=== PATIENT | male | born 1965 | race Caucasian/White ===

== ENCOUNTER → 2016-08-11 | Outpatient (CLI) | payer BC ==
[~2016-08-11] MED LIST: ASPI81TA28 PO; INSPMPHMLG; LISI-725 PO; METF1TAB53 PO; MULT-506 PO; NXM/40 PO; PRAV20TA PO
== END | disposition home or self-care (01) ==
LOC: C.RDSM 09:54
PROVIDERS: ATTEND Orthopaedic Surgery Sports Medicine
DX: M65.30 Trigger finger, unspecified finger (principal)

== ENCOUNTER → 2016-10-19 | Day surgery (SDC) | payer BC ==
[2016-09-22 14:37] VITALS: Ht 177.8 cm; Wt 127.3 kg
[2016-09-30 12:32] LABS: HEMATOCRIT 45.7 % (42-52); MEAN CELL VOLUME 89.6 fL (80-100); MEAN CORPUSCULAR HGB CONC 33.5 g/dl (32-36); MEAN PLATELET VOLUME 9.4 fL (7.4-10.4); PLATELET COUNT 261 K/uL (130-400); WHITE BLOOD COUNT 4.94 K/uL (4.8-10.8)
[2016-09-30 12:40] LABS: CREATININE 0.91 mg/dl (0.60-1.40); POTASSIUM 4.6 mmol/L (3.5-5.1)
[~2016-10-19] VITALS: Ht 177.8 cm; Wt 127.3 kg
[~2016-10-19] MED LIST changes: +ATROPINE SULFATE 0.1 MG/ML 5ML SYR IV PRN; +BUPIVACAINE 0.5 % 5 MG/1 ML MPF 30ML VIAL ONE; +CEFAZOLIN 3000 MG/65 ML D5W 65 ML IV SCH; +DEXAMETHASONE SOD INJ 4 MG/ML VIAL ONE; +FENTANYL CITRATE INJ 50 MCG/1 ML 2 ML VIAL IV PRN; +FENTANYL CITRATE INJ 50 MCG/1 ML 2 ML VIAL ONE; +LACTATED RINGER'S 1000ML 1,000 ML IV SCH; +LIDOCAINE HCL 1% 20 ML VIAL ONE; +LIDOCAINE HCL 2% 2 ML VIAL (20MG/ML) ONE; +MIDAZOLAM HCL 1 MG/ML 2ML VIAL ONE; +MoRPHine SULFATE 2 MG/ML CARP IV PRN; +MoRPHine SULFATE 4 MG/ML 1 ML CARP\\VIAL IV PRN; +ONDANSETRON INJ 2 MG/ML 2 ML VIAL IV PRN; +ONDANSETRON INJ 2 MG/ML 2 ML VIAL ONE; +OXYCODONE/ACETAMINOPHEN 5-325 TAB PO PRN; +PROPOFOL IV EMULSION 10 MG/ML 20 ML VIAL IV ONE
--- NOTE | 2016-10-19 06:46 | History & Physical Bridge - SC ---
H&P Re-Evaluation Bridge Note: I have examined the patient, reviewed the History & Physical and in the interval since the performance of the History & Physical I have noted the following changes of clinical significance: No changes noted
--- NOTE | 2016-10-19 07:25 | [facility] Post Operative Brief Note ---
Immediate Operative Summary Operative Date Oct 19, 2016. Pre-Operative Diagnosis Right Trigger Thumb Post-Operative Diagnosis Same Procedure(s) Performed Right Trigger Thumb Open Release Surgeon Dr. Richard Firewood Cutter Surgeon(s) Esthela Brizuela PA-C Estimated Blood Loss 2ml Findings Same Fluids (cc crystalloids) 400 Specimens None Drains none Anesthesia local, sedation Complication(s) None Disposition Recovery Room / PACU
--- NOTE | 2016-10-19 07:54 | Discharge Instructions-SurgCtr ---
Discharge Instructions Date of Service Oct 19, 2016. Visit Reason for Visit: Right Trigger Thumb M65.311, Z01.818;Pre-Op Discharge Discharge Diagnosis / Problem: Status post right thumb trigger thumb release Discharge Goals Goal(s): Decrease discomfort, Improve function, Increase independence Medications Stopped Medications Name(s): METFORMIN LAST DOSE 10/17/16 Activity Recommendations Activity Limitations: per Instructions/Follow-up section May Resume Sexual Activity: when tolerated Shower/Bathe: may shower/bathe in 3 days Driving or Machine Use: Not while on narcotics Anesthesia . Post Anesthesia Instructions: If you have had General Anesthesia or IV Sedation: * Do not drive today. * Resume driving when surgeon permits. * Do not make important decisions or sign legal documents today. * Call surgeon for: 1. Temperature elevations greater than 101 degrees F. 2. Uncontrollable pain. 3. Excessive bleeding. 4. Persistent nausea and vomiting. 5. Medication intolerance (nausea, vomiting or rash). * For nausea and vomiting use only clear liquids such as: tea, soda, bouillon until nausea subsides, then gradually increase diet as tolerated. * If you have any concerns or questions, call your surgeon's office. If physician is unavailable and it is an emergency, call 911 or go to the nearest emergency room. . Instructions / Follow-Up Instructions / Follow-Up Dr. Richard in 10-15 days. PT in 2-3 days. Diet Recommendations Home Diet: resume previous diet Procedures Procedures Performed: Right Trigger Thumb Open Release Pending Studies Studies pending at discharge: no Medical Emergencies . Who to Call and When: Medical Emergencies: If at any time you feel your situation is an emergency, please call 911 immediately. . Non-Emergent Contact Non-Emergency issues call your: Surgeon Call Non-Emergent contact if: temperature is above 101.5, your pain is not controlled, wound has increased drainage, wound has increased redness . . "Provider Documentation" section prepared by Deangelo Richard. .
--- NOTE | 2016-10-19 07:55 | [facility] Operative Report ---
Operative Report Operative Date Oct 19, 2016. Pre-Operative Diagnosis Right Trigger Thumb Post-Operative Diagnosis Same Procedure(s) Performed Right Trigger Thumb Open Release Surgeon Dr. Richard Hydrometeorological Technician Surgeon(s) Dr. Vieira; oYhana Proctor PA-C Estimated Blood Loss minimal Findings Thickened A1 Ashley Fluids (cc crystalloids) 400 Specimens A. A-1 Ashley Right Thumb Drains n/a Anesthesia Local + sedation Complication(s) None Disposition Recovery Room / PACU (Stable) Implants n/a Indications The patient is a 51 year old male with a painful right trigger thumb that has not responded to conservative treatment. The patient understands the risks of surgery, which include but are not limited to: bleeding, infection, re-operation , damage to nerves and arteries, and continued pain. The patient understands all of these instructions and explanations, all of their questions have been satisfactorily addressed. The patient has elected to proceed with surgery and the informed consent was signed. Description of Procedure The patient was taken to the Operating Room and placed in the supine position on the operating table. After a multidisciplinary time-out was performed identifying my initials on the right thumb as the correct and operative limb, the patient agreed. Prior to the incision being made, 2 grams of intravenous Ancef were given. The right arm was prepped and draped in the usual Orthopaedic sterile fashion. A 50:50 mix of 1% Lidocaine and 0.5% Bupivacaine plain was injected along the planned incision and into the tendon sheath. After the local anesthetic had taken affect, a small 1.5 cm incision was made just proximal to her thumb doyle crease. The digital nerves were protected throughout. This was bluntly carried down to the A1 ashley of the right thumb. The A1 ashley was incised and a small portion was excised for sample. The tendon then glided without catching or locking. The patient was asked to move flex his thumb and there was no catching or locking. The wound and tendon sheath were copiously irrigated. The skin was closed with 4-0 Nylon. The incision was covered with Xeroform, 4x4's, sterile cast padding and an ANDRE. The sponge and needle counts were correct. I attest to the content of the Intraoperative Record and any orders documented therein. Any exceptions are noted below.
--- NOTE | 2016-10-19 07:59 | [facility] Operative Report ---
Operative Report Operative Date Oct 19, 2016. Pre-Operative Diagnosis Right Trigger Thumb Post-Operative Diagnosis Same Procedure(s) Performed Right Trigger Thumb Open Release Surgeon Dr. Richard Crm Campaign Manager Surgeon(s) Esthela Brizuela PA-C Estimated Blood Loss 2ml Findings same Fluids (cc crystalloids) 400 Specimens A. A-1 Topher Right Thumb Drains none Anesthesia local, sedation Complication(s) None Disposition Recovery Room / PACU Implants none Indications continued pain and triggering right thumb, surgery recommended, consents signed Description of Procedure taken to the OR, prepped and draped, I was present the entire case, please see Dr. Richard's op note for further detail. I attest to the content of the Intraoperative Record and any orders documented therein. Any exceptions are noted below.
[2016-10-19 08:10] VITALS: TEMP 36.5
[2016-10-19 08:32] VITALS: BP 138/84; PULSE 80; O2SAT 94
--- NOTE | 2016-10-19 08:38 | Anesthesia Progress Nt - [facility] ---
Anesthesia Post Op Note Date & Time Oct 19, 2016 at 08:38 Vital Signs Vital Signs Past 12 Hours Date Time Temp Pulse Resp B/P (MAP) Pulse Ox O2 Delivery O2 Flow Rate FiO2 10/19/16 08:32 80 16 138/84 (102) 94 Room Air 10/19/16 08:10 36.5 80 16 130/85 (100) 94 Room Air 10/19/16 06:25 36.5 89 16 141/97 (112) 95 Room Air Notes Mental Status: alert / awake / arousable, participated in evaluation Pt Amnestic to Procedure: Yes Nausea / Vomiting: adequately controlled Pain: adequately controlled Airway Patency, RR, SpO2: stable & adequate BP & HR: stable & adequate Hydration State: stable & adequate Anesthetic Complications: no major complications apparent
== END | disposition home or self-care (01) ==
LOC: X.SURG 06:14
PROVIDERS: ATTEND Orthopaedic Surgery Sports Medicine
DX: M65.311 Trigger thumb, right thumb (principal); K21.9 Gastro-esophageal reflux disease without esophagitis; E11.9 Type 2 diabetes mellitus without complications; E78.5 Hyperlipidemia, unspecified; I10 Essential (primary) hypertension; Z79.4 Long term (current) use of insulin; Z79.82 Long term (current) use of aspirin

== ENCOUNTER 2020-03-04 12:29 | Inpatient (IN) ==
[2020-03-04] MEDS ORDERED: SODIUM CHLORIDE 0.9% 1000ML 1,000 ML IV ONE (13:01)
--- NOTE | 2020-03-04 13:05 | Emergency Department Note ---
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 He tested positive for coronavirus last Wednesday. His symptoms started on Wednesday with a cough and shortness of breath. He denies any chest pain. Admits to mild diffuse abdominal pain. No nausea or vomiting. He denies any diarrhea. Last bowel movement was within the past 24 hours but notes there has been less stool per bowel movement. He has not been eating or drinking for the past several days. Denies any fevers. No other exacerbating or remitting factors. ROS: See above HPI for pertinent positives & negatives. A total of 10 systems reviewed and were otherwise negative. PAST MEDICAL HISTORY:See Below PAST SURGICAL HISTORY:See Below FAMILY HISTORY:See Below SOCIAL HISTORY:See Below HOME MEDICATIONS:See Below ALLERGIES:See Below VITALS:See Below PHYSICAL EXAMINATION: GENERAL: Sitting up in bed, alert, obese, on nasal cannula EYE EXAM: normal conjunctiva. PERRL and EOM's grossly intact. OROPHARYNX: mask in place NECK: supple, no nuchal rigidity, no adenopathy, non-tender LUNGS: Diminished bilaterally. Normal chest wall mechanics HEART: no murmurs, S1 normal and S2 normal ABDOMEN: abdomen soft, non-tender, normo-active bowel sounds, no masses, no rebound or guarding. UPPER EXTREMITIES: upper extremities are grossly normal. LOWER EXTREMITIES: No pitting edema. NEURO EXAM: Normal sensorium, cranial nerves II-XII grossly intact, normal speech, no gross weakness of arms, no gross weakness of legs. MEDICAL DECISION MAKING: Patient is a 54-year-old male who is Covid positive the presents the ER for shortness of breath. Upon presentation he is found to be hypoxic at 86% on room air. He was placed on nasal cannula. IV was established blood work was obtained. Labs showed mild leukopenia 4000. No significant anemia. INR unre markable. D-dimer was elevated at 580. BMP with a sodium of 127. Glucose slightly elevated at 200. LFTs bilirubin was fairly unremarkable. Troponin was checked was 0.024. Lipase was normal. This x-ray with bilateral infiltrates. CT angio with a positive D-dimer confirms bilateral infiltrates but no PEs. Patient remained on nasal cannula. He was updated bedside. Discussed with the hospitalist admitted for Covid, hypoxia and multifocal pneumonia. He was given IV steroids, Zithromax and Rocephin. He was also given IV fluids. Triage Nursing notes reviewed. Prior medical records reviewed Vital Signs: reviewed and remarkable for hypoxia and tachycardia Differential diagnosis: Differential diagnoses includes but is not limited to pneumonia, bronchitis, COPD/Asthma exacerbation, pneumothorax, pulmonary embolism, congestive heart f ailure, acute coronary syndrome ER treatment provided: See below Diagnostics interpreted by me: ECG: Sinus tachycardia rate of 107 Normal axis No PVCs QTC 429 Cardiac Monitoring: An order was placed for continuous cardiac monitoring. The monitor shows a rate of 110 with sinus rhythm. Laboratory studies: As stated above and show below. Imaging studies: CT Angio of the chest shows multifocal pneumonia without any clear PEs Chest x-ray showed multifocal pneumonia Consultation(s): Discussed with Dr. Te conde for admission ED COURSE: Procedures: none Critical Care: I have personally spent 35 minutes of critical care time in the direct management of this patient. This includes bedside care, interpretation of diagnostic studies, and testing, discussion with consultants, patient, and family members, and other required patient management activities. This 35 minutes is in excess of all separately billable procedures. 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 How many Children do You have: 0 Feels Safe at Home: Yes Allergies Allergies Allergy/AdvReac Type Severity Reaction Status Date / Time naproxen Allergy Unknown EDEMA Verified 07/17/17 06:22 Sulfa (Sulfonamide Allergy Unknown "VIOLENTLY Verified 10/19/16 06:22 Antibiotics) ILL" Home Meds Home Medications Medication Instructions Recorded Confirmed aspirin 81 mg PO DAILY 03/04/20 03/04/20 budesonide-formoterol [Symbicort] 0 inh INHALATION DAILY 03/04/20 03/04/20 esomeprazole magnesium 40 mg PO QAM 03/04/20 03/04/20 insulin lispro [Humalog U-100 0 unit SUBCUT UD 03/04/20 03/04/20 Insulin] ipratropium bromide 0 spray INTRANASAL UD 03/04/20 03/04/20 lisinopril 40 mg PO DAILY 03/04/20 03/04/20 losartan 100 mg PO DAILY 03/04/20 03/04/20 metformin 1,000 mg PO BID 03/04/20 03/04/20 multivitamin 1 tab PO QAM 03/04/20 03/04/20 promethazine-codeine 10 ml PO HS PRN 03/04/20 03/04/20 rosuvastatin 20 mg PO DAILY 03/04/20 03/04/20 Results & Data (ED) Vital Signs Vital Signs - 24 hr 03/04/20 12:35 03/04/20 13:18 03/04/20 13:30 Temperature 36.8 C Temperature Source Skin Pulse Rate 114 H 107 H 109 H Pulse Rate from SpO2 Sensor 108 H Respiratory Rate 22 27 H 34 H Respiratory Effort / Characteristics Non-Labored Spontaneous Respiratory Depth Normal Respiratory Pattern Regular Blood Pressure Blood Pressure Mean Pulse Oximetry 87 L 94 Oxygen Delivery Method Room Air Nasal Cannula Oxygen Flow Rate 4 Sepsis Recent Fever Within 48 Hours No Sepsis New/Unexplained Change in Mental Status N/A Sepsis Action Taken by Nursing No Action Required Oxygen Flow Rate - Titration 4 Pulse Oximetry Post Tiitration 95 03/04/20 13:54 03/04/20 14:00 03/04/20 14:01 Temperature Temperature Source Pulse Rate 107 H 106 H 105 H Pulse Rate from SpO2 Sensor 105 H 106 H 102 H Respiratory Rate 35 H 30 H 25 H Respiratory Effort / Characteristics Respiratory Depth Respiratory Pattern Blood Pressure 170/88 H 163/110 H Blood Pressure Mean 128 128 Pulse Oximetry 95 95 Oxygen Delivery Method Nasal Cannula Nasal Cannula Oxygen Flow Rate 4 4 Sepsis Recent Fever Within 48 Hours Sepsis New/Unexplained Change in Mental Status Sepsis Action Taken by Nursing Oxygen Flow Rate - Titration Pulse Oximetry Post Tiitration Laboratory Data Result diagrams: 03/04/20 13:24 03/04/20 13:24 Lab Results 03/04/20 03/04/20 03/04/20 Range/Units 13:24 13:24 13:24 WBC 4.04 L (4.8-10.8) K/uL RBC 4.93 (4.7-6.1) M/uL Hgb 14.6 (14.0-18.0) g/dL Hct 42.8 (42-52) % MCV 86.8 (80-100) fL MCH 29.6 (25-34) pg MCHC 34.1 (32-36) g/dL RDW Std Deviation 41.8 (36.4-46.3) fL RDW Coeff of Julian 13.0 (11.5-14.5) % Plt Count 168 (130-400) K/uL MPV 9.6 (7.4-10.4) fL Immature Gran % (Auto) 0.2 % Neut % (Auto) 76.1 % Lymph % (Auto) 12.1 % Owsley % (Auto) 11.4 % Eos % (Auto) 0.0 % Baso % (Auto) 0.2 % Neut # (Auto) 3.07 (1.4-6.5) K/uL Lymph # (Auto) 0.49 L (1.2-3.4) K/uL Owsley # (Auto) 0.46 (0.11-0.59) K/uL Eos # (Auto) 0.00 (0-0.5) K/uL Baso # (Auto) 0.01 (0-0.2) K/uL Immature Gran # (Auto) 0.01 (0.00-0.02) K/uL PT 10.9 (9.0-12.0) Seconds INR 1.0 (0.9-1.1) APTT 30.8 (21.0-31.0) Seconds PTT Ratio 1.1 D-Dimer 580 H* (0-500) ug/L FEU Sodium 127 L (136-145) mmol/L Potassium 4.5 (3.5-5.1) mmol/L Chloride 92 L (98-107) mmol/L Carbon Dioxide 28 (21-32) mmol/L Anion Gap 7.0 (3-11) BUN 19 H (7-18) mg/dl Creatinine 0.99 (0.6-1.4) mg/dl Est Cr Clr Drug Dosing 119.0 ml/min Est GFR ( Amer) 98.3 Est GFR (Non-Af Amer) 84.8 BUN/Creatinine Ratio 19.2 (10-20) Glucose 203 H (70-99) mg/dl POC Glucose (70-99) mg/dl Calcium 9.6 (8.5-10.1) mg/dl Total Bilirubin 0.7 (0.2-1) mg/dl AST 66 H (15-37) U/L ALT 54 (12-78) U/L Alkaline Phosphatase 60 (45-117) U/L Troponin I 0.024 (0-0.045) ng/ml Total Protein 7.4 (6.4-8.2) gm/dl Albumin 3.2 L (3.4-5.0) gm/dl Globulin 4.2 H (2.5-4.0) gm/dl Albumin/Globulin Ratio 0.8 L (0.9-2) Lipase 83 (73-393) U/L 11/30/20 Range/Units 13:30 WBC (4.8-10.8) K/uL RBC (4.7-6.1) M/uL Hgb (14.0-18.0) g/dL Hct (42-52) % MCV (80-100) fL MCH (25-34) pg MCHC (32-36) g/dL RDW Std Deviation (36.4-46.3) fL RDW Coeff of Julian (11.5-14.5) % Plt Count (130-400) K/uL MPV (7.4-10.4) fL Immature Gran % (Auto) % Neut % (Auto) % Lymph % (Auto) % Owsley % (Auto) % Eos % (Auto) % Baso % (Auto) % Neut # (Auto) (1.4-6.5) K/uL Lymph # (Auto) (1.2-3.4) K/uL Owsley # (Auto) (0.11-0.59) K/uL Eos # (Auto) (0-0.5) K/uL Baso # (Auto) (0-0.2) K/uL Immature Gran # (Auto) (0.00-0.02) K/uL PT (9.0-12.0) Seconds INR (0.9-1.1) APTT (21.0-31.0) Seconds PTT Ratio D-Dimer (0-500) ug/L FEU Sodium (136-145) mmol/L Potassium (3.5-5.1) mmol/L Chloride (98-107) mmol/L Carbon Dioxide (21-32) mmol/L Anion Gap (3-11) BUN (7-18) mg/dl Creatinine (0.6-1.4) mg/dl Est Cr Clr Drug Dosing ml/min Est GFR ( Amer) Est GFR (Non-Af Amer) BUN/Creatinine Ratio (10-20) Glucose (70-99) mg/dl POC Glucose 215 H (70-99) mg/dl Calcium (8.5-10.1) mg/dl Total Bilirubin (0.2-1) mg/dl AST (15-37) U/L ALT (12-78) U/L Alkaline Phosphatase (45-117) U/L Troponin I (0-0.045) ng/ml Total Protein (6.4-8.2) gm/dl Albumin (3.4-5.0) gm/dl Globulin (2.5-4.0) gm/dl Albumin/Globulin Ratio (0.9-2) Lipase (73-393) U/L Administered Medications Discontinued Medications Azithromycin (Azithromycin 250 Mg Tab) 500 mg PO NOW ONE Stop: 03/04/20 14:21 Last Admin: 03/04/20 14:59 Dose: 500 mg Documented by: [id number] Dexamethasone (Dexamethasone Sod Inj 10 Mg/Ml Vial) 6 mg IV NOW ONE Stop: 03/04/20 14:51 Last Admin: 03/04/20 14:59 Dose: 6 mg Documented by: [id number] Sodium Chloride (Nss 1000ml) 1,000 mls @ 999 mls/hr IV .Q1H1M ONE Stop: 03/04/20 14:01 Last Infusion: 03/04/20 14:23 Dose: 0 mls/hr Documented by: [id number] Admin: 03/04/20 13:27 Dose: 999 mls/hr Documented by: [id number] Ceftriaxone Sodium (Rocephin) 1,000 mg in 50 mls @ 100 mls/hr IV NOW STA Stop: 03/04/20 14:49 Last Infusion: 03/04/20 15:41 Dose: 0 mls/hr Documented by: [id number] Admin: 03/04/20 14:59 Dose: 100 mls/hr Documented by: [id number] Discharge Plan Visit Data Chief Complaint: Dehydration Stated Complaint: +COVID,DEHYDRATED,DIABETIC,DOC REFER ED Provider: Mukund Fan Discharge Problem: Pneumonia due to COVID-19 virus, Morbid obesity, Hypoxia Forms Stand Alone Forms: [facility] Prescriptions Prescriptions: No Action multivitamin Tablet 1 tab PO QAM RF: 0 promethazine-codeine 6.25-10 mg/5 mL syrup 10 ml PO HS PRN (Reason: Cough) RF: 0 esomeprazole magnesium 40 mg capsule,delayed release(DR/EC) 40 mg PO QAM RF: 0 insulin lispro [Humalog U-100 Insulin] 100 unit/mL solution 0 unit subcut UD RF: 0 lisinopril 40 mg tablet 40 mg PO DAILY RF: 0 losartan 100 mg tablet 100 mg PO DAILY RF: 0 metformin 500 mg tablet extended release 24 hr 1,000 mg PO BID RF: 0 ipratropium bromide 0.03 % spray,non-aerosol 0 spray INTRANASAL UD RF: 0 rosuvastatin 20 mg tablet 20 mg PO DAILY RF: 0 budesonide-formoterol [Symbicort] 80-4.5 mcg/actuation HFA aerosol inhaler 0 inh INHALATION DAILY RF: 0 aspirin 81 mg Tablet,Delayed Release (Dr/Ec) 81 mg PO DAILY RF: 0
--- NOTE | 2020-03-04 13:36 | XRay Report ---
SINGLE VIEW CHEST CLINICAL HISTORY: Atypical chest pain. FINDINGS: An AP, portable, upright chest radiograph is compared to study dated 01/27/2020. The examin ation is degraded by portable technique and large body habitus. The heart is top normal for projectio n. There is multifocal bilateral airspace consolidation. No large pleural effusion or pneumothorax is seen. The bony thorax is grossly intact. IMPRESSION: There is multifocal bilateral airspace consolidation, typical for an infectious/inflammat ory pneumonitis. Clinical correlation will be required and radiographic follow-up to resolution is re commended. ACT 112: Negative or not required by law. Electronically signed by: Surjit Veliz M.D. 03/04/2020 1:34 PM
[2020-03-04 13:49] LABS: Basophils # (auto) 0.01 K/uL (0-0.2); Basophils % (auto) 0.2 %; Hematocrit (blood only) 42.8 % (42-52); Hemoglobin 14.6 g/dL (14.0-18.0); Immature Granulocytes # (auto) 0.01 K/uL (0.00-0.02); Immature Granulocytes % (auto) 0.2 %; Lymphocytes # (auto) 0.49 K/uL (1.2-3.4); Lymphocytes % (auto) 12.1 %; Mean Corpuscular Hemoglobin 29.6 pg (25-34); Mean Corpuscular Hgb Conc 34.1 g/dL (32-36); Mean Corpuscular Volume 86.8 fL (80-100); Mean Platelet Volume 9.6 fL (7.4-10.4); Monocytes # (auto) 0.46 K/uL (0.11-0.59); Monocytes % (auto) 11.4 %; Neutrophils # (auto) 3.07 K/uL (1.4-6.5); Neutrophils % (auto) 76.1 %; Platelet Count 168 K/uL (130-400); RDW Standard Deviation 41.8 fL (36.4-46.3); Red Blood Count 4.93 M/uL (4.7-6.1); White Blood Count 4.04 K/uL (4.8-10.8)
[2020-03-04 13:59] LABS: Albumin Level 3.2 gm/dl (3.4-5.0); BUN Creatinine Ratio 19.2 (10-20); Calcium 9.6 mg/dl (8.5-10.1); Est GFR (African American) 98.3; Est GFR (Non-African American) 84.8; Potassium 4.5 mmol/L (3.5-5.1)
[2020-03-04 14:04] LABS: Albumin Globulin Ratio 0.8 (0.9-2); Bilirubin,Total 0.7 mg/dl (0.2-1); Globulin 4.2 gm/dl (2.5-4.0); Total Protein 7.4 gm/dl (6.4-8.2); Troponin I 0.024 ng/ml (0-0.045)
[2020-03-04 14:05] LABS: Partial Thromboplastin Ratio 1.1; Partial Thromboplastin Time 30.8 Seconds (21.0-31.0); Prothrombin Time 10.9 Seconds (9.0-12.0)
[2020-03-04 14:07] LABS: D Dimer 580 ug/L FEU (0-500)
[2020-03-04] MEDS ORDERED: cefTRIAXone SODIUM 1,000 MG/50 ML BAG IV STA (14:20)
[2020-03-04] MEDS ORDERED: AZITHROMYCIN 250 MG TAB PO ONE (14:20)
[2020-03-04] MEDS ORDERED: DEXAMETHASONE SOD INJ 10 MG/ML VIAL IV ONE (14:50)
--- NOTE | 2020-03-04 14:59 | CT Scan Report ---
CHEST CTA for PULMONARY ARTERIES CT DOSE: 544.20 mGycm HISTORY: Shortness of breath. Positive coronavirus. TECHNIQUE: Multiaxial CT images of the chest were performed following the intravenous administration of contrast to evaluate the pulmonary arteries. Maximal intensity projection images were also obtaine d. A dose lowering technique was utilized adhering to the principles of ALARA. COMPARISON STUDY: Chest 03/04/2020. FINDINGS: Normal caliber thoracic aorta with no evidence for dissection. Suboptimal evaluation of the pulmonary arteries due to the motion artifact. Specifically, the majority of the segmental and subse gmental pulmonary arteries are nondiagnostic due to the motion artifact. The main and lobar pulmonary arteries are patent. The heart is normal in size. No pleural or pericardial effusions. Hepatic steat osis. The adrenal glands and visualized spleen are unremarkable. Mediastinal lymphadenopathy. Dominan t right paratracheal lymph node measures 2 cm in short axis diameter. This is likely reactive. Normal caliber esophagus. No suspicious lytic or blastic osseous lesions. The central airways are patent. T he distal bronchi are obscured by the motion artifact. Extensive bilateral patchy groundglass airspac e opacities. This is consistent with a viral pneumonia. IMPRESSION: 1. No evidence for central pulmonary embolus with limitations as described above. 2. Extensive bilateral patchy groundglass airspace opacities. This is consistent with a viral pneumon ia. 3. Mediastinal lymphadenopathy. This is likely reactive to the pneumonia. ACT 112: Negative or not required by law. Electronically signed by: Jeison Restrepo M.D. 03/04/2020 2:57 PM
--- NOTE | 2020-03-04 15:36 | History & Physical Report ---
Date of Service March 04, 2020 Assessment & Plan (1) Acute respiratory failure with hypoxia: 2nd to COVID-19 pneumonia. Supportive care, NC O2 to keep O2 sats 92-95%, etc. Pulmonary toilet. (2) Pneumonia due to COVID-19 virus: Severe, extensive on imaging. Significant cough, dyspnea, wheezing present. At risk of progressive disease in light of clinical picture, obesity, T2DM, etc. Treat with IV remdesivir x 5 days, IV/PO decadron 6mg daily x 10 days, and convalescent plasma. FDA information sheet on plasma given. Blood consent obtained. Transfuse when available. Patient has had cough since January - can't rule out underlying, chronic obstructive disease; sinus issues; etc. Reasonable to continue IV rocephin and zithromax for possibility of bacterial pneumonia/superinfection. Procal, however, noted to be normal. Due to severe wheezing place on combivent 1 puff qid. Pulmonary toilet with mucinex, incentive marek, and flutter valve. Homatropine/hydrocodone prn for severe coughing fits. Recheck dimer in AM. Fortunately no PE on today's imaging. (3) Hyponatremia: Appears volume depleted. NS hydration overnight; repeat BMP am. (4) Morbid obesity: BMI 45 (5) Rhabdomyolysis due to COVID-19: Mild. Hydrate, repeat CPK am. (6) Hyperlipidemia: AST and CPK both mildly elevated. Hold crestor for now. Trend AST and CPK. Hydrate. (7) Essential (primary) hypertension: Patient on both ANDRE and ARB. Cont the ANDRE; hold the ARB. Adjust meds as needed. (8) Type 2 diabetes mellitus: Consult pharmacy for glycemic management. Is on pump at home. Hold metformin. Check a1c while here. T2DM. BSGs ac/hs. (9) Sarcoidosis: remote history. dx . in remission. no signs of such on imaging although does have mediastinal lymphadenopathy. the latter could be reactive to COVID, however. (10) DVT prophylaxis: high risk of VTE while hospitalized thus, lovenox 0.5mg/kg/dose BID extensively updated by phone History of Present Illness Chief Complaint: cough, COVID+, dyspnea Primary Care Provider: Ferdinand Kirkpatrick MD 54yo male with T2DM on insulin pump, remote h/o sarcoid in remission, HTN, and morbid obesity presents with COVID symptoms going back to Wednesday/Wednesday of last week. 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 Last Wednesday he tested positive for the first time. He had been struggling with a cough dating back to mid-January- unresponsive to antibiotics - but began to feel much worse on Wednesday before Thanks. Denies any fever or chills but has had significant loss of appetite, cough, worsening dyspnea, sputum production, upper abdominal discomfort with cough, and chest tightness. No loss of taste or smell. No sore throat. Some body aches. The sputum production late last week was copious. He doesn't have a formal diagnosis of asthma but he states he "gets sick every fall with a respiratory illness." On his medication list he has symbicort listed as home med however he states that he doesn't take it regularly. Denies having a formal diagnosis of asthma/COPD. Did have PFTs but it was decades ago about the time of his sarcoid diagnosis (). Allergies Allergy/AdvReac Type Severity Reaction Status Date / Time naproxen Allergy Unknown EDEMA Verified 10/19/16 06:22 Sulfa (Sulfonamide Allergy Unknown "VIOLENTLY Verified 10/19/16 06:22 Antibiotics) ILL" Home Medications Medication Instructions Recorded Confirmed Type aspirin 81 mg PO DAILY 03/04/20 03/04/20 History budesonide-formoterol [Symbicort] 0 inh INHALATION DAILY 03/04/20 03/04/20 History esomeprazole magnesium 40 mg PO QAM 03/04/20 03/04/20 History insulin lispro [Humalog U-100 0 unit SUBCUT UD 03/04/20 03/04/20 History Insulin] ipratropium bromide 0 spray INTRANASAL UD 03/04/20 03/04/20 History lisinopril 40 mg PO DAILY 03/04/20 03/04/20 History losartan 100 mg PO DAILY 03/04/20 03/04/20 History metformin 1,000 mg PO BID 03/04/20 03/04/20 History multivitamin 1 tab PO QAM 03/04/20 03/04/20 History promethazine-codeine 10 ml PO HS PRN 03/04/20 03/04/20 History rosuvastatin 20 mg PO DAILY 03/04/20 03/04/20 History Past Med/Surg History Medical History (Updated 03/05/20 @ 06:37 by Te Sharif) Essential (primary) hypertension Hyperlipidemia Sarcoidosis Diagnosed ; currently in remission Type 2 diabetes mellitus Surgical History (Updated 03/04/20 @ 16:29 by Te Sharif) No pertinent past surgical history Family History (Updated 03/04/20 @ 16:30 by Te Sharif) Father Congestive heart failure Mother Bowel obstruction Social History (Updated 03/04/20 @ 16:30 by Te Sharif) Smoking Status: Never smoker Hx Alcohol Use: No Hx Substance Use: No Preferred Language: Yi Communication Ability: Effective Director Of Community Services Required: No Beliefs That Will Affect Care: None marital status: Current Living Situation: Spouse current occupational status: employed 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 How many Children do You have: 0 Other Information That Helps Us Care for You: No Feels Safe at Home: Yes Safety Concerns: Feels Safe At This Time Assistive Devices: None Review of Systems Constitutional: + body aches, + fatigue, + weakness and + anorexia; no fever and no chills Eyes: no worsening vision Ear, Nose, Mouth, Throat: no sore throat Respiratory: + cough, + dyspnea, + dyspnea on exertion, + sputum production and + wheezing Cardiovascular: + chest pain; no edema Gastrointestinal: + abdominal pain Genitourinary: no dysuria Musculoskeletal: + myalgia Integumentary: no rash Neurologic: + generalized weakness Psychiatric: no anxiety Endocrine: DM - followed by Taniya Longo in [facility]; has pump in place Hematologic / Lymphatic: no easy bleeding Physical Exam Constitutional: + acute distress and + morbidly obese; no altered mental status Eyes: PERRL ENMT: external ear and nose normal, oropharynx normal Neck: trachea midline, no thyromegaly Respiratory: + cough (Severe ) Auscultation: + crackles (B/l, 1/2 way up back) and + wheezes Cardiovascular: Rate/Rhythm: regular rhythm and + tachycardic Heart Sounds: normal S1 and normal S2; no murmur Vessels: posterior tibial pulses present and dorsalis pedis pulses present; no JVD Extremities: + edema (Trace b/l ) Gastrointestinal (Abdomen): normal bowel sounds, soft, nontender, no hepatosplenomegaly Inspection/Auscultation: + abdomen distended (Mild; insulin pump in place) Musculoskeletal: no cyanosis or clubbing, extremities motor strength 5/5 Skin: stasis changes b/l shins Neurologic: moves all extremities; no focal motor deficits Psychiatric: Orientation: alert and oriented x 3 Lymphatic: no cervical lymphadenopathy Results & Data Results & Data ([facility]) Vital Signs (Past 12 Hours) Vital Signs Temp Pulse Resp BP Pulse Ox 03/04/20 14:01 105 H 25 H 03/04/20 14:00 106 H 30 H 163/110 H 95 03/04/20 13:54 107 H 35 H 170/88 H 95 03/04/20 13:30 109 H 34 H 94 03/04/20 13:18 107 H 27 H 03/04/20 12:35 36.8 C 114 H 22 87 L Laboratory Results Laboratory Results - last 24 hr 03/04/20 03/04/20 03/04/20 13:24 13:24 13:24 WBC 4.04 L RBC 4.93 Hgb 14.6 Hct 42.8 MCV 86.8 MCH 29.6 MCHC 34.1 RDW Std Deviation 41.8 RDW Coeff of Julian 13.0 Plt Count 168 MPV 9.6 Immature Gran % (Auto) 0.2 Neut % (Auto) 76.1 Lymph % (Auto) 12.1 [place] % (Auto) 11.4 Eos % (Auto) 0.0 Baso % (Auto) 0.2 Neut # (Auto) 3.07 Lymph # (Auto) 0.49 L [place] # (Auto) 0.46 Eos # (Auto) 0.00 Baso # (Auto) 0.01 Immature Gran # (Auto) 0.01 PT 10.9 INR 1.0 APTT 30.8 PTT Ratio 1.1 D-Dimer 580 H* Sodium 127 L Potassium 4.5 Chloride 92 L Carbon Dioxide 28 Anion Gap 7.0 BUN 19 H Creatinine 0.99 Est Cr Clr Drug Dosing 119.0 Est GFR ( Amer) 98.3 Est GFR (Non-Af Amer) 84.8 BUN/Creatinine Ratio 19.2 Glucose 203 H POC Glucose Calcium 9.6 Total Bilirubin 0.7 AST 66 H ALT 54 Alkaline Phosphatase 60 Total Creatine Kinase Troponin I 0.024 Total Protein 7.4 Albumin 3.2 L Globulin 4.2 H Albumin/Globulin Ratio 0.8 L Lipase 83 Procalcitonin Blood Type Antibody Screen 03/04/20 03/04/20 03/04/20 13:24 13:29 13:30 WBC RBC Hgb Hct MCV MCH MCHC RDW Std Deviation RDW Coeff of Julian Plt Count MPV Immature Gran % (Auto) Neut % (Auto) Lymph % (Auto) [place]ville % (Auto) Eos % (Auto) Baso % (Auto) Neut # (Auto) Lymph # (Auto) [place]ville # (Auto) Eos # (Auto) Baso # (Auto) Immature Gran # (Auto) PT INR APTT PTT Ratio D-Dimer Sodium Potassium Chloride Carbon Dioxide Anion Gap BUN Creatinine Est Cr Clr Drug Dosing Est GFR ( Amer) Est GFR (Non-Af Amer) BUN/Creatinine Ratio Glucose POC Glucose 215 H Calcium Total Bilirubin AST ALT Alkaline Phosphatase Total Creatine Kinase 657 H Troponin I Total Protein Albumin Globulin Albumin/Globulin Ratio Lipase Procalcitonin 0.10 Blood Type Antibody Screen 03/04/20 03/04/20 17:10 21:35 WBC RBC Hgb Hct MCV MCH MCHC RDW Std Deviation RDW Coeff of Julian Plt Count MPV Immature Gran % (Auto) Neut % (Auto) Lymph % (Auto) Granville % (Auto) Eos % (Auto) Baso % (Auto) Neut # (Auto) Lymph # (Auto) [place]ville # (Auto) Eos # (Auto) Baso # (Auto) Immature Gran # (Auto) PT INR APTT PTT Ratio D-Dimer Sodium Potassium Chloride Carbon Dioxide Anion Gap BUN Creatinine Est Cr Clr Drug Dosing Est GFR ( Amer) Est GFR (Non-Af Amer) BUN/Creatinine Ratio Glucose POC Glucose 111 H Calcium Total Bilirubin AST ALT Alkaline Phosphatase Total Creatine Kinase Troponin I Total Protein Albumin Globulin Albumin/Globulin Ratio Lipase Procalcitonin Blood Type A Positive Antibody Screen NEGATIVE Diagnostic Findings CTA chest - IMPRESSION: 1. No evidence for central pulmonary embolus with limitations as described above. 2. Extensive bilateral patchy groundglass airspace opacities. This is consistent with a viral pneumonia. 3. Mediastinal lymphadenopathy. This is likely reactive to the pneumonia. EKG - sinus tach, no ST changes, no changes from prior EKG Code Status & VTE Plan Code Status full VTE Prophylaxis Plan VTE Prophylaxis will be ordered: Yes PG Care Time/CCT Total # of Minutes Spent Total Time Spent with Patient: Total time spent is greater than 50% in coordination of care (as documented) at patient's floor/unit and/or counseling patient: Coding Level of Care Code 11114 Initial Inpt Care Lvl 3 Diagnoses Acute respiratory failure with hypoxia J96.01 Pneumonia due to COVID-19 virus U07.1; J12.89 Hyponatremia E87.1 Morbid obesity E66.01 Rhabdomyolysis due to COVID-19 U07.1; M62.82 Hyperlipidemia E78.5 Essential (primary) hypertension I10 Type 2 diabetes mellitus E11.9 Sarcoidosis D86.9 DVT prophylaxis Z29.9
--- NOTE | 2020-03-04 16:26 | Electrocardiogram Report ---
Test Reason : Blood Pressure : / mmHG Vent. Rate : 107 BPM Atrial Rate : 107 BPM P-R Int : 162 ms QRS Dur : 078 ms QT Int : 322 ms P-R-T Axes : 032 058 023 degrees QTc Int : 429 ms Sinus tachycardia Otherwise normal ECG When compared with ECG of 30-SEP-2016 10:55, No significant change was found Confirmed by Shawn Hall ([id number]) on 03/04/2020 4:26:07 PM Referred By: Confirmed By:Yoel Hall
[2020-03-04] MEDS ORDERED: ONDANSETRON INJ 2 MG/ML 2 ML VIAL IV PRN (20:09)
[2020-03-04] MEDS ORDERED: ACETAMINOPHEN 325 MG TAB PO PRN (20:09)
[2020-03-04] MEDS ORDERED: IPRATROPIUM BROMIDE/ALBUTEROL respimat INH INH SCH (20:09)
[2020-03-04] MEDS ORDERED: HYDROcodone/HOMATROPINE SYRUP 5MG/1.5MG 5ML UDP PO PRN (20:09)
[2020-03-04] MEDS ORDERED: PHARMACY GLYCEMIC MGMT CONSULT PRN (20:20)
[2020-03-04] MEDS: IPRATROPIUM BROMIDE HFA INHALER INH SCH (20:46)
[2020-03-04] MEDS: ALBUTEROL HFA 8 GM INHALER INH SCH (20:46)
[2020-03-04] MEDS ORDERED: REMDESIVIR 200 MG in SODIUM CHLORIDE 0.9% 210 ML IV ONE (21:00)
[2020-03-04] MEDS ORDERED: GLUCOSE 10 TABS/TUBE PO PRN (21:00)
[2020-03-04] MEDS ORDERED: GLUCAGON FOR INJ 1 MG VIAL SQ PRN (21:00)
[2020-03-04] MEDS ORDERED: GLUCOSE 40% GEL 15 GM TUBE PO PRN (21:00)
[2020-03-04] MEDS ORDERED: DEXTROSE 50% 50 ML SYRINGE IV PRN (21:00)
[2020-03-04] MEDS: SODIUM CHLORIDE 0.9% 10ML FLUSH IV SCH (21:51)
[2020-03-04] MEDS: ENOXAPARIN 80 MG/0.8 ML SYR SQ SCH (21:52)
[2020-03-04] MEDS: guaiFENesin 600 MG TABCR PO SCH (21:53)
[2020-03-04] MEDS: SODIUM CHLORIDE 0.9% 1000ML 1,000 ML IV SCH (21:55)
[2020-03-05 06:39] LABS: Hemoglobin 14.7 g/dL (14.0-18.0); Mean Corpuscular Hgb Conc 34.2 g/dL (32-36); Mean Corpuscular Volume 87.8 fL (80-100); Mean Platelet Volume 9.1 fL (7.4-10.4); Platelet Count 188 K/uL (130-400); RDW Coefficient of Variation 12.9 % (11.5-14.5); RDW Standard Deviation 41.6 fL (36.4-46.3); White Blood Count 3.28 K/uL (4.8-10.8)
[2020-03-05 06:50] LABS: D Dimer 470 ug/L FEU (0-500)
[2020-03-05 07:12] LABS: BUN Creatinine Ratio 19.8 (10-20); Calcium 9.3 mg/dl (8.5-10.1); Creatinine Clr Calc Pharmacy 163.7 ml/min; Est GFR (African American) 120.9; Est GFR (Non-African American) 104.3; Potassium 4.3 mmol/L (3.5-5.1)
[2020-03-05] MEDS: CARBOHYDRATES FOR HYPOGLYCEMIA PO PRN ×2 (07:18→07:53)
[2020-03-05] MEDS: ALBUTEROL HFA 8 GM INHALER INH SCH ×4 (07:39→19:50)
[2020-03-05] MEDS: IPRATROPIUM BROMIDE HFA INHALER INH SCH ×4 (07:39→19:51)
[2020-03-05] MEDS: dexAMETHasone 6 MG in SYRINGE 0 ML IV SCH (07:55)
[2020-03-05] MEDS: PANTOprazole 40 MG TAB PO SCH (07:56)
[2020-03-05] MEDS: lisinopril 40 MG TAB PO SCH (07:56)
[2020-03-05] MEDS: ASPIRIN 81 MG ECTAB PO SCH (07:56)
[2020-03-05] MEDS: ENOXAPARIN 80 MG/0.8 ML SYR SQ SCH ×2 (07:56→20:58)
[2020-03-05] MEDS: guaiFENesin 600 MG TABCR PO SCH ×2 (07:56→21:00)
[2020-03-05] MEDS: MULTIVITAMIN TAB PO SCH (07:56)
[2020-03-05] MEDS: SODIUM CHLORIDE 0.9% 1000ML 1,000 ML IV SCH (07:58)
[2020-03-05] MEDS: cefTRIAXone SODIUM 2,000 MG in DEXTROSE 5% 50 ML IV SCH (08:12)
--- NOTE | 2020-03-05 09:04 | Hospitalist Progress Note ---
Date of Service March 05, 2020 Assessment & Plan (1) Acute respiratory failure with hypoxia: 2nd to COVID-19 pneumonia. Supportive care, NC O2 to keep O2 sats 92-95%, etc. Pulmonary toilet. (2) Pneumonia due to COVID-19 virus: Severe, extensive on imaging. Escalated oxygen requirement to 13 L oxygen mask at this time will change to high flow At risk of progressive disease obesity, T2DM, etc. Treat with IV remdesivir x 5 days, IV/PO decadron 6mg daily x 10 days, and convalescent plasma. FDA information sheet on plasma given. Blood consent obtained. Transfused Patient has had cough since January - can't rule out underlying, chronic obst ructive disease; sinus issues; etc. Reasonable to continue IV rocephin and zithromax for possibility of bacterial pneumonia/superinfection. Procal, normal. Due to severe wheezing place on combivent 1 puff qid. Pulmonary toilet with mucinex, incentive marek, and flutter valve. Homatropine/hydrocodone prn for severe coughing fits. Repeat D-dimer is normal CK has gone up slightly whether this is a myositis of Covid is undetermined, holding statin at this time due to previous abnormal CK Fortunately no PE on today's imaging. (3) Hyponatremia: Appears volume depleted. NS hydration overnight; repeat BMP am. (4) Morbid obesity: BMI 45 (5) Rhabdomyolysis due to COVID-19: Mild. Hydrate, repeat CPK am. (6) Hyperlipidemia: AST and CPK both mildly elevated. Hold crestor for now. Trend AST and CPK. Hydrate. (7) Essential (primary) hypertension: Patient on both ANDRE and ARB. Cont the ANDRE; hold the ARB. Adjust meds as needed. (8) Type 2 diabetes mellitus: Consult pharmacy for glycemic management. Is on pump at home. Hold metformin. T2DM. BSGs ac/hs. (9) Sarcoidosis: remote history. dx . in remission. no signs of such on imaging although does have mediastinal lymphadenopathy. the latter could be reactive to COVID, however. (10) DVT prophylaxis: high risk of VTE while hospitalized thus, lovenox 0.5mg/kg/dose BID Admission and Anticipated Discharge Date Admission Date: March 04, 2020 Subjective this pt is mildly short of breath, he has a non productive cough Review of Systems Review of Systems: Mild distress and fatigue no headache, blurry or double vision no speech or swallowing issues no chest pain, pressure or palpitations shortness of breath, non productive cough no abdominal pain, nausea or vomiting, diarrhea or constipation no dysuria, hematuria or frequency no focal joint pain or swelling no back pain, CVA tenderness or radicular pain no bruising, bleeding or rashes no focal signs of weakness or numbness or altered sensation no complaints of anxiety or depression. Physical Exam Physical Exam: The patient appeared morbidly obese and in mild distress Vital signs as documented. Head exam is normocephalic atraumatic no scleral icterus Neck is without JVD, thyromegaly, or carotid bruits. Lungs are also the bases clearing to the apex Cardiac exam, Rhythm is regular.. No murmurs, rubs or gallops. Abdominal exam reveals normal bowel sounds, soft non tender, no masses Extremities are nonedematous and both pedal pulses are present Neurologic exam is alert and oriented, no focal loss of strength or sensation Skin is without bruises or rashes Psychologically is without concerns for anxiety or depression. Results & Data Results & Data ([facility]) Vital Signs (Past 12 Hours) Vital Signs Temp Pulse Pulse Resp BP BP Pulse Ox 03/05/20 07:41 86 18 91 03/05/20 07:38 97.9 F 86 20 143/75 H 90 03/05/20 07:08 98.1 F 84 18 157/95 H 92 03/05/20 06:53 97.9 F 83 18 161/91 H 95 03/05/20 06:52 97.9 F 82 20 172/107 H 94 03/05/20 06:38 98.4 F 85 22 173/89 H 91 03/05/20 03:41 97.9 F 82 18 148/80 H 95 03/04/20 23:30 101 H 03/04/20 22:34 97.9 F 97 H 20 142/80 H 89 L PG Care Time/CCT Total # of Minutes Spent Total Time Spent with Patient: Total time spent is greater than 50% in coordination of care (as documented) at patient's floor/unit and/or counseling patient: Coding Level of Care Code 89960 Subseq Hosp Care Lvl 3 Diagnoses Acute respiratory failure with hypoxia J96.01 Pneumonia due to COVID-19 virus U07.1; J12.89 Hyponatremia E87.1 Morbid obesity E66.01 Rhabdomyolysis due to COVID-19 U07.1; M62.82 Hyperlipidemia E78.5 Essential (primary) hypertension I10 Type 2 diabetes mellitus E11.9 Sarcoidosis D86.9 DVT prophylaxis Z29.9
[2020-03-05] MEDS ORDERED: PHARMACY GLYCEMIC MGMT CONSULT STA (09:21)
[2020-03-05] MEDS: AZITHROMYCIN 250 MG in DEXTROSE 5% 250 ML IV SCH (09:35)
--- NOTE | 2020-03-05 11:15 | Pharmacy Report ---
Pharmacy Glycemic Short Note 2 - Date of Service March 05, 2020 - Glycemic Short BSG Results (Last 24 hours): 03/04/20 03/04/20 03/04/20 13:24 13:30 21:35 Glucose 203 H POC Glucose 215 H 111 H 03/05/20 03/05/20 03/05/20 06:17 07:44 08:11 Glucose 51 L* POC Glucose 55 L* 86 OUTPATIENT ANTIDIABETIC REGIMEN: * Humalog pump * Metformin 1 g PO BIDM ASSESSMENT: * TF is a 54 year old male admitted with acute respiratory failure secondary to COVID-19 pneumonia * Ordered remdesivir, IV dexamethasone 6 mg daily, convalescent plasma, plus ceftriaxone/azithromycin for possible bacterial infection * Pertinent PMH: morbid obesity, type 2 DM * Currently receiving own Humalog insulin pump - will follow BSGs for 24 hours to determine if additional insulin (NPH) is needed to help cover steroids * BSG of 51 mg/dL this morning - patient held off on bolus insulin * Lunchtime BSG of 247 mg/dL -> patient gave bolus of 25 units at that time * Called patient to discuss possible plan of adding a dose of NPH daily to be given with IV dexamethasone - patient agreeable to this idea * Will be conservative to start with 0.3 unit/kg based on adjusted body weight PLAN FOR INPATIENT GLYCEMIC CONTROL: * Hold outpatient oral diabetes medications (metformin) * Pt is to manage BSGs with insulin pump per outpatient settings. * RN will have patient read and sign agreement [id number] Insulin Pump Therapy Patient Agreement. * RN will provide and explain form [id number] Flowsheet for Patient * Patient will document their insulin dose given on [id number] which is kept at the bedside, available to caregivers upon request, and which becomes part of the permanent medical record. * Basal insulin * NPH 30 units SC daily (first dose this afternoon, then scheduled with IV dexamethasone ongoing) If at any time the patients condition evidences that he/she is not able to manage the insulin pump (i.e. frequent hypo/hyperglycemia) Pharmacy will assume glycemic control by discontinuing the pump & managing with SQ basal bolus insulin regimen for the interim.
[2020-03-05] MEDS: INSULIN HUMAN NPH SC SCH (16:34)
[2020-03-05] MEDS ORDERED: MAGNESIUM SULFATE / D5W 1 GM/100 ML BAG IV ONE (19:30)
[2020-03-05] MEDS: REMDESIVIR 100 MG in SODIUM CHLORIDE 0.9% 230 ML IV SCH (20:56)
[2020-03-05] MEDS: SODIUM CHLORIDE 0.9% 10ML FLUSH IV SCH (21:01)
[2020-03-06] MEDS: dexAMETHasone 6 MG in SYRINGE 0 ML IV SCH (08:57)
[2020-03-06] MEDS: ENOXAPARIN 80 MG/0.8 ML SYR SQ SCH ×2 (08:57→21:43)
[2020-03-06] MEDS: cefTRIAXone SODIUM 2,000 MG in DEXTROSE 5% 50 ML IV SCH (08:58)
[2020-03-06] MEDS: lisinopril 40 MG TAB PO SCH (08:59)
[2020-03-06] MEDS: PANTOprazole 40 MG TAB PO SCH (09:00)
[2020-03-06] MEDS: MULTIVITAMIN TAB PO SCH (09:00)
[2020-03-06] MEDS: guaiFENesin 600 MG TABCR PO SCH ×2 (09:00→21:43)
[2020-03-06] MEDS: INSULIN HUMAN NPH SC SCH (09:30)
[2020-03-06 09:31] LABS: Estimated Average Glucose 163 mg/dl; Hemoglobin A1C 7.3 % (4.5-5.6)
[2020-03-06] MEDS: IPRATROPIUM BROMIDE HFA INHALER INH SCH ×4 (10:08→20:12)
[2020-03-06] MEDS: ALBUTEROL HFA 8 GM INHALER INH SCH ×4 (10:09→20:11)
[2020-03-06] MEDS: AZITHROMYCIN 250 MG in DEXTROSE 5% 250 ML IV SCH (10:34)
[2020-03-06] MEDS: ASPIRIN 81 MG ECTAB PO SCH (10:44)
[2020-03-06] MEDS: METOPROLOL TARTRATE 25 MG TAB PO SCH ×2 (12:51→21:43)
[2020-03-06] MEDS: INSULIN HUMAN LISPRO (humaLOG) 100 UNITS/ML VIAL SC PRN ×2 (13:30→18:17)
--- NOTE | 2020-03-06 18:25 | Hospitalist Progress Note ---
Date of Service March 06, 2020 Assessment & Plan (1) Acute respiratory failure with hypoxia: 2nd to COVID-19 pneumonia. Supportive care, NC O2 to keep O2 sats 92-95%, etc. Pulmonary toilet. (2) Pneumonia due to COVID-19 virus: Severe, extensive on imaging. Escalated oxygen requirement to 15 L oxygen mask did not tolerate high flow nasal cannula. Patient is willing to try BiPAP when napping and sleeping at night he seems to be tolerating this. At risk of progressive disease obesity, T2DM, etc. Treat with IV remdesivir x 5 days, IV/PO decadron 6mg daily x 10 days, and convalescent plasma. FDA information sheet on plasma given. Blood consent obtained. Transfused Patient has had cough since January - can't rule out underlying, chronic obstructive disease; sinus issues; etc. Reasonable to continue IV zithromax for possibility of bacterial pneumonia/superinfection. Procal, normal. It is reassuring Due to severe wheezing place on combivent 1 puff qid. Pulmonary toilet with mucinex, incentive marek, and flutter valve. Homatropine/hydrocodone prn for severe coughing fits. Repeat D-dimer is normal CK has gone up slightly whether this is a myositis of Covid is undetermined, holding statin at this time due to previous abnormal CK Fortunately no PE on imaging. (3) Hyponatremia: Appears volume depleted. NS hydration overnight; repeat BMP am. (4) Morbid obesity: BMI 45 (5) Rhabdomyolysis due to COVID-19: Mild. Hydrate, repeat CPK am. (6) Hyperlipidemia: AST and CPK both mildly elevated. Hold crestor for now. Trend AST and CPK. Hydrate. (7) Essential (primary) hypertension: Patient on both ANDRE and ARB. Cont the ANDRE; hold the ARB. Adjust meds as needed. (8) Type 2 diabetes mellitus: Consult pharmacy for glycemic management. Is on pump at home. Hold metformin. T2DM. BSGs ac/hs. (9) Sarcoidosis: remote history. dx . in remission. no signs of such on imaging although does have mediastinal lymphadenopathy. the latter could be reactive to COVID, however. (10) DVT prophylaxis: high risk of VTE while hospitalized thus, lovenox 0.5mg/kg/dose BID Admission and Anticipated Discharge Date Admission Date: March 04, 2020 Subjective On 03/05 patient had escalation of his oxygen requirement however he cannot tolerate high flow oxygen due to uncomfortable feelings while he was on and palpitations etc. He understands oxygen mask on nasal cannula are suboptimal to replete his oxygen at this time he is willing to try BiPAP however he does not wish to return to high flow oxygen. He remains with low-grade temperatures. Review of Systems Review of Systems: Mild distress and fatigue no headache, blurry or double vision no speech or swallowing issues no chest pain, pressure or palpitations shortness of breath, non productive cough no abdominal pain, nausea or vomiting, diarrhea or constipation no dysuria, hematuria or frequency no focal joint pain or swelling no back pain, CVA tenderness or radicular pain no bruising, bleeding or rashes no focal signs of weakness or numbness or altered sensation no complaints of anxiety or depression. Endocrine: DM - followed by Taniya Longo in [facility]; has pump in place Physical Exam Physical Exam: The patient appeared morbidly obese and in mild distress Vital signs as documented. Head exam is normocephalic atraumatic no scleral icterus Neck is without JVD, thyromegaly, or carotid bruits. Lungs are also the bases clearing to the apex Cardiac exam, Rhythm is regular.. No murmurs, rubs or gallops. Abdominal exam reveals normal bowel sounds, soft non tender, no masses Extremities are nonedematous and both pedal pulses are present Neurologic exam is alert and oriented, no focal loss of strength or sensation Skin is without bruises or rashes Psychologically is without concerns for anxiety or depression. Results & Data Results & Data ([facility]) Vital Signs (Past 12 Hours) Vital Signs Temp Pulse Pulse Resp BP BP Pulse Ox 03/06/20 15:49 93 H 03/06/20 15:36 99.7 F H 94 H 18 124/78 94 03/06/20 14:47 88 22 95 03/06/20 14:44 88 20 90 03/06/20 11:36 98.4 F 115 H 22 128/76 92 03/06/20 11:18 99 H 22 92 03/06/20 09:59 123 H 22 90 03/06/20 07:57 98.1 F 114 H 24 168/105 H 172/104 H 89 L 03/06/20 07:35 130 H PG Care Time/CCT Total # of Minutes Spent Total Time Spent with Patient: Total time spent is greater than 50% in coordination of care (as documented) at patient's floor/unit and/or counseling patient: Coding Level of Care Code 33321 Subseq Hosp Care Lvl 3 Diagnoses Acute respiratory failure with hypoxia J96.01 Pneumonia due to COVID-19 virus U07.1; J12.89 Hyponatremia E87.1 Morbid obesity E66.01 Rhabdomyolysis due to COVID-19 U07.1; M62.82 Hyperlipidemia E78.5 Essential (primary) hypertension I10 Type 2 diabetes mellitus E11.9 Sarcoidosis D86.9 DVT prophylaxis Z29.9
[2020-03-06] MEDS: REMDESIVIR 100 MG in SODIUM CHLORIDE 0.9% 230 ML IV SCH (20:25)
[2020-03-06] MEDS: SODIUM CHLORIDE 0.9% 10ML FLUSH IV SCH (21:42)
[2020-03-07] MEDS: CARBOHYDRATES FOR HYPOGLYCEMIA PO PRN ×2 (04:31→04:47)
[2020-03-07] MEDS: dexAMETHasone 6 MG in SYRINGE 0 ML IV SCH (08:15)
[2020-03-07] MEDS: guaiFENesin 600 MG TABCR PO SCH ×2 (08:16→19:20)
[2020-03-07] MEDS: MULTIVITAMIN TAB PO SCH (08:16)
[2020-03-07] MEDS: lisinopril 40 MG TAB PO SCH (08:16)
[2020-03-07] MEDS: PANTOprazole 40 MG TAB PO SCH (08:16)
[2020-03-07] MEDS: ASPIRIN 81 MG ECTAB PO SCH (08:16)
[2020-03-07] MEDS: ENOXAPARIN 80 MG/0.8 ML SYR SQ SCH ×2 (08:17→19:17)
[2020-03-07] MEDS: ALBUTEROL HFA 8 GM INHALER INH SCH ×4 (08:33→20:02)
[2020-03-07] MEDS: IPRATROPIUM BROMIDE HFA INHALER INH SCH ×4 (08:33→20:02)
[2020-03-07] MEDS: METOPROLOL TARTRATE 25 MG TAB PO SCH ×2 (08:51→19:21)
[2020-03-07] MEDS: AZITHROMYCIN 250 MG in DEXTROSE 5% 250 ML IV SCH (10:05)
--- NOTE | 2020-03-07 15:12 | Pharmacy Report ---
Pharmacy Glycemic Short Note 2 - Date of Service March 07, 2020 - Glycemic Short BSG Results (Last 24 hours): 03/06/20 03/06/20 03/07/20 16:14 20:34 04:26 POC Glucose 136 H 184 H 36 L* 03/07/20 03/07/20 03/07/20 04:30 04:46 05:02 POC Glucose 35 L* 56 L* 91 03/07/20 03/07/20 07:39 11:37 POC Glucose 119 H 224 H OUTPATIENT ANTIDIABETIC REGIMEN: * Humalog pump * Metformin 1 g PO BIDM ASSESSMENT: 03/07: * Patient continues on insulin pump, no adjustments made by patient. Received 30 units NPH on top of pump * BSGs early this AM low in 30s. Had a lengthy conversation with patient d/t concerns of keeping insulin pump on and managing blood sugars. Patient not wanting us to take off pump and would like to try another 24 hrs and reevaluate. Told him if BSGs trending down again will need to take off pump and manage with SQ insulin. Patient agreed. * Patient feels that low BSG this AM was d/t not having a snack at bedtime which he usually has. Also states, that his blood sugar does occasionally fall like this overnight * Plan to hold NPH while on pump and evaluate BSGs over next 24 hrs. PLAN FOR INPATIENT GLYCEMIC CONTROL: * Hold outpatient oral diabetes medications (metformin) * Pt is to manage BSGs with insulin pump per outpatient settings. * RN will have patient read and sign agreement CF [id number] Insulin Pump Therapy Patient Agreement. * RN will provide and explain form [id number] Flowsheet for Patient * Patient will document their insulin dose given on NS-824 which is kept at the bedside, available to caregivers upon request, and which becomes part of the permanent medical record. * Basal insulin * hold for now If at any time the patients condition evidences that he/she is not able to manage the insulin pump (i.e. frequent hypo/hyperglycemia) Pharmacy will assume glycemic control by discontinuing the pump & managing with SQ basal bolus insulin regimen for the interim.
--- NOTE | 2020-03-07 17:01 | Hospitalist Progress Note ---
Date of Service March 07, 2020 Assessment & Plan (1) Acute respiratory failure with hypoxia: 2nd to COVID-19 pneumonia. Supportive care,oxymask and bipap to keep sats >89 Pulmonary toilet. (2) Pneumonia due to COVID-19 virus: Severe, extensive on imaging. Escalated oxygen requirement to 15 L oxygen mask did not tolerate high flow nasal cannula. Patient is willing to try BiPAP when napping and sleeping at night he seems to be tolerating this. At risk of progressive disease obesity, T2DM, etc. Treat with IV remdesivir x 5 days, LD 03/08 IV/PO decadron 6mg daily x 10 days,LD 03/13 and convalescent plasma.Transfused Patient has had cough since January - can't rule out underlying, chronic obstructive disease; sinus issues; etc. Reasonable to continue IV zithromax for possibility of bacterial pneumonia/superinfection. Procal, normal. It is reassuring Due to severe wheezing place on combivent 1 puff qid. Pulmonary toilet with mucinex, incentive marek, and flutter valve. Homatropine/hydrocodone prn for severe coughing fits. Repeat D-dimer is normal CK has gone up slightly whether this is a myositis of Covid is undetermined, holding statin at this time due to previous abnormal CK Fortunately no PE on imaging. (3) Hyponatremia: Appears volume depleted. NS hydration overnight; repeat BMP am. (4) Morbid obesity: BMI 45 (5) Rhabdomyolysis due to COVID-19: Mild. Hydrate, repeat CPK am. (6) Hyperlipidemia: AST and CPK both mildly elevated. Hold crestor for now. Trend AST and CPK. Hydrate. (7) Essential (primary) hypertension: Patient on both ANDRE and ARB. Cont the ANDRE; hold the ARB. Adjust meds as needed. (8) Type 2 diabetes mellitus: Consult pharmacy for glycemic management. Is on pump at home. Hold metformin. T2DM. BSGs ac/hs. (9) Sarcoidosis: remote history. dx . in remission. no signs of such on imaging although does have mediastinal lymphadenopathy. the latter could be reactive to COVID, however. (10) DVT prophylaxis: high risk of VTE while hospitalized thus, lovenox 0.5mg/kg/dose BID Admission and Anticipated Discharge Date Admission Date: March 04, 2020 Subjective On 03/05 patient had escalation of his oxygen requirement however he cannot tolerate high flow oxygen due to uncomfortable feelings while he was on and palpitations etc. He understands oxygen mask on nasal cannula are suboptimal to replete his oxygen at this time. He is alternating between oxymask and bipap to provide comfort. he remains seriously ill Review of Systems Review of Systems: Mild distress and fatigue no headache, blurry or double vision no speech or swallowing issues no chest pain, pressure or palpitations continues with shortness of breath, non productive cough no abdominal pain, nausea or vomiting, diarrhea or constipation no dysuria, hematuria or frequency no focal joint pain or swelling no back pain, CVA tenderness or radicular pain no bruising, bleeding or rashes no focal signs of weakness or numbness or altered sensation no complaints of anxiety or depression. Endocrine: DM - followed by Taniya Longo in [facility]; has pump in place Physical Exam Physical Exam: The patient appeared morbidly obese and in mild distress Vital signs as documented. Head exam is normocephalic atraumatic no scleral icterus Neck is without JVD, thyromegaly, or carotid bruits. Lungs are coarse rales at the bases clearing to the apex Cardiac exam, Rhythm is regular.. No murmurs, rubs or gallops. Abdominal exam reveals normal bowel sounds, soft non tender, no masses Extremities are nonedematous and both pedal pulses are present Neurologic exam is alert and oriented, no focal loss of strength or sensation Skin is without bruises or rashes Psychologically is without concerns for anxiety or depression. Results & Data Results & Data ([facility]) Vital Signs (Past 12 Hours) Vital Signs Temp Pulse Pulse Resp BP Pulse Ox 03/07/20 16:09 99 H 24 90 03/07/20 16:00 93 03/07/20 15:03 107 H 03/07/20 12:42 98.6 F 93 H 135/84 90 03/07/20 12:29 99 H 24 92 03/07/20 08:41 97.7 F 102 H 20 160/83 H 88 L 03/07/20 08:36 102 H 24 93 03/07/20 07:41 98 H PG Care Time/CCT Total # of Minutes Spent Total Time Spent with Patient: Total time spent is greater than 50% in coordination of care (as documented) at patient's floor/unit and/or counseling patient: Coding Level of Care Code 21109 Subseq Hosp Care Lvl 3 Diagnoses Acute respiratory failure with hypoxia J96.01 Pneumonia due to COVID-19 virus U07.1; J12.89 Hyponatremia E87.1 Morbid obesity E66.01 Rhabdomyolysis due to COVID-19 U07.1; M62.82 Hyperlipidemia E78.5 Essential (primary) hypertension I10 Type 2 diabetes mellitus E11.9 Sarcoidosis D86.9 DVT prophylaxis Z29.9
[2020-03-07] MEDS ORDERED: ALBUT/IPRATROP 3MG/0.5MG NEB 3 ML VIAL NEB PRN (17:14)
[2020-03-07] MEDS: ALBUT/IPRATROP 3MG/0.5MG NEB 3 ML VIAL NEB SCH (20:03)
[2020-03-07] MEDS: REMDESIVIR 100 MG in SODIUM CHLORIDE 0.9% 230 ML IV SCH (20:45)
[2020-03-07] MEDS: SODIUM CHLORIDE 0.9% 10ML FLUSH IV SCH (21:49)
[2020-03-08] MEDS: IPRATROPIUM BROMIDE HFA INHALER INH SCH ×4 (08:06→19:27)
[2020-03-08] MEDS: ALBUT/IPRATROP 3MG/0.5MG NEB 3 ML VIAL NEB SCH ×4 (08:06→19:27)
[2020-03-08] MEDS: ALBUTEROL HFA 8 GM INHALER INH SCH ×4 (08:07→19:27)
[2020-03-08] MEDS: PANTOprazole 40 MG TAB PO SCH (09:02)
[2020-03-08] MEDS: AZITHROMYCIN 250 MG in DEXTROSE 5% 250 ML IV SCH (09:02)
[2020-03-08] MEDS: ASPIRIN 81 MG ECTAB PO SCH (09:03)
[2020-03-08] MEDS: lisinopril 40 MG TAB PO SCH (09:03)
[2020-03-08] MEDS: MULTIVITAMIN TAB PO SCH (09:03)
[2020-03-08] MEDS: METOPROLOL TARTRATE 25 MG TAB PO SCH ×2 (09:03→20:57)
[2020-03-08] MEDS: guaiFENesin 600 MG TABCR PO SCH ×2 (09:04→20:57)
[2020-03-08] MEDS: INSULIN HUMAN LISPRO (humaLOG) 100 UNITS/ML VIAL SC PRN (09:09)
[2020-03-08] MEDS: ENOXAPARIN 80 MG/0.8 ML SYR SQ SCH ×2 (09:13→20:57)
[2020-03-08] MEDS: dexAMETHasone 6 MG in SYRINGE 0 ML IV SCH (12:54)
--- NOTE | 2020-03-08 15:10 | Hospitalist Progress Note ---
Date of Service March 08, 2020 Assessment & Plan (1) Acute respiratory failure with hypoxia: 2nd to COVID-19 pneumonia. Supportive care,oxymask and bipap to keep sats >89 Pulmonary toilet. (2) Pneumonia due to COVID-19 virus: Severe, extensive on imaging. Escalated oxygen requirement to 15 L oxygen mask did not tolerate high flow nasal cannula. Patient is willing to try BiPAP when napping and sleeping at night he seems to be tolerating this. At risk of progressive disease obesity, T2DM, etc. Treat with IV remdesivir x 5 days, LD 03/08 IV/PO decadron 6mg daily x 10 days,LD 03/13 and convalescent plasma.Transfused Patient has had cough since January - can't rule out underlying, chronic obstructive disease; sinus issues; etc. Reasonable to continue IV zithromax for possibility of bacterial pneumonia/superinfection. Procal, normal. It is reassuring Due to severe wheezing place on combivent 1 puff qid when on bipap and nebs when on oxymask Pulmonary toilet with mucinex, incentive marek, and flutter valve. Homatropine/hydrocodone prn for severe coughing fits. Repeat D-dimer is normal CK has gone up slightly whether this is a myositis of Covid is undetermined, holding statin at this time due to previous abnormal CK Fortunately no PE on imaging. (3) Hyponatremia: resolved (4) Morbid obesity: BMI 45 (5) Rhabdomyolysis due to COVID-19: Mild. Hydrate, repeat CPK am. (6) Hyperlipidemia: AST and CPK both mildly elevated. Holding crestor Trend AST and CPK. Hydrate. (7) Essential (primary) hypertension: Patient on both ANDRE and ARB. Cont the ANDRE; hold the ARB. Adjust meds as needed. (8) Type 2 diabetes mellitus: Consult pharmacy for glycemic management. Is on pump at home. Hold metformin. T2DM. BSGs ac/hs. (9) Sarcoidosis: remote history. dx . in remission. no signs of such on imaging although does have mediastinal lymphadenopathy. the latter could be reactive to COVID, however. (10) DVT prophylaxis: high risk of VTE while hospitalized thus, lovenox 0.5mg/kg/dose BID Admission and Anticipated Discharge Date Admission Date: March 04, 2020 Subjective On 12/1 patient had escalation of his oxygen requirement however he cannot tolerate high flow oxygen due to uncomfortable feelings while he was on and palpitations etc. He understands oxygen mask on nasal cannula are suboptimal to replete his oxygen at this time. He is holding his own but needs to be on bipap during the day He is alternating between oxymask and bipap to provide comfort. he remains seriously ill, still with oxygen requirement Review of Systems Review of Systems: Mild distress and fatigue no headache, blurry or double vision no speech or swallowing issues no chest pain, pressure or palpitations continues with shortness of breath, non productive cough , dyspnea at times no abdominal pain, nausea or vomiting, diarrhea or constipation no dysuria, hematuria or frequency no focal joint pain or swelling no back pain, CVA tenderness or radicular pain no bruising, bleeding or rashes no focal signs of weakness or numbness or altered sensation no complaints of anxiety or depression. Physical Exam Physical Exam: The patient appeared morbidly obese and in mild distress Vital signs as documented. Head exam is normocephalic atraumatic no scleral icterus Neck is without JVD, thyromegaly, or carotid bruits. Lungs are coarse rales at the bases clearing to the apex Cardiac exam, Rhythm is regular.. No murmurs, rubs or gallops. Abdominal exam reveals normal bowel sounds, soft non tender, no masses Extremities are nonedematous and both pedal pulses are present Neurologic exam is alert and oriented, no focal loss of strength or sensation Skin is without bruises or rashes Psychologically is without concerns for anxiety or depression. Results & Data Results & Data ([facility]) Vital Signs (Past 12 Hours) Vital Signs Temp Pulse Pulse Resp BP Pulse Ox 03/08/20 11:39 77 82 23 94 03/08/20 10:40 97 H 18 126/71 97 03/08/20 08:19 98.1 F 108 H 16 126/66 86 L 03/08/20 08:03 84 84 23 94 03/08/20 07:29 93 H PG Care Time/CCT Total # of Minutes Spent Total Time Spent with Patient: Total time spent is greater than 50% in coordination of care (as documented) at patient's floor/unit and/or counseling patient: Coding Level of Care Code 68214 Subseq Hosp Care Lvl 3 Diagnoses Acute respiratory failure with hypoxia J96.01 Pneumonia due to COVID-19 virus U07.1; J12.89 Hyponatremia E87.1 Morbid obesity E66.01 Rhabdomyolysis due to COVID-19 U07.1; M62.82 Hyperlipidemia E78.5 Essential (primary) hypertension I10 Type 2 diabetes mellitus E11.9 Sarcoidosis D86.9 DVT prophylaxis Z29.9
[2020-03-08] MEDS: REMDESIVIR 100 MG in SODIUM CHLORIDE 0.9% 230 ML IV SCH (21:03)
[2020-03-08] MEDS: SODIUM CHLORIDE 0.9% 10ML FLUSH IV SCH (22:09)
--- NOTE | 2020-03-09 17:47 | Hospitalist Progress Note ---
Date of Service March 09, 2020 Assessment & Plan (1) Acute respiratory failure with hypoxia: 2nd to COVID-19 pneumonia. Supportive care,oxymask and bipap to keep sats >89 Pulmonary toilet. (2) Pneumonia due to COVID-19 virus: Severe, extensive on imaging. Escalated oxygen requirement to 15 L oxygen mask did not tolerate high flow nasal cannula. Patient is willing to try BiPAP when napping and sleeping at night he seems to be tolerating this. At risk of progressive disease obesity, T2DM, etc. Treat with IV remdesivir x 5 days, LD 03/08 IV/PO decadron 6mg daily x 10 days,LD 03/13 and convalescent plasma.Transfused Patient has had cough since January - can't rule out underlying, chronic obstructive disease; sinus issues; etc. Reasonable to continue IV zithromax for possibility of bacterial pneumonia/superinfection. Procal, normal. It is reassuring Due to severe wheezing place on combivent 1 puff qid when on bipap and nebs when on oxymask Pulmonary toilet with mucinex, incentive marek, and flutter valve. Homatropine/hydrocodone prn for severe coughing fits. Repeat D-dimer is normal CK has gone up slightly whether this is a myositis of Covid is undetermined, holding statin at this time due to previous abnormal CK Fortunately no PE on imaging. (3) Hyponatremia: resolved (4) Morbid obesity: BMI 45 (5) Rhabdomyolysis due to COVID-19: Mild. Hydrate, repeat CPK am. (6) Hyperlipidemia: AST and CPK both mildly elevated. Holding crestor Trend AST and CPK. Hydrate. (7) Essential (primary) hypertension: Patient on both ANDRE and ARB. Cont the ANDRE; hold the ARB. Adjust meds as needed. (8) Type 2 diabetes mellitus: Consult pharmacy for glycemic management. Is on pump at home. Hold metformin. T2DM. BSGs ac/hs. (9) Sarcoidosis: remote history. dx . in remission. no signs of such on imaging although does have mediastinal lymphadenopathy. the latter could be reactive to COVID, however. (10) DVT prophylaxis: high risk of VTE while hospitalized thus, lovenox 0.5mg/kg/dose BID Admission and Anticipated Discharge Date Admission Date: March 04, 2020 Subjective On 12/1 patient had escalation of his oxygen requirement however he cannot tolerate high flow oxygen due to uncomfortable feelings while he was on and palpitations etc. He understands oxygen mask on nasal cannula are suboptimal to replete his oxygen at this time. He is holding his own but needs to be on bipap during the day He is alternating between oxymask and bipap to provide comfort. he remains seriously ill, still with oxygen requirement Review of Systems Review of Systems: Mild distress and fatigue no headache, blurry or double vision no speech or swallowing issues no chest pain, pressure or palpitations continues with shortness of breath, non productive cough , dyspnea at times no abdominal pain, nausea or vomiting, diarrhea or constipation no dysuria, hematuria or frequency no focal joint pain or swelling no back pain, CVA tenderness or radicular pain no bruising, bleeding or rashes no focal signs of weakness or numbness or altered sensation no complaints of anxiety or depression. Physical Exam Physical Exam: The patient appeared morbidly obese and in mild distress Vital signs as documented. Head exam is normocephalic atraumatic no scleral icterus Neck is without JVD, thyromegaly, or carotid bruits. Lungs are coarse rales at the bases clearing to the apex Cardiac exam, Rhythm is regular.. No murmurs, rubs or gallops. Abdominal exam reveals normal bowel sounds, soft non tender, no masses Extremities are nonedematous and both pedal pulses are present Neurologic exam is alert and oriented, no focal loss of strength or sensation Skin is without bruises or rashes Psychologically is without concerns for anxiety or depression. Results & Data Results & Data ([facility]) Vital Signs (Past 12 Hours) Vital Signs Temp Pulse Resp BP Pulse Ox 03/09/20 15:00 98.8 F 102 H 24 137/73 90 PG Care Time/CCT Total # of Minutes Spent Total Time Spent with Patient: Total time spent is greater than 50% in coordination of care (as documented) at patient's floor/unit and/or counseling patient: Coding Level of Care Code 57578 Subseq Hosp Care Lvl 3 Diagnoses Acute respiratory failure with hypoxia J96.01 Pneumonia due to COVID-19 virus U07.1; J12.89 Hyponatremia E87.1 Morbid obesity E66.01 Rhabdomyolysis due to COVID-19 U07.1; M62.82 Hyperlipidemia E78.5 Essential (primary) hypertension I10 Type 2 diabetes mellitus E11.9 Sarcoidosis D86.9 DVT prophylaxis Z29.9
[2020-03-09] MEDS: ALBUT/IPRATROP 3MG/0.5MG NEB 3 ML VIAL NEB SCH ×4 (18:09→19:34)
[2020-03-09] MEDS: dexAMETHasone 6 MG in SYRINGE 0 ML IV SCH (18:09)
[2020-03-09] MEDS: IPRATROPIUM BROMIDE HFA INHALER INH SCH ×4 (18:09→19:34)
[2020-03-09] MEDS: ALBUTEROL HFA 8 GM INHALER INH SCH ×4 (18:09→19:34)
[2020-03-09] MEDS: ASPIRIN 81 MG ECTAB PO SCH (18:09)
[2020-03-09] MEDS: MULTIVITAMIN TAB PO SCH (18:10)
[2020-03-09] MEDS: guaiFENesin 600 MG TABCR PO SCH ×2 (18:10→20:34)
[2020-03-09] MEDS: METOPROLOL TARTRATE 25 MG TAB PO SCH ×2 (18:10→20:34)
[2020-03-09] MEDS: lisinopril 40 MG TAB PO SCH (18:10)
[2020-03-09] MEDS: ENOXAPARIN 80 MG/0.8 ML SYR SQ SCH ×2 (18:10→20:37)
[2020-03-09] MEDS: PANTOprazole 40 MG TAB PO SCH (18:10)
[2020-03-10] MEDS: IPRATROPIUM BROMIDE HFA INHALER INH SCH ×4 (07:47→19:05)
[2020-03-10] MEDS: ALBUT/IPRATROP 3MG/0.5MG NEB 3 ML VIAL NEB SCH ×4 (07:47→20:37)
[2020-03-10] MEDS: ALBUTEROL HFA 8 GM INHALER INH SCH ×4 (07:47→19:05)
[2020-03-10] MEDS ORDERED: FUROSEMIDE 20 MG in SYRINGE 0 ML IV ONE (09:00)
--- NOTE | 2020-03-10 09:30 | Pharmacy Report ---
Pharmacy Glycemic Short Note 2 - Date of Service March 10, 2020 - Glycemic Short BSG Results (Last 24 hours): 03/09/20 03/09/20 03/09/20 11:22 11:55 16:18 POC Glucose 49 L* 121 H 198 H 03/09/20 03/10/20 03/10/20 20:32 03:22 07:48 POC Glucose 296 H 80 186 H OUTPATIENT ANTIDIABETIC REGIMEN: * Humalog pump * See airborne sensor specialist note for pump settings * Metformin 1 g PO BIDM ASSESSMENT: 03/10: * Continues on insulin pump (NPH discontinued on 03/07) * BSGs yesterday of 88, 49, 121, 198, and 196 mg/dL yesterday * Patient temporarily adjusted basal rates yesterday due to hypoglycemia at lunchtime * Continues on dexamethasone 6 mg IV daily * Discussed with hospitalist and patient, will restart metformin today * Rechecked SCr, which is near baseline (safe to resume) 03/07: * Patient continues on insulin pump, no adjustments made by patient. Received 30 units NPH on top of pump * BSGs early this AM low in 30s. Had a lengthy conversation with patient d/t concerns of keeping insulin pump on and managing blood sugars. Patient not wanting us to take off pump and would like to try another 24 hrs and reevaluate. Told him if BSGs trending down again will need to take off pump and manage with SQ insulin. Patient agreed. * Patient feels that low BSG this AM was d/t not having a snack at bedtime which he usually has. Also states, that his blood sugar does occasionally fall like this overnight * Plan to hold NPH while on pump and evaluate BSGs over next 24 hrs. PLAN FOR INPATIENT GLYCEMIC CONTROL: * Will restart metformin ER 1 g PO BIDM starting this evening * Pt is to manage BSGs with insulin pump per outpatient settings. * RN will have patient read and sign agreement CF [id number] Insulin Pump Therapy Patient Agreement. * RN will provide and explain form NS-824 Flowsheet for Patient * Patient will document their insulin dose given on NS-824 which is kept at the bedside, available to caregivers upon request, and which becomes part of the permanent medical record. If at any time the patients condition evidences that he/she is not able to manage the insulin pump (i.e. frequent hypo/hyperglycemia) Pharmacy will assume glycemic control by discontinuing the pump & managing with SQ basal bolus insulin regimen for the interim.
[2020-03-10] MEDS: ASPIRIN 81 MG ECTAB PO SCH (09:34)
[2020-03-10] MEDS: dexAMETHasone 6 MG in SYRINGE 0 ML IV SCH (09:34)
[2020-03-10] MEDS: guaiFENesin 600 MG TABCR PO SCH ×2 (09:34→20:08)
[2020-03-10] MEDS: MULTIVITAMIN TAB PO SCH (09:34)
[2020-03-10] MEDS: ENOXAPARIN 80 MG/0.8 ML SYR SQ SCH ×2 (09:34→21:08)
[2020-03-10] MEDS: METOPROLOL TARTRATE 25 MG TAB PO SCH ×2 (09:34→20:08)
[2020-03-10] MEDS: PANTOprazole 40 MG TAB PO SCH (09:34)
[2020-03-10] MEDS: lisinopril 40 MG TAB PO SCH (09:35)
[2020-03-10 12:01] LABS: Creatinine Clr Calc Pharmacy 123.9 ml/min; Est GFR (African American) 103.3; Est GFR (Non-African American) 89.1
--- NOTE | 2020-03-10 16:40 | Hospitalist Progress Note ---
Date of Service March 10, 2020 Assessment & Plan (1) Acute respiratory failure with hypoxia: 2nd to COVID-19 pneumonia. Supportive care,oxymask and bipap to keep sats >89 Pulmonary toilet. (2) Pneumonia due to COVID-19 virus: Severe, extensive on imaging. Escalated oxygen requirement to 15 L oxygen mask did not tolerate high flow nasal cannula. Patient is willing to try BiPAP when napping and sleeping at night he seems to be tolerating this. At risk of progressive disease obesity, T2DM, etc. Treat with IV remdesivir x 5 days, LD 03/08 IV/PO decadron 6mg daily x 10 days,LD 03/13 and convalescent plasma.Transfused zithromax for possibility of bacterial pneumonia/superinfection. Procal, normal. It is reassuring Due to severe wheezing place on combivent 1 puff qid when on bipap and nebs when on oxymask Pulmonary toilet with mucinex, incentive marek, and flutter valve. Homatropine/hydrocodone prn for severe coughing fits. Repeat D-dimer is normal CK has gone up slightly whether this is a myositis of Covid is undetermined, h olding statin at this time due to previous abnormal CK Fortunately no PE on imaging. (3) Hyponatremia: resolved (4) Morbid obesity: BMI 45 (5) Rhabdomyolysis due to COVID-19: Mild. Hydrate, repeat CPK am. (6) Hyperlipidemia: AST and CPK both mildly elevated. Crestor restated for possible statin protection Trend AST and CPK. Hydrate. (7) Essential (primary) hypertension: Patient on both ANDRE and ARB. Cont the ANDRE; hold the ARB. Adjust meds as needed. (8) Type 2 diabetes mellitus: Consult pharmacy for glycemic management. Is on pump at home, is self medicating with pump here resume metformin to assist glucose control. T2DM. BSGs ac/hs. (9) Sarcoidosis: remote history. dx . in remission. no signs of such on imaging although does have mediastinal lymphadenopathy. the latter could be reactive to COVID, however. (10) DVT prophylaxis: high risk of VTE while hospitalized thus, lovenox 0.5mg/kg/dose BID Admission and Anticipated Discharge Date Admission Date: March 04, 2020 Subjective On 03/05 patient had escalation of his oxygen requirement and has remained there, tried some lasix 12/5 wihtout much help however he cannot tolerate high flow oxygen due to uncomfortable feelings while he was on and palpitations etc. He understands oxy mask 15 liters. He is holding his own but needs to be on bipap during the day He is alternating between oxymask and bipap to provide comfort. he remains seriously ill, still with oxygen requirement Review of Systems Review of Systems: Mild distress and fatigue no headache, blurry or double vision no speech or swallowing issues no chest pain, pressure or palpitations continues with shortness of breath, non productive cough , dyspnea at times no abdominal pain, nausea or vomiting, diarrhea or constipation no dysuria, hematuria or frequency no focal joint pain or swelling no back pain, CVA tenderness or radicular pain no bruising, bleeding or rashes no focal signs of weakness or numbness or altered sensation no complaints of anxiety or depression. Endocrine: DM - followed by Taniya Longo in [facility]; has pump in place Physical Exam Physical Exam: The patient appeared morbidly obese and in mild distress Vital signs as documented. Head exam is normocephalic atraumatic no scleral icterus Neck is without JVD, thyromegaly, or carotid bruits. Lungs continue with coarse rales at the bases clearing to the apex Cardiac exam, Rhythm is regular.. No murmurs, rubs or gallops. Abdominal exam reveals normal bowel sounds, soft non tender, no masses Extremities are nonedematous and both pedal pulses are present Neurologic exam is alert and oriented, no focal loss of strength or sensation Skin is without bruises or rashes Psychologically is without concerns for anxiety or depression. Results & Data Results & Data ([facility]) Vital Signs (Past 12 Hours) Vital Signs Temp Pulse Pulse Resp BP BP Pulse Ox 03/10/20 16:17 101 H 21 91 03/10/20 15:32 98.6 F 101 H 21 98/69 L 94 03/10/20 11:59 98.4 F 105 H 20 107/66 96 03/10/20 11:48 94 H 24 98 03/10/20 11:47 94 H 24 98 03/10/20 07:50 110 H 24 92 PG Care Time/CCT Total # of Minutes Spent Total Time Spent with Patient: Total time spent is greater than 50% in coordination of care (as documented) at patient's floor/unit and/or counseling patient: Coding Level of Care Code 80995 Subseq Hosp Care Lvl 3 Diagnoses Acute respiratory failure with hypoxia J96.01 Pneumonia due to COVID-19 virus U07.1; J12.89 Hyponatremia E87.1 Morbid obesity E66.01 Rhabdomyolysis due to COVID-19 U07.1; M62.82 Hyperlipidemia E78.5 Essential (primary) hypertension I10 Type 2 diabetes mellitus E11.9 Sarcoidosis D86.9 DVT prophylaxis Z29.9
[2020-03-10] MEDS: metFORMIN HCL ER 500 MG TABCR PO SCH (17:55)
[2020-03-11] MEDS: IPRATROPIUM BROMIDE HFA INHALER INH SCH ×4 (07:16→19:58)
[2020-03-11] MEDS: ALBUTEROL HFA 8 GM INHALER INH SCH ×4 (07:16→19:58)
[2020-03-11] MEDS: ALBUT/IPRATROP 3MG/0.5MG NEB 3 ML VIAL NEB SCH ×4 (07:17→21:09)
[2020-03-11 07:22] LABS: Basophils # (auto) 0.01 K/uL (0-0.2); Basophils % (auto) 0.1 %; Eosinophils # (auto) 0.49 K/uL (0-0.5); Hematocrit (blood only) 41.9 % (42-52); Hemoglobin 13.9 g/dL (14.0-18.0); Immature Granulocytes # (auto) 0.18 K/uL (0.00-0.02); Immature Granulocytes % (auto) 1.8 %; Lymphocytes # (auto) 0.86 K/uL (1.2-3.4); Lymphocytes % (auto) 8.7 %; Mean Corpuscular Hemoglobin 29.8 pg (25-34); Mean Corpuscular Hgb Conc 33.2 g/dL (32-36); Mean Corpuscular Volume 89.7 fL (80-100); Monocytes # (auto) 0.51 K/uL (0.11-0.59); Monocytes % (auto) 5.2 %; Neutrophils # (auto) 7.82 K/uL (1.4-6.5); Neutrophils % (auto) 79.2 %; Platelet Count 505 K/uL (130-400); RDW Coefficient of Variation 13.4 % (11.5-14.5); RDW Standard Deviation 43.8 fL (36.4-46.3); Red Blood Count 4.67 M/uL (4.7-6.1); White Blood Count 9.87 K/uL (4.8-10.8)
[2020-03-11 07:52] LABS: Albumin Level 2.5 gm/dl (3.4-5.0); BUN Creatinine Ratio 27.5 (10-20); Calcium 9.6 mg/dl (8.5-10.1); Creatinine Clr Calc Pharmacy 152.1 ml/min; Est GFR (African American) 117.6; Est GFR (Non-African American) 101.4; Potassium 4.7 mmol/L (3.5-5.1)
[2020-03-11 07:55] LABS: Albumin Globulin Ratio 0.5 (0.9-2); Bilirubin,Total 0.7 mg/dl (0.2-1); Globulin 4.6 gm/dl (2.5-4.0); Total Protein 7.1 gm/dl (6.4-8.2)
[2020-03-11] MEDS: guaiFENesin 600 MG TABCR PO SCH ×2 (08:01→20:45)
[2020-03-11] MEDS: lisinopril 40 MG TAB PO SCH (08:01)
[2020-03-11] MEDS: METOPROLOL TARTRATE 25 MG TAB PO SCH ×2 (08:01→20:45)
[2020-03-11] MEDS: PANTOprazole 40 MG TAB PO SCH (08:01)
[2020-03-11] MEDS: MULTIVITAMIN TAB PO SCH (08:02)
[2020-03-11] MEDS: dexAMETHasone 6 MG in SYRINGE 0 ML IV SCH (08:02)
[2020-03-11] MEDS: ASPIRIN 81 MG ECTAB PO SCH (08:02)
[2020-03-11] MEDS: metFORMIN HCL ER 500 MG TABCR PO SCH ×2 (08:02→16:27)
[2020-03-11] MEDS: ENOXAPARIN 80 MG/0.8 ML SYR SQ SCH ×2 (09:56→20:45)
--- NOTE | 2020-03-11 10:53 | Hospitalist Progress Note ---
Date of Service March 11, 2020 Assessment & Plan (1) Acute respiratory failure with hypoxia: 2nd to COVID-19 pneumonia. Supportive care,oxymask and bipap to keep sats >89 Pulmonary toilet. no distress, still on 15L oxymask, purely hypoxemic without any extra work of breathing (2) Pneumonia due to COVID-19 virus: Severe, extensive on imaging. Escalated oxygen requirement to 15 L oxygen mask did not tolerate high flow nasal cannula. Patient is willing to try BiPAP when napping and sleeping at night he seems to be tolerating this. At risk of progressive disease obesity, T2DM, etc. for the time he appear stable and comfortable Treat with IV remdesivir x 5 days, LD 03/08 IV/PO decadron 6mg daily x 10 days,LD 03/13 and convalescent plasma.Transfused zithromax for possibility of bacterial pneumonia/superinfection. Procal, normal. It is reassuring Due to severe wheezing place on combivent 1 puff qid when on bipap and nebs when on oxymask no wheezing today on exam Pulmonary toilet with mucinex, incentive marek, and flutter valve. Homatropine/hydrocodone prn for severe coughing fits. Repeat D-dimer is normal CK has gone up slightly whether this is a myositis of Covid is undetermined, holding statin at this time due to previous abnormal CK Fortunately no PE on imaging. one day at a time, anticipate him being here the rest of the week (3) Hyponatremia: resolved (4) Morbid obesity: BMI 45 (5) Rhabdomyolysis due to COVID-19: Mild. Hydrate, repeat CPK is down (6) Hyperlipidemia: AST and CPK both mildly elevated. Crestor restarted for possible statin protection Trend AST and CPK. Hydrate. (7) Essential (primary) hypertension: Patient on both ANDRE and ARB. Cont the ANDRE; hold the ARB. Adjust meds as needed. BP is low normal today (8) Type 2 diabetes mellitus: Consult pharmacy for glycemic management. Is on pump at home, is self medicating with pump here resume metformin to assist glucose control. T2DM. BSGs ac/hs. monitor for hypo and/or hyperglycemia, no recent episodes (9) Sarcoidosis: remote history. dx . in remission. no signs of such on imaging although does have mediastinal lymphadenopathy. the latter could be reactive to COVID, however. (10) DVT prophylaxis: high risk of VTE while hospitalized thus, lovenox 0.5mg/kg/dose BID Admission and Anticipated Discharge Date Admission Date: March 04, 2020 Subjective patient laying on his side, no distress at all, sleeping soundly when I came into the room he says his appetite isn't the greatest, he had a BM yesterday, he is making urine strength is good, he is independent in the room sugars are stable on his pump, reviewed chart, no hypoglycemic episodes for a few days labs are stable discussed with him that this can be a marathon, take it one day at a time, lungs need time to heal Review of Systems Review of Systems: All systems reviewed & are unremarkable except as noted in Subjective Physical Exam Constitutional: well developed, well nourished and + morbidly obese; no acute distress Neck: normal visual inspection, trachea midline, + thick neck and + facial hair Respiratory: normal respiratory effort and + tachypneic; no respiratory distress, no labored breathing and no cough Auscultation: + crackles (right base); no rales, no rhonchi and no wheezes Cardiovascular: Rate/Rhythm: regular rhythm and + tachycardic Heart Sounds: normal S1 and normal S2; no murmur Vessels: no JVD Extremities: normal capillary refill; no edema Gastrointestinal (Abdomen): normal bowel sounds, soft, nontender, no hepatosplenomegaly Musculoskeletal: no cyanosis or clubbing, extremities motor strength 5/5 Skin: no rashes, warm and dry Neurologic: patellar DTR's 2+ bilat, sensation intact and PERRL, EOMI, accommodation nl, no face palsy, no dysarthria Psychiatric: A+Ox3, euthymic affect Lymphatic: no cervical or axillary lymphadenopathy Results & Data Results & Data ([facility]) Vital Signs (Past 12 Hours) Vital Signs Temp Pulse Pulse Resp BP Pulse Ox 03/11/20 08:15 37.0 C 108 H 20 107/76 93 03/11/20 07:18 112 H 22 90 03/11/20 03:48 98 H 22 93 03/11/20 03:25 37.0 C 96 H 17 134/81 93 03/11/20 02:23 81 20 95 03/11/20 00:35 81 20 95 03/10/20 23:37 37.1 C 87 20 108/70 95 Laboratory Results Laboratory Results - last 24 hr 03/09/20 03/10/20 03/10/20 07:31 11:20 11:57 WBC RBC Hgb Hct MCV MCH MCHC RDW Std Deviation RDW Coeff of Julian Plt Count MPV Immature Gran % (Auto) Neut % (Auto) Lymph % (Auto) [place] % (Auto) Eos % (Auto) Baso % (Auto) Neut # (Auto) Lymph # (Auto) [place] # (Auto) Eos # (Auto) Baso # (Auto) Immature Gran # (Auto) Sodium Potassium Chloride Carbon Dioxide Anion Gap BUN Creatinine 0.95 Est Cr Clr Drug Dosing 123.9 Est GFR ( Amer) 103.3 Est GFR (Non-Af Amer) 89.1 BUN/Creatinine Ratio Glucose POC Glucose 88 191 H Calcium Total Bilirubin AST ALT Alkaline Phosphatase Total Protein Albumin Globulin Albumin/Globulin Ratio 03/10/20 03/10/20 03/11/20 16:28 20:48 06:50 WBC 9.87 RBC 4.67 L Hgb 13.9 L Hct 41.9 L MCV 89.7 MCH 29.8 MCHC 33.2 RDW Std Deviation 43.8 RDW Coeff of Julian 13.4 Plt Count 505 H MPV 9.0 Immature Gran % (Auto) 1.8 Neut % (Auto) 79.2 Lymph % (Auto) 8.7 [place] % (Auto) 5.2 Eos % (Auto) 5.0 Baso % (Auto) 0.1 Neut # (Auto) 7.82 H Lymph # (Auto) 0.86 L [place] # (Auto) 0.51 Eos # (Auto) 0.49 Baso # (Auto) 0.01 Immature Gran # (Auto) 0.18 H Sodium Potassium Chloride Carbon Dioxide Anion Gap BUN Creatinine Est Cr Clr Drug Dosing Est GFR ( Amer) Est GFR (Non-Af Amer) BUN/Creatinine Ratio Glucose POC Glucose 296 H 135 H Calcium Total Bilirubin AST ALT Alkaline Phosphatase Total Protein Albumin Globulin Albumin/Globulin Ratio 03/11/20 03/11/20 06:50 07:28 WBC RBC Hgb Hct MCV MCH MCHC RDW Std Deviation RDW Coeff of Julian Plt Count MPV Immature Gran % (Auto) Neut % (Auto) Lymph % (Auto) [place] % (Auto) Eos % (Auto) Baso % (Auto) Neut # (Auto) Lymph # (Auto) [place] # (Auto) Eos # (Auto) Baso # (Auto) Immature Gran # (Auto) Sodium 136 Potassium 4.7 Chloride 100 Carbon Dioxide 30 Anion Gap 6.0 BUN 21 H Creatinine 0.77 Est Cr Clr Drug Dosing 152.1 Est GFR ( Amer) 117.6 Est GFR (Non-Af Amer) 101.4 BUN/Creatinine Ratio 27.5 H Glucose 186 H POC Glucose 168 H Calcium 9.6 Total Bilirubin 0.7 AST 39 H ALT 46 Alkaline Phosphatase 141 H Total Protein 7.1 Albumin 2.5 L Globulin 4.6 H Albumin/Globulin Ratio 0.5 L Medications Administered Current Inpatient Medications Acetaminophen (Acetaminophen 325 Mg Tab) 650 mg PO Q4H PRN PRN Reason: Pain or Fever Stop: 04/03/20 20:08 Albuterol (Albuterol Hfa 8 Gm Inhaler) 1 puffs INH QIDR [facility] Stop: 04/06/20 18:59 Last Admin: 03/11/20 07:16 Dose: 1 puffs Documented by: Albuterol (Albut/Ipratrop 3mg/0.5mg Neb 3 Ml Vial) 3 ml NEB QIDR [facility] Stop: 04/06/20 18:59 Last Admin: 03/11/20 07:17 Dose: Not Given Documented by: Albuterol (Albut/Ipratrop 3mg/0.5mg Neb 3 Ml Vial) 3 ml NEB Q2H PRN PRN Reason: Shortness Of Breath Or Wheezing Stop: 04/06/20 17:13 Aspirin (Aspirin 81 Mg Ectab) 81 mg PO DAILY [facility] Stop: 04/04/20 08:59 Last Admin: 03/11/20 08:02 Dose: 81 mg Documented by: Dextrose (Dextrose 50% 50 Ml Syringe) 25 - 50 ml IV UD PRN; Protocol PRN Reason: Hypoglycemia Protocol Stop: 04/03/20 20:59 Enoxaparin Sodium (Enoxaparin 80 Mg/0.8 Ml Syr) 70 mg SQ Q12H [facility] Stop: 04/03/20 20:59 Last Admin: 03/11/20 09:56 Dose: 70 mg Documented by: Glucagon (Glucagon For Inj 1 Mg Vial) 1 mg SQ UD PRN; Protocol PRN Reason: Hypoglycemia Protocol Stop: 04/03/20 20:59 Glucose (Glucose 40% Gel 15 Gm Tube) 15 - 30 gm PO UD PRN; Protocol PRN Reason: Hypoglycemia Protocol Stop: 04/03/20 20:59 Glucose (Glucose 10 Tabs/Tube) 4 - 8 tabs PO UD PRN; Protocol PRN Reason: Hypoglycemia Protocol Stop: 04/03/20 20:59 Guaifenesin (Guaifenesin 600 Mg Tabcr) 1,200 mg PO Q12 [facility] Stop: 04/03/20 20:59 Last Admin: 03/11/20 08:01 Dose: 1,200 mg Documented by: Hydrocodone Bit/Homatropine Methylb (Hydrocodone/Homatropine Syrup 5mg/1.5mg 5ml Udp) 5 ml PO Q8H PRN PRN Reason: Cough Stop: 03/18/20 20:08 Dexamethasone 6 mg/ Syringe 1.5 mls @ 1 mls/min IV DAILY [facility] Stop: 03/13/20 09:02 Last Admin: 03/11/20 08:02 Dose: 1 mls/min Documented by: Insulin Human Lispro (Humalog Insulin Pump) 1 ea N/A ACHS [facility]; Protocol Stop: 04/03/20 20:59 Last Admin: 03/11/20 09:55 Dose: 1 ea Documented by: Insulin Human Lispro (Insulin Human Lispro (Humalog) 100 Units/Ml Vial) 0 units SC PRN PRN PRN Reason: FOR REFILL Stop: 04/03/20 20:59 Last Admin: 03/08/20 09:09 Dose: 25 units Documented by: Ipratropium [place] (Ipratropium [place] Hfa Inhaler) 1 puffs INH QIDR [facility] Stop: 04/06/20 18:59 Last Admin: 03/11/20 07:16 Dose: 1 puffs Documented by: Lisinopril (Lisinopril 40 Mg Tab) 40 mg PO DAILY [facility] Stop: 04/04/20 08:59 Last Admin: 03/11/20 08:01 Dose: 40 mg Documented by: Metformin HCl (Metformin Hcl Er 500 Mg Tabcr) 1,000 mg PO BIDM [facility] Stop: 04/09/20 16:59 Last Admin: 03/11/20 08:02 Dose: 1,000 mg Documented by: Metoprolol Tartrate (Metoprolol Tartrate 25 Mg Tab) 25 mg PO BID [facility] Stop: 04/07/20 08:59 Last Admin: 03/11/20 08:01 Dose: 25 mg Documented by: Miscellaneous (Carbohydrates For Hypoglycemia ) 15 - 30 gm PO UD PRN PRN Reason: Hypoglycemia Treatment Stop: 04/03/20 20:59 Last Admin: 03/07/20 04:47 Dose: 15 gm Documented by: Miscellaneous Information (Pharmacy Glycemic Mgmt Consult) 1 ea N/A UD PRN PRN Reason: Consult Stop: 04/03/20 20:19 Multivitamins (Multivitamin Tab) 1 tab PO QAM [facility] Stop: 04/04/20 08:59 Last Admin: 03/11/20 08:02 Dose: 1 tab Documented by: Ondansetron HCl (Ondansetron Inj 2 Mg/Ml 2 Ml Vial) 4 mg IV Q6H PRN PRN Reason: Nausea Stop: 04/03/20 20:08 Pantoprazole Sodium (Pantoprazole 40 Mg Tab) 40 mg PO QAM [facility] Stop: 04/04/20 08:59 Last Admin: 03/11/20 08:01 Dose: 40 mg Documented by: Rosuvastatin Calcium (Rosuvastatin Calcium 20 Mg Tab) 20 mg PO DAILY [facility] Stop: 04/04/20 08:59 PG Care Time/CCT Total # of Minutes Spent Total Time Spent with Patient: Total time spent is greater than 50% in coordination of care (as documented) at patient's floor/unit and/or counseling patient: Coding Level of Care Code 81654 Subseq Hosp Care Lvl 3 Diagnoses Acute respiratory failure with hypoxia J96.01 Pneumonia due to COVID-19 virus U07.1; J12.89 Hyponatremia E87.1 Morbid obesity E66.01 Rhabdomyolysis due to COVID-19 U07.1; M62.82 Hyperlipidemia E78.5 Essential (primary) hypertension I10 Type 2 diabetes mellitus E11.9 Sarcoidosis D86.9 DVT prophylaxis Z29.9
[2020-03-12] MEDS: ALBUT/IPRATROP 3MG/0.5MG NEB 3 ML VIAL NEB SCH ×5 (07:10→19:47)
[2020-03-12] MEDS: ALBUTEROL HFA 8 GM INHALER INH SCH ×4 (07:17→19:47)
[2020-03-12] MEDS: IPRATROPIUM BROMIDE HFA INHALER INH SCH ×4 (07:17→19:47)
[2020-03-12] MEDS: ASPIRIN 81 MG ECTAB PO SCH (09:31)
[2020-03-12] MEDS: metFORMIN HCL ER 500 MG TABCR PO SCH ×2 (09:31→18:14)
[2020-03-12] MEDS: dexAMETHasone 6 MG in SYRINGE 0 ML IV SCH (09:31)
[2020-03-12] MEDS: MULTIVITAMIN TAB PO SCH (09:32)
[2020-03-12] MEDS: ENOXAPARIN 80 MG/0.8 ML SYR SQ SCH ×2 (09:32→20:22)
[2020-03-12] MEDS: guaiFENesin 600 MG TABCR PO SCH ×2 (09:32→20:22)
[2020-03-12] MEDS: PANTOprazole 40 MG TAB PO SCH (09:32)
[2020-03-12] MEDS: METOPROLOL TARTRATE 25 MG TAB PO SCH ×2 (09:35→20:21)
[2020-03-12] MEDS: lisinopril 40 MG TAB PO SCH (09:35)
--- NOTE | 2020-03-12 12:29 | Pharmacy Report ---
Glycemic Control Progress Note - Date of Service March 12, 2020 - Scope Glycemic Pharmacist consulted for glycemic control to write orders per [facility] inpatient glycemic control protocol. - Objective Accuchecks BSG(last 24 hours):: 03/11/20 03/11/20 03/12/20 17:00 20:08 08:21 POC Glucose 165 H 200 H 179 H 03/12/20 11:57 POC Glucose 230 H HbA1c:: Hemoglobin A1c 7.3 % (4.5-5.6) H 03/06/20 06:43 - Recent Pertinent Medications The patient is currently receiving: * Humalog pump on home settings - Outpatient Anti-Diabetic Meds Humalog pump see previous notes for settings - Assessment & Plan ASSESSMENT: * See progress note from 03/05/20 for more background info, in short: * Pt receiving SQ basal bolus insulin regimen for hyperglycemia secondary to baseline DM (outpatient regimen on hold),stress/infection (COVID-19 positive), and on dexamethasone 6 mg IV daily. * Patient is currently receiving insulin via his own insulin pump * Changes needed to insulin regimen: * AM Fasting BSG = 179 mg/dl. This is slightly above goal range for patient based on inpatient targets and co-morbidities. Will continue home regimen at this time as steroids discontinuing tomorrow. * Post-prandial BSGs are reasonably controlled so continue current regimen. * Additional notes / comments: expect insulin requirements to decrease significantly once steroids d/c'ed PLAN FOR INPATIENT GLYCEMIC CONTROL: * Continuing home regimen with insulin pump * Please note that the plan above was derived based on current level of insulin resistance and hospital stress. These recommendations are appropriate for i npatient admission only. Plan of care upon discharge will need to be reassessed to avoid potential outpatient hypo/hyperglycemia. Thank you.
--- NOTE | 2020-03-12 18:32 | Hospitalist Progress Note ---
Date of Service March 12, 2020 Assessment & Plan (1) Acute respiratory failure with hypoxia: 2nd to COVID-19 pneumonia. Supportive care,oxymask and bipap to keep sats >89 Pulmonary toilet. no distress, still on 15L oxymask, purely hypoxemic without any extra work of breathing provided encouragement, likely that this will last for days to a week more needs to maintain strength by eating well (2) Pneumonia due to COVID-19 virus: Severe, extensive on imaging. Escalated oxygen requirement to 15 L oxygen mask did not tolerate high flow nasal cannula. Patient is willing to try BiPAP when napping and sleeping at night he seems to be tolerating this. At risk of progressive disease obesity, T2DM, etc. for the time he appear stable and comfortable Treat with IV remdesivir x 5 days, LD 03/08 IV/PO decadron 6mg daily x 10 days,LD 03/13 (tomorrow) received plasma zithromax for possibility of bacterial pneumonia/superinfection. Procal, normal Due to severe wheezing place on combivent 1 puff qid when on bipap and nebs when on oxymask no wheezing again today Pulmonary toilet with mucinex, incentive marek, and flutter valve. Homatropine/hydrocodone prn for severe coughing fits. Repeat D-dimer is normal Fortunately no PE on imaging. one day at a time, anticipate him being here the rest of the week if not longer (3) Hyponatremia: resolved (4) Morbid obesity: BMI 45 (5) Rhabdomyolysis due to COVID-19: Mild. Hydrate, repeat CPK is down (6) Hyperlipidemia: AST and CPK both mildly elevated. Crestor restarted for possible statin protection Trend AST and CPK. Hydrate. (7) Essential (primary) hypertension: Patient on both ANDRE and ARB. Cont the ANDRE; hold the ARB. Adjust meds as needed. BP is normal today (8) Type 2 diabetes mellitus: Consult pharmacy for glycemic management. Is on pump at home, is self medicating with pump here resume metformin to assist glucose control. T2DM. BSGs ac/hs. monitor for hypo and/or hyperglycemia, no recent episodes sugar up at 242 this evening, covered with pump (9) Sarcoidosis: remote history. dx . in remission. no signs of such on imaging although does have mediastinal lymphadenopathy. the latter could be reactive to COVID, however. (10) DVT prophylaxis: high risk of VTE while hospitalized thus, lovenox 0.5mg/kg/dose BID Admission and Anticipated Discharge Date Admission Date: March 04, 2020 Subjective patient feels the same as yesterday, short of breath at rest requiring 15L NC no distress, eating okay he says his sugars are stable using his insulin pump no fever/chills, just c/o weakness, sleeping a lot encouraged him to lay prone Review of Systems Review of Systems: All systems reviewed & are unremarkable except as noted in Subjective Physical Exam Constitutional: well developed, well nourished, + ill appearing and + morbidly obese; no acute distress Neck: normal visual inspection, trachea midline, + thick neck and + facial hair Respiratory: normal respiratory effort and + tachypneic; no respiratory distress, no labored breathing and no cough Auscultation: + crackles (right base); no rales, no rhonchi and no wheezes Cardiovascular: Rate/Rhythm: regular rhythm and + tachycardic Heart Sounds: normal S1 and normal S2; no murmur Vessels: no JVD Extremities: normal capillary refill; no edema Gastrointestinal (Abdomen): normal bowel sounds, soft, nontender, no hepatosplenomegaly Musculoskeletal: no cyanosis or clubbing, extremities motor strength 5/5 Skin: no rashes, warm and dry Neurologic: patellar DTR's 2+ bilat, sensation intact and PERRL, EOMI, accommo dation nl, no face palsy, no dysarthria Psychiatric: A+Ox3, euthymic affect Lymphatic: no cervical or axillary lymphadenopathy Results & Data Results & Data ([facility]) Vital Signs (Past 12 Hours) Vital Signs Temp Pulse Pulse Resp BP BP Pulse Ox 03/12/20 15:42 36.7 C 93 H 18 126/69 95 03/12/20 15:37 97 H 03/12/20 15:23 101 H 22 95 03/12/20 11:27 36.9 C 99 H 20 129/82 92 03/12/20 11:22 89 24 94 03/12/20 09:33 106 H 122/73 03/12/20 09:30 122/73 03/12/20 08:45 99 H 03/12/20 07:55 36.8 C 107 H 18 98/71 L 87 L 12/08/20 07:13 97 H 22 95 03/12/20 07:10 97 H 22 95 Laboratory Results Laboratory Results - last 24 hr 03/12/20 03/12/20 03/12/20 08:21 11:57 16:45 POC Glucose 179 H 230 H 242 H Medications Administered Current Inpatient Medications Acetaminophen (Acetaminophen 325 Mg Tab) 650 mg PO Q4H PRN PRN Reason: Pain or Fever Stop: 04/03/20 20:08 Last Admin: 03/11/20 11:50 Dose: 650 mg Documented by: Albuterol (Albuterol Hfa 8 Gm Inhaler) 1 puffs INH QIDR [facility] Stop: 04/06/20 18:59 Last Admin: 03/12/20 19:47 Dose: 1 puffs Documented by: Albuterol (Albut/Ipratrop 3mg/0.5mg Neb 3 Ml Vial) 3 ml NEB QIDR [facility] Stop: 04/06/20 18:59 Last Admin: 03/12/20 19:47 Dose: Not Given Documented by: Albuterol (Albut/Ipratrop 3mg/0.5mg Neb 3 Ml Vial) 3 ml NEB Q2H PRN PRN Reason: Shortness Of Breath Or Wheezing Stop: 04/06/20 17:13 Aspirin (Aspirin 81 Mg Ectab) 81 mg PO DAILY [facility] Stop: 04/04/20 08:59 Last Admin: 03/12/20 09:31 Dose: 81 mg Documented by: Dextrose (Dextrose 50% 50 Ml Syringe) 25 - 50 ml IV UD PRN; Protocol PRN Reason: Hypoglycemia Protocol Stop: 04/03/20 20:59 Enoxaparin Sodium (Enoxaparin 80 Mg/0.8 Ml Syr) 70 mg SQ Q12H [facility] Stop: 04/03/20 20:59 Last Admin: 03/12/20 20:22 Dose: 70 mg Documented by: Glucagon (Glucagon For Inj 1 Mg Vial) 1 mg SQ UD PRN; Protocol PRN Reason: Hypoglycemia Protocol Stop: 04/03/20 20:59 Glucose (Glucose 40% Gel 15 Gm Tube) 15 - 30 gm PO UD PRN; Protocol PRN Reason: Hypoglycemia Protocol Stop: 04/03/20 20:59 Glucose (Glucose 10 Tabs/Tube) 4 - 8 tabs PO UD PRN; Protocol PRN Reason: Hypoglycemia Protocol Stop: 04/03/20 20:59 Guaifenesin (Guaifenesin 600 Mg Tabcr) 1,200 mg PO Q12 [facility] Stop: 04/03/20 20:59 Last Admin: 03/12/20 20:22 Dose: 1,200 mg Documented by: Hydrocodone Bit/Homatropine Methylb (Hydrocodone/Homatropine Syrup 5mg/1.5mg 5ml Udp) 5 ml PO Q8H PRN PRN Reason: Cough Stop: 03/18/20 20:08 Dexamethasone 6 mg/ Syringe 1.5 mls @ 1 mls/min IV DAILY [facility] Stop: 03/13/20 09:02 Last Admin: 03/12/20 09:31 Dose: 1 mls/min Documented by: Insulin Human Lispro (Humalog Insulin Pump) 1 ea N/A ACHS [facility]; Protocol Stop: 04/03/20 20:59 Last Admin: 03/12/20 20:22 Dose: 1 ea Documented by: Insulin Human Lispro (Insulin Human Lispro (Humalog) 100 Units/Ml Vial) 0 units SC PRN PRN PRN Reason: FOR REFILL Stop: 04/03/20 20:59 Last Admin: 03/08/20 09:09 Dose: 25 units Documented by: Ipratropium [place] (Ipratropium [place] Hfa Inhaler) 1 puffs INH QIDR [facility] Stop: 04/06/20 18:59 Last Admin: 03/12/20 19:47 Dose: 1 puffs Documented by: Lisinopril (Lisinopril 40 Mg Tab) 40 mg PO DAILY [facility] Stop: 04/04/20 08:59 Last Admin: 03/12/20 09:35 Dose: 40 mg Documented by: Metformin HCl (Metformin Hcl Er 500 Mg Tabcr) 1,000 mg PO BIDM [facility] Stop: 04/09/20 16:59 Last Admin: 03/12/20 18:14 Dose: 1,000 mg Documented by: Metoprolol Tartrate (Metoprolol Tartrate 25 Mg Tab) 25 mg PO BID [facility] Stop: 04/07/20 08:59 Last Admin: 03/12/20 20:21 Dose: 25 mg Documented by: Miscellaneous (Carbohydrates For Hypoglycemia ) 15 - 30 gm PO UD PRN PRN Reason: Hypoglycemia Treatment Stop: 04/03/20 20:59 Last Admin: 03/07/20 04:47 Dose: 15 gm Documented by: Miscellaneous Information (Pharmacy Glycemic Mgmt Consult) 1 ea N/A UD PRN PRN Reason: Consult Stop: 04/03/20 20:19 Multivitamins (Multivitamin Tab) 1 tab PO QAM [facility] Stop: 04/04/20 08:59 Last Admin: 03/12/20 09:32 Dose: 1 tab Documented by: Ondansetron HCl (Ondansetron Inj 2 Mg/Ml 2 Ml Vial) 4 mg IV Q6H PRN PRN Reason: Nausea Stop: 04/03/20 20:08 Pantoprazole Sodium (Pantoprazole 40 Mg Tab) 40 mg PO QAM [facility] Stop: 04/04/20 08:59 Last Admin: 03/12/20 09:32 Dose: 40 mg Documented by: Rosuvastatin Calcium (Rosuvastatin Calcium 20 Mg Tab) 20 mg PO DAILY [facility] Stop: 04/04/20 08:59 PG Care Time/CCT Total # of Minutes Spent Total Time Spent with Patient: Total time spent is greater than 50% in coordination of care (as documented) at patient's floor/unit and/or counseling patient: Coding Level of Care Code 64673 Subseq Hosp Care Lvl 2 Diagnoses Acute respiratory failure with hypoxia J96.01 Pneumonia due to COVID-19 virus U07.1; J12.89 Hyponatremia E87.1 Morbid obesity E66.01 Rhabdomyolysis due to COVID-19 U07.1; M62.82 Hyperlipidemia E78.5 Essential (primary) hypertension I10 Type 2 diabetes mellitus E11.9 Sarcoidosis D86.9 DVT prophylaxis Z29.9
[2020-03-13 07:05] LABS: Hematocrit (blood only) 42.8 % (42-52); Hemoglobin 14.1 g/dL (14.0-18.0); Mean Corpuscular Hemoglobin 29.5 pg (25-34); Mean Corpuscular Hgb Conc 32.9 g/dL (32-36); Mean Corpuscular Volume 89.5 fL (80-100); Mean Platelet Volume 9.1 fL (7.4-10.4); Platelet Count 423 K/uL (130-400); RDW Standard Deviation 42.4 fL (36.4-46.3); Red Blood Count 4.78 M/uL (4.7-6.1)
[2020-03-13 07:37] LABS: BUN Creatinine Ratio 28.8 (10-20); Calcium 9.9 mg/dl (8.5-10.1); Creatinine Clr Calc Pharmacy 163.3 ml/min; Est GFR (African American) 122.3; Est GFR (Non-African American) 105.5; Potassium 4.2 mmol/L (3.5-5.1)
[2020-03-13] MEDS: CARBOHYDRATES FOR HYPOGLYCEMIA PO PRN ×4 (07:50→23:13)
[2020-03-13] MEDS: ALBUTEROL HFA 8 GM INHALER INH SCH ×4 (07:52→20:09)
[2020-03-13] MEDS: ALBUT/IPRATROP 3MG/0.5MG NEB 3 ML VIAL NEB SCH ×4 (07:53→20:10)
[2020-03-13] MEDS: IPRATROPIUM BROMIDE HFA INHALER INH SCH ×4 (07:53→20:10)
[2020-03-13] MEDS: metFORMIN HCL ER 500 MG TABCR PO SCH ×2 (09:00→17:33)
[2020-03-13] MEDS: dexAMETHasone 6 MG in SYRINGE 0 ML IV SCH (10:02)
[2020-03-13] MEDS: ENOXAPARIN 80 MG/0.8 ML SYR SQ SCH ×2 (10:03→20:59)
[2020-03-13] MEDS: guaiFENesin 600 MG TABCR PO SCH ×2 (10:04→20:59)
[2020-03-13] MEDS: METOPROLOL TARTRATE 25 MG TAB PO SCH ×2 (10:04→20:58)
[2020-03-13] MEDS: ASPIRIN 81 MG ECTAB PO SCH (10:05)
[2020-03-13] MEDS: lisinopril 40 MG TAB PO SCH (10:05)
[2020-03-13] MEDS: MULTIVITAMIN TAB PO SCH (10:05)
[2020-03-13] MEDS: PANTOprazole 40 MG TAB PO SCH (10:06)
--- NOTE | 2020-03-13 17:43 | Hospitalist Progress Note ---
Date of Service March 13, 2020 Assessment & Plan (1) Acute respiratory failure with hypoxia: 2nd to COVID-19 pneumonia. Supportive care,oxymask and bipap to keep sats >89 Pulmonary toilet. no distress, still on 15L oxymask, purely hypoxemic without any extra work of breathing requesting to be on the HFNC so he can ambulate to the restroom I am in agreement, want him active, he is motivated provided encouragement, likely that this will last for days to a week more needs to maintain strength by eating well which he is doing (2) Pneumonia due to COVID-19 virus: Severe, extensive on imaging. Escalated oxygen requirement to 15 L oxygen mask or HFNC, using BIPAP at night At risk of progressive disease obesity, T2DM, etc. for the time he appear stable and comfortable for several days, pure hypoxia Treat with IV remdesivir x 5 days, LD 12 IV/PO decadron 6mg daily x 10 days, last day is today received plasma zithromax for possibility of bacterial pneumonia/superinfection, completed course Procal, normal Due to severe wheezing place on combivent 1 puff qid when on bipap and nebs when on oxymask no wheezing again today Pulmonary toilet with mucinex, incentive marek, and flutter valve. Homatropine/hydrocodone prn for severe coughing fits. Repeat D-dimer is normal Fortunately no PE on imaging. one day at a time, anticipate him being here the rest of the week if not longer (3) Hyponatremia: resolved (4) Morbid obesity: BMI 45 (5) Rhabdomyolysis due to COVID-19: Mild. Hydrate, repeat CPK is down (6) Hyperlipidemia: AST and CPK both mildly elevated. Crestor restarted for possible statin protection Trend AST and CPK. Hydrate. (7) Essential (primary) hypertension: Patient on both ANDRE and ARB. Cont the ANDRE; hold the ARB. Adjust meds as needed. 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 BSGs ac/hs. monitor for hypo and/or hyperglycemia, no recent episodes (9) Sarcoidosis: remote history. dx 1990s. in remission. no signs of such on imaging although does have mediastinal lymphadenopathy. the latter could be reactive to COVID, however. (10) DVT prophylaxis: high risk of VTE while hospitalized thus, lovenox 0.5mg/kg/dose BID Admission and Anticipated Discharge Date Admission Date: March 04, 2020 Subjective patient sitting up on the bedside, breathing easier today, still requiring 15L oxymask he is eating well has some hypoglycemia this morning, responded to glucose pushes now with hyperglycemia in the afternoon CBC is normal BMP shows stable Na, Cr and K of 4.2 patient's goal is to get down to 4L and ambulate to the bathroom his strength is good Review of Systems Review of Systems: All systems reviewed & are unremarkable except as noted in Subjective Physical Exam Constitutional: well developed, well nourished and + morbidly obese; no acute distress Neck: normal visual inspection, trachea midline, + thick neck and + facial hair Respiratory: normal respiratory effort and + tachypneic; no respiratory distress, no labored breathing and no cough Auscultation: no crackles, no rales, no rhonchi and no wheezes Cardiovascular: Rate/Rhythm: regular rhythm and + tachycardic Heart Sounds: normal S1 and normal S2; no murmur Vessels: no JVD Extremities: normal capillary refill; no edema Gastrointestinal (Abdomen): normal bowel sounds, soft, nontender, no hepatosplenomegaly Musculoskeletal: no cyanosis or clubbing, extremities motor strength 5/5 Skin: no rashes, warm and dry Neurologic: patellar DTR's 2+ bilat, sensation intact and PERRL, EOMI, accommodation nl, no face palsy, no dysarthria Psychiatric: A+Ox3, euthymic affect Lymphatic: no cervical or axillary lymphadenopathy Results & Data Results & Data ([facility]) Vital Signs (Past 12 Hours) Vital Signs Temp Pulse Pulse Resp BP Pulse Ox 03/13/20 16:01 36.5 C 101 H 23 132/77 96 03/13/20 15:57 101 H 18 94 03/13/20 14:21 96 H 03/13/20 11:36 37.5 C 94 H 20 102/71 94 03/13/20 11:32 96 H 20 92 03/13/20 09:59 97 H 106/58 L 03/13/20 08:00 95 H 20 97 03/13/20 07:55 96 H 20 121/78 98 Laboratory Results Laboratory Results - last 24 hr 03/13/20 03/13/20 03/13/20 06:21 06:21 07:48 WBC 7.20 RBC 4.78 Hgb 14.1 Hct 42.8 MCV 89.5 MCH 29.5 MCHC 32.9 RDW Std Deviation 42.4 RDW Coeff of Julian 13.0 Plt Count 423 H MPV 9.1 Sodium 136 Potassium 4.2 Chloride 101 Carbon Dioxide 31 Anion Gap 4.0 BUN 20 H Creatinine 0.70 Est Cr Clr Drug Dosing 163.3 Est GFR ( Amer) 122.3 Est GFR (Non-Af Amer) 105.5 BUN/Creatinine Ratio 28.8 H Glucose 71 POC Glucose 48 L* Calcium 9.9 Magnesium 2.0 03/13/20 03/13/20 03/13/20 07:49 08:06 08:27 WBC RBC Hgb Hct MCV MCH MCHC RDW Std Deviation RDW Coeff of Julain Plt Count MPV Sodium Potassium Chloride Carbon Dioxide Anion Gap BUN Creatinine Est Cr Clr Drug Dosing Est GFR ( Amer) Est GFR (Non-Af Amer) BUN/Creatinine Ratio Glucose POC Glucose 49 L* 62 L* 87 Calcium Magnesium 03/13/20 03/13/20 03/13/20 11:33 16:32 16:33 WBC RBC Hgb Hct MCV MCH MCHC RDW Std Deviation RDW Coeff of Julian Plt Count MPV Sodium Potassium Chloride Carbon Dioxide Anion Gap BUN Creatinine Est Cr Clr Drug Dosing Est GFR ( Amer) Est GFR (Non-Af Amer) BUN/Creatinine Ratio Glucose POC Glucose 174 H 326 H* 332 H* Calcium Magnesium Medications Administered Current Inpatient Medications Acetaminophen (Acetaminophen 325 Mg Tab) 650 mg PO Q4H PRN PRN Reason: Pain or Fever Stop: 04/03/20 20:08 Last Admin: 03/11/20 11:50 Dose: 650 mg Documented by: Albuterol (Albuterol Hfa 8 Gm Inhaler) 1 puffs INH QIDR IBETH Stop: 04/06/20 18:59 Last Admin: 03/13/20 15:56 Dose: 1 puffs Documented by: Albuterol (Albut/Ipratrop 3mg/0.5mg Neb 3 Ml Vial) 3 ml NEB QIDR IBETH Stop: 04/06/20 18:59 Last Admin: 03/13/20 15:57 Dose: Not Given Documented by: Albuterol (Albut/Ipratrop 3mg/0.5mg Neb 3 Ml Vial) 3 ml NEB Q2H PRN PRN Reason: Shortness Of Breath Or Wheezing Stop: 04/06/20 17:13 Aspirin (Aspirin 81 Mg Ectab) 81 mg PO DAILY IBETH Stop: 04/04/20 08:59 Last Admin: 03/13/20 10:05 Dose: 81 mg Documented by: Dextrose (Dextrose 50% 50 Ml Syringe) 25 - 50 ml IV UD PRN; Protocol PRN Reason: Hypoglycemia Protocol Stop: 04/03/20 20:59 Enoxaparin Sodium (Enoxaparin 80 Mg/0.8 Ml Syr) 70 mg SQ Q12H IBETH Stop: 04/03/20 20:59 Last Admin: 03/13/20 10:03 Dose: 70 mg Documented by: Glucagon (Glucagon For Inj 1 Mg Vial) 1 mg SQ UD PRN; Protocol PRN Reason: Hypoglycemia Protocol Stop: 04/03/20 20:59 Glucose (Glucose 40% Gel 15 Gm Tube) 15 - 30 gm PO UD PRN; Protocol PRN Reason: Hypoglycemia Protocol Stop: 04/03/20 20:59 Glucose (Glucose 10 Tabs/Tube) 4 - 8 tabs PO UD PRN; Protocol PRN Reason: Hypoglycemia Protocol Stop: 04/03/20 20:59 Guaifenesin (Guaifenesin 600 Mg Tabcr) 1,200 mg PO Q12 IBETH Stop: 04/03/20 20:59 Last Admin: 03/13/20 10:04 Dose: 1,200 mg Documented by: Hydrocodone Bit/Homatropine Methylb (Hydrocodone/Homatropine Syrup 5mg/1.5mg 5ml Udp) 5 ml PO Q8H PRN PRN Reason: Cough Stop: 03/18/20 20:08 Insulin Human Lispro (Humalog Insulin Pump) 1 ea N/A ACHS [facility]; Protocol Stop: 04/03/20 20:59 Last Admin: 03/13/20 17:32 Dose: 1 ea Documented by: Insulin Human Lispro (Insulin Human Lispro (Humalog) 100 Units/Ml Vial) 0 units SC PRN PRN PRN Reason: FOR REFILL Stop: 04/03/20 20:59 Last Admin: 03/08/20 09:09 Dose: 25 units Documented by: Ipratropium [place] (Ipratropium [place] Hfa Inhaler) 1 puffs INH QIDR [facility] Stop: 04/06/20 18:59 Last Admin: 03/13/20 15:56 Dose: 1 puffs Documented by: Lisinopril (Lisinopril 40 Mg Tab) 40 mg PO DAILY [facility] Stop: 04/04/20 08:59 Last Admin: 03/13/20 10:05 Dose: 40 mg Documented by: Metformin HCl (Metformin Hcl Er 500 Mg Tabcr) 1,000 mg PO BIDM [facility] Stop: 04/09/20 16:59 Last Admin: 03/13/20 17:33 Dose: 1,000 mg Documented by: Metoprolol Tartrate (Metoprolol Tartrate 25 Mg Tab) 25 mg PO BID [facility] Stop: 04/07/20 08:59 Last Admin: 03/13/20 10:04 Dose: 25 mg Documented by: Miscellaneous (Carbohydrates For Hypoglycemia ) 15 - 30 gm PO UD PRN PRN Reason: Hypoglycemia Treatment Stop: 04/03/20 20:59 Last Admin: 03/13/20 08:10 Dose: 15 gm Documented by: Multivitamins (Multivitamin Tab) 1 tab PO QAM [facility] Stop: 04/04/20 08:59 Last Admin: 03/13/20 10:05 Dose: 1 tab Documented by: Ondansetron HCl (Ondansetron Inj 2 Mg/Ml 2 Ml Vial) 4 mg IV Q6H PRN PRN Reason: Nausea Stop: 04/03/20 20:08 Pantoprazole Sodium (Pantoprazole 40 Mg Tab) 40 mg PO QAM [facility] Stop: 04/04/20 08:59 Last Admin: 03/13/20 10:06 Dose: 40 mg Documented by: Rosuvastatin Calcium (Rosuvastatin Calcium 20 Mg Tab) 20 mg PO DAILY [facility] Stop: 04/04/20 08:59 PG Care Time/CCT Total # of Minutes Spent Total Time Spent with Patient: Total time spent is greater than 50% in coordination of care (as documented) at patient's floor/unit and/or counseling patient: Coding Level of Care Code 44882 Subseq Hosp Care Lvl 3 Diagnoses Acute respiratory failure with hypoxia J96.01 Pneumonia due to COVID-19 virus U07.1; J12.89 Hyponatremia E87.1 Morbid obesity E66.01 Rhabdomyolysis due to COVID-19 U07.1; M62.82 Hyperlipidemia E78.5 Essential (primary) hypertension I10 Type 2 diabetes mellitus E11.9 Sarcoidosis D86.9 DVT prophylaxis Z29.9
[2020-03-14] MEDS: IPRATROPIUM BROMIDE HFA INHALER INH SCH ×4 (07:36→19:50)
[2020-03-14] MEDS: ALBUTEROL HFA 8 GM INHALER INH SCH ×4 (07:36→19:49)
[2020-03-14] MEDS: ALBUT/IPRATROP 3MG/0.5MG NEB 3 ML VIAL NEB SCH ×3 (07:45→19:50)
[2020-03-14 08:17] LABS: Hematocrit (blood only) 42.8 % (42-52); Hemoglobin 14.1 g/dL (14.0-18.0); Mean Corpuscular Hemoglobin 29.7 pg (25-34); Mean Corpuscular Hgb Conc 32.9 g/dL (32-36); Mean Corpuscular Volume 90.3 fL (80-100); Platelet Count 506 K/uL (130-400); RDW Coefficient of Variation 13.2 % (11.5-14.5); RDW Standard Deviation 43.6 fL (36.4-46.3); Red Blood Count 4.74 M/uL (4.7-6.1); White Blood Count 7.57 K/uL (4.8-10.8)
[2020-03-14 08:41] LABS: BUN Creatinine Ratio 23.5 (10-20); Creatinine Clr Calc Pharmacy 135.7 ml/min; Est GFR (African American) 114.6; Est GFR (Non-African American) 98.9; Potassium 5.1 mmol/L (3.5-5.1)
[2020-03-14] MEDS: lisinopril 40 MG TAB PO SCH (08:59)
[2020-03-14] MEDS: metFORMIN HCL ER 500 MG TABCR PO SCH ×2 (08:59→17:26)
[2020-03-14] MEDS: MULTIVITAMIN TAB PO SCH (08:59)
[2020-03-14] MEDS: PANTOprazole 40 MG TAB PO SCH (08:59)
[2020-03-14] MEDS: ASPIRIN 81 MG ECTAB PO SCH (08:59)
[2020-03-14] MEDS: ENOXAPARIN 80 MG/0.8 ML SYR SQ SCH ×2 (08:59→21:21)
[2020-03-14] MEDS: guaiFENesin 600 MG TABCR PO SCH ×2 (09:00→21:21)
[2020-03-14] MEDS: METOPROLOL TARTRATE 25 MG TAB PO SCH ×2 (09:00→21:21)
--- NOTE | 2020-03-14 10:07 | Hospitalist Progress Note ---
Date of Service March 14, 2020 Assessment & Plan (1) Acute respiratory failure with hypoxia: 2nd to COVID-19 pneumonia. Supportive care,oxymask and bipap to keep sats >89 Pulmonary toilet. no distress, oxygen requirements down a little today, purely hypoxemic without any extra work of breathing requesting to be on the HFNC so he can ambulate to the restroom I am in agreement, want him active, he is motivated provided encouragement, likely that this will last for days to a week more needs to maintain strength by eating well which he is doing stopped Decadron yesterday, completed 10 days (2) Pneumonia due to COVID-19 virus: Severe, extensive on imaging. oxygen requirements down to 13 L oxygen mask using BIPAP at night At risk of progressive disease obesity, T2DM, etc. for the time he appear stable and comfortable for several days, pure hypoxia Treat with IV remdesivir x 5 days, LD 03/08 IV/PO decadron 6mg daily x 10 days, last day 03/13 received plasma zithromax for possibility of bacterial pneumonia/superinfection, completed course Procal, normal Due to severe wheezing place on combivent 1 puff qid when on bipap and nebs when on oxymask no wheezing Pulmonary toilet with mucinex, incentive marek, and flutter valve. Homatropine/hydrocodone prn for severe coughing fits. Repeat D-dimer is normal Fortunately no PE on imaging. one day at a time, anticipate him being here the rest of the week if not longer (3) Hyponatremia: resolved (4) Morbid obesity: BMI 45 (5) Rhabdomyolysis due to COVID-19: Mild. Hydrate, repeat CPK is down (6) Hyperlipidemia: AST and CPK both mildly elevated. Crestor restarted for possible statin protection Trend AST and CPK. Hydrate. (7) Essential (primary) hypertension: Patient on both ANDRE and ARB. Cont the ANDRE; hold the ARB. Adjust meds as needed. BP is normal today (8) Type 2 diabetes mellitus: brittle diabetes, hypoglycemic this morning in 40's then really high in 400's around lunch he is not sure what is wrong with his pump he agrees to allow pharmacy to manage sugars with Lantus and Novolog sugars much better this evening, 124 continue to monitor closely, appreciate pharmacy help (9) Sarcoidosis: remote history. dx 1990s. in remission. no signs of such on imaging although does have mediastinal lymphadenopathy. the latter could be reactive to COVID, however. (10) DVT prophylaxis: high risk of VTE while hospitalized thus, lovenox 0.5mg/kg/dose BID Admission and Anticipated Discharge Date Admission Date: March 04, 2020 Subjective patient says he feels worse today, just in general, but he admits that it is likely from his hypo and hyperglycemia he is not sure what is wrong with his pump, he tried eating some snacks last night prior to bed still had lows this morning of 40, now sugars in 400's around lunch he agrees to allow pharmacy to manage his sugars with Lantus and Novolog he continues to eat well breathing is a little better, at some points he is down to 8L via mask, requires more when laying down Cr and electrolytes stable, CBC stable Review of Systems Review of Systems: All systems reviewed & are unremarkable except as noted in Subjective Physical Exam Constitutional: well developed, well nourished and + morbidly obese; no acute distress Neck: normal visual inspection, trachea midline, + thick neck and + facial hair Respiratory: normal respiratory effort and + tachypneic; no respiratory distress, no labored breathing and no cough Auscultation: no crackles, no rales, no rhonchi and no wheezes Cardiovascular: Rate/Rhythm: regular rhythm and + tachycardic Heart Sounds: normal S1 and normal S2; no murmur Vessels: no JVD Extremities: normal capillary refill; no edema Gastrointestinal (Abdomen): normal bowel sounds, soft, nontender, no hepatosplenomegaly Musculoskeletal: no cyanosis or clubbing, extremities motor strength 5/5 Skin: no rashes, warm and dry Neurologic: patellar DTR's 2+ bilat, sensation intact and PERRL, EOMI, accommodation nl, no face palsy, no dysarthria Psychiatric: A+Ox3, euthymic affect Lymphatic: no cervical or axillary lymphadenopathy Results & Data Results & Data ([facility]) Vital Signs (Past 12 Hours) Vital Signs Temp Pulse Pulse Resp BP Pulse Ox 03/14/20 08:01 36.5 C 92 H 18 138/86 98 03/14/20 07:43 95 H 20 100 03/14/20 03:53 36.7 C 99 H 20 142/75 H 94 03/13/20 23:34 36.4 C L 99 H 21 114/76 96 Laboratory Results Laboratory Results - last 24 hr 03/13/20 03/13/20 03/13/20 11:33 16:32 16:33 WBC RBC Hgb Hct MCV MCH MCHC RDW Std Deviation RDW Coeff of Julian Plt Count MPV Sodium Potassium Chloride Carbon Dioxide Anion Gap BUN Creatinine Est Cr Clr Drug Dosing Est GFR ( Amer) Est GFR (Non-Af Amer) BUN/Creatinine Ratio Glucose POC Glucose 174 H 326 H* 332 H* Calcium 03/13/20 03/13/20 03/13/20 21:14 22:58 22:59 WBC RBC Hgb Hct MCV MCH MCHC RDW Std Deviation RDW Coeff of Julian Plt Count MPV Sodium Potassium Chloride Carbon Dioxide Anion Gap BUN Creatinine Est Cr Clr Drug Dosing Est GFR ( Amer) Est GFR (Non-Af Amer) BUN/Creatinine Ratio Glucose POC Glucose 95 39 L* 42 L* Calcium 03/13/20 03/13/20 03/14/20 23:11 23:28 03:36 WBC RBC Hgb Hct MCV MCH MCHC RDW Std Deviation RDW Coeff of Julian Plt Count MPV Sodium Potassium Chloride Carbon Dioxide Anion Gap BUN Creatinine Est Cr Clr Drug Dosing Est GFR ( Amer) Est GFR (Non-Af Amer) BUN/Creatinine Ratio Glucose POC Glucose 56 L* 76 26 L* Calcium 03/14/20 03/14/20 03/14/20 03:50 03:51 04:02 WBC RBC Hgb Hct MCV MCH MCHC RDW Std Deviation RDW Coeff of Julian Plt Count MPV Sodium Potassium Chloride Carbon Dioxide Anion Gap BUN Creatinine Est Cr Clr Drug Dosing Est GFR ( Amer) Est GFR (Non-Af Amer) BUN/Creatinine Ratio Glucose POC Glucose 181 H 162 H 124 H Calcium 03/14/20 03/14/20 03/14/20 04:37 05:12 06:21 WBC RBC Hgb Hct MCV MCH MCHC RDW Std Deviation RDW Coeff of Julian Plt Count MPV Sodium Potassium Chloride Carbon Dioxide Anion Gap BUN Creatinine Est Cr Clr Drug Dosing Est GFR ( Amer) Est GFR (Non-Af Amer) BUN/Creatinine Ratio Glucose POC Glucose 103 H 105 H 78 Calcium 03/14/20 03/14/20 03/14/20 07:05 07:57 07:57 WBC 7.57 RBC 4.74 Hgb 14.1 Hct 42.8 MCV 90.3 MCH 29.7 MCHC 32.9 RDW Std Deviation 43.6 RDW Coeff of Julian 13.2 Plt Count 506 H MPV 9.0 Sodium 135 L Potassium 5.1 D Chloride 97 L Carbon Dioxide 32 Anion Gap 6.0 BUN 19 H Creatinine 0.82 Est Cr Clr Drug Dosing 135.7 Est GFR ( Amer) 114.6 Est GFR (Non-Af Amer) 98.9 BUN/Creatinine Ratio 23.5 H Glucose 153 H POC Glucose 124 H Calcium 11.0 H Medications Administered Current Inpatient Medications Acetaminophen (Acetaminophen 325 Mg Tab) 650 mg PO Q4H PRN PRN Reason: Pain or Fever Stop: 04/03/20 20:08 Last Admin: 03/11/20 11:50 Dose: 650 mg Documented by: Albuterol (Albuterol Hfa 8 Gm Inhaler) 1 puffs INH QIDR [facility] Stop: 04/06/20 18:59 Last Admin: 03/14/20 07:36 Dose: 1 puffs Documented by: Albuterol (Albut/Ipratrop 3mg/0.5mg Neb 3 Ml Vial) 3 ml NEB QIDR IBETH Stop: 04/06/20 18:59 Last Admin: 03/14/20 07:45 Dose: Not Given Documented by: Albuterol (Albut/Ipratrop 3mg/0.5mg Neb 3 Ml Vial) 3 ml NEB Q2H PRN PRN Reason: Shortness Of Breath Or Wheezing Stop: 04/06/20 17:13 Aspirin (Aspirin 81 Mg Ectab) 81 mg PO DAILY [facility] Stop: 04/04/20 08:59 Last Admin: 03/14/20 08:59 Dose: 81 mg Documented by: Dextrose (Dextrose 50% 50 Ml Syringe) 25 - 50 ml IV UD PRN; Protocol PRN Reason: Hypoglycemia Protocol Stop: 04/03/20 20:59 Last Admin: 03/14/20 03:49 Dose: 50 ml Documented by: Enoxaparin Sodium (Enoxaparin 80 Mg/0.8 Ml Syr) 70 mg SQ Q12H IBETH Stop: 04/03/20 20:59 Last Admin: 03/14/20 08:59 Dose: 70 mg Documented by: Glucagon (Glucagon For Inj 1 Mg Vial) 1 mg SQ UD PRN; Protocol PRN Reason: Hypoglycemia Protocol Stop: 04/03/20 20:59 Glucose (Glucose 40% Gel 15 Gm Tube) 15 - 30 gm PO UD PRN; Protocol PRN Reason: Hypoglycemia Protocol Stop: 04/03/20 20:59 Glucose (Glucose 10 Tabs/Tube) 4 - 8 tabs PO UD PRN; Protocol PRN Reason: Hypoglycemia Protocol Stop: 04/03/20 20:59 Guaifenesin (Guaifenesin 600 Mg Tabcr) 1,200 mg PO Q12 IBETH Stop: 04/03/20 20:59 Last Admin: 03/14/20 09:00 Dose: 1,200 mg Documented by: Hydrocodone Bit/Homatropine Methylb (Hydrocodone/Homatropine Syrup 5mg/1.5mg 5ml Udp) 5 ml PO Q8H PRN PRN Reason: Cough Stop: 03/18/20 20:08 Insulin Human Lispro (Humalog Insulin Pump) 1 ea N/[facility]; Protocol Stop: 04/03/20 20:59 Last Admin: 03/14/20 09:01 Dose: Not Given Documented by: Insulin Human Lispro (Insulin Human Lispro (Humalog) 100 Units/Ml Vial) 0 units SC PRN PRN PRN Reason: FOR REFILL Stop: 04/03/20 20:59 Last Admin: 03/08/20 09:09 Dose: 25 units Documented by: Ipratropium [place] (Ipratropium [place] Hfa Inhaler) 1 puffs INH QIDR [facility] Stop: 04/06/20 18:59 Last Admin: 03/14/20 07:36 Dose: 1 puffs Documented by: Lisinopril (Lisinopril 40 Mg Tab) 40 mg PO DAILY [facility] Stop: 04/04/20 08:59 Last Admin: 03/14/20 08:59 Dose: 40 mg Documented by: Metformin HCl (Metformin Hcl Er 500 Mg Tabcr) 1,000 mg PO BIDM [facility] Stop: 04/09/20 16:59 Last Admin: 03/14/20 08:59 Dose: 1,000 mg Documented by: Metoprolol Tartrate (Metoprolol Tartrate 25 Mg Tab) 25 mg PO BID [facility] Stop: 04/07/20 08:59 Last Admin: 03/14/20 09:00 Dose: 25 mg Documented by: Miscellaneous (Carbohydrates For Hypoglycemia ) 15 - 30 gm PO UD PRN PRN Reason: Hypoglycemia Treatment Stop: 04/03/20 20:59 Last Admin: 03/13/20 23:13 Dose: 15 gm Documented by: Multivitamins (Multivitamin Tab) 1 tab PO QAM [facility] Stop: 04/04/20 08:59 Last Admin: 03/14/20 08:59 Dose: 1 tab Documented by: Ondansetron HCl (Ondansetron Inj 2 Mg/Ml 2 Ml Vial) 4 mg IV Q6H PRN PRN Reason: Nausea Stop: 04/03/20 20:08 Pantoprazole Sodium (Pantoprazole 40 Mg Tab) 40 mg PO QAM [facility] Stop: 04/04/20 08:59 Last Admin: 03/14/20 08:59 Dose: 40 mg Documented by: Rosuvastatin Calcium (Rosuvastatin Calcium 20 Mg Tab) 20 mg PO DAILY [facility] Stop: 04/04/20 08:59 PG Care Time/CCT Total # of Minutes Spent Total Time Spent with Patient: Total time spent is greater than 50% in coordination of care (as documented) at patient's floor/unit and/or counseling patient: Coding Level of Care Code 98047 Subseq Hosp Care Lvl 2 Diagnoses Acute respiratory failure with hypoxia J96.01 Pneumonia due to COVID-19 virus U07.1; J12.89 Hyponatremia E87.1 Morbid obesity E66.01 Rhabdomyolysis due to COVID-19 U07.1; M62.82 Hyperlipidemia E78.5 Essential (primary) hypertension I10 Type 2 diabetes mellitus E11.9 Sarcoidosis D86.9 DVT prophylaxis Z29.9
[2020-03-14] MEDS ORDERED: PHARMACY GLYCEMIC MGMT CONSULT PRN (12:12)
[2020-03-14] MEDS ORDERED: INSULIN ASPART 100 UNITS/ML 3 ML PEN SC SCH (12:30)
[2020-03-14] MEDS ORDERED: INSULIN GLARGINE 100 UNIT/ML VIAL SC STA (12:34)
[2020-03-14] MEDS ORDERED: INSULIN HUMAN LISPRO (humaLOG) 100 UNITS/ML VIAL SC ONE (13:00)
--- NOTE | 2020-03-14 13:10 | Pharmacy Report ---
Pharmacy Glycemic Short Note 2 - Date of Service March 14, 2020 - Glycemic Short BSG Results (Last 24 hours): 03/13/20 03/13/20 03/13/20 16:32 16:33 21:14 Glucose POC Glucose 326 H* 332 H* 95 03/13/20 03/13/20 03/13/20 22:58 22:59 23:11 Glucose POC Glucose 39 L* 42 L* 56 L* 03/13/20 03/14/20 03/14/20 23:28 03:36 03:50 Glucose POC Glucose 76 26 L* 181 H 03/14/20 03/14/20 03/14/20 03:51 04:02 04:37 Glucose POC Glucose 162 H 124 H 103 H 03/14/20 03/14/20 03/14/20 05:12 06:21 07:05 Glucose POC Glucose 105 H 78 124 H 03/14/20 03/14/20 03/14/20 07:57 11:46 11:48 Glucose 153 H POC Glucose 427 H* 404 H* OUTPATIENT ANTIDIABETIC REGIMEN: * Humalog pump * See family life educator note for pump settings; in brief: total daily basal dose ~103 units, sensitivity factor 10mg/dL/unit, carb ratio 1 unit per 2.6-4gm CHO consumed w/ meals, no single bolus larger then 25 units * Metformin 1 g PO BIDM ASSESSMENT: 03/14 * Patient became severely hypoglycemic overnight (BSG in 20s). * He has been managing his insulin pump on his own with the help of [facility] * Yesterday was his final day of Dexamethasone 6mg IV * Patient is agreeable to starting SQ basal/bolus regimen at this time. Discussed his outpt pump settings to confirm accuracy. I did discuss the use of Lantus at 80% of his out-pt total daily dose initially given hypoglycemic episode. Usually would start lower than this in the setting of severe hypoglycemia however his BSGs are in the 400s at this time and he has been w/o insulin for ~8 hours. * Patient is agreeable to using Humalog for rapid acting component of regimen. He was not agreeable to using Novolog as he stated he has tried this in the past but had poor results. He has already been charged for two vials of Humalog which he had been using to refill his pump. Will give Humalog 25 units SQ x 1 stat for elevated BSG and lunch coverage. Will recheck BSG 1 hr after Humalog to confirm we are headed in the right direction. PLAN FOR INPATIENT GLYCEMIC CONTROL: * Continue metformin ER 1 g PO BID * Basal insulin: * Lantus 80 units x 1 STAT, then daily * Rapid acting: * Humalog ACHS and at 0200 to screen for nocturnal hypoglycemia * Goal range: 110-160 mg/dL * Correction factor: 12mg/dL * Carb ratio: 1 unit per 3 grams CHO consumed w/ meals I
[2020-03-14] MEDS: INSULIN HUMAN LISPRO (humaLOG) 100 UNITS/ML VIAL SC SCH ×2 (17:21→21:44)
[2020-03-15] MEDS ORDERED: INSULIN HUMAN LISPRO (humaLOG) 100 UNITS/ML VIAL SC SCH (02:00)
[2020-03-15] MEDS: ALBUT/IPRATROP 3MG/0.5MG NEB 3 ML VIAL NEB SCH (07:43)
[2020-03-15] MEDS: IPRATROPIUM BROMIDE HFA INHALER INH SCH (07:43)
[2020-03-15] MEDS: ALBUTEROL HFA 8 GM INHALER INH SCH (07:43)
[2020-03-15] MEDS ORDERED: INSULIN GLARGINE SOLOSTAR 100 UNITS/ML 3 ML PEN SC ONE (08:00)
[2020-03-15] MEDS: ASPIRIN 81 MG ECTAB PO SCH (08:55)
[2020-03-15] MEDS: metFORMIN HCL ER 500 MG TABCR PO SCH ×2 (08:55→18:18)
[2020-03-15] MEDS: METOPROLOL TARTRATE 25 MG TAB PO SCH ×2 (08:56→22:39)
[2020-03-15] MEDS: MULTIVITAMIN TAB PO SCH (08:56)
[2020-03-15] MEDS: guaiFENesin 600 MG TABCR PO SCH ×2 (08:56→21:18)
[2020-03-15] MEDS: lisinopril 40 MG TAB PO SCH (08:57)
[2020-03-15] MEDS: PANTOprazole 40 MG TAB PO SCH (08:57)
[2020-03-15] MEDS ORDERED: ALBUT/IPRATROP 3MG/0.5MG NEB 3 ML VIAL NEB PRN (08:57)
[2020-03-15] MEDS: INSULIN HUMAN LISPRO (humaLOG) 100 UNITS/ML VIAL SC SCH ×4 (09:00→21:50)
[2020-03-15] MEDS: ENOXAPARIN 80 MG/0.8 ML SYR SQ SCH ×2 (09:02→21:17)
--- NOTE | 2020-03-15 15:55 | Pharmacy Report ---
Pharmacy Glycemic Short Note 2 - Date of Service March 15, 2020 - Glycemic Short BSG Results (Last 24 hours): 03/14/20 03/14/20 03/15/20 17:01 20:26 02:00 POC Glucose 291 H 170 H 81 03/15/20 03/15/20 03/15/20 07:27 07:27 12:36 POC Glucose 322 H* 313 H* 357 H* 03/15/20 12:37 POC Glucose 315 H* OUTPATIENT ANTIDIABETIC REGIMEN: * Humalog pump * See vehicle painter note for pump settings; in brief: total daily basal d ose ~103 units, sensitivity factor 10mg/dL/unit, carb ratio 1 unit per 2.6- 4gm CHO consumed w/ meals, no single bolus larger then 25 units * Metformin 1 g PO BIDM ASSESSMENT: 03/15: * Patient received total of 80 units of Lantus yesterday around noon. * At 0200 check early this AM, BSG was 81 mg/dl. * AM Lantus dose today was reduced to 50 units with plan to give between 20-30 units at HS based on BSG scale to total either 70 or 80 units today. * BSG this AM was elevated above 322 mg/dl today. Nurse called to report that the patient had a banana before this check, hence it is falsely elevated. * Lunch BSG was also above 300 mg/dl. Novolog CF was tightened slightly. Expect BSGs to be trending down this evening. 03/14 * Patient became severely hypoglycemic overnight (BSG in 20s). * He has been managing his insulin pump on his own with the help of [facility] * Yesterday was his final day of Dexamethasone 6mg IV * Patient is agreeable to starting SQ basal/bolus regimen at this time. Discussed his outpt pump settings to confirm accuracy. I did discuss the use of Lantus at 80% of his out-pt total daily dose initially given hypoglycemic e pisode. Usually would start lower than this in the setting of severe hypoglycemia however his BSGs are in the 400s at this time and he has been w/o insulin for ~8 hours. * Patient is agreeable to using Humalog for rapid acting component of regimen. He was not agreeable to using Novolog as he stated he has tried this in the past but had poor results. He has already been charged for two vials of H umalog which he had been using to refill his pump. Will give Humalog 25 units SQ x 1 stat for elevated BSG and lunch coverage. Will recheck BSG 1 hr after Humalog to confirm we are headed in the right direction. PLAN FOR INPATIENT GLYCEMIC CONTROL: * Continue metformin ER 1 g PO BID * Basal insulin: * Lantus 50 units x 1 this AM , then 20-30 units scale ordered HS based on BSGs * Rapid acting: tightened CF * Humalog ACHS and at 0200 to screen for nocturnal hypoglycemia * Goal range: 110-160 mg/dL * Correction factor: 10 mg/dL * Carb ratio: 1 unit per 3.5 grams CHO consumed w/ meals I
--- NOTE | 2020-03-15 16:30 | Hospitalist Progress Note ---
Date of Service March 15, 2020 Assessment & Plan (1) Acute respiratory failure with hypoxia: 2nd to COVID-19 pneumonia. Supportive care,oxymask and bipap to keep sats >89 Pulmonary toilet. no distress, oxygen requirements down to 8L today, purely hypoxemic without any extra work of breathing want him active, he is motivated to walk in the room provided encouragement, likely that this will last for days to a week more needs to maintain strength by eating well which he is doing stopped Decadron 03/13, completed 10 days (2) Pneumonia due to COVID-19 virus: Severe, extensive on imaging. oxygen requirements down to 8 L oxygen mask using BIPAP at night At risk of progressive disease obesity, T2DM, etc. for the time he appear stable and comfortable for several days, pure hypoxia Treat with IV remdesivir x 5 days, LD 03/08 IV/PO decadron 6mg daily x 10 days, last day 03/13 received plasma zithromax for possibility of bacterial pneumonia/superinfection, completed course Procal, normal Due to severe wheezing place on combivent 1 puff qid when on bipap and nebs when on oxymask no wheezing Pulmonary toilet with mucinex, incentive marek, and flutter valve. Homatropine/hydrocodone prn for severe coughing fits. Repeat D-dimer is normal Fortunately no PE on imaging. one day at a time, anticipate him being here the rest of the week if not longer (3) Hyponatremia: resolved (4) Morbid obesity: BMI 45 (5) Rhabdomyolysis due to COVID-19: Mild. Hydrate, repeat CPK is down (6) Hyperlipidemia: AST and CPK both mildly elevated. Crestor restarted for possible statin protection Trend AST and CPK. Hydrate. (7) Essential (primary) hypertension: Patient on both ANDRE and ARB. Cont the ANDRE; hold the ARB. Adjust meds as needed. BP is normal today (8) Type 2 diabetes mellitus: brittle diabetes, hypoglycemic morning on 03/14 in 40's then really high in 400's around lunch he is not sure what is wrong with his pump he agrees to allow pharmacy to manage sugars with Lantus and Novolog sugars were better overnight, now with hyperglycemia continue to monitor closely, appreciate pharmacy help, making frequent adjustments (9) Sarcoidosis: remote history. dx 1990s. in remission. no signs of such on imaging although does have mediastinal lymphadenopathy. the latter could be reactive to COVID, however. (10) DVT prophylaxis: high risk of VTE while hospitalized thus, lovenox 0.5mg/kg/dose BID Admission and Anticipated Discharge Date Admission Date: March 04, 2020 Subjective patient doing well on 8L this morning and later in the day no respiratory distress he is motivated to walk around the room, will move to medical unit he continues to eat really well sugars were 70's at 1am, hyperglycemic this morning pharmacy adjusting regimen Review of Systems Review of Systems: All systems reviewed & are unremarkable except as noted in Subjective Physical Exam Constitutional: well developed, well nourished and + morbidly obese; no acute distress Neck: normal visual inspection, trachea midline, + thick neck and + facial hair Respiratory: normal respiratory effort and + tachypneic; no respiratory distress, no labored breathing and no cough Auscultation: no crackles, no rales, no rhonchi and no wheezes Cardiovascular: Rate/Rhythm: regular rhythm and + tachycardic Heart Sounds: normal S1 and normal S2; no murmur Vessels: no JVD Extremities: normal capillary refill; no edema Gastrointestinal (Abdomen): normal bowel sounds, soft, nontender, no hepatosplenomegaly Musculoskeletal: no cyanosis or clubbing, extremities motor strength 5/5 Skin: no rashes, warm and dry Neurologic: patellar DTR's 2+ bilat, sensation intact and PERRL, EOMI, accommodation nl, no face palsy, no dysarthria Psychiatric: A+Ox3, euthymic affect Lymphatic: no cervical or axillary lymphadenopathy Results & Data Results & Data ([facility]) Vital Signs (Past 12 Hours) Vital Signs Temp Pulse Pulse Resp BP BP Pulse Ox 03/15/20 16:02 37 C 97 H 16 126/75 94 03/15/20 12:00 37.1 C 74 24 112/76 97 03/15/20 07:44 103 H 20 92 03/15/20 07:30 36.7 C 98 H 20 109/65 97 Laboratory Results Laboratory Results - last 24 hr 03/14/20 03/14/20 03/15/20 17:01 20:26 02:00 POC Glucose 291 H 170 H 81 12/11/20 12/11/20 12/11/20 07:27 07:27 12:36 POC Glucose 322 H* 313 H* 357 H* 03/15/20 12:37 POC Glucose 315 H* Medications Administered Current Inpatient Medications Acetaminophen (Acetaminophen 325 Mg Tab) 650 mg PO Q4H PRN PRN Reason: Pain or Fever Stop: 04/03/20 20:08 Last Admin: 03/11/20 11:50 Dose: 650 mg Documented by: Albuterol (Albut/Ipratrop 3mg/0.5mg Neb 3 Ml Vial) 3 ml NEB Q2H PRN PRN Reason: Shortness Of Breath Or Wheezing Stop: 04/06/20 17:13 Albuterol (Albuterol Hfa 8 Gm Inhaler) 1 puffs INH Q4 PRN PRN Reason: Shortness Of Breath Or Wheezing Stop: 04/14/20 08:54 Albuterol (Albut/Ipratrop 3mg/0.5mg Neb 3 Ml Vial) 3 ml NEB Q4 PRN PRN Reason: Shortness Of Breath Or Wheezing Stop: 04/14/20 08:55 Aspirin (Aspirin 81 Mg Ectab) 81 mg PO DAILY IBETH Stop: 04/04/20 08:59 Last Admin: 03/15/20 08:55 Dose: 81 mg Documented by: Dextrose (Dextrose 50% 50 Ml Syringe) 25 - 50 ml IV UD PRN; Protocol PRN Reason: Hypoglycemia Protocol Stop: 04/03/20 20:59 Last Admin: 03/14/20 03:49 Dose: 50 ml Documented by: Enoxaparin Sodium (Enoxaparin 80 Mg/0.8 Ml Syr) 70 mg SQ Q12H IBETH Stop: 04/03/20 20:59 Last Admin: 03/15/20 09:02 Dose: 70 mg Documented by: Glucagon (Glucagon For Inj 1 Mg Vial) 1 mg SQ UD PRN; Protocol PRN Reason: Hypoglycemia Protocol Stop: 04/03/20 20:59 Glucose (Glucose 40% Gel 15 Gm Tube) 15 - 30 gm PO UD PRN; Protocol PRN Reason: Hypoglycemia Protocol Stop: 04/03/20 20:59 Glucose (Glucose 10 Tabs/Tube) 4 - 8 tabs PO UD PRN; Protocol PRN Reason: Hypoglycemia Protocol Stop: 04/03/20 20:59 Guaifenesin (Guaifenesin 600 Mg Tabcr) 1,200 mg PO Q12 [facility] Stop: 04/03/20 20:59 Last Admin: 03/15/20 08:56 Dose: 1,200 mg Documented by: Hydrocodone Bit/Homatropine Methylb (Hydrocodone/Homatropine Syrup 5mg/1.5mg 5ml Udp) 5 ml PO Q8H PRN PRN Reason: Cough Stop: 03/18/20 20:08 Insulin Glargine (Insulin Glargine Solostar 100 Units/Ml 3 Ml Pen) 0 units SC HS [facility]; Protocol Stop: 04/14/20 20:59 Insulin Human Lispro (Insulin Human Lispro (Humalog) 100 Units/Ml Vial) 0 units SC [facility] Stop: 04/13/20 16:29 Last Admin: 03/15/20 13:10 Dose: 38 units Documented by: Insulin Human Lispro (Insulin Human Lispro (Humalog) 100 Units/Ml Vial) 0 units SC TODAY@0200 [facility] Stop: 04/14/20 01:59 Last Admin: 03/15/20 02:04 Dose: Not Given Documented by: Ipratropium [place] (Ipratropium [place] Hfa Inhaler) 1 puffs INH Q4 PRN PRN Reason: Shortness Of Breath Or Wheezing Stop: 04/14/20 08:56 Lisinopril (Lisinopril 40 Mg Tab) 40 mg PO DAILY [facility] Stop: 04/04/20 08:59 Last Admin: 03/15/20 08:57 Dose: 40 mg Documented by: Metformin HCl (Metformin Hcl Er 500 Mg Tabcr) 1,000 mg PO BIDM [facility] Stop: 04/09/20 16:59 Last Admin: 03/15/20 08:55 Dose: 1,000 mg Documented by: Metoprolol Tartrate (Metoprolol Tartrate 25 Mg Tab) 25 mg PO BID [facility] Stop: 04/07/20 08:59 Last Admin: 03/15/20 08:56 Dose: 25 mg Documented by: Miscellaneous (Carbohydrates For Hypoglycemia ) 15 - 30 gm PO UD PRN PRN Reason: Hypoglycemia Treatment Stop: 04/03/20 20:59 Last Admin: 03/13/20 23:13 Dose: 15 gm Documented by: Miscellaneous Information (Pharmacy Glycemic Mgmt Consult) 1 ea N/A UD PRN PRN Reason: Consult Stop: 04/13/20 12:11 Multivitamins (Multivitamin Tab) 1 tab PO QAM IBETH Stop: 04/04/20 08:59 Last Admin: 03/15/20 08:56 Dose: 1 tab Documented by: Ondansetron HCl (Ondansetron Inj 2 Mg/Ml 2 Ml Vial) 4 mg IV Q6H PRN PRN Reason: Nausea Stop: 04/03/20 20:08 Pantoprazole Sodium (Pantoprazole 40 Mg Tab) 40 mg PO QAM IB[facility] Stop: 04/04/20 08:59 Last Admin: 03/15/20 08:57 Dose: 40 mg Documented by: Rosuvastatin Calcium (Rosuvastatin Calcium 20 Mg Tab) 20 mg PO DAILY [facility] Stop: 04/04/20 08:59 PG Care Time/CCT Total # of Minutes Spent Total Time Spent with Patient: Total time spent is greater than 50% in coordination of care (as documented) at patient's floor/unit and/or counseling patient: Coding Level of Care Code 47404 Subseq Hosp Care Lvl 2 Diagnoses Acute respiratory failure with hypoxia J96.01 Pneumonia due to COVID-19 virus U07.1; J12.89 Hyponatremia E87.1 Morbid obesity E66.01 Rhabdomyolysis due to COVID-19 U07.1; M62.82 Hyperlipidemia E78.5 Essential (primary) hypertension I10 Type 2 diabetes mellitus E11.9 Sarcoidosis D86.9 DVT prophylaxis Z29.9
[2020-03-15] MEDS: CARBOHYDRATES FOR HYPOGLYCEMIA PO PRN ×3 (20:58→21:30)
[2020-03-15] MEDS ORDERED: INSULIN GLARGINE SOLOSTAR 100 UNITS/ML 3 ML PEN SC SCH (21:00)
[2020-03-16] MEDS: INSULIN HUMAN LISPRO (humaLOG) 100 UNITS/ML VIAL SC SCH ×6 (00:07→21:27)
[2020-03-16] MEDS: metFORMIN HCL ER 500 MG TABCR PO SCH ×2 (09:17→17:50)
[2020-03-16] MEDS: ROSUVASTATIN CALCIUM 20 MG TAB PO SCH (09:19)
[2020-03-16] MEDS: ASPIRIN 81 MG ECTAB PO SCH (09:19)
[2020-03-16] MEDS: INSULIN GLARGINE SOLOSTAR 100 UNITS/ML 3 ML PEN SC SCH (09:20)
[2020-03-16] MEDS: METOPROLOL TARTRATE 25 MG TAB PO SCH ×2 (09:21→20:52)
[2020-03-16] MEDS: guaiFENesin 600 MG TABCR PO SCH ×2 (09:22→20:53)
[2020-03-16] MEDS: ENOXAPARIN 80 MG/0.8 ML SYR SQ SCH ×2 (09:22→20:51)
[2020-03-16] MEDS: MULTIVITAMIN TAB PO SCH (09:23)
[2020-03-16] MEDS: PANTOprazole 40 MG TAB PO SCH (09:24)
[2020-03-16] MEDS: lisinopril 40 MG TAB PO SCH (09:24)
--- NOTE | 2020-03-16 15:09 | Hospitalist Progress Note ---
Date of Service March 16, 2020 Assessment & Plan (1) Acute respiratory failure with hypoxia: 2nd to COVID-19 pneumonia. Supportive care,oxymask and bipap to keep sats >89 Pulmonary toilet. no distress, oxygen requirements down to 6-7L today, purely hypoxemic without any extra work of breathing want him active, he is motivated to walk in the room provided encouragement, likely that this will last for days to a week more needs to maintain strength by eating well which he is doing stopped Decadron 03/13, completed 10 days (2) Pneumonia due to COVID-19 virus: Severe, extensive on imaging. oxygen requirements down to 6-7 L oxygen mask using BIPAP at night At risk of progressive disease obesity, T2DM, etc. for the time he appear stable and comfortable for several days, pure hypoxia Treat with IV remdesivir x 5 days, LD 03/08 IV/PO decadron 6mg daily x 10 days, last day 03/13 received plasma zithromax for possibility of bacterial pneumonia/superinfection, completed course Procal, normal Due to severe wheezing place on combivent 1 puff qid when on bipap and nebs when on oxymask no wheezing Pulmonary toilet with mucinex, incentive marek, and flutter valve. Homatropine/hydrocodone prn for severe coughing fits. Repeat D-dimer is normal Fortunately no PE on imaging. one day at a time, anticipate him being here the rest of the week if not longer will get a CXR tomorrow, last one was 03/04 (3) Type 2 diabetes mellitus: brittle diabetes, hypoglycemic morning on 03/14 in 40's then really high in 400's around lunch he is not sure what is wrong with his pump he agrees to allow pharmacy to manage sugars with Lantus and Novolog sugars still very labile, low last night and now high pharmacy working to adjust Lantus dosing in the evening and morning patient says he feels fine (4) Hyponatremia: resolved (5) Morbid obesity: BMI 45 (6) Rhabdomyolysis due to COVID-19: Mild. Hydrate, repeat CPK is down (7) Hyperlipidemia: AST and CPK both mildly elevated. Crestor restarted for possible statin protection Trend AST and CPK. Hydrate. (8) Essential (primary) hypertension: Patient on both ANDRE and ARB. Cont the ANDRE; hold the ARB. Adjust meds as needed. BP is normal today (9) Sarcoidosis: remote history. 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 in remission. no signs of such on imaging although does have mediastinal lymphadenopathy. the latter could be reactive to COVID, however. (10) DVT prophylaxis: high risk of VTE while hospitalized thus, lovenox 0.5mg/kg/dose BID Admission and Anticipated Discharge Date Admission Date: March 04, 2020 Subjective patient doing well again today, feels like his breathing is a little better was down to 6L, but had to bump up to 7L, overall improved from yesterday no fever/chills, appetite is great sugars continue to be labile, pharmacy managing, adjusting Lantus dosing patient says he is doing okay mentally, certainly it is tough being here, isolated told him that I hope he will be ready for discharge in a few days told him we will get CXR tomorrow Review of Systems Review of Systems: All systems reviewed & are unremarkable except as noted in Subjective Physical Exam Constitutional: well developed, well nourished and + morbidly obese; no acute distress Neck: normal visual inspection, trachea midline, + thick neck and + facial hair Respiratory: normal respiratory effort; no respiratory distress, no labored breathing and no cough Auscultation: no crackles, no rales, no rhonchi and no wheezes Cardiovascular: Rate/Rhythm: regular rhythm and + tachycardic Heart Sounds: normal S1 and normal S2; no murmur Vessels: no JVD Extremities: normal capillary refill; no edema Gastrointestinal (Abdomen): normal bowel sounds, soft, nontender, no hepatosplenomegaly Musculoskeletal: no cyanosis or clubbing, extremities motor strength 5/5 Skin: no rashes, warm and dry Neurologic: patellar DTR's 2+ bilat, sensation intact and PERRL, EOMI, accommodation nl, no face palsy, no dysarthria Psychiatric: A+Ox3, euthymic affect Lymphatic: no cervical or axillary lymphadenopathy Results & Data Results & Data ([facility]) Vital Signs (Past 12 Hours) Vital Signs Temp Pulse Resp BP Pulse Ox 03/16/20 07:29 36.6 C 106 H 20 126/73 95 Laboratory Results Laboratory Results - last 24 hr 03/15/20 03/15/20 03/15/20 17:10 20:54 20:55 POC Glucose 78 48 L* 50 L* 03/15/20 03/15/20 03/15/20 21:12 21:13 21:28 POC Glucose 59 L* 52 L* 60 L* 03/15/20 03/15/20 03/15/20 21:30 21:45 23:59 POC Glucose 63 L* 159 H 76 03/16/20 03/16/20 03/16/20 03:04 04:00 08:19 POC Glucose 215 H 288 H 246 H 03/16/20 12:06 POC Glucose 265 H Medications Administered Current Inpatient Medications Acetaminophen (Acetaminophen 325 Mg Tab) 650 mg PO Q4H PRN PRN Reason: Pain or Fever Stop: 04/03/20 20:08 Last Admin: 03/11/20 11:50 Dose: 650 mg Documented by: Albuterol (Albut/Ipratrop 3mg/0.5mg Neb 3 Ml Vial) 3 ml NEB Q2H PRN PRN Reason: Shortness Of Breath Or Wheezing Stop: 04/06/20 17:13 Albuterol (Albuterol Hfa 8 Gm Inhaler) 1 puffs INH Q4 PRN PRN Reason: Shortness Of Breath Or Wheezing Stop: 04/14/20 08:54 Albuterol (Albut/Ipratrop 3mg/0.5mg Neb 3 Ml Vial) 3 ml NEB Q4 PRN PRN Reason: Shortness Of Breath Or Wheezing Stop: 04/14/20 08:55 Aspirin (Aspirin 81 Mg Ectab) 81 mg PO DAILY [facility] Stop: 04/04/20 08:59 Last Admin: 03/16/20 09:19 Dose: 81 mg Documented by: Dextrose (Dextrose 50% 50 Ml Syringe) 25 - 50 ml IV UD PRN; Protocol PRN Reason: Hypoglycemia Protocol Stop: 04/03/20 20:59 Last Admin: 03/14/20 03:49 Dose: 50 ml Documented by: Enoxaparin Sodium (Enoxaparin 80 Mg/0.8 Ml Syr) 70 mg SQ Q12H IBETH Stop: 04/03/20 20:59 Last Admin: 03/16/20 09:22 Dose: 70 mg Documented by: Glucagon (Glucagon For Inj 1 Mg Vial) 1 mg SQ UD PRN; Protocol PRN Reason: Hypoglycemia Protocol Stop: 04/03/20 20:59 Glucose (Glucose 40% Gel 15 Gm Tube) 15 - 30 gm PO UD PRN; Protocol PRN Reason: Hypoglycemia Protocol Stop: 04/03/20 20:59 Glucose (Glucose 10 Tabs/Tube) 4 - 8 tabs PO UD PRN; Protocol PRN Reason: Hypoglycemia Protocol Stop: 04/03/20 20:59 Guaifenesin (Guaifenesin 600 Mg Tabcr) 1,200 mg PO Q12 [facility] Stop: 04/03/20 20:59 Last Admin: 03/16/20 09:22 Dose: 1,200 mg Documented by: Hydrocodone Bit/Homatropine Methylb (Hydrocodone/Homatropine Syrup 5mg/1.5mg 5ml Udp) 5 ml PO Q8H PRN PRN Reason: Cough Stop: 03/18/20 20:08 Insulin Glargine (Insulin Glargine Solostar 100 Units/Ml 3 Ml Pen) 60 units SC QAM [facility] Stop: 04/15/20 08:59 Last Admin: 03/16/20 09:20 Dose: 60 units Documented by: Insulin Human Lispro (Insulin Human Lispro (Humalog) 100 Units/Ml Vial) 0 units SC ACHS [facility] Stop: 04/13/20 16:29 Last Admin: 03/16/20 12:54 Dose: 22 units Documented by: Insulin Human Lispro (Insulin Human Lispro (Humalog) 100 Units/Ml Vial) 0 units SC 0000,0400 [facility] Stop: 03/17/20 04:01 Ipratropium [place] (Ipratropium [place] Hfa Inhaler) 1 puffs INH Q4 PRN PRN Reason: Shortness Of Breath Or Wheezing Stop: 04/14/20 08:56 Lisinopril (Lisinopril 40 Mg Tab) 40 mg PO DAILY [facility] Stop: 04/04/20 08:59 Last Admin: 03/16/20 09:24 Dose: 40 mg Documented by: Metformin HCl (Metformin Hcl Er 500 Mg Tabcr) 1,000 mg PO BIDM [facility] Stop: 04/09/20 16:59 Last Admin: 03/16/20 09:17 Dose: 1,000 mg Documented by: Metoprolol Tartrate (Metoprolol Tartrate 25 Mg Tab) 25 mg PO BID [facility] Stop: 04/07/20 08:59 Last Admin: 03/16/20 09:21 Dose: 25 mg Documented by: Miscellaneous (Carbohydrates For Hypoglycemia ) 15 - 30 gm PO UD PRN PRN Reason: Hypoglycemia Treatment Stop: 04/03/20 20:59 Last Admin: 03/15/20 21:30 Dose: 20 gm Documented by: Miscellaneous Information (Pharmacy Glycemic Mgmt Consult) 1 ea N/A UD PRN PRN Reason: Consult Stop: 04/13/20 12:11 Multivitamins (Multivitamin Tab) 1 tab PO QAM [facility] Stop: 04/04/20 08:59 Last Admin: 03/16/20 09:23 Dose: 1 tab Documented by: Ondansetron HCl (Ondansetron Inj 2 Mg/Ml 2 Ml Vial) 4 mg IV Q6H PRN PRN Reason: Nausea Stop: 04/03/20 20:08 Pantoprazole Sodium (Pantoprazole 40 Mg Tab) 40 mg PO QAM [facility] Stop: 04/04/20 08:59 Last Admin: 03/16/20 09:24 Dose: 40 mg Documented by: Rosuvastatin Calcium (Rosuvastatin Calcium 20 Mg Tab) 20 mg PO DAILY [facility] Stop: 04/04/20 08:59 Last Admin: 03/16/20 09:19 Dose: 20 mg Documented by: PG Care Time/CCT Total # of Minutes Spent Total Time Spent with Patient: Total time spent is greater than 50% in coordination of care (as documented) at patient's floor/unit and/or counseling patient: Coding Level of Care Code 56154 Subseq Hosp Care Lvl 2 Diagnoses Acute respiratory failure with hypoxia J96.01 Pneumonia due to COVID-19 virus U07.1; J12.89 Type 2 diabetes mellitus E11.9 Hyponatremia E87.1 Morbid obesity E66.01 Rhabdomyolysis due to COVID-19 U07.1; M62.82 Hyperlipidemia E78.5 Essential (primary) hypertension I10 Sarcoidosis D86.9 DVT prophylaxis Z29.9
--- NOTE | 2020-03-16 15:57 | Pharmacy Report ---
Pharmacy Glycemic Short Note 2 - Date of Service March 16, 2020 - Glycemic Short BSG Results (Last 24 hours): 03/15/20 03/15/20 03/15/20 17:10 20:54 20:55 POC Glucose 78 48 L* 50 L* 03/15/20 03/15/20 03/15/20 21:12 21:13 21:28 POC Glucose 59 L* 52 L* 60 L* 03/15/20 03/15/20 03/15/20 21:30 21:45 23:59 POC Glucose 63 L* 159 H 76 03/16/20 03/16/20 03/16/20 03:04 04:00 08:19 POC Glucose 215 H 288 H 246 H 03/16/20 12:06 POC Glucose 265 H OUTPATIENT ANTIDIABETIC REGIMEN: * Humalog pump * See certified diabetes educator note for pump settings; in brief: total daily basal dose ~103 units, sensitivity factor 10mg/dL/unit, carb ratio 1 unit per 2.6-4gm CHO consumed w/ meals, no single bolus larger then 25 units * Metformin 1 g PO BIDM ASSESSMENT: 03/16: * Patient received total of 136 units of insulin yesterday; 50 units basal + 86 units bolus. * Fasting BSG this AM was elevated at 246 mg/dl. Lantus dose was increased to 60 units. * Last night patient became hypoglycemic and he consumed some snacks to overcome this. This contributed to the overnight high of 288 mg/dl. * Novolog CF and CR were loosened last night. Continued on these today. Pre- lunch BSG today was also elevated. 03/15: * Patient received total of 80 units of Lantus yesterday around noon. * At 0200 check early this AM, BSG was 81 mg/dl. * AM Lantus dose today was reduced to 50 units with plan to give between 20-30 units at HS based on BSG scale to total either 70 or 80 units today. * BSG this AM was elevated above 322 mg/dl today. Nurse called to report that t he patient had a banana before this check, hence it is falsely elevated. * Lunch BSG was also above 300 mg/dl. Novolog CF was tightened slightly. Expect BSGs to be trending down this evening. 03/14 * Patient became severely hypoglycemic overnight (BSG in 20s). * He has been managing his insulin pump on his own with the help of [facility] * Yesterday was his final day of Dexamethasone 6mg IV * Patient is agreeable to starting SQ basal/bolus regimen at this time. Discussed his outpt pump settings to confirm accuracy. I did discuss the use of Lantus at 80% of his out-pt total daily dose initially given hypoglycemic episode. Usually would start lower than this in the setting of severe hypoglycemia however his BSGs are in the 400s at this time and he has been w/o insulin for ~8 hours. * Patient is agreeable to using Humalog for rapid acting component of regimen. He was not agreeable to using Novolog as he stated he has tried this in the past but had poor results. He has already been charged for two vials of Humalog which he had been using to refill his pump. Will give Humalog 25 units SQ x 1 stat for elevated BSG and lunch coverage. Will recheck BSG 1 hr after Humalog to confirm we are headed in the right direction. PLAN FOR INPATIENT GLYCEMIC CONTROL: * Continue metformin ER 1 g PO BID * Basal insulin: increased * Lantus 60 units x 1 this AM. * Rapid acting: loosened CF/CR * Humalog ACHS and at 0200 to screen for nocturnal hypoglycemia * Goal range: 110-160 mg/dL * Correction factor: 12 mg/dL * Carb ratio: 1 unit per 5 grams CHO consumed w/ meals I
[2020-03-17] MEDS: INSULIN HUMAN LISPRO (humaLOG) 100 UNITS/ML VIAL SC SCH ×6 (00:45→21:45)
--- NOTE | 2020-03-17 08:24 | XRay Report ---
XR chest 1V portable HISTORY: hypoxia COMPARISON: Chest 03/04/2020. FINDINGS: No pneumothorax. There may be trace bilateral pleural effusions. The heart is borderline en larged. Progressive interstitial and patchy airspace opacity seen throughout the lungs. There are low lung volumes. IMPRESSION: Progressive bilateral airspace opacities consistent with a worsening pneumonia. ACT 112: Negative or not required by law. Electronically signed by: Jeison Restrepo M.D. 03/17/2020 8:23 AM
[2020-03-17] MEDS: guaiFENesin 600 MG TABCR PO SCH ×2 (08:33→21:54)
[2020-03-17] MEDS: ASPIRIN 81 MG ECTAB PO SCH (08:33)
[2020-03-17] MEDS: METOPROLOL TARTRATE 25 MG TAB PO SCH ×2 (08:34→21:54)
[2020-03-17] MEDS: MULTIVITAMIN TAB PO SCH (08:34)
[2020-03-17] MEDS: PANTOprazole 40 MG TAB PO SCH (08:34)
[2020-03-17] MEDS: ROSUVASTATIN CALCIUM 20 MG TAB PO SCH (08:34)
[2020-03-17] MEDS: lisinopril 40 MG TAB PO SCH (08:34)
[2020-03-17] MEDS: metFORMIN HCL ER 500 MG TABCR PO SCH ×2 (08:35→17:40)
[2020-03-17] MEDS: ENOXAPARIN 80 MG/0.8 ML SYR SQ SCH ×2 (08:35→21:48)
[2020-03-17] MEDS: INSULIN GLARGINE SOLOSTAR 100 UNITS/ML 3 ML PEN SC SCH (08:40)
--- NOTE | 2020-03-17 15:00 | Hospitalist Progress Note ---
Date of Service March 17, 2020 Assessment & Plan (1) Acute respiratory failure with hypoxia: 2nd to COVID-19 pneumonia. Supportive care,oxymask and bipap to keep sats >89 Pulmonary toilet. no distress, oxygen requirements down to 6L today, purely hypoxemic without any extra work of breathing want him active, he is motivated to walk in the room he was able to take a shower today provided encouragement, likely that he will be here a few more days needs to maintain strength by eating well which he is doing stopped Decadron 03/13, completed 10 days (2) Pneumonia due to COVID-19 virus: Severe, extensive on imaging. oxygen requirements down to 6 L oxygen mask using BIPAP at night for the time he appear stable and comfortable for several days Treated with IV remdesivir x 5 days, LD 03/08 IV/PO decadron 6mg daily x 10 days, last day 03/13 received plasma early during stay zithromax for possibility of bacterial pneumonia/superinfection, completed course Procal, normal Due to severe wheezing placed on combivent 1 puff qid no wheezing Pulmonary toilet with mucinex, incentive marek, and flutter valve. Homatropine/hydrocodone prn for severe coughing fits. Repeat D-dimer is normal Fortunately no PE on imaging. one day at a time, anticipate him being here a few more days CXR 03/17 with bilateral multifocal pneumonia (3) Type 2 diabetes mellitus: brittle diabetes, hypoglycemic morning on 03/14 in 40's then really high in 400's around lunch he is not sure what is wrong with his pump he agrees to allow pharmacy to manage sugars with Lantus and Novolog sugars still very labile, but no hypoglycemia last night which is improvement pharmacy working to adjust Lantus dosing in the evening and morning patient says he feels fine (4) Hyponatremia: resolved (5) Morbid obesity: BMI 45 (6) Rhabdomyolysis due to COVID-19: Mild. Hydrate, repeat CPK is down (7) Hyperlipidemia: AST and CPK both mildly elevated. Crestor restarted for possible statin protection Trend AST and CPK. Hydrate. (8) Essential (primary) hypertension: Patient on both ANDRE and ARB. Cont the ANDRE; hold the ARB. Adjust meds as needed. BP is normal today (9) Sarcoidosis: remote history. dx . in remission. no signs of such on imaging although does have mediastinal lymphadenopathy. the latter could be reactive to COVID, however. (10) DVT prophylaxis: high risk of VTE while hospitalized thus, lovenox 0.5mg/kg/dose BID Admission and Anticipated Discharge Date Admission Date: March 04, 2020 Subjective patient feeling really good today, down to 6L from 7L he was able to take a shower today, first time in two weeks eating well, sleeping well, no fever discussed goal of getting down to 3-4 L to go home, he understands it could be a few more days CXR today shows persistent bilateral pneumonia, nothing else sugars are a little better controlled via pharmacy Review of Systems Review of Systems: All systems reviewed & are unremarkable except as noted in Subjective Physical Exam Constitutional: well developed, well nourished and + morbidly obese; no acute distress Neck: normal visual inspection, trachea midline, + thick neck and + facial hair Respiratory: normal respiratory effort; no respiratory distress, no labored breathing and no cough Auscultation: no crackles, no rales, no rhonchi and no wheezes Cardiovascular: Rate/Rhythm: regular rhythm and + tachycardic Heart Sounds: normal S1 and normal S2; no murmur Vessels: no JVD Extremities: normal capillary refill; no edema Gastrointestinal (Abdomen): normal bowel sounds, soft, nontender, no hepatosplenomegaly Musculoskeletal: no cyanosis or clubbing, extremities motor strength 5/5 Skin: no rashes, warm and dry Neurologic: patellar DTR's 2+ bilat, sensation intact and PERRL, EOMI, accom modation nl, no face palsy, no dysarthria Psychiatric: A+Ox3, euthymic affect Lymphatic: no cervical or axillary lymphadenopathy Results & Data Results & Data ([facility]) Vital Signs (Past 12 Hours) Vital Signs Temp Pulse Resp BP Pulse Ox 03/17/20 07:39 36.6 C 102 H 20 122/77 93 Laboratory Results Laboratory Results - last 24 hr 03/16/20 03/16/20 03/16/20 17:18 20:47 23:58 POC Glucose 83 91 80 03/17/20 03/17/20 03/17/20 04:08 08:01 11:37 POC Glucose 254 H 274 H 259 H Medications Administered Current Inpatient Medications Acetaminophen (Acetaminophen 325 Mg Tab) 650 mg PO Q4H PRN PRN Reason: Pain or Fever Stop: 04/03/20 20:08 Last Admin: 03/11/20 11:50 Dose: 650 mg Documented by: Albuterol (Albut/Ipratrop 3mg/0.5mg Neb 3 Ml Vial) 3 ml NEB Q2H PRN PRN Reason: Shortness Of Breath Or Wheezing Stop: 04/06/20 17:13 Albuterol (Albuterol Hfa 8 Gm Inhaler) 1 puffs INH Q4 PRN PRN Reason: Shortness Of Breath Or Wheezing Stop: 04/14/20 08:54 Albuterol (Albut/Ipratrop 3mg/0.5mg Neb 3 Ml Vial) 3 ml NEB Q4 PRN PRN Reason: Shortness Of Breath Or Wheezing Stop: 04/14/20 08:55 Aspirin (Aspirin 81 Mg Ectab) 81 mg PO DAILY IBETH Stop: 04/04/20 08:59 Last Admin: 03/17/20 08:33 Dose: 81 mg Documented by: Dextrose (Dextrose 50% 50 Ml Syringe) 25 - 50 ml IV UD PRN; Protocol PRN Reason: Hypoglycemia Protocol Stop: 04/03/20 20:59 Last Admin: 03/14/20 03:49 Dose: 50 ml Documented by: Enoxaparin Sodium (Enoxaparin 80 Mg/0.8 Ml Syr) 70 mg SQ Q12H IBETH Stop: 04/03/20 20:59 Last Admin: 03/17/20 08:35 Dose: 70 mg Documented by: Glucagon (Glucagon For Inj 1 Mg Vial) 1 mg SQ UD PRN; Protocol PRN Reason: Hypoglycemia Protocol Stop: 04/03/20 20:59 Glucose (Glucose 40% Gel 15 Gm Tube) 15 - 30 gm PO UD PRN; Protocol PRN Reason: Hypoglycemia Protocol Stop: 04/03/20 20:59 Glucose (Glucose 10 Tabs/Tube) 4 - 8 tabs PO UD PRN; Protocol PRN Reason: Hypoglycemia Protocol Stop: 04/03/20 20:59 Guaifenesin (Guaifenesin 600 Mg Tabcr) 1,200 mg PO Q12 IBETH Stop: 04/03/20 20:59 Last Admin: 03/17/20 08:33 Dose: 1,200 mg Documented by: Hydrocodone Bit/Homatropine Methylb (Hydrocodone/Homatropine Syrup 5mg/1.5mg 5ml Udp) 5 ml PO Q8H PRN PRN Reason: Cough Stop: 03/18/20 20:08 Insulin Glargine (Insulin Glargine 100 Unit/Ml Vial) 60 units SC QAM [facility] Stop: 04/17/20 08:59 Insulin Human Lispro (Insulin Human Lispro (Humalog) 100 Units/Ml Vial) 0 units SC ACHS [facility] Stop: 04/13/20 16:29 Last Admin: 03/17/20 13:21 Dose: 27 units Documented by: Ipratropium [place] (Ipratropium [place] Hfa Inhaler) 1 puffs INH Q4 PRN PRN Reason: Shortness Of Breath Or Wheezing Stop: 04/14/20 08:56 Lisinopril (Lisinopril 40 Mg Tab) 40 mg PO DAILY [facility] Stop: 04/04/20 08:59 Last Admin: 03/17/20 08:34 Dose: 40 mg Documented by: Metformin HCl (Metformin Hcl Er 500 Mg Tabcr) 1,000 mg PO BIDM [facility] Stop: 04/09/20 16:59 Last Admin: 03/17/20 08:35 Dose: 1,000 mg Documented by: Metoprolol Tartrate (Metoprolol Tartrate 25 Mg Tab) 25 mg PO BID [facility] Stop: 04/07/20 08:59 Last Admin: 03/17/20 08:34 Dose: 25 mg Documented by: Miscellaneous (Carbohydrates For Hypoglycemia ) 15 - 30 gm PO UD PRN PRN Reason: Hypoglycemia Treatment Stop: 04/03/20 20:59 Last Admin: 03/15/20 21:30 Dose: 20 gm Documented by: Miscellaneous Information (Pharmacy Glycemic Mgmt Consult) 1 ea N/A UD PRN PRN Reason: Consult Stop: 04/13/20 12:11 Multivitamins (Multivitamin Tab) 1 tab PO [facility] Stop: 04/04/20 08:59 Last Admin: 03/17/20 08:34 Dose: 1 tab Documented by: Ondansetron HCl (Ondansetron Inj 2 Mg/Ml 2 Ml Vial) 4 mg IV Q6H PRN PRN Reason: Nausea Stop: 04/03/20 20:08 Pantoprazole Sodium (Pantoprazole 40 Mg Tab) [facility] [place] Stop: 04/04/20 08:59 Last Admin: 03/17/20 08:34 Dose: 40 mg Documented by: Rosuvastatin Calcium (Rosuvastatin Calcium 20 Mg Tab) 20 mg PO DAILY [facility] Stop: 04/04/20 08:59 Last Admin: 03/17/20 08:34 Dose: 20 mg Documented by: PG Care Time/CCT Total # of Minutes Spent Total Time Spent with Patient: Total time spent is greater than 50% in coordination of care (as documented) at patient's floor/unit and/or counseling patient: Coding Level of Care Code 51980 Subseq Hosp Care Lvl 3 Diagnoses Acute respiratory failure with hypoxia J96.01 Pneumonia due to COVID-19 virus U07.1; J12.89 Type 2 diabetes mellitus E11.9 Hyponatremia E87.1 Morbid obesity E66.01 Rhabdomyolysis due to COVID-19 U07.1; M62.82 Hyperlipidemia E78.5 Essential (primary) hypertension I10 Sarcoidosis D86.9 DVT prophylaxis Z29.9
[2020-03-17] MEDS ORDERED: POLYETHYLENE (MIRALAX) 17 GM PACK PO PRN (21:32)
[2020-03-17] MEDS: INSULIN HUMAN NPH SC SCH (21:48)
[2020-03-17] MEDS ORDERED: DOCUSATE SODIUM 100 MG CAP PO ONE (22:00)
[2020-03-18] MEDS: metFORMIN HCL ER 500 MG TABCR PO SCH ×2 (08:35→18:15)
[2020-03-18] MEDS: METOPROLOL TARTRATE 25 MG TAB PO SCH ×2 (08:35→21:02)
[2020-03-18] MEDS: PANTOprazole 40 MG TAB PO SCH (08:35)
[2020-03-18] MEDS: guaiFENesin 600 MG TABCR PO SCH ×2 (08:35→21:02)
[2020-03-18] MEDS: DOCUSATE SODIUM 100 MG CAP PO SCH ×2 (08:35→21:02)
[2020-03-18] MEDS: ROSUVASTATIN CALCIUM 20 MG TAB PO SCH (08:35)
[2020-03-18] MEDS: lisinopril 40 MG TAB PO SCH (08:35)
[2020-03-18] MEDS: MULTIVITAMIN TAB PO SCH (08:35)
[2020-03-18] MEDS: ASPIRIN 81 MG ECTAB PO SCH (08:35)
[2020-03-18] MEDS: ENOXAPARIN 80 MG/0.8 ML SYR SQ SCH ×2 (09:27→21:03)
[2020-03-18] MEDS: INSULIN GLARGINE 100 UNIT/ML VIAL SC SCH (09:28)
[2020-03-18] MEDS: INSULIN HUMAN LISPRO (humaLOG) 100 UNITS/ML VIAL SC SCH ×4 (09:30→20:52)
--- NOTE | 2020-03-18 14:15 | Pharmacy Report ---
Pharmacy Glycemic Short Note 2 - Date of Service March 18, 2020 - Glycemic Short BSG Results (Last 24 hours): 03/17/20 03/17/20 03/18/20 16:19 20:09 03:48 POC Glucose 205 H 247 H 100 H 03/18/20 03/18/20 08:19 12:02 POC Glucose 171 H 228 H OUTPATIENT ANTIDIABETIC REGIMEN: * Humalog pump * See perinatal educator note for pump settings; in brief: total daily basal dose ~103 units, sensitivity factor 10mg/dL/unit, carb ratio 1 unit per 2.6-4gm CHO consumed w/ meals, no single bolus larger then 25 units * Metformin 1 g PO BIDM ASSESSMENT: 03/18 * Humalog pump discontinued on 03/14, has been managed with SC basal/bolus since that time * BSGs have been very labile over past several days, elevated yesterday at 274, 259, 205, and 247 mg/dL * Received Lantus 60 units, NPH 20 units, 71 units of prandial/correctional Humalog, and metformin 1 g PO BIDM * 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 * He has been managing his insulin pump on his own with the help of [facility] * Yesterday was his final day of Dexamethasone 6mg IV * Patient is agreeable to starting SQ basal/bolus regimen at this time. Discussed his outpt pump settings to confirm accuracy. I did discuss the use of Lantus at 80% of his out-pt total daily dose initially given hypoglycemic episode. Usually would start lower than this in the setting of severe hypoglycemia however his BSGs are in the 400s at this time and he has been w/o insulin for ~8 hours. * Patient is agreeable to using Humalog for rapid acting component of regimen. He was not agreeable to using Novolog as he stated he has tried this in the past but had poor results. He has already been charged for two vials of Humalog which he had been using to refill his pump. Will give Humalog 25 units SQ x 1 stat for elevated BSG and lunch coverage. Will recheck BSG 1 hr after Humalog to confirm we are headed in the right direction. PLAN FOR INPATIENT GLYCEMIC CONTROL: * Continue metformin ER 1 g PO BID * Basal insulin: continue * Lantus 60 units SQ qAM * NPH 20 units SC HS to combat possible radha phenomenon * Rapid acting: continue tightened carb ratio * Humalog ACHS and at 0200 to screen for nocturnal hypoglycemia * Goal range: 110-160 mg/dL * Correction factor: 15 mg/dL * Carb ratio: 1 unit per 4 grams CHO consumed w/ meals
--- NOTE | 2020-03-18 18:36 | Hospitalist Progress Note ---
Date of Service March 18, 2020 Assessment & Plan (1) Acute respiratory failure with hypoxia: 2nd to COVID-19 pneumonia. Supportive care,oxygen to keep sats >89 Continue Pulmonary toilet with flutter valve and IS, encouraged prone positioning if possible no distress at rest but has +VILLA oxygen requirements remain at 6L today, purely hypoxemic without any extra work of breathing Just prolonged recovery due to inflammation in lungs provided encouragement, likely that he will be here a few more days needs to maintain strength by eating well which he is doing stopped Decadron 03/13, completed 10 days (2) Pneumonia due to COVID-19 virus: Severe, extensive on imaging. oxygen requirements down to 6 LNC using BIPAP at night Treated with IV remdesivir x 5 days, LD 03/08 IV/PO decadron 6mg daily x 10 days, last day 03/13 received plasma early during stay Received zithromax for possibility of bacterial pneumonia/superinfection, completed course Procal, normal Due to severe wheezing placed on combivent 1 puff qid no wheezing any more but decreased air movement throughout--> asked for RT to come nad give another round of bronchodilator today to see if helps dry cough Pulmonary toilet with mucinex, incentive marek, and flutter valve. Homatropine/hydrocodone prn for severe coughing fits. Repeat D-dimer is normal Fortunately no PE on imaging. one day at a time, anticipate him being here a few more days CXR 03/17 with bilateral multifocal pneumonia (3) Type 2 diabetes mellitus: brittle diabetes, hypoglycemic morning on 03/14 in 40's then really high in 400's around lunch he is not sure what is wrong with his pump he agrees to allow pharmacy to manage sugars with Lantus and Novolog sugars were very labile, but now stable pharmacy working to adjust Lantus dosing in the evening and morning patient says he feels fine (4) Hyponatremia: resolved (5) Morbid obesity: BMI 39 (6) Rhabdomyolysis due to COVID-19: Mild. Hydrate, repeat CPK is down (7) Hyperlipidemia: AST and CPK both mildly elevated. Crestor restarted for possible statin protection Trend AST and CPK. Hydrate. (8) Essential (primary) hypertension: Patient on both ANDRE and ARB. Cont the ANDRE; hold the ARB. Adjust meds as needed. BP is normal today (9) Sarcoidosis: remote history. dx 1990s. in remission. no signs of such on imaging although does have mediastinal lymphadenopathy. the latter could be reactive to COVID, however. (10) DVT prophylaxis: high risk of VTE while hospitalized thus, lovenox 0.5mg/kg/dose BID Dispo-continued stay Admission and Anticipated Discharge Date Admission Date: March 04, 2020 Subjective Pt seems frustrated because he is not better than yesterday, can't really explain why. Feels VILLA with just transferring from bed to chair. Remains on 6LNC but is POx 95% when I saw him. Has a dry short cough, no further sputum. Is having to strain to get his bowels moving No N/V, is eating well. Review of Systems Review of Systems: All systems reviewed & are unremarkable except as noted in HPI & below Physical Exam Constitutional: WD/WN, vitals as above + morbidly obese Eyes: + anicteric sclerae ENMT: Ears: no hearing impairment Mouth: + oropharynx abnormality (mild erythema posterior OP) Neck: trachea midline, no thyromegaly Respiratory: normal respiratory effort Auscultation: + diminished lung sounds (throughout); no crackles and no wheezes Cardiovascular: RRR, no murmur, no edema Chest (Breasts): Chest: normal inspection of chest Gastrointestinal (Abdomen): normal bowel sounds, soft, nontender, no hepatosplenomegaly Musculoskeletal: Extremities: extremities normal to inspection; no cyanosis and no clubbing Skin: no rashes, warm and dry Neurologic: moves all extremities and awake; no focal motor deficits Psychiatric: A+Ox3, euthymic affect Lymphatic: no lymphedema Results & Data Results & Data ([facility]) Vital Signs (Past 12 Hours) Vital Signs Temp Pulse Pulse Resp BP Pulse Ox 03/18/20 15:37 36.8 C 98 H 18 123/71 97 03/18/20 07:45 36.7 C 104 H 18 150/85 H 91 Laboratory Results 03/18/20 03/18/20 03/18/20 Range/Units 17:00 12:02 08:19 POC Glucose 189 H 228 H 171 H (70-99) mg/dl 03/18/20 03/17/20 Range/Units 03:48 20:09 POC Glucose 100 H 247 H (70-99) mg/dl PG Care Time/CCT Total # of Minutes Spent Total Time Spent with Patient: Total time spent is greater than 50% in coordination of care (as documented) at patient's floor/unit and/or counseling patient: Coding Level of Care Code 33640 Subseq Hosp Care Lvl 3 Diagnoses Acute respiratory failure with hypoxia J96.01 Pneumonia due to COVID-19 virus U07.1; J12.89 Type 2 diabetes mellitus E11.9 Hyponatremia E87.1 Morbid obesity E66.01 Rhabdomyolysis due to COVID-19 U07.1; M62.82 Hyperlipidemia E78.5 Essential (primary) hypertension I10 Sarcoidosis D86.9 DVT prophylaxis Z29.9
[2020-03-18] MEDS: ALBUTEROL HFA 8 GM INHALER INH PRN (19:24)
[2020-03-18] MEDS: IPRATROPIUM BROMIDE HFA INHALER INH PRN (19:24)
[2020-03-18] MEDS: INSULIN HUMAN NPH SC SCH (20:54)
[2020-03-19 08:04] LABS: BUN Creatinine Ratio 16.8 (10-20); Calcium 9.3 mg/dl (8.5-10.1); Est GFR (African American) 122.3; Est GFR (Non-African American) 105.5; Potassium 4.4 mmol/L (3.5-5.1)
[2020-03-19] MEDS: ENOXAPARIN 80 MG/0.8 ML SYR SQ SCH ×2 (08:14→21:24)
[2020-03-19] MEDS: METOPROLOL TARTRATE 25 MG TAB PO SCH ×2 (08:44→21:24)
[2020-03-19] MEDS: MULTIVITAMIN TAB PO SCH (08:45)
[2020-03-19] MEDS: DOCUSATE SODIUM 100 MG CAP PO SCH ×2 (08:45→21:24)
[2020-03-19] MEDS: ASPIRIN 81 MG ECTAB PO SCH (08:45)
[2020-03-19] MEDS: ROSUVASTATIN CALCIUM 20 MG TAB PO SCH (08:45)
[2020-03-19] MEDS: PANTOprazole 40 MG TAB PO SCH (08:45)
[2020-03-19] MEDS: guaiFENesin 600 MG TABCR PO SCH ×2 (08:45→21:24)
[2020-03-19] MEDS: metFORMIN HCL ER 500 MG TABCR PO SCH ×2 (08:45→18:17)
[2020-03-19] MEDS: lisinopril 40 MG TAB PO SCH (08:45)
[2020-03-19] MEDS: INSULIN GLARGINE 100 UNIT/ML VIAL SC SCH (08:48)
[2020-03-19] MEDS: INSULIN HUMAN LISPRO (humaLOG) 100 UNITS/ML VIAL SC SCH ×4 (08:51→21:14)
[2020-03-19 09:19] LABS: Basophils # (auto) 0.04 K/uL (0-0.2); Basophils % (auto) 0.6 %; Eosinophils # (auto) 0.19 K/uL (0-0.5); Eosinophils % (auto) 3.1 %; Hematocrit (blood only) 39.2 % (42-52); Hemoglobin 13.2 g/dL (14.0-18.0); Immature Granulocytes # (auto) 0.05 K/uL (0.00-0.02); Immature Granulocytes % (auto) 0.8 %; Lymphocytes # (auto) 0.93 K/uL (1.2-3.4); Mean Corpuscular Hemoglobin 29.8 pg (25-34); Mean Corpuscular Volume 88.5 fL (80-100); Monocytes # (auto) 0.66 K/uL (0.11-0.59); Monocytes % (auto) 10.6 %; Neutrophils # (auto) 4.35 K/uL (1.4-6.5); Neutrophils % (auto) 69.9 %; Platelet Count 301 K/uL (130-400); RDW Coefficient of Variation 13.2 % (11.5-14.5); RDW Standard Deviation 42.4 fL (36.4-46.3); Red Blood Count 4.43 M/uL (4.7-6.1); White Blood Count 6.22 K/uL (4.8-10.8)
[2020-03-19 09:57] LABS: Mean Corpuscular Hgb Conc 33.7 g/dL (32-36)
--- NOTE | 2020-03-19 11:06 | Pharmacy Report ---
Glycemic Control Progress Note - Date of Service March 19, 2020 - Scope Glycemic Pharmacist consulted for glycemic control to write orders per [facility] inpatient glycemic control protocol. - Objective Accuchecks BSG(last 24 hours):: 03/18/20 03/18/20 03/18/20 12:02 17:00 20:17 Glucose POC Glucose 228 H 189 H 325 H* 03/18/20 03/19/20 03/19/20 20:19 03:54 06:07 Glucose 129 H POC Glucose 299 H 149 H 03/19/20 08:20 Glucose POC Glucose 171 H HbA1c:: Hemoglobin A1c 7.3 % (4.5-5.6) H 03/06/20 06:43 - Recent Pertinent Medications The patient is currently receiving: * Basal insulin: Lantus 60 units every 24 hours + NPH 20 units HS * Correctional Insulin: Novolog Correction per scale ACHS Goal Range: Low 110 mg/dL - High 160 mg/dL Correction Factor: 15 mg/dL/unit * Prandial insulin: Per carb ratio of 1 unit per 4 grams CHO consumed - Outpatient Anti-Diabetic Meds Humalog pump - Assessment & Plan ASSESSMENT: * See progress note from 03/14/20 for more background info, in short: * Pt receiving SQ basal bolus insulin regimen for hyperglycemia secondary to baseline DM (outpatient regimen on hold). * Patient is currently receiving an average of 126 units of insulin per day * 80 units of basal insulin * 46 units of prandial/correctional insulin * BSGs ranging 171 - 325 mg/dl over the past 24hrs * Changes needed to insulin regimen: * AM Fasting BSG = 171 mg/dl. This is in slightly above goal range for patient based on inpatient targets and co-morbidities. Therefore Basal insulin will be increased to Lantus 70 units. 0400 check demonstrates that 20 units of NPH is effective. * Post-prandial BSGs were elevated yesterday. Tighten CF and CR. Patient's regimen is currently basal heavy but must take into account that 20 units of it is covering the radha phenomenon. * Total daily dose = ~ 150 units. Increased regimen appropriately. PLAN FOR INPATIENT GLYCEMIC CONTROL: * Increasing Lantus to 70 units SQ daily and Continuing NPH 20 units HS * TIGHTENING correction factor to 12 mg/dl/unit * TIGHTENING carb ratio to 1 unit per 3 grams CHO consumed * Continuing goal range of Low 110 mg/dL - High 140 mg/dL RECOMMENDATIONS FOR DISCHARGE: * Recommend to continue home insulin pump and work with [place] swine extension field specialist to optimize A1C. Thank you.
[2020-03-19] MEDS ORDERED: INSULIN GLARGINE 100 UNIT/ML VIAL SC ONE (12:30)
[2020-03-19] MEDS: IPRATROPIUM BROMIDE HFA INHALER INH PRN (16:43)
[2020-03-19] MEDS: ALBUTEROL HFA 8 GM INHALER INH PRN (16:43)
--- NOTE | 2020-03-19 19:43 | Hospitalist Progress Note ---
Date of Service March 19, 2020 Assessment & Plan (1) Acute respiratory failure with hypoxia: 2nd to COVID-19 pneumonia. Remains on 6LNC with desat to mid 80s with minimal exertion Supportive care,oxygen to keep sats >89 Continue Pulmonary toilet with flutter valve and IS, encouraged continued prone positioning no distress at rest but has +VILLA Just prolonged recovery due to inflammation in lungs provided encouragement, likely that he will be here a few more days needs to maintain strength by eating well which he is doing stopped Decadron 03/13, completed 10 days (2) Pneumonia due to COVID-19 virus: Severe, extensive on imaging. oxygen requirements down to 6 LNC, should be using BIPAP at night if tolerated Treated with IV remdesivir x 5 days, LD 03/08 IV/PO decadron 6mg daily x 10 days, last day 03/13 received plasma early during stay Received zithromax for possibility of bacterial pneumonia/superinfection, completed course Procal, normal Some wheezing today-make albuterol HFA scheduled q4h Pulmonary toilet with mucinex, incentive marek, and flutter valve. He is coughing up some sputum today Homatropine/hydrocodone prn for severe coughing fits. Repeat D-dimer is normal Fortunately no PE on imaging. CXR 03/17 with bilateral multifocal pneumonia (3) Type 2 diabetes mellitus: brittle diabetes, hypoglycemic morning on 03/14 in 40's then really high in 400's around lunch he is not sure what is wrong with his pump he agrees to allow pharmacy to manage sugars with Lantus and Novolog sugars were very labile, but now stable pharmacy working to adjust Lantus dosing in the evening and morning patient says he feels fine (4) Hyponatremia: resolved (5) Morbid obesity: BMI 39 (6) Rhabdomyolysis due to COVID-19: Mild. Hydrate, repeat CPK is down (7) Hyperlipidemia: AST and CPK both mildly elevated. Crestor restarted for possible statin protection Trend AST and CPK. Hydrate. (8) Essential (primary) hypertension: Patient on both ANDRE and ARB. Cont the ANDRE; hold the ARB. Adjust meds as needed. BP is normal today (9) Sarcoidosis: remote history. dx . in remission. no signs of such on imaging although does have mediastinal lymphadenopathy. the latter could be reactive to COVID, however. (10) DVT prophylaxis: high risk of VTE while hospitalized thus, lovenox 0.5mg/kg/dose BID Dispo-continued stay Admission and Anticipated Discharge Date Admission Date: March 04, 2020 Subjective Pt had some sputum production this morning. He was able to lie prone for a while last night which he felt reall yhelped. His POx still drops to low to mid 80s with 6LNC on when mouth breahting for transfers from chair to bed. Denies constipation, had a BM today. Review of Systems Review of Systems: All systems reviewed & are unremarkable except as noted in HPI & below Physical Exam Constitutional: WD/WN, vitals as above + morbidly obese Eyes: + anicteric sclerae ENMT: Ears: no hearing impairment Neck: trachea midline, no thyromegaly Respiratory: normal respiratory effort Auscultation: + diminished lung sounds (throughout) and + wheezes (end exp wheeze left upper lung field); no crackles Cardiovascular: RRR, no murmur, no edema Chest (Breasts): Chest: normal inspection of chest Gastrointestinal (Abdomen): normal bowel sounds, soft, nontender, no hep atosplenomegaly Musculoskeletal: Extremities: extremities normal to inspection; no cyanosis and no clubbing Skin: no rashes, warm and dry Neurologic: moves all extremities and awake; no focal motor deficits Psychiatric: A+Ox3, euthymic affect Lymphatic: no lymphedema Results & Data Results & Data ([facility]) Vital Signs (Past 12 Hours) Vital Signs Temp Pulse Pulse Resp BP BP Pulse Ox 03/19/20 16:45 103 H 20 93 03/19/20 15:35 36.5 C 101 H 20 136/71 93 03/19/20 07:47 36.7 C 98 H 18 157/84 H 97 Laboratory Results 03/19/20 03/19/20 03/19/20 Range/Units 17:13 11:48 08:56 WBC 6.22 RBC 4.43 L Hgb 13.2 L Hct 39.2 L MCV 88.5 MCH 29.8 MCHC 33.7 RDW Std Deviation 42.4 RDW Coeff of Julian 13.2 Plt Count 301 MPV 9.0 Immature Gran % (Auto) 0.8 Neut % (Auto) 69.9 Lymph % (Auto) 15.0 [place] % (Auto) 10.6 Eos % (Auto) 3.1 Baso % (Auto) 0.6 Neut # (Auto) 4.35 Lymph # (Auto) 0.93 L [place] # (Auto) 0.66 H Eos # (Auto) 0.19 Baso # (Auto) 0.04 Immature Gran # (Auto) 0.05 H Absolute Nucleated RBC Nucleated RBC % (auto) Neutrophils % (Manual) Band Neutrophils % Lymphocytes % (Manual) Prolymphocyte % Reactive Lymphs % (Man) Monocytes % (Manual) Eosinophils % (Manual) Basophils % (Manual) Metamyelocytes % (Man) Myelocytes % (Man) Promyelocytes % (Man) Blast Cells % (Manual) Plasma Cell % (Manual) Other Cells % Nucleated RBC % Neutrophils # (Manual) Band Neutrophils # Total Absolute Neuts Lymphocytes # (Manual) Prolymphocyte # Reactive Lymphs # Total Abs Lymphocytes Monocytes # (Manual) Eosinophils # (Manual) Basophils # (Manual) Metamyelocytes # (Man) Myelocytes # (Manual) Promyelocytes # (Man) Blast Cells # (Man) Plasma Cell # (Manual) Other Cells # Nucleated RBCs # (Man) Hypersegmented Neuts Hyposegmented Neuts Hypogranular Neuts Large Granular Lymphs # Lrg Granular Lymphs Hairy Cells Smudge Cells Toxic Granulation Toxic Vacuolation Dohle Bodies Monalisa Rods Platelet Estimate Hypogranular Platelets Clumped Platelets Giant Platelets Platelet Satelliting RBC Morphology Polychromasia Hypochromasia Poikilocytosis Basophilic Stippling Anisocytosis Microcytosis Macrocytosis Spherocytes Pappenheimer Bodies Sickle Cells Target Cells Tear Drop Cells Ovalocytes Stomatocytes Oleary-[place] Bodies Echinocytes Acanthocytes (Spur) Rouleaux RBC Agglutinates Schistocytes RBC Morph Comment Sezary Cell Sodium (136-145) mmol/L Potassium (3.5-5.1) mmol/L Chloride (98-107) mmol/L Carbon Dioxide (21-32) mmol/L Anion Gap (3-11) BUN (7-18) mg/dl Creatinine (0.6-1.4) mg/dl Est Cr Clr Drug Dosing ml/min Est GFR ( Amer) Est GFR (Non-Af Amer) BUN/Creatinine Ratio (10-20) Glucose (70-99) mg/dl POC Glucose 130 H 231 H (70-99) mg/dl Calcium (8.5-10.1) mg/dl 03/19/20 03/19/20 03/19/20 Range/Units 08:20 06:07 06:07 WBC Cancelled RBC Cancelled Hgb Cancelled Hct Cancelled MCV Cancelled MCH Cancelled MCHC Cancelled RDW Std Deviation Cancelled RDW Coeff of Julian Cancelled Plt Count Cancelled MPV Cancelled Immature Gran % (Auto) Cancelled Neut % (Auto) Cancelled Lymph % (Auto) Cancelled [place] % (Auto) Cancelled Eos % (Auto) Cancelled Baso % (Auto) Cancelled Neut # (Auto) Cancelled Lymph # (Auto) Cancelled [place] # (Auto) Cancelled Eos # (Auto) Cancelled Baso # (Auto) Cancelled Immature Gran # (Auto) Cancelled Absolute Nucleated RBC Cancelled Nucleated RBC % (auto) Cancelled Neutrophils % (Manual) Cancelled Band Neutrophils % Cancelled Lymphocytes % (Manual) Cancelled Prolymphocyte % Cancelled Reactive Lymphs % (Man) Cancelled Monocytes % (Manual) Cancelled Eosinophils % (Manual) Cancelled Basophils % (Manual) Cancelled Metamyelocytes % (Man) Cancelled Myelocytes % (Man) Cancelled Promyelocytes % (Man) Cancelled Blast Cells % (Manual) Cancelled Plasma Cell % (Manual) Cancelled Other Cells % Cancelled Nucleated RBC % Cancelled Neutrophils # (Manual) Cancelled Band Neutrophils # Cancelled Total Absolute Neuts Cancelled Lymphocytes # (Manual) Cancelled Prolymphocyte # Cancelled Reactive Lymphs # Cancelled Total Abs Lymphocytes Cancelled Monocytes # (Manual) Cancelled Eosinophils # (Manual) Cancelled Basophils # (Manual) Cancelled Metamyelocytes # (Man) Cancelled Myelocytes # (Manual) Cancelled Promyelocytes # (Man) Cancelled Blast Cells # (Man) Cancelled Plasma Cell # (Manual) Cancelled Other Cells # Cancelled Nucleated RBCs # (Man) Cancelled Hypersegmented Neuts Cancelled Hyposegmented Neuts Cancelled Hypogranular Neuts Cancelled Large Granular Lymphs Cancelled # Lrg Granular Lymphs Cancelled Hairy Cells Cancelled Smudge Cells Cancelled Toxic Granulation Cancelled Toxic Vacuolation Cancelled Dohle Bodies Cancelled Monalisa Rods Cancelled Platelet Estimate Cancelled Hypogranular Platelets Cancelled Clumped Platelets Cancelled Giant Platelets Cancelled Platelet Satelliting Cancelled RBC Morphology Cancelled Polychromasia Cancelled Hypochromasia Cancelled Poikilocytosis Cancelled Basophilic Stippling Cancelled Anisocytosis Cancelled Microcytosis Cancelled Macrocytosis Cancelled Spherocytes Cancelled Pappenheimer Bodies Cancelled Sickle Cells Cancelled Target Cells Cancelled Tear Drop Cells Cancelled Ovalocytes Cancelled Stomatocytes Cancelled [place] Bodies Cancelled Echinocytes Cancelled Acanthocytes (Spur) Cancelled Rouleaux Cancelled RBC Agglutinates Cancelled Schistocytes Cancelled RBC Morph Comment Cancelled Sezary Cell Cancelled Sodium 137 (136-145) mmol/L Potassium 4.4 (3.5-5.1) mmol/L Chloride 101 (98-107) mmol/L Carbon Dioxide 30 (21-32) mmol/L Anion Gap 6.0 (3-11) BUN 12 (7-18) mg/dl Creatinine 0.70 (0.6-1.4) mg/dl Est Cr Clr Drug Dosing 156.0 ml/min Est GFR ( Amer) 122.3 Est GFR (Non-Af Amer) 105.5 BUN/Creatinine Ratio 16.8 (10-20) Glucose 129 H (70-99) mg/dl POC Glucose 171 H (70-99) mg/dl Calcium 9.3 (8.5-10.1) mg/dl 03/19/20 03/18/20 03/18/20 Range/Units 03:54 20:19 20:17 WBC RBC Hgb Hct MCV MCH MCHC RDW Std Deviation RDW Coeff of Julian Plt Count MPV Immature Gran % (Auto) Neut % (Auto) Lymph % (Auto) [place] % (Auto) Eos % (Auto) Baso % (Auto) Neut # (Auto) Lymph # (Auto) [place] # (Auto) Eos # (Auto) Baso # (Auto) Immature Gran # (Auto) Absolute Nucleated RBC Nucleated RBC % (auto) Neutrophils % (Manual) Band Neutrophils % Lymphocytes % (Manual) Prolymphocyte % Reactive Lymphs % (Man) Monocytes % (Manual) Eosinophils % (Manual) Basophils % (Manual) Metamyelocytes % (Man) Myelocytes % (Man) Promyelocytes % (Man) Blast Cells % (Manual) Plasma Cell % (Manual) Other Cells % Nucleated RBC % Neutrophils # (Manual) Band Neutrophils # Total Absolute Neuts Lymphocytes # (Manual) Prolymphocyte # Reactive Lymphs # Total Abs Lymphocytes Monocytes # (Manual) Eosinophils # (Manual) Basophils # (Manual) Metamyelocytes # (Man) Myelocytes # (Manual) Promyelocytes # (Man) Blast Cells # (Man) Plasma Cell # (Manual) Other Cells # Nucleated RBCs # (Man) Hypersegmented Neuts Hyposegmented Neuts Hypogranular Neuts Large Granular Lymphs # Lrg Granular Lymphs Hairy Cells Smudge Cells Toxic Granulation Toxic Vacuolation Dohle Bodies Monalisa Rods Platelet Estimate Hypogranular Platelets Clumped Platelets Giant Platelets Platelet Satelliting RBC Morphology Polychromasia Hypochromasia Poikilocytosis Basophilic Stippling Anisocytosis Microcytosis Macrocytosis Spherocytes Pappenheimer Bodies Sickle Cells Target Cells Tear Drop Cells Ovalocytes Stomatocytes [place] Bodies Echinocytes Acanthocytes (Spur) Rouleaux RBC Agglutinates Schistocytes RBC Morph Comment Sezary Cell Sodium (136-145) mmol/L Potassium (3.5-5.1) mmol/L Chloride (98-107) mmol/L Carbon Dioxide (21-32) mmol/L Anion Gap (3-11) BUN (7-18) mg/dl Creatinine (0.6-1.4) mg/dl Est Cr Clr Drug Dosing ml/min Est GFR ( Amer) Est GFR (Non-Af Amer) BUN/Creatinine Ratio (10-20) Glucose (70-99) mg/dl POC Glucose 149 H 299 H 325 H* (70-99) mg/dl Calcium (8.5-10.1) mg/dl PG Care Time/CCT Total # of Minutes Spent Total Time Spent with Patient: Total time spent is greater than 50% in coordination of care (as documented) at patient's floor/unit and/or counseling patient: Coding Level of Care Code 24305 Subseq Hosp Care Lvl 2 Diagnoses Acute respiratory failure with hypoxia J96.01 Pneumonia due to COVID-19 virus U07.1; J12.89 Type 2 diabetes mellitus E11.9 Hyponatremia E87.1 Morbid obesity E66.01 Rhabdomyolysis due to COVID-19 U07.1; M62.82 Hyperlipidemia E78.5 Essential (primary) hypertension I10 Sarcoidosis D86.9 DVT prophylaxis Z29.9
[2020-03-19] MEDS ORDERED: ALBUTEROL HFA 8 GM INHALER INH SCH (20:00)
[2020-03-19] MEDS: INSULIN HUMAN NPH SC SCH (21:15)
[2020-03-19] MEDS: ALBUTEROL HFA 8 GM INHALER INH SCH (22:48)
[2020-03-20] MEDS: ALBUTEROL HFA 8 GM INHALER INH SCH ×6 (04:01→23:02)
[2020-03-20] MEDS: CARBOHYDRATES FOR HYPOGLYCEMIA PO PRN ×4 (04:06→21:28)
[2020-03-20] MEDS ORDERED: INSULIN GLARGINE 100 UNIT/ML VIAL SC SCH ×2 (09:00)
[2020-03-20] MEDS: guaiFENesin 600 MG TABCR PO SCH ×2 (09:22→22:07)
[2020-03-20] MEDS: ROSUVASTATIN CALCIUM 20 MG TAB PO SCH (09:22)
[2020-03-20] MEDS: metFORMIN HCL ER 500 MG TABCR PO SCH ×2 (09:22→17:44)
[2020-03-20] MEDS: MULTIVITAMIN TAB PO SCH (09:23)
[2020-03-20] MEDS: PANTOprazole 40 MG TAB PO SCH (09:23)
[2020-03-20] MEDS: METOPROLOL TARTRATE 25 MG TAB PO SCH ×2 (09:23→22:09)
[2020-03-20] MEDS: lisinopril 40 MG TAB PO SCH (09:23)
[2020-03-20] MEDS: DOCUSATE SODIUM 100 MG CAP PO SCH ×2 (09:23→22:07)
[2020-03-20] MEDS: ASPIRIN 81 MG ECTAB PO SCH (09:23)
[2020-03-20] MEDS: ENOXAPARIN 80 MG/0.8 ML SYR SQ SCH ×2 (09:23→22:07)
[2020-03-20] MEDS: INSULIN GLARGINE 100 UNIT/ML VIAL SC SCH (09:26)
[2020-03-20] MEDS: INSULIN HUMAN LISPRO (humaLOG) 100 UNITS/ML VIAL SC SCH ×4 (09:27→22:13)
[2020-03-20] MEDS: IPRATROPIUM BROMIDE HFA INHALER INH PRN ×2 (11:07→15:43)
--- NOTE | 2020-03-20 13:45 | Pharmacy Report ---
Pharmacy Glycemic Short Note 2 - Date of Service March 20, 2020 - Glycemic Short BSG Results (Last 24 hours): 03/19/20 03/19/20 03/20/20 17:13 20:41 04:01 POC Glucose 130 H 126 H 64 L* 03/20/20 03/20/20 03/20/20 04:20 04:41 08:23 POC Glucose 59 L* 87 159 H 03/20/20 11:33 POC Glucose 282 H OUTPATIENT ANTIDIABETIC REGIMEN: * Humalog pump * See paraeducator note for pump settings; in brief: total daily basal dose ~103 units, sensitivity factor 10mg/dL/unit, carb ratio 1 unit per 2.6-4gm CHO consumed w/ meals, no single bolus larger then 25 units * Metformin 1 g PO BIDM ASSESSMENT: 03/20 * BSGs yesterday reasonably controlled 171, 231, 130, and 126 mg/dL * Received 156 units of insulin (70 units of Lantus, 20 units of NPH, and 66 units of prandial/correctional Novolog) * BSG at 0400 today was 64 mg/dL -> will slightly decrease NPH this evening * Pre-lunch BSG of 282 mg/dL -> will tighten AM carb ratio to 2.5 starting tomorrow morning 03/18 * Humalog pump discontinued on 03/14, has been managed with SC basal/bolus since that time * BSGs have been very labile over past several days, elevated yesterday at 274, 259, 205, and 247 mg/dL * Received Lantus 60 units, NPH 20 units, 71 units of prandial/correctional Humalog, and metformin 1 g PO BIDM * 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 * He has been managing his insulin pump on his own with the help of [facility] * Yesterday was his final day of Dexamethasone 6mg IV * Patient is agreeable to starting SQ basal/bolus regimen at this time. Discussed his outpt pump settings to confirm accuracy. I did discuss the use of Lantus at 80% of his out-pt total daily dose initially given hypoglycemic episode. Usually would start lower than this in the setting of severe hypoglycemia however his BSGs are in the 400s at this time and he has been w/o insulin for ~8 hours. * Patient is agreeable to using Humalog for rapid acting component of regimen. He was not agreeable to using Novolog as he stated he has tried this in the past but had poor results. He has already been charged for two vials of Humalog which he had been using to refill his pump. Will give Humalog 25 units SQ x 1 stat for elevated BSG and lunch coverage. Will recheck BSG 1 hr after Humalog to confirm we are headed in the right direction. PLAN FOR INPATIENT GLYCEMIC CONTROL: * Continue metformin ER 1 g PO BID * Basal insulin: decrease NPH * Lantus 70 units SQ qAM * NPH 15 units SC HS * Rapid acting: continue tightened carb ratio * Humalog ACHS * -Goal range: 110-140 mg/dL * -Correction factor: 12 mg/dL * -Carb ratio: 1 unit per 3 grams CHO consumed w/ lunch, dinner, and HS * -Carb ratio: 1 unit per 2.5 grams CHO consumed w/ breakfast DISCHARGE PLAN: * Recommend to continue home insulin pump and work with [place] [facility] [employer] to optimize A1C.
--- NOTE | 2020-03-20 17:48 | Hospitalist Progress Note ---
Date of Service March 20, 2020 Assessment & Plan (1) Acute respiratory failure with hypoxia: 2nd to COVID-19 pneumonia. Finally able to wean down to 5 L nasal cannula on 03/20 and having some improvement since making albuterol scheduled Supportive care,oxygen to keep sats >89 and wean off as tolerated Continue Pulmonary toilet with flutter valve and IS, encouraged continued prone positioning no distress at rest but has +VILLA Just prolonged recovery due to inflammation in lungs provided encouragement, likely that he will be here a few more days needs to maintain strength by eating well which he is doing stopped Decadron 03/13, completed 10 days (2) Pneumonia due to COVID-19 virus: Severe, extensive on imaging. oxygen requirements as above Treated with IV remdesivir x 5 days, LD 03/08 IV/PO decadron 6mg daily x 10 days, last day 03/13 received plasma early during stay Received zithromax for possibility of bacterial pneumonia/superinfection, completed course Procal, normal Wheezing is now resolved after making albuterol HFA scheduled q4h Continue pulmonary toilet with mucinex, incentive marek, and flutter valve. Homatropine/hydrocodone prn for severe coughing fits. Repeat D-dimer is normal Fortunately no PE on imaging. CXR 03/17 with bilateral multifocal pneumonia Will need follow-up chest x-ray in 3 to 4 weeks to ensure resolution (3) Type 2 diabetes mellitus: brittle diabetes, hypoglycemic morning on 03/14 in 40's then really high in 400's around lunch he is not sure what is wrong with his pump he agrees to allow pharmacy to manage sugars with Lantus and Novolog sugars were very labile, but now stable pharmacy working to adjust Lantus dosing in the evening and morning patient says he feels fine (4) Hyponatremia: resolved (5) Morbid obesity: BMI 39 (6) Rhabdomyolysis due to COVID-19: Mild. Hydrate, repeat CPK is down (7) Hyperlipidemia: AST and CPK both mildly elevated. Crestor restarted for possible statin protection Trend AST and CPK. (8) Essential (primary) hypertension: Patient on both ANDRE and ARB. Cont the ANDRE; hold the ARB. Adjust meds as needed. BP is normal today (9) Sarcoidosis: remote history. dx . in remission. no signs of such on imaging although does have mediastinal lymphadenopathy. the latter could be reactive to COVID, however. (10) DVT prophylaxis: high risk of VTE while hospitalized thus, lovenox 0.5mg/kg/dose BID Dispo-continued stay, slow improvement Admission and Anticipated Discharge Date Admission Date: March 04, 2020 Subjective Patient reports feeling a little bit less short of breath today at rest but still dyspneic with exertion. He is weaned down to 5 L nasal cannula pulse ox was 95% when I saw him. Reports sore throat and nasal congestion are improved. Appetite is good. He is moving his bowels. No other concerns. Cough is nonproductive today Review of Systems Review of Systems: All systems reviewed & are unremarkable except as noted in HPI & below Physical Exam Constitutional: WD/WN, vitals as above + morbidly obese Eyes: + anicteric sclerae ENMT: Ears: no hearing impairment Neck: trachea midline, no thyromegaly Respiratory: normal respiratory effort Auscultation: + diminished lung s ounds (throughout); no crackles and no wheezes Cardiovascular: RRR, no murmur, no edema Chest (Breasts): Chest: normal inspection of chest Gastrointestinal (Abdomen): normal bowel sounds, soft, nontender, no hepatosplenomegaly Musculoskeletal: Extremities: extremities normal to inspection; no cyanosis and no clubbing Skin: no rashes, warm and dry Neurologic: moves all extremities and awake; no focal motor deficits Psychiatric: A+Ox3, euthymic affect Lymphatic: no lymphedema Results & Data Results & Data ([facility]) Vital Signs (Past 12 Hours) Vital Signs Temp Pulse Pulse Resp BP Pulse Ox 03/20/20 16:05 36.7 C 100 H 18 126/65 94 03/20/20 15:43 103 H 20 91 03/20/20 11:07 96 H 18 91 03/20/20 08:17 36.6 C 99 H 16 105/73 91 03/20/20 07:47 94 H 20 94 PG Care Time/CCT Total # of Minutes Spent Total Time Spent with Patient: Total time spent is greater than 50% in coordination of care (as documented) at patient's floor/unit and/or counseling patient: Coding Level of Care Code 84607 Subseq Hosp Care Lvl 2 Diagnoses Acute respiratory failure with hypoxia J96.01 Pneumonia due to COVID-19 virus U07.1; J12.89 Type 2 diabetes mellitus E11.9 Hyponatremia E87.1 Morbid obesity E66.01 Rhabdomyolysis due to COVID-19 U07.1; M62.82 Hyperlipidemia E78.5 Essential (primary) hypertension I10 Sarcoidosis D86.9 DVT prophylaxis Z29.9
[2020-03-20] MEDS ORDERED: INSULIN HUMAN NPH SC SCH (21:00)
[2020-03-21] MEDS: ALBUTEROL HFA 8 GM INHALER INH SCH ×6 (03:12→23:14)
[2020-03-21] MEDS: INSULIN HUMAN LISPRO (humaLOG) 100 UNITS/ML VIAL SC SCH ×4 (09:19→21:12)
[2020-03-21] MEDS: INSULIN GLARGINE 100 UNIT/ML VIAL SC SCH (09:24)
[2020-03-21] MEDS: DOCUSATE SODIUM 100 MG CAP PO SCH ×2 (09:27→20:56)
[2020-03-21] MEDS: metFORMIN HCL ER 500 MG TABCR PO SCH ×2 (09:27→18:08)
[2020-03-21] MEDS: ASPIRIN 81 MG ECTAB PO SCH (09:28)
[2020-03-21] MEDS: ROSUVASTATIN CALCIUM 20 MG TAB PO SCH (09:28)
[2020-03-21] MEDS: METOPROLOL TARTRATE 25 MG TAB PO SCH ×2 (09:29→20:56)
[2020-03-21] MEDS: guaiFENesin 600 MG TABCR PO SCH ×2 (09:30→20:56)
[2020-03-21] MEDS: ENOXAPARIN 80 MG/0.8 ML SYR SQ SCH ×2 (09:30→21:00)
[2020-03-21] MEDS: MULTIVITAMIN TAB PO SCH (09:31)
[2020-03-21] MEDS: PANTOprazole 40 MG TAB PO SCH (09:32)
[2020-03-21] MEDS: lisinopril 40 MG TAB PO SCH (09:32)
--- NOTE | 2020-03-21 09:48 | Pharmacy Report ---
Pharmacy Glycemic Short Note 2 - Date of Service March 21, 2020 - Glycemic Short BSG Results (Last 24 hours): 03/20/20 03/20/20 03/20/20 11:33 17:31 21:06 POC Glucose 282 H 105 H 68 L* 03/20/20 03/20/20 03/20/20 21:07 21:23 21:42 POC Glucose 75 69 L* 72 03/20/20 03/21/20 03/21/20 23:52 04:19 07:57 POC Glucose 71 127 H 192 H OUTPATIENT ANTIDIABETIC REGIMEN: * Humalog pump * See calender runner note for pump settings; in brief: total daily basal dose ~103 units, sensitivity factor 10mg/dL/unit, carb ratio 1 unit per 2.6-4gm CHO consumed w/ meals, no single bolus larger then 25 units * Metformin 1 g PO BIDM ASSESSMENT: * Patient is currently receiving an average of 169 units of insulin per day * 85 units of basal insulin * 84 units of prandial/correctional insulin * BSGs ranging 68-282 mg/dl over the past 24hrs * Anticipating insulin regimen will need adjusted for the next 24hrs d/t : * AM Fasting BSG = 127 --> 192mg/dl. Treating AM hyperglycemia with PM NPH. Will increase NPH slightly to achieve AM fasting BSG in the 140mg/dl range or below. * Total daily dose = adequate, evenly distributed 50%:50% basal:prandial to prevent hypo/hyperglycemia * Post-prandial BSGs are elevated/BSGsprior to lunch and then fall towards the evening. Will set variable CR for each meal. Most aggressive and lunch and then taper off towards dinner and HS 03/20 * BSGs yesterday reasonably controlled 171, 231, 130, and 126 mg/dL * Received 156 units of insulin (70 units of Lantus, 20 units of NPH, and 66 units of prandial/correctional Novolog) * BSG at 0400 today was 64 mg/dL -> will slightly decrease NPH this evening * Pre-lunch BSG of 282 mg/dL -> will tighten AM carb ratio to 2.5 starting tomorrow morning 03/18 * Humalog pump discontinued on 03/14, has been managed with SC basal/bolus since that time * BSGs have been very labile over past several days, elevated yesterday at 274, 259, 205, and 247 mg/dL * Received Lantus 60 units, NPH 20 units, 71 units of prandial/correctional Humalog, and metformin 1 g PO BIDM * 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 * He has been managing his insulin pump on his own with the help of [facility] * Yesterday was his final day of Dexamethasone 6mg IV * Patient is agreeable to starting SQ basal/bolus regimen at this time. Discussed his outpt pump settings to confirm accuracy. I did discuss the use of Lantus at 80% of his out-pt total daily dose initially given hypoglycemic episode. Usually would start lower than this in the setting of severe hypoglycemia however his BSGs are in the 400s at this time and he has been w/o insulin for ~8 hours. * Patient is agreeable to using Humalog for rapid acting component of regimen. He was not agreeable to using Novolog as he stated he has tried this in the past but had poor results. He has already been charged for two vials of Humalog which he had been using to refill his pump. Will give Humalog 25 units SQ x 1 stat for elevated BSG and lunch coverage. Will recheck BSG 1 hr after Humalog to confirm we are headed in the right direction. PLAN FOR INPATIENT GLYCEMIC CONTROL: * Continue metformin ER 1 g PO BID * Basal insulin: increase HS NPH * Lantus 70 units SQ qAM * NPH 18 units SC HS * Rapid acting: continue tightened carb ratio * Humalog ACHS * -Goal range: 110-140 mg/dL * -Correction factor: 12 mg/dL * -Carb ratio: 1 unit per 2.5 grams CHO consumed w/ breakfast * -Carb ratio: 1 unit per 3 grams CHO consumed w/ lunch * -Carb ratio: 1 unit per 4 grams CHO consumed w/ dinner and HS DISCHARGE PLAN: * Recommend to continue home insulin pump and work with [facility] [employer] cloth cutter to optimize A1C.
--- NOTE | 2020-03-21 11:44 | Hospitalist Progress Note ---
Date of Service March 21, 2020 Assessment & Plan (1) Acute respiratory failure with hypoxia: 2nd to COVID-19 pneumonia. Finally able to wean down to 5 L nasal cannula on 03/20 and having some improvement since making albuterol scheduled, although still dropping to 8-0% on 5L with movement from bed to chair Continue Supportive care,oxygen to keep sats >89 and wean off as tolerated Continue Pulmonary toilet with flutter valve and IS, encouraged continued prone positioning Had completed 10 days of Decadron on 03/13 -restart Decadron 6mg IV bid as he likely has residula inflammation post-COVID PNA (2) Pneumonia due to COVID-19 virus: Severe, extensive on imaging. oxygen requirements as above Treated with IV remdesivir x 5 days, LD 03/08 IV/PO decadron 6mg daily x 10 days, last day 03/13 received plasma early during stay Received zithromax for possibility of bacterial pneumonia/superinfection, completed course Procal, normal Wheezing is now resolved after making albuterol HFA scheduled q4h Continue pulmonary toilet with mucinex, incentive marek, and flutter valve. Homatropine/hydrocodone prn for severe coughing fits. Restarting Decadron on 03/21 as above for persistent hypoxia and will do longer slower taper Repeat D-dimer is normal Fortunately no PE on imaging. CXR 03/17 with bilateral multifocal pneumonia Will need follow-up chest x-ray in 3 to 4 weeks to ensure resolution (3) Type 2 diabetes mellitus: brittle diabetes, hypoglycemic morning on 03/14 in 40's then really high in 400's at times in the past he is not sure what is wrong with his pump he agrees to allow pharmacy to manage sugars with Lantus and Novolog sugars remain quite labile pharmacy working to adjust Lantus dosing in the evening and morning, on NPH continue metformin adding on decadron again-discussed with Pharmacist (4) Hyponatremia: resolved (5) Morbid obesity: BMI 39 (6) Rhabdomyolysis due to COVID-19: Mild. Hydrate, repeat CPK is down (7) Hyperlipidemia: AST and CPK both mildly elevated. Crestor restarted for possible statin protection with COVID (8) Essential (primary) hypertension: Patient on both ANDRE and ARB as outpt Cont the ANDRE; hold the ARB. doesn't need both continue metoprolol BP is normal today (9) Sarcoidosis: remote history. dx 1990s. in remission. no signs of such on imaging although does have mediastinal lymphadenopathy. the latter could be reactive to COVID, however. (10) DVT prophylaxis: high risk of VTE while hospitalized thus, lovenox 0.5mg/kg/dose BID Dispo-continued stay, slow improvement Admission and Anticipated Discharge Date Admission Date: March 04, 2020 Subjective Pt feels about the same. Still very VILLA with minimal exertion, POx drops to 80% on 5L with moving from bed to chair. Not sleeping well due to interruptions and continuous POx alarming when he moves at night. No chest pain, is moving bowels and eating well. Mild cough. Review of Systems Review of Systems: All systems reviewed & are unremarkable except as noted in HPI & below Physical Exam Constitutional: WD/WN, vitals as above + morbidly obese Eyes: + anicteric sclerae ENMT: Ears: no hearing impairment Neck: trachea midline, no thyromegaly Respiratory: normal respiratory effort Auscultation: + diminished lung sounds (throughout); no crackles and no wheezes Cardiovascular: RRR, no murmur, no edema Chest (Breasts): Chest: normal inspection of chest Gastrointestinal (Abdomen): normal bowel sounds, soft, nontender, no hepatosplenomegaly Musculoskeletal: Extremities: extremities normal to inspection; no cyanosis and no clubbing Skin: no rashes, warm and dry Neurologic: moves all extremities and awake; no focal motor deficits Psychiatric: A+Ox3, euthymic affect Lymphatic: no lymphedema Results & Data Results & [facility] ([facility]) Vital Signs (Past 12 Hours) Vital Signs Temp Pulse Resp BP Pulse Ox 03/21/20 11:02 104 H 20 92 03/21/20 07:47 96 H 20 92 03/21/20 06:47 36.8 C 102 H 20 127/82 92 03/21/20 03:13 97 H 18 93 Laboratory Results 03/21/20 03/21/20 03/20/20 Range/Units 07:57 04:19 23:52 POC Glucose 192 H 127 H 71 (70-99) mg/dl 03/20/20 03/20/20 03/20/20 Range/Units 21:42 21:23 21:07 POC Glucose 72 69 L* 75 (70-99) mg/dl 03/20/20 03/20/20 Range/Units 21:06 17:31 POC Glucose 68 L* 105 H (70-99) mg/dl PG Care Time/CCT Total # of Minutes Spent Total Time Spent with Patient: Total time spent is greater than 50% in coordination of care (as documented) at patient's floor/unit and/or counseling patient: Coding Level of Care Code 56537 Subseq Hosp Care Lvl 3 Diagnoses Acute respiratory failure with hypoxia J96.01 Pneumonia due to COVID-19 virus U07.1; J12.89 Type 2 diabetes mellitus E11.9 Hyponatremia E87.1 Morbid obesity E66.01 Rhabdomyolysis due to COVID-19 U07.1; M62.82 Hyperlipidemia E78.5 Essential (primary) hypertension I10 Sarcoidosis D86.9 DVT prophylaxis Z29.9
[2020-03-21] MEDS ORDERED: INSULIN HUMAN NPH SC SCH ×3 (12:00→21:00)
[2020-03-21] MEDS: dexAMETHasone 6 MG in SYRINGE 0 ML IV SCH ×2 (13:54→21:00)
[2020-03-22] MEDS: ALBUTEROL HFA 8 GM INHALER INH SCH ×3 (02:04→11:57)
[2020-03-22] MEDS ORDERED: INSULIN HUMAN NPH SC SCH ×2 (09:00→21:00)
--- NOTE | 2020-03-22 09:15 | Pharmacy Report ---
Pharmacy Glycemic Short Note 2 - Date of Service March 22, 2020 - Glycemic Short BSG Results (Last 24 hours): 03/21/20 03/21/20 03/21/20 12:00 17:13 20:39 POC Glucose 258 H 166 H 267 H 03/22/20 03/22/20 03:40 08:11 POC Glucose 212 H 236 H OUTPATIENT ANTIDIABETIC REGIMEN: * Humalog pump * See telehealth nurse educator note for pump settings; in brief: total daily basal dose ~103 units, sensitivity factor 10mg/dL/unit, carb ratio 1 unit per 2.6-4gm CHO consumed w/ meals, no single bolus larger then 25 units * Metformin 1 g PO BIDM ASSESSMENT: 03/22 * Pt has received 193 units of insulin over the past 24hrs * 70 units of basal insulin {Lantus} * 68 units of bolus insulin {NovoLog} * 55 units of NPH for steroid induced hyperglycemia * BSGs ranging 127 - 267 mg/dl * Changes made yesterday: Added AM dose of NPH {weight based dosing for steroids} for AM dose of DXM; increased HS dose of NPH for radha phenomenon to cover second dose of dexamethasone * Changes needed today: * AM fasting BSG elevated - will increase PM dose of NPH * Pre-lunch BSG still elevated - will tighten breakfast CR and increase AM dose of NPH * Trying to keep baseline insulin regimen constant and just manipulating NPH for steroid induced hyperglycemia. This will help prevent hypo when steroids are stopped since we can stop the NPH at the time the steroids are stopped. 03/21 * Patient is currently receiving an average of 169 units of insulin per day * 85 units of basal insulin * 84 units of prandial/correctional insulin * BSGs ranging 68-282 mg/dl over the past 24hrs * Anticipating insulin regimen will need adjusted for the next 24hrs d/t : * AM Fasting BSG = 127 --> 192mg/dl. Treating AM hyperglycemia with PM NPH. Will increase NPH slightly to achieve AM fasting BSG in the 140mg/dl range or below. * Total daily dose = adequate, evenly distributed 50%:50% basal:prandial to prevent hypo/hyperglycemia * Post-prandial BSGs are elevated/BSGsprior to lunch and then fall towards the evening. Will set variable CR for each meal. Most aggressive and lunch and then taper off towards dinner and HS 03/20 * BSGs yesterday reasonably controlled 171, 231, 130, and 126 mg/dL * Received 156 units of insulin (70 units of Lantus, 20 units of NPH, and 66 units of prandial/correctional Novolog) * BSG at 0400 today was 64 mg/dL -> will slightly decrease NPH this evening * Pre-lunch BSG of 282 mg/dL -> will tighten AM carb ratio to 2.5 starting tomorrow morning 03/18 * Humalog pump discontinued on 03/14, has been managed with SC basal/bolus since that time * BSGs have been very labile over past several days, elevated yesterday at 274, 259, 205, and 247 mg/dL * Received Lantus 60 units, NPH 20 units, 71 units of prandial/correctional Humalog, and metformin 1 g PO BIDM * 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 * He has been managing his insulin pump on his own with the help of [facility] * Yesterday was his final day of Dexamethasone 6mg IV * Patient is agreeable to starting SQ basal/bolus regimen at this time. Discussed his outpt pump settings to confirm accuracy. I did discuss the use of Lantus at 80% of his out-pt total daily dose initially given hypoglycemic episode. Usually would start lower than this in the setting of severe hypoglycemia however his BSGs are in the 400s at this time and he has been w/o insulin for ~8 hours. * Patient is agreeable to using Humalog for rapid acting component of regimen. He was not agreeable to using Novolog as he stated he has tried this in the past but had poor results. He has already been charged for two vials of Humalog which he had been using to refill his pump. Will give Humalog 25 units SQ x 1 stat for elevated BSG and lunch coverage. Will recheck BSG 1 hr after Humalog to confirm we are headed in the right direction. PLAN FOR INPATIENT GLYCEMIC CONTROL: * Continue metformin ER 1 g PO BID * Basal insulin: no change * Lantus 70 units SQ qAM * Steroid induced hyperglycemia * NPH 35 units SC AM + 30 units SQ HS * Rapid acting: tighten carb ratio at breakfast only * Humalog ACHS * -Goal range: 110-140 mg/dL * -Correction factor: 12 mg/dL * -Carb ratio: 1 unit per 2 grams CHO consumed w/ breakfast * -Carb ratio: 1 unit per 3 grams CHO consumed w/ lunch * -Carb ratio: 1 unit per 4 grams CHO consumed w/ dinner and HS DISCHARGE PLAN: * Recommend to continue home insulin pump and work with [facility] [employer] [facility] to optimize A1C.
[2020-03-22] MEDS: INSULIN HUMAN LISPRO (humaLOG) 100 UNITS/ML VIAL SC SCH ×4 (09:55→20:56)
[2020-03-22] MEDS: metFORMIN HCL ER 500 MG TABCR PO SCH ×2 (09:59→18:37)
[2020-03-22] MEDS: ROSUVASTATIN CALCIUM 20 MG TAB PO SCH (10:00)
[2020-03-22] MEDS: DOCUSATE SODIUM 100 MG CAP PO SCH ×2 (10:00→20:40)
[2020-03-22] MEDS: dexAMETHasone 6 MG in SYRINGE 0 ML IV SCH (10:01)
[2020-03-22] MEDS: ASPIRIN 81 MG ECTAB PO SCH (10:01)
[2020-03-22] MEDS: INSULIN GLARGINE 100 UNIT/ML VIAL SC SCH (10:02)
[2020-03-22] MEDS: METOPROLOL TARTRATE 25 MG TAB PO SCH (10:03)
[2020-03-22] MEDS: guaiFENesin 600 MG TABCR PO SCH ×2 (10:04→20:40)
[2020-03-22] MEDS: ENOXAPARIN 80 MG/0.8 ML SYR SQ SCH ×2 (10:04→20:35)
[2020-03-22] MEDS: MULTIVITAMIN TAB PO SCH (10:06)
[2020-03-22] MEDS: lisinopril 40 MG TAB PO SCH (10:08)
[2020-03-22] MEDS: PANTOprazole 40 MG TAB PO SCH (10:08)
[2020-03-22] MEDS ORDERED: COUGH DROP (SUGAR FREE) LOZ 24 LOZ/1 BOX BUCCAL PRN (12:41)
[2020-03-22] MEDS ORDERED: ALBUTEROL HFA 8 GM INHALER INH PRN (12:42)
[2020-03-22] MEDS ORDERED: METOPROLOL TARTRATE 25 MG TAB PO STA (12:47)
--- NOTE | 2020-03-22 12:47 | Hospitalist Progress Note ---
Date of Service March 22, 2020 Assessment & Plan (1) Acute respiratory failure with hypoxia: 2nd to COVID-19 pneumonia. Finally able to wean down to 5 L nasal cannula on 03/20 and having some improvement since making albuterol scheduled, although still dropping to 78-80% on 5L with movement from bed to chair Feels a little better since restarting Decadron on 03/21 Continue Supportive care,oxygen to keep sats >89 and wean off as tolerated Continue Pulmonary toilet with flutter valve and IS, encouraged continued prone positioning Had completed 10 days of Decadron on 03/13 -restarted Decadron 6mg IV bid as he likely has residual inflammation post-COVID PNA -start Duonebs and Hypertonic saline nebs bid to help bring out sputum (2) Pneumonia due to COVID-19 virus: Severe, extensive on imaging. oxygen requirements as above Treated with IV remdesivir x 5 days, LD 03/08 IV/PO decadron 6mg daily x 10 days, last day 03/13 and now restarted on 03/22 and will do long slow taper received plasma early during stay Received zithromax for possibility of bacterial pneumonia/superinfection, completed course I don't think he needs further abx unless has fevers. Procal normal initially--> check PCT again in the AM Wheezing is now resolved after making albuterol HFA scheduled [id number] to prn but starting hypertonic saline and DUonebs bid as above Continue pulmonary toilet with mucinex, incentive marek, and flutter valve. Repeat D-dimer is normal Fortunately no PE on imaging. CXR 03/17 with bilateral multifocal pneumonia Will need follow-up chest x-ray in 3 to 4 weeks to ensure resolution (3) Type 2 diabetes mellitus: brittle diabetes, hypoglycemic morning on 03/14 in 40's then really high in 400's at times in the past he is not sure what is wrong with his pump he agrees to allow pharmacy to manage sugars with Lantus and Novolog sugars remain quite labile and now mostly high again with restarting Decadron pharmacy working to adjust Lantus dosing in the evening and morning, on NPH continue metformin (4) Hyponatremia: resolved (5) Morbid obesity: BMI 39 (6) Rhabdomyolysis due to COVID-19: Mild. Hydrate, repeat CPK is down (7) Hyperlipidemia: AST and CPK both mildly elevated. Crestor restarted for possible statin protection with COVID (8) Essential (primary) hypertension: Patient on both ANDRE and ARB as outpt Cont the ANDRE; hold the ARB. doesn't need both ACEi and ARB on discharge BP is much higher since restarting steroids Was started on metoprolol here and continue metoprolol and increase to 50mg bid (9) Sarcoidosis: remote history. dx 1990s. in remission. no signs of such on imaging although does have mediastinal lymphadenopathy. the latter could be reactive to COVID, however. (10) DVT prophylaxis: high risk of VTE while hospitalized thus, lovenox 0.5mg/kg/dose BID Dispo-continued stay, slow improvement Admission and Anticipated Discharge Date Admission Date: March 04, 2020 Subjective Pt feels slightly better since restarting the steroids. Still very VILLA with minimal exertion, POx drops to the high 70s% on 5L with moving from bed to chair. Feels congestion in his chest but just can't cough up the sputum. Asks about st arting antibiotics to help break up sputum essentially. Discussed trial of hypertonic nebs along with albuterol neb instead Denies N/V/D. Glucose readings high today with decadron Review of Systems Review of Systems: All systems reviewed & are unremarkable except as noted in HPI & below Physical Exam Constitutional: WD/WN, vitals as above + morbidly obese Eyes: + anicteric sclerae ENMT: Ears: no hearing impairment Neck: trachea midline, no thyromegaly Respiratory: normal respiratory effort Auscultation: + diminished lung sounds (throughout but improved air movement today); no crackles and no wheezes Cardiovascular: RRR, no murmur, no edema Chest (Breasts): Chest: normal inspection of chest Gastrointestinal (Abdomen): normal bowel sounds, soft, nontender, no hepatosplenomegaly Musculoskeletal: Extremities: no cyanosis and no clubbing Skin: no rashes, warm and dry Neurologic: moves all extremities and awake; no focal motor deficits Psychiatric: A+Ox3, euthymic affect Lymphatic: no lymphedema Results & Data Results & Data ([facility]) Vital Signs (Past 12 Hours) Vital Signs Temp Pulse Resp BP BP Pulse Ox 03/22/20 11:58 93 H 18 92 03/22/20 08:40 105 H 20 91 03/22/20 07:51 36.6 C 99 H 18 173/102 H 90 03/22/20 07:00 101 H 18 155/91 H 91 03/22/20 02:05 103 H 20 95 Laboratory Results 03/22/20 03/22/20 03/22/20 Range/Units 12:08 08:11 03:40 POC Glucose 345 H* 236 H 212 H (70-99) mg/dl 03/21/20 03/21/20 Range/Units 20:39 17:13 POC Glucose 267 H 166 H (70-99) mg/dl PG Care Time/CCT Total # of Minutes Spent Total Time Spent with Patient: Total time spent is greater than 50% in coordination of care (as documented) at patient's floor/unit and/or counseling patient: Coding Level of Care Code 51562 Subseq Hosp Care Lvl 3 Diagnoses Acute respiratory failure with hypoxia J96.01 Pneumonia due to COVID-19 virus U07.1; J12.89 Type 2 diabetes mellitus E11.9 Hyponatremia E87.1 Morbid obesity E66.01 Rhabdomyolysis due to COVID-19 U07.1; M62.82 Hyperlipidemia E78.5 Essential (primary) hypertension I10 Sarcoidosis D86.9 DVT prophylaxis Z29.9
[2020-03-22] MEDS: SODIUM CHLOR 7% 4 ML NEB NEB SCH ×2 (15:27→19:42)
[2020-03-22] MEDS: ALBUT/IPRATROP 3MG/0.5MG NEB 3 ML VIAL NEB SCH ×2 (15:27→19:34)
[2020-03-22] MEDS: METOPROLOL TARTRATE 50 MG TAB PO SCH (20:39)
[2020-03-22] MEDS: INSULIN HUMAN NPH SC SCH (20:57)
[2020-03-23 06:56] LABS: Basophils # (auto) 0.03 K/uL (0-0.2); Basophils % (auto) 0.4 %; Eosinophils % (auto) 4.9 %; Hemoglobin 13.1 g/dL (14.0-18.0); Immature Granulocytes # (auto) 0.09 K/uL (0.00-0.02); Immature Granulocytes % (auto) 1.1 %; Lymphocytes # (auto) 1.78 K/uL (1.2-3.4); Mean Corpuscular Hemoglobin 29.7 pg (25-34); Mean Corpuscular Hgb Conc 32.8 g/dL (32-36); Mean Corpuscular Volume 90.7 fL (80-100); Mean Platelet Volume 9.5 fL (7.4-10.4); Monocytes # (auto) 0.66 K/uL (0.11-0.59); Monocytes % (auto) 8.2 %; Neutrophils # (auto) 5.13 K/uL (1.4-6.5); Neutrophils % (auto) 63.4 %; Platelet Count 300 K/uL (130-400); RDW Coefficient of Variation 13.5 % (11.5-14.5); RDW Standard Deviation 44.1 fL (36.4-46.3); Red Blood Count 4.41 M/uL (4.7-6.1); White Blood Count 8.09 K/uL (4.8-10.8)
[2020-03-23 07:14] LABS: D Dimer 1230 ug/L FEU (0-500)
[2020-03-23 07:23] LABS: BUN Creatinine Ratio 21.8 (10-20); C Reactive Protein 0.78 mg/dl (0-0.29); Calcium 9.8 mg/dl (8.5-10.1); Est GFR (African American) 113.4; Est GFR (Non-African American) 97.9; Potassium 4.4 mmol/L (3.5-5.1)
[2020-03-23 07:25] LABS: Albumin Globulin Ratio 0.7 (0.9-2); Bilirubin,Total 0.5 mg/dl (0.2-1); Globulin 4.3 gm/dl (2.5-4.0); Total Protein 7.3 gm/dl (6.4-8.2)
[2020-03-23] MEDS: ALBUT/IPRATROP 3MG/0.5MG NEB 3 ML VIAL NEB SCH ×2 (07:32→19:59)
[2020-03-23] MEDS: SODIUM CHLOR 7% 4 ML NEB NEB SCH ×2 (07:32→20:07)
[2020-03-23] MEDS: dexAMETHasone 6 MG in SYRINGE 0 ML IV SCH (08:28)
[2020-03-23] MEDS: DOCUSATE SODIUM 100 MG CAP PO SCH ×2 (08:31→21:02)
[2020-03-23] MEDS: guaiFENesin 600 MG TABCR PO SCH ×2 (08:31→21:04)
[2020-03-23] MEDS: PANTOprazole 40 MG TAB PO SCH (08:31)
[2020-03-23] MEDS: METOPROLOL TARTRATE 50 MG TAB PO SCH ×2 (08:31→21:03)
[2020-03-23] MEDS: ROSUVASTATIN CALCIUM 20 MG TAB PO SCH (08:31)
[2020-03-23] MEDS: MULTIVITAMIN TAB PO SCH (08:31)
[2020-03-23] MEDS: metFORMIN HCL ER 500 MG TABCR PO SCH ×2 (08:31→17:04)
[2020-03-23] MEDS: lisinopril 40 MG TAB PO SCH (08:31)
[2020-03-23] MEDS: ASPIRIN 81 MG ECTAB PO SCH (08:32)
[2020-03-23] MEDS: ENOXAPARIN 80 MG/0.8 ML SYR SQ SCH ×2 (09:05→21:03)
[2020-03-23] MEDS: INSULIN HUMAN NPH SC SCH ×2 (09:09→21:55)
[2020-03-23] MEDS: INSULIN GLARGINE 100 UNIT/ML VIAL SC SCH (09:09)
[2020-03-23] MEDS: INSULIN HUMAN LISPRO (humaLOG) 100 UNITS/ML VIAL SC SCH ×4 (09:10→21:06)
--- NOTE | 2020-03-23 16:37 | Hospitalist Progress Note ---
Date of Service March 23, 2020 Assessment & Plan (1) Acute respiratory failure with hypoxia: 2nd to COVID-19 pneumonia. Continue Supportive care,oxygen to keep sats >89 and wean off as tolerated Continue Pulmonary toilet with flutter valve and IS, encouraged continued prone positioning Had completed 10 days of Decadron on 03/13 -restarted Decadron 6mg IV bid as he likely has residual inflammation post-COVID PNA, much better now -started Duonebs and Hypertonic saline nebs bid to help bring out sputum, working well down to 5-6L today, walking to bathroom (2) Pneumonia due to COVID-19 virus: Severe, extensive on imaging. oxygen requirements as above Treated with IV remdesivir x 5 days, LD 03/08 IV/PO decadron 6mg daily x 10 days, last day 03/13 and then restarted on 03/22 and will do long slow taper received plasma early during stay Received zithromax for possibility of bacterial pneumonia/superinfection, completed course Procal normal initially Wheezing is now resolved after making albuterol HFA scheduled [id number] to prn but starting hypertonic saline and DUonebs bid as above Continue pulmonary toilet with mucinex, incentive marek, and flutter valve. Repeat D-dimer is normal Fortunately no PE on imaging. CXR 03/17 with bilateral multifocal pneumonia Will need follow-up chest x-ray in 3 to 4 weeks to ensure resolution (3) Type 2 diabetes mellitus: brittle diabetes, hypoglycemic morning on 03/14 in 40's then really high in 400's at times in the past he is not sure what is wrong with his pump he agrees to allow pharmacy to manage sugars with Lantus and Novolog sugars remain quite labile and now mostly high again with restarting Decadron pharmacy working to adjust Lantus dosing in the evening and morning, on NPH continue metformin (4) Hyponatremia: resolved (5) Morbid obesity: BMI 39 (6) Rhabdomyolysis due to COVID-19: Mild. Hydrate, repeat CPK is down (7) Hyperlipidemia: AST and CPK both mildly elevated. Crestor restarted for possible statin protection with COVID (8) Essential (primary) hypertension: Patient on both ANDRE and ARB as outpt Cont the ANDRE; hold the ARB. doesn't need both ACEi and ARB on discharge BP is much higher since restarting steroids Was started on metoprolol here and continue metoprolol and increase to 50mg bid (9) Sarcoidosis: remote history. dx 1990s. in remission. no signs of such on imaging although does have mediastinal lymphadenopathy. the latter could be reactive to COVID, however. (10) DVT prophylaxis: high risk of VTE while hospitalized thus, lovenox 0.5mg/kg/dose BID Dispo-continued stay, slow improvement Admission and Anticipated Discharge Date Admission Date: March 04, 2020 Subjective patient doing well, he says the higher dose of Decadron and the nebulizers have helped a lot the past few days still on high flow but titrating down a little each day he is highly motivated, eating well, no new issues Review of Systems Review of Systems: All systems reviewed & are unremarkable except as noted in Subjective Respiratory: + dyspnea on exertion Physical Exam Constitutional: well developed, well nourished and + morbidly obese; no acute distress Neck: normal visual inspection, trachea midline, + thick neck and + facial hair Respiratory: normal respiratory effort; no respiratory distress, no labored breathing and no cough Auscultation: no crackles, no rales, no rhonchi and no wheezes Cardiovascular: Rate/Rhythm: regular rhythm and + tachycardic Heart Sounds: normal S1 and normal S2; no murmur Vessels: no JVD Extremities: normal capillary refill; no edema Gastrointestinal (Abdomen): normal bowel sounds, soft, nontender, no hepatosplenomegaly Musculoskeletal: no cyanosis or clubbing, extremities motor strength 5/5 Skin: no rashes, warm and dry Neurologic: patellar DTR's 2+ bilat, sensation intact and PERRL, EOMI, accommodation nl, no face palsy, no dysarthria Psychiatric: A+Ox3, euthymic affect Lymphatic: no cervical or axillary lymphadenopathy Results & Data Results & Data ([facility]) Vital Signs (Past 12 Hours) Vital Signs Temp Pulse Resp BP Pulse Ox 03/23/20 16:01 36.5 C 103 H 20 127/70 93 03/23/20 09:35 36.6 C 91 H 20 150/94 H 91 03/23/20 07:35 90 18 96 Laboratory Results Laboratory Results - last 24 hr 03/23/20 03/23/20 03/23/20 06:10 12:09 17:39 POC Glucose 187 H 206 H Procalcitonin 0.09 03/23/20 21:01 POC Glucose 154 H Procalcitonin Medications Administered Current Inpatient Medications Acetaminophen (Acetaminophen 325 Mg Tab) 650 mg PO Q4H PRN PRN Reason: Pain or Fever Stop: 04/03/20 20:08 Last Admin: 03/11/20 11:50 Dose: 650 mg Documented by: Albuterol (Albut/Ipratrop 3mg/0.5mg Neb 3 Ml Vial) 3 ml NEB BIDR [facility] Stop: 04/21/20 12:39 Last Admin: 03/24/20 08:21 Dose: 3 ml Documented by: Albuterol (Albuterol Hfa 8 Gm Inhaler) 1 puffs INH Q4R PRN PRN Reason: shortness of breath Stop: 04/18/20 22:59 Aspirin (Aspirin 81 Mg Ectab) 81 mg PO DAILY [facility] Stop: 04/04/20 08:59 Last Admin: 03/23/20 08:32 Dose: 81 mg Documented by: Dextrose (Dextrose 50% 50 Ml Syringe) 25 - 50 ml IV UD PRN; Protocol PRN Reason: Hypoglycemia Protocol Stop: 04/03/20 20:59 Last Admin: 03/14/20 03:49 Dose: 50 ml Documented by: Docusate Sodium (Docusate Sodium 100 Mg Cap) 100 mg PO BID [facility] Stop: 04/17/20 08:59 Last Admin: 03/23/20 21:02 Dose: 100 mg Documented by: Enoxaparin Sodium (Enoxaparin 80 Mg/0.8 Ml Syr) 70 mg SQ Q12H [facility] Stop: 04/03/20 20:59 Last Admin: 03/23/20 21:03 Dose: 70 mg Documented by: Glucagon (Glucagon For Inj 1 Mg Vial) 1 mg SQ UD PRN; Protocol PRN Reason: Hypoglycemia Protocol Stop: 04/03/20 20:59 Glucose (Glucose 40% Gel 15 Gm Tube) 15 - 30 gm PO UD PRN; Protocol PRN Reason: Hypoglycemia Protocol Stop: 04/03/20 20:59 Glucose (Glucose 10 Tabs/Tube) 4 - 8 tabs PO UD PRN; Protocol PRN Reason: Hypoglycemia Protocol Stop: 04/03/20 20:59 Guaifenesin (Guaifenesin 600 Mg Tabcr) 1,200 mg PO Q12 [facility] Stop: 04/03/20 20:59 Last Admin: 03/23/20 21:04 Dose: 1,200 mg Documented by: Dexamethasone 6 mg/ Syringe 1.5 mls @ 1 mls[facility] [place] Stop: 04/22/20 08:59 Last Admin: 03/23/20 08:28 Dose: 1 mls/min Documented by: Insulin Glargine (Insulin Glargine 100 Unit/Ml Vial) 70 units SC [facility] [place] Stop: 04/19/20 08:59 Last Admin: 03/23/20 09:09 Dose: 70 units Documented by: Insulin Human Lispro (Insulin Human Lispro (Humalog) 100 Units/Ml Vial) 0 units SC 0730 [facility] Stop: 04/20/20 07:29 Last Admin: 03/23/20 09:10 Dose: 33 units Documented by: Insulin Human Lispro (Insulin Human Lispro (Humalog) 100 Units/Ml Vial) 0 units SC DAILY@1130 [facility] Stop: 04/20/20 11:29 Last Admin: 03/23/20 13:34 Dose: 27 units Documented by: Insulin Human Lispro (Insulin Human Lispro (Humalog) 100 Units/Ml Vial) 0 units SC BID@1630,2100 [facility] Stop: 04/20/20 16:29 Last Admin: 03/23/20 21:06 Dose: 2 units Documented by: Insulin Human NPH (Insulin Human Nph) 18 units SC [facility]; Protocol Stop: 04/21/20 20:59 Last Admin: 03/23/20 21:55 Dose: 18 units Documented by: Insulin Human NPH (Insulin Human Nph) 40 units SC [facility]; Protocol Stop: 04/22/20 08:59 Last Admin: 03/23/20 09:09 Dose: 40 units Documented by: Ipratropium [place] (Ipratropium [place] Hfa Inhaler) 1 puffs INH Q4 PRN PRN Reason: Shortness Of Breath Or Wheezing Stop: 04/14/20 08:56 Last Admin: 03/20/20 15:43 Dose: 1 puffs Documented by: Lisinopril (Lisinopril 40 Mg Tab) 40 mg PO DAILY [facility] Stop: 04/04/20 08:59 Last Admin: 03/23/20 08:31 Dose: 40 mg Documented by: Menthol (Cough Drop (Sugar Free) Bea 24 Bea/1 Box) 1 bea BUCCAL Q2H PRN PRN Reason: Sore Throat Stop: 04/21/20 12:40 Last Admin: 03/22/20 18:46 Dose: 1 bea Documented by: Metformin HCl (Metformin Hcl Er 500 Mg Tabcr) 1,000 mg PO BIDM [facility] Stop: 04/09/20 16:59 Last Admin: 03/23/20 17:04 Dose: 1,000 mg Documented by: Metoprolol Tartrate (Metoprolol Tartrate 50 Mg Tab) 50 mg PO BID [facility] Stop: 04/21/20 20:59 Last Admin: 03/23/20 21:03 Dose: 50 mg Documented by: Miscellaneous (Carbohydrates For Hypoglycemia ) 15 - 30 gm PO UD PRN PRN Reason: Hypoglycemia Treatment Stop: 04/03/20 20:59 Last Admin: 03/20/20 21:28 Dose: 15 gm Documented by: Miscellaneous Information (Pharmacy Glycemic Mgmt Consult) 1 ea N/A UD PRN PRN Reason: Consult Stop: 04/13/20 12:11 Multivitamins (Multivitamin Tab) 1 tab PO QAM [facility] Stop: 04/04/20 08:59 Last Admin: 03/23/20 08:31 Dose: 1 tab Documented by: Ondansetron HCl (Ondansetron Inj 2 Mg/Ml 2 Ml Vial) 4 mg IV Q6H PRN PRN Reason: Nausea Stop: 04/03/20 20:08 Pantoprazole Sodium (Pantoprazole 40 Mg Tab) 40 mg PO QAM [facility] Stop: 04/04/20 08:59 Last Admin: 03/23/20 08:31 Dose: 40 mg Documented by: Polyethylene Glycol (Polyethylene (Miralax) 17 Gm Pack) 17 gm PO DAILY PRN PRN Reason: Constipation Stop: 04/16/20 21:31 Rosuvastatin Calcium (Rosuvastatin Calcium 20 Mg Tab) 20 mg PO DAILY [facility] Stop: 04/04/20 08:59 Last Admin: 03/23/20 08:31 Dose: 20 mg Documented by: Sodium Chloride (Sodium Chlor 7% 4 Ml Neb) 4 ml NEB BIDR [facility] Stop: 04/21/20 12:39 Last Admin: 03/24/20 08:21 Dose: 4 ml Documented by: PG Care Time/CCT Total # of Minutes Spent Total Time Spent with Patient: Total time spent is greater than 50% in coordination of care (as documented) at patient's floor/unit and/or counseling patient: Coding Level of Care Code 58571 Subseq Hosp Care Lvl 2 Diagnoses Acute respiratory failure with hypoxia J96.01 Pneumonia due to COVID-19 virus U07.1; J12.89 Type 2 diabetes mellitus E11.9 Hyponatremia E87.1 Morbid obesity E66.01 Rhabdomyolysis due to COVID-19 U07.1; M62.82 Hyperlipidemia E78.5 Essential (primary) hypertension I10 Sarcoidosis D86.9 DVT prophylaxis Z29.9
[2020-03-24] MEDS: ALBUT/IPRATROP 3MG/0.5MG NEB 3 ML VIAL NEB SCH ×2 (08:21→19:11)
[2020-03-24] MEDS: SODIUM CHLOR 7% 4 ML NEB NEB SCH ×2 (08:21→19:11)
[2020-03-24] MEDS: INSULIN HUMAN LISPRO (humaLOG) 100 UNITS/ML VIAL SC SCH ×4 (09:08→20:46)
[2020-03-24] MEDS: lisinopril 40 MG TAB PO SCH (09:11)
[2020-03-24] MEDS: ROSUVASTATIN CALCIUM 20 MG TAB PO SCH (09:11)
[2020-03-24] MEDS: metFORMIN HCL ER 500 MG TABCR PO SCH ×2 (09:11→17:48)
[2020-03-24] MEDS: ASPIRIN 81 MG ECTAB PO SCH (09:11)
[2020-03-24] MEDS: PANTOprazole 40 MG TAB PO SCH (09:11)
[2020-03-24] MEDS: METOPROLOL TARTRATE 50 MG TAB PO SCH ×2 (09:12→20:37)
[2020-03-24] MEDS: ENOXAPARIN 80 MG/0.8 ML SYR SQ SCH ×2 (09:12→20:36)
[2020-03-24] MEDS: guaiFENesin 600 MG TABCR PO SCH ×2 (09:12→20:35)
[2020-03-24] MEDS: DOCUSATE SODIUM 100 MG CAP PO SCH ×2 (09:12→21:08)
[2020-03-24] MEDS: MULTIVITAMIN TAB PO SCH (09:12)
[2020-03-24] MEDS: INSULIN GLARGINE 100 UNIT/ML VIAL SC SCH (09:13)
[2020-03-24] MEDS: INSULIN HUMAN NPH SC SCH ×2 (09:13→20:47)
[2020-03-24] MEDS: dexAMETHasone 6 MG in SYRINGE 0 ML IV SCH (09:13)
--- NOTE | 2020-03-24 13:20 | Hospitalist Progress Note ---
Date of Service March 24, 2020 Assessment & Plan (1) Acute respiratory failure with hypoxia: 2nd to COVID-19 pneumonia. Continue Supportive care,oxygen to keep sats >89 and wean off as tolerated Continue Pulmonary toilet with flutter valve and IS, encouraged continued prone positioning Had completed 10 days of Decadron on 03/13 -restarted Decadron 6mg IV bid as he likely has residual inflammation post-COVID PNA, much better now now back to Decadron 6mg IV daily -started Duonebs and Hypertonic saline nebs bid to help bring out sputum, working really well down to 3L today, walking to bathroom without major dyspnea can ask respiratory therapy to do a 2 step tomorrow, see if going home is possible (2) Pneumonia due to COVID-19 virus: Severe, extensive on imaging. oxygen requirements as above Treated with IV remdesivir x 5 days, LD 03/08 IV/PO decadron 6mg daily x 10 days, last day 03/13 and then restarted on 03/22 and will do long slow taper on 6mg PO daily today received plasma early during stay Received zithromax for possibility of bacterial pneumonia/superinfection, completed course Procal normal initially Wheezing is now resolved after making albuterol HFA scheduled [id number] to prn but starting hypertonic saline and DUonebs bid as above Continue pulmonary toilet with mucinex, incentive marek, and flutter valve. Repeat D-dimer is normal Fortunately no PE on imaging. CXR 03/17 with bilateral multifocal pneumonia Will need follow-up chest x-ray in 3 to 4 weeks to ensure resolution (3) Type 2 diabetes mellitus: brittle diabetes, hypoglycemic morning on 03/14 in 40's then really high in 400's at times in the past he is not sure what is wrong with his pump he agrees to allow pharmacy to manage sugars with Lantus and Novolog sugars remain quite labile and now mostly high again with restarting Decadron pharmacy working to adjust Lantus dosing in the evening and morning, on NPH continue metformin (4) Hyponatremia: resolved (5) Morbid obesity: BMI 39 (6) Rhabdomyolysis due to COVID-19: Mild. Hydrate, repeat CPK is down (7) Hyperlipidemia: AST and CPK both mildly elevated. Crestor restarted for possible statin protection with COVID (8) Essential (primary) hypertension: Patient on both ANDRE and ARB as outpt Cont the ANDRE; hold the ARB. doesn't need both ACEi and ARB on discharge BP is much higher since restarting steroids Was started on metoprolol here and continue metoprolol and increase to 50mg bid BP better today (9) Sarcoidosis: remote history. dx . in remission. no signs of such on imaging although does have mediastinal lymphadenopathy. the latter could be reactive to COVID, however. (10) DVT prophylaxis: high risk of VTE while hospitalized thus, lovenox 0.5mg/kg/dose BID Dispo-continued stay, slow improvement Admission and Anticipated Discharge Date Admission Date: March 04, 2020 Subjective patient was frustrated with moving rooms last night, said he was not given time to prepare he said nothing was ready in his room when he got there otherwise, he feels like he is breathing better, stable on 3L, says he was up to 6L last night likely has some sleep apnea which is why he was increased to 6L discussed discharge plans, very close to going home, can try for two step to see how much oxygen he would need he is eating well, ambulates in the room Review of Systems Review of Systems: All systems reviewed & are unremarkable except as noted in Subjective Physical Exam Constitutional: well developed, well nourished and + morbidly obese; no acute distress Neck: normal visual inspection, trachea midline, + thick neck and + facial hair Respiratory: normal respiratory effort; no respiratory distress, no labored breathing and no cough Auscultation: no crackles, no rales, no rhonchi and no wheezes Cardiovascular: Rate/Rhythm: regular rhythm and + tachycardic Heart Sounds: normal S1 and normal S2; no murmur Vessels: no JVD Extremities: normal capillary refill; no edema Gastrointestinal (Abdomen): normal bowel sounds, soft, nontender, no hepatosplenomegaly Musculoskeletal: no cyanosis or clubbing, extremities motor strength 5/5 Skin: no rashes, warm and dry Neurologic: patellar DTR's 2+ bilat, sensation intact and PERRL, EOMI, accommodation nl, no face palsy, no dysarthria Psychiatric: A+Ox3, euthymic affect Lymphatic: no cervical or axillary lymphadenopathy Results & Data Results & Data ([facility]) Vital Signs (Past 12 Hours) Vital Signs Temp Pulse Resp BP Pulse Ox 03/24/20 08:30 36.5 C 95 H 22 112/71 92 03/24/20 08:22 84 18 95 Laboratory Results Laboratory Results - last 24 hr 03/23/20 03/23/20 03/24/20 17:39 21:01 08:31 POC Glucose 206 H 154 H 172 H 03/24/20 12:34 POC Glucose 279 H Medications Administered Current Inpatient Medications Acetaminophen (Acetaminophen 325 Mg Tab) 650 mg PO Q4H PRN PRN Reason: Pain or Fever Stop: 04/03/20 20:08 Last Admin: 03/11/20 11:50 Dose: 650 mg Documented by: Albuterol (Albut/Ipratrop 3mg/0.5mg Neb 3 Ml Vial) 3 ml NEB BIDR [facility] Stop: 04/21/20 12:39 Last Admin: 03/24/20 08:21 Dose: 3 ml Documented by: Albuterol (Albuterol Hfa 8 Gm Inhaler) 1 puffs INH Q4R PRN PRN Reason: shortness of breath Stop: 04/18/20 22:59 Aspirin (Aspirin 81 Mg Ectab) 81 mg PO DAILY [facility] Stop: 04/04/20 08:59 Last Admin: 03/24/20 09:11 Dose: 81 mg Documented by: Dextrose (Dextrose 50% 50 Ml Syringe) 25 - 50 ml IV UD PRN; Protocol PRN Reason: Hypoglycemia Protocol Stop: 04/03/20 20:59 Last Admin: 03/14/20 03:49 Dose: 50 ml Documented by: Docusate Sodium (Docusate Sodium 100 Mg Cap) 100 mg PO BID [facility] Stop: 04/17/20 08:59 Last Admin: 03/24/20 09:12 Dose: 100 mg Documented by: Enoxaparin Sodium (Enoxaparin 80 Mg/0.8 Ml Syr) 70 mg SQ Q12H [facility] Stop: 04/03/20 20:59 Last Admin: 03/24/20 09:12 Dose: 70 mg Documented by: Glucagon (Glucagon For Inj 1 Mg Vial) 1 mg SQ UD PRN; Protocol PRN Reason: Hypoglycemia Protocol Stop: 04/03/20 20:59 Glucose (Glucose 40% Gel 15 Gm Tube) 15 - 30 gm PO UD PRN; Protocol PRN Reason: Hypoglycemia Protocol Stop: 04/03/20 20:59 Glucose (Glucose 10 Tabs/Tube) 4 - 8 tabs PO UD PRN; Protocol PRN Reason: Hypoglycemia Protocol Stop: 04/03/20 20:59 Guaifenesin (Guaifenesin 600 Mg Tabcr) 1,200 mg PO Q12 [facility] Stop: 04/03/20 20:59 Last Admin: 03/24/20 09:12 Dose: 1,200 mg Documented by: Dexamethasone 6 mg/ Syringe 1.5 mls @ 1 mls/min IV [facility] Stop: 04/22/20 08:59 Last Admin: 03/24/20 09:13 Dose: 1 mls/min Documented by: Insulin Glargine (Insulin Glargine 100 Unit/Ml Vial) 70 units SC [facility] Stop: 04/19/20 08:59 Last Admin: 03/24/20 09:13 Dose: 70 units Documented by: Insulin Human Lispro (Insulin Human Lispro (Humalog) 100 Units/Ml Vial) 0 units SC 0730 [facility] Stop: 04/20/20 07:29 Last Admin: 03/24/20 09:08 Dose: 39 units Documented by: Insulin Human Lispro (Insulin Human Lispro (Humalog) 100 Units/Ml Vial) 0 units SC DAILY@1130 [facility] Stop: 04/20/20 11:29 Last Admin: 03/23/20 13:34 Dose: 27 units Documented by: Insulin Human Lispro (Insulin Human Lispro (Humalog) 100 Units/Ml Vial) 0 units SC BID@1630,2100 [facility] Stop: 04/20/20 16:29 Last Admin: 03/23/20 21:06 Dose: 2 units Documented by: Insulin Human NPH (Insulin Human Nph) 18 units SC [facility]; Protocol Stop: 04/21/20 20:59 Last Admin: 03/23/20 21:55 Dose: 18 units Documented by: Insulin Human NPH (Insulin Human Nph) 40 units SC [facility]; Protocol Stop: 04/22/20 08:59 Last Admin: 03/24/20 09:13 Dose: 40 units Documented by: Ipratropium [place] (Ipratropium [place] Hfa Inhaler) 1 puffs INH Q4 PRN PRN Reason: Shortness Of Breath Or Wheezing Stop: 04/14/20 08:56 Last Admin: 03/20/20 15:43 Dose: 1 puffs Documented by: Lisinopril (Lisinopril 40 Mg Tab) 40 mg PO DAILY [facility] Stop: 04/04/20 08:59 Last Admin: 03/24/20 09:11 Dose: 40 mg Documented by: Menthol (Cough Drop (Sugar Free) Bea 24 Bea/1 Box) 1 bea BUCCAL Q2H PRN PRN Reason: Sore Throat Stop: 04/21/20 12:40 Last Admin: 03/22/20 18:46 Dose: 1 bea Documented by: Metformin HCl (Metformin Hcl Er 500 Mg Tabcr) 1,000 mg PO BIDM [facility] Stop: 04/09/20 16:59 Last Admin: 03/24/20 09:11 Dose: 1,000 mg Documented by: Metoprolol Tartrate (Metoprolol Tartrate 50 Mg Tab) 50 mg PO BID [facility] Stop: 04/21/20 20:59 Last Admin: 03/24/20 09:12 Dose: 50 mg Documented by: Miscellaneous (Carbohydrates For Hypoglycemia ) 15 - 30 gm PO UD PRN PRN Reason: Hypoglycemia Treatment Stop: 04/03/20 20:59 Last Admin: 03/20/20 21:28 Dose: 15 gm Documented by: Miscellaneous Information (Pharmacy Glycemic Mgmt Consult) 1 ea N/A UD PRN PRN Reason: Consult Stop: 04/13/20 12:11 Multivitamins ([facility]ivitamin Tab) [facility] [place] Stop: 04/04/20 08:59 Last Admin: 03/24/20 09:12 Dose: 1 tab Documented by: Ondansetron HCl (Ondansetron Inj 2 Mg/Ml 2 Ml Vial) 4 mg IV Q6H PRN PRN Reason: Nausea Stop: 04/03/20 20:08 Pantoprazole Sodium (Pantoprazole 40 Mg Tab) 40 mg PO QAM [facility] Stop: 04/04/20 08:59 Last Admin: 03/24/20 09:11 Dose: 40 mg Documented by: Polyethylene Glycol (Polyethylene (Miralax) 17 Gm Pack) 17 gm PO DAILY PRN PRN Reason: Constipation Stop: 04/16/20 21:31 Rosuvastatin Calcium (Rosuvastatin Calcium 20 Mg Tab) 20 mg PO DAILY [facility] Stop: 04/04/20 08:59 Last Admin: 03/24/20 09:11 Dose: 20 mg Documented by: Sodium Chloride (Sodium Chlor 7% 4 Ml Neb) 4 ml NEB BIDR [facility] Stop: 04/21/20 12:39 Last Admin: 03/24/20 08:21 Dose: 4 ml Documented by: PG Care Time/CCT Total # of Minutes Spent Total Time Spent with Patient: Total time spent is greater than 50% in coordination of care (as documented) at patient's floor/unit and/or counseling patient: Coding Level of Care Code 47696 Subseq Hosp Care Lvl 2 Diagnoses Acute respiratory failure with hypoxia J96.01 Pneumonia due to COVID-19 virus U07.1; J12.89 Type 2 diabetes mellitus E11.9 Hyponatremia E87.1 Morbid obesity E66.01 Rhabdomyolysis due to COVID-19 U07.1; M62.82 Hyperlipidemia E78.5 Essential (primary) hypertension I10 Sarcoidosis D86.9 DVT prophylaxis Z29.9
[2020-03-25] MEDS: SODIUM CHLOR 7% 4 ML NEB NEB SCH ×2 (07:05→19:37)
[2020-03-25] MEDS: ALBUT/IPRATROP 3MG/0.5MG NEB 3 ML VIAL NEB SCH ×2 (07:05→19:36)
[2020-03-25] MEDS: ASPIRIN 81 MG ECTAB PO SCH (09:00)
[2020-03-25] MEDS: lisinopril 40 MG TAB PO SCH (09:01)
[2020-03-25] MEDS: metFORMIN HCL ER 500 MG TABCR PO SCH ×2 (09:01→17:42)
[2020-03-25] MEDS: MULTIVITAMIN TAB PO SCH (09:01)
[2020-03-25] MEDS: ROSUVASTATIN CALCIUM 20 MG TAB PO SCH (09:01)
[2020-03-25] MEDS: guaiFENesin 600 MG TABCR PO SCH ×2 (09:02→20:47)
[2020-03-25] MEDS: PANTOprazole 40 MG TAB PO SCH (09:02)
[2020-03-25] MEDS: DOCUSATE SODIUM 100 MG CAP PO SCH ×2 (09:02→20:47)
[2020-03-25] MEDS: METOPROLOL TARTRATE 50 MG TAB PO SCH ×2 (09:02→20:47)
[2020-03-25] MEDS: dexAMETHasone 6 MG in SYRINGE 0 ML IV SCH (09:13)
[2020-03-25] MEDS: ENOXAPARIN 80 MG/0.8 ML SYR SQ SCH ×2 (09:14→20:47)
[2020-03-25] MEDS: INSULIN GLARGINE 100 UNIT/ML VIAL SC SCH ×2 (09:14→21:00)
[2020-03-25] MEDS: INSULIN HUMAN NPH SC SCH (09:15)
[2020-03-25] MEDS: INSULIN HUMAN LISPRO (humaLOG) 100 UNITS/ML VIAL SC SCH ×5 (09:22→21:00)
--- NOTE | 2020-03-25 09:32 | Pharmacy Report ---
Pharmacy Glycemic Short Note 2 - Date of Service March 25, 2020 - Glycemic Short BSG Results (Last 24 hours): 03/24/20 03/24/20 03/24/20 12:34 15:20 17:22 POC Glucose 279 H 222 H 165 H 03/24/20 20:45 POC Glucose 174 H OUTPATIENT ANTIDIABETIC REGIMEN: * Humalog pump * See hospice educator note for pump settings; in brief: total daily basal dose ~103 units, sensitivity factor 10mg/dL/unit, carb ratio 1 unit per 2.6-4gm CHO consumed w/ meals, no single bolus larger then 25 units * Metformin 1 g PO BIDM ASSESSMENT: 03/25 * 234 units SQ insulin administered over the last 24 hr while tolerating a diet * BSGs have been improving, in fact, only 1 BSG greater than 180 yesterday * Fasting BSG 81 this AM per patient's own Glucometer. Accuchek not performed until patient had already eating this AM. 70 units Lantus on board + 40 NPH AM + 18 units NPH at HS. Given this patient's h/o severe nocturnal hypoglycemia, will d/c the HS NPH dose and instead give HS dose of Lantus to lessen risk while still preventing "wearing off" of once daily Lantus prior to next dose. * Post-prandial BSG fairly well controlled yesterday, two of three at goal. He may require larger breafast Humalog doses to achieve better control. Will continue to monitor for time being. PLAN FOR INPATIENT GLYCEMIC CONTROL: * Continue metformin ER 1 g PO BID * Basal insulin: increase * Lantus 70 units SQ qAM + 10 units q HS * Steroid induced hyperglycemia: decrease * NPH 40 units SC AM w/ dexamethasone * Rapid acting: no change * Humalog ACHS * -Goal range: 110-140 mg/dL * -Correction factor: 12 mg/dL * -Carb ratio: 1 unit per 2 grams CHO consumed w/ breakfast * -Carb ratio: 1 unit per 2.5 grams CHO consumed w/ lunch * -Carb ratio: 1 unit per 4 grams CHO consumed w/ dinner and HS DISCHARGE PLAN: * Recommend to continue home insulin pump and work with [employer] trim installer to optimize A1C.
--- NOTE | 2020-03-25 22:55 | Hospitalist Progress Note ---
Date of Service March 25, 2020 Assessment & Plan (1) Acute respiratory failure with hypoxia: 2nd to COVID-19 pneumonia. Continue Supportive care,oxygen to keep sats >89 and wean off as tolerated Continue Pulmonary toilet with flutter valve and IS, encouraged continued prone positioning Had completed 10 days of Decadron on 03/13 -restarted Decadron 6mg IV bid as he likely has residual inflammation post-COVID PNA, much better now change to 6mg PO daily and slowly taper -started Duonebs and Hypertonic saline nebs bid to help bring out sputum, working really well down to 2L today, walking to bathroom without major dyspnea attempted two step today, 2L at rest but could not maintain saturations > 88% on 6L he wants to exercise, try to improve function will allow him to walk short distances in the wang with 6L he is off isolation precautions at this point once he can manage to not desaturate on exertion then will discharge home (2) Pneumonia due to COVID-19 virus: Severe, extensive on imaging. oxygen requirements as above Treated with IV remdesivir x 5 days, LD 03/08 IV/PO decadron 6mg daily x 10 days, last day 03/13 and then restarted on 03/22 and will do long slow taper on 6mg PO daily today received plasma early during stay Received zithromax for possibility of bacterial pneumonia/superinfection, completed course Procal normal initially Wheezing is now resolved after making albuterol HFA scheduled [id number] to prn but starting hypertonic saline and DUonebs bid as above Continue pulmonary toilet with mucinex, incentive marek, and flutter valve. Repeat D-dimer is normal Fortunately no PE on imaging. CXR 03/17 with bilateral multifocal pneumonia Will need follow-up chest x-ray in 3 to 4 weeks to ensure resolution (3) Type 2 diabetes mellitus: brittle diabetes, hypoglycemic morning on 03/14 in 40's then really high in 400's at times in the past he is not sure what is wrong with his pump he agrees to allow pharmacy to manage sugars with Lantus and Novolog sugars better the past 48 hours pharmacy working to adjust Lantus dosing in the evening and morning, on NPH continue metformin (4) Hyponatremia: resolved (5) Morbid obesity: BMI 39 (6) Rhabdomyolysis due to COVID-19: Mild. Hydrate, repeat CPK is down (7) Hyperlipidemia: AST and CPK both mildly elevated. Crestor restarted for possible statin protection with COVID (8) Essential (primary) hypertension: Patient on both ANDRE and ARB as outpt Cont the ANDRE; hold the ARB. doesn't need both ACEi and ARB on discharge BP is much higher since restarting steroids Was started on metoprolol here and continue metoprolol and increase to 50mg bid BP better today (9) Sarcoidosis: remote history. dx 1990s. in remission. no signs of such on imaging although does have mediastinal lymphadenopathy. the latter could be reactive to COVID, however. (10) DVT prophylaxis: high risk of VTE while hospitalized thus, lovenox 0.5mg/kg/dose BID Dispo-continued stay, slow improvement Admission and Anticipated Discharge Date Admission Date: March 04, 2020 Subjective patient feeling well he walked with respiratory therapy today, stable on 2L at rest but could not maintain saturations > 88% on 6L, requiring too much oxygen to go home he is motivated to get better, he wants to exercise told RN that he can ambulate in the wang with an oxygen tank at 6L, he knows to stop and rest if he gets too short of breath he continues to eat very well sugars reasonably controlled his goal is to make it home by [place], will do everything we can to make that happen Review of Systems Review of Systems: All systems reviewed & are unremarkable except as noted in Subjective Constitutional: no fever, no fatigue and no weakness Respiratory: + dyspnea on exertion; no cough and no dyspnea Cardiovascular: no chest pain and no edema Physical Exam Constitutional: well developed, well nourished and + morbidly obese; no acute distress Neck: normal visual inspection, trachea midline, + thick neck and + facial hair Respiratory: normal respiratory effort; no respiratory distress, no labored breathing and no cough Auscultation: no crackles, no rales, no rhonchi and no wheezes Cardiovascular: Rate/Rhythm: regular rhythm and + tachycardic Heart Sounds: normal S1 and normal S2; no murmur Vessels: no JVD Extremities: normal capillary refill; no edema Gastrointestinal (Abdomen): normal bowel sounds, soft, nontender, no hepatosplenomegaly Musculoskeletal: no cyanosis or clubbing, extremities motor strength 5/5 Skin: no rashes, warm and dry Neurologic: patellar DTR's 2+ bilat, sensation intact and PERRL, EOMI, accommodation nl, no face palsy, no dysarthria Psychiatric: A+Ox3, euthymic affect Lymphatic: no cervical or axillary lymphadenopathy Results & Data Results & Data ([facility]) Vital Signs (Past 12 Hours) Vital Signs Temp Pulse Resp BP Pulse Ox 03/25/20 19:45 98 H 18 91 03/25/20 15:24 37.1 C 96 H 17 110/67 94 Laboratory Results Laboratory Results - last 24 hr 03/25/20 03/25/20 03/25/20 12:06 17:19 20:37 POC Glucose 138 H 148 H 118 H Medications Administered Current Inpatient Medications Acetaminophen (Acetaminophen 325 Mg Tab) 650 mg PO Q4H PRN PRN Reason: Pain or Fever Stop: 04/03/20 20:08 Last Admin: 03/11/20 11:50 Dose: 650 mg Documented by: Albuterol (Albut/Ipratrop 3mg/0.5mg Neb 3 Ml Vial) 3 ml NEB BIDR [facility] Stop: 04/21/20 12:39 Last Admin: 03/25/20 19:36 Dose: 3 ml Documented by: Albuterol (Albuterol Hfa 8 Gm Inhaler) 1 puffs INH Q4R PRN PRN Reason: shortness of breath Stop: 04/18/20 22:59 Aspirin (Aspirin 81 Mg Ectab) 81 mg PO DAILY [facility] Stop: 04/04/20 08:59 Last Admin: 03/25/20 09:00 Dose: 81 mg Documented by: Dextrose (Dextrose 50% 50 Ml Syringe) 25 - 50 ml IV UD PRN; Protocol PRN Reason: Hypoglycemia Protocol Stop: 04/03/20 20:59 Last Admin: 03/14/20 03:49 Dose: 50 ml Documented by: Docusate Sodium (Docusate Sodium 100 Mg Cap) 100 mg PO BID [facility] Stop: 04/17/20 08:59 Last Admin: 03/25/20 20:47 Dose: 100 mg Documented by: Enoxaparin Sodium (Enoxaparin 80 Mg/0.8 Ml Syr) 70 mg SQ Q12H [facility] Stop: 04/03/20 20:59 Last Admin: 03/25/20 20:47 Dose: 70 mg Documented by: Glucagon (Glucagon For Inj 1 Mg Vial) 1 mg SQ UD PRN; Protocol PRN Reason: Hypoglycemia Protocol Stop: 04/03/20 20:59 Glucose (Glucose 40% Gel 15 Gm Tube) 15 - 30 gm PO UD PRN; Protocol PRN Reason: Hypoglycemia Protocol Stop: 04/03/20 20:59 Glucose (Glucose 10 Tabs/Tube) 4 - 8 tabs PO UD PRN; Protocol PRN Reason: Hypoglycemia Protocol Stop: 04/03/20 20:59 Guaifenesin (Guaifenesin 600 Mg Tabcr) 1,200 mg PO Q12 [facility] Stop: 04/03/20 20:59 Last Admin: 03/25/20 20:47 Dose: 1,200 mg Documented by: Dexamethasone 6 mg/ Syringe 1.5 mls @ 1 mls/[facility] Stop: 04/22/20 08:59 Last Admin: 03/25/20 09:13 Dose: 1 mls/min Documented by: Insulin Glargine (Insulin Glargine 100 Unit/Ml Vial) 70 units SC [facility] Stop: 04/19/20 08:59 Last Admin: 03/25/20 09:14 Dose: 70 units Documented by: Insulin Glargine (Insulin Glargine 100 Unit/Ml Vial) 10 units SC HS [facility] Stop: 04/24/20 20:59 Last Admin: 03/25/20 21:00 Dose: 10 units Documented by: Insulin Human Lispro (Insulin Human Lispro (Humalog) 100 Units/Ml Vial) 0 units SC 0730 [facility] Stop: 04/20/20 07:29 Last Admin: 03/25/20 12:59 Dose: 30 units Documented by: Insulin Human Lispro (Insulin Human Lispro (Humalog) 100 Units/Ml Vial) 0 units SC DAILY@1130 [facility] Stop: 04/20/20 11:29 Last Admin: 03/25/20 13:01 Dose: 30 units Documented by: Insulin Human Lispro (Insulin Human Lispro (Humalog) 100 Units/Ml Vial) 0 units SC BID@1630,2100 [facility] Stop: 04/20/20 16:29 Last Admin: 03/25/20 21:00 Dose: 16 units Documented by: Insulin Human NPH (Insulin Human Nph) 40 units SC [facility]; Protocol Stop: 04/22/20 08:59 Last Admin: 03/25/20 09:15 Dose: 40 units Documented by: Ipratropium [place] (Ipratropium [place] Hfa Inhaler) 1 puffs INH Q4 PRN PRN Reason: Shortness Of Breath Or Wheezing Stop: 04/14/20 08:56 Last Admin: 03/20/20 15:43 Dose: 1 puffs Documented by: Lisinopril (Lisinopril 40 Mg Tab) 40 mg PO DAILY [facility] Stop: 04/04/20 08:59 Last Admin: 03/25/20 09:01 Dose: 40 mg Documented by: Menthol (Cough Drop (Sugar Free) Bea 24 Bea/1 Box) 1 bea BUCCAL Q2H PRN PRN Reason: Sore Throat Stop: 04/21/20 12:40 Last Admin: 03/22/20 18:46 Dose: 1 bea Documented by: Metformin HCl (Metformin Hcl Er 500 Mg Tabcr) 1,000 mg PO BIDM [facility] Stop: 04/09/20 16:59 Last Admin: 03/25/20 17:42 Dose: 1,000 mg Documented by: Metoprolol Tartrate (Metoprolol Tartrate 50 Mg Tab) 50 mg PO BID [facility] Stop: 04/21/20 20:59 Last Admin: 03/25/20 20:47 Dose: 50 mg Documented by: Miscellaneous (Carbohydrates For Hypoglycemia ) 15 - 30 gm PO UD PRN PRN Reason: Hypoglycemia Treatment Stop: 04/03/20 20:59 Last Admin: 03/20/20 21:28 Dose: 15 gm Documented by: Miscellaneous Information (Pharmacy Glycemic Mgmt Consult) 1 ea N/A UD PRN PRN Reason: Consult Stop: 04/13/20 12:11 Multivitamins (Multivitamin Tab) 1 tab [facility] [place] Stop: 04/04/20 08:59 Last Admin: 03/25/20 09:01 Dose: 1 tab Documented by: Ondansetron HCl (Ondansetron Inj 2 Mg/Ml 2 Ml Vial) 4 mg IV Q6H PRN PRN Reason: Nausea Stop: 04/03/20 20:08 Pantoprazole Sodium (Pantoprazole 40 Mg Tab) 40 mg PO QAM [facility] Stop: 04/04/20 08:59 Last Admin: 03/25/20 09:02 Dose: 40 mg Documented by: Polyethylene Glycol (Polyethylene (Miralax) 17 Gm Pack) 17 gm PO DAILY PRN PRN Reason: Constipation Stop: 04/16/20 21:31 Rosuvastatin Calcium (Rosuvastatin Calcium 20 Mg Tab) 20 mg PO DAILY [facility] Stop: 04/04/20 08:59 Last Admin: 03/25/20 09:01 Dose: 20 mg Documented by: Sodium Chloride (Sodium Chlor 7% 4 Ml Neb) 4 ml NEB BIDR [facility] Stop: 04/21/20 12:39 Last Admin: 03/25/20 19:37 Dose: 4 ml Documented by: PG Care Time/CCT Total # of Minutes Spent Total Time Spent with Patient: Total time spent is greater than 50% in co ordination of care (as documented) at patient's floor/unit and/or counseling patient: Coding Level of Care Code 07565 Subseq Hosp Care Lvl 2 Diagnoses Acute respiratory failure with hypoxia J96.01 Pneumonia due to COVID-19 virus U07.1; J12.89 Type 2 diabetes mellitus E11.9 Hyponatremia E87.1 Morbid obesity E66.01 Rhabdomyolysis due to COVID-19 U07.1; M62.82 Hyperlipidemia E78.5 Essential (primary) hypertension I10 Sarcoidosis D86.9 DVT prophylaxis Z29.9
[2020-03-26] MEDS: SODIUM CHLOR 7% 4 ML NEB NEB SCH ×2 (07:44→19:32)
[2020-03-26] MEDS: ALBUT/IPRATROP 3MG/0.5MG NEB 3 ML VIAL NEB SCH ×2 (07:44→19:32)
[2020-03-26] MEDS: ASPIRIN 81 MG ECTAB PO SCH (09:04)
[2020-03-26] MEDS: METOPROLOL TARTRATE 50 MG TAB PO SCH ×2 (09:05→21:22)
[2020-03-26] MEDS: guaiFENesin 600 MG TABCR PO SCH ×2 (09:05→21:22)
[2020-03-26] MEDS: ROSUVASTATIN CALCIUM 20 MG TAB PO SCH (09:06)
[2020-03-26] MEDS: metFORMIN HCL ER 500 MG TABCR PO SCH ×2 (09:06→18:56)
[2020-03-26] MEDS: lisinopril 40 MG TAB PO SCH (09:06)
[2020-03-26] MEDS: MULTIVITAMIN TAB PO SCH (09:06)
[2020-03-26] MEDS: PANTOprazole 40 MG TAB PO SCH (09:07)
[2020-03-26] MEDS: ENOXAPARIN 80 MG/0.8 ML SYR SQ SCH ×2 (09:08→21:21)
[2020-03-26] MEDS: dexAMETHasone 6 MG in SYRINGE 0 ML IV SCH (09:08)
[2020-03-26] MEDS: DOCUSATE SODIUM 100 MG CAP PO SCH ×2 (09:08→21:27)
[2020-03-26] MEDS: INSULIN GLARGINE 100 UNIT/ML VIAL SC SCH ×2 (09:10→21:27)
[2020-03-26] MEDS: INSULIN HUMAN NPH SC SCH (09:12)
[2020-03-26] MEDS: INSULIN HUMAN LISPRO (humaLOG) 100 UNITS/ML VIAL SC SCH ×4 (13:47→23:04)
--- NOTE | 2020-03-26 14:58 | Pharmacy Report ---
Pharmacy Glycemic Short Note 2 - Date of Service March 26, 2020 - Glycemic Short BSG Results (Last 24 hours): 03/25/20 03/25/20 03/26/20 17:19 20:37 08:36 POC Glucose 148 H 118 H 139 H 03/26/20 11:52 POC Glucose 273 H OUTPATIENT ANTIDIABETIC REGIMEN: * Humalog pump * See special educator note for pump settings; in brief: total daily basal dose ~103 units, sensitivity factor 10mg/dL/unit, carb ratio 1 unit per 2.6-4gm CHO consumed w/ meals, no single bolus larger than 25 units * Metformin 1 g PO BIDM ASSESSMENT: 03/26/20: * BSGs have been relatively well-controlled. * Pre-lunch BSG was elevated again today, but steroids are being reduced starting tomorrow, so no change to Novolog parameters at this time. * Tomorrow: DXM 6mg IV daily --> DXM 4mg PO daily * This change will likely lower patient's insulin requirements somewhat, but will still contribute to significant steroid-induced hyperglycemia. * Will consider reducing the dose of NPH tomorrow. 03/25/20 * 234 units SQ insulin administered over the last 24 hr while tolerating a diet * BSGs have been improving, in fact, only 1 BSG greater than 180 yesterday * Fasting BSG 81 this AM per patient's own Glucometer. Accuchek not performed until patient had already eating this AM. 70 units Lantus on board + 40 NPH AM + 18 units NPH at HS. Given this patient's h/o severe nocturnal hypoglycemia, will d/c the HS NPH dose and instead give HS dose of Lantus to lessen risk while still preventing "wearing off" of once daily Lantus prior to next dose. * Post-prandial BSG fairly well controlled yesterday, two of three at goal. He may require larger breafast Humalog doses to achieve better control. Will continue to monitor for time being. 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
--- NOTE | 2020-03-26 15:20 | Hospitalist Progress Note ---
Date of Service March 26, 2020 Assessment & Plan (1) Acute respiratory failure with hypoxia: 2nd to COVID-19 pneumonia. Continue Supportive care,oxygen to keep sats >89 and wean off as tolerated Continue Pulmonary toilet with flutter valve and IS, encouraged continued prone positioning Had completed 10 days of Decadron on 03/13 -restarted Decadron 6mg IV bid as he likely has residual inflammation post-COVID PNA, much better now will titrated down to Decadron 4mg PO starting tomorrow AM -started Duonebs and Hypertonic saline nebs bid to help bring out sputum, working really well down to 2L today, walking to bathroom without major dyspnea attempted two step 03/25, 2L at rest but could not maintain saturations > 88% on 6L he wants to exercise, try to improve function will allow him to walk short distances in the wang with 6L, he is tolerating this well he is off isolation precautions at this point once he can manage to not desaturate on exertion then will discharge home (2) Pneumonia due to COVID-19 virus: Severe, extensive on imaging. oxygen requirements as above Treated with IV remdesivir x 5 days, LD 03/08 IV/PO decadron 6mg daily x 10 days, last day 03/13 and then restarted on 03/22 and will do long slow taper on 6mg PO daily, will taper to 4mg PO daily tomorrow for 5 days, then 2mg for 5 days and stop received plasma early during stay Received zithromax for possibility of bacterial pneumonia/superinfection, comp leted course Procal normal initially Wheezing is now resolved after making albuterol HFA scheduled [id number] to prn but starting hypertonic saline and DUonebs bid as above Continue pulmonary toilet with mucinex, incentive marek, and flutter valve. Repeat D-dimer is normal Fortunately no PE on imaging. CXR 03/17 with bilateral multifocal pneumonia Will need follow-up chest x-ray in 3 to 4 weeks to ensure resolution (3) Type 2 diabetes mellitus: brittle diabetes, hypoglycemic morning on 03/14 in 40's then really high in 400's at times in the past he is not sure what is wrong with his pump he agrees to allow pharmacy to manage sugars with Lantus and Novolog sugars moderately controlled the past 24 hours pharmacy working to adjust Lantus dosing in the evening and morning, on NPH continue metformin notified pharmacy that we will decrease Decadron to 4mg PO (4) Hyponatremia: resolved (5) Morbid obesity: BMI 39 (6) Rhabdomyolysis due to COVID-19: Mild. Hydrate, repeat CPK is down (7) Hyperlipidemia: AST and CPK both mildly elevated. Crestor restarted for possible statin protection with COVID (8) Essential (primary) hypertension: Patient on both ANDRE and ARB as outpt Cont the ANDRE; hold the ARB. doesn't need both ACEi and ARB on discharge BP is much higher since restarting steroids Was started on metoprolol here and continue metoprolol and increase to 50mg bid BP better today (9) Sarcoidosis: remote history. dx 1990s. in remission. no signs of such on imaging although does have mediastinal lymphadenopathy. the latter could be reactive to COVID, however. (10) DVT prophylaxis: high risk of VTE while hospitalized thus, lovenox 0.5mg/kg/dose BID Dispo-continued stay, slow improvement Admission and Anticipated Discharge Date Admission Date: March 04, 2020 Subjective patient ambulating in the hallway with 6L NC, using a wheelchair to steady himself he has to take breaks to catch his breath but overall doing well he continues to eat well discussed with him plan to lower Decadron to 4mg tomorrow sugars are largely stable Review of Systems Review of Systems: All systems reviewed & are unremarkable except as noted in Subjective Respiratory: + dyspnea and + dyspnea on exertion Physical Exam Constitutional: well developed, well nourished and + morbidly obese; no acute distress Neck: normal visual inspection, trachea midline, + thick neck and + facial hair Respiratory: normal respiratory effort; no respiratory distress, no labored breathing and no cough Auscultation: no crackles, no rales, no rhonchi and no wheezes Cardiovascular: Rate/Rhythm: regular rate and regular rhythm Heart Sounds: normal S1 and normal S2; no murmur Vessels: no JVD Extremities: normal capillary refill; no edema Gastrointestinal (Abdomen): normal bowel sounds, soft, nontender, no hepatosplenomegaly Musculoskeletal: no cyanosis or clubbing, extremities motor strength 5/5 Skin: no rashes, warm and dry Neurologic: patellar DTR's 2+ bilat, sensation intact and PERRL, EOMI, accommodation nl, no face palsy, no dysarthria Psychiatric: A+Ox3, euthymic affect Lymphatic: no cervical or axillary lymphadenopathy Results & Data Results & Data ([facility]) Vital Signs (Past 12 Hours) Vital Signs Temp Pulse Pulse Resp BP Pulse Ox 03/26/20 07:45 100 H 20 89 L 03/26/20 07:35 36.4 C L 100 H 22 142/72 H 91 Laboratory Results Laboratory Results - last 24 hr 03/25/20 03/25/20 03/26/20 17:19 20:37 08:36 POC Glucose 148 H 118 H 139 H 03/26/20 11:52 POC Glucose 273 H Medications Administered Current Inpatient Medications Acetaminophen (Acetaminophen 325 Mg Tab) 650 mg PO Q4H PRN PRN Reason: Pain or Fever Stop: 04/03/20 20:08 Last Admin: 03/11/20 11:50 Dose: 650 mg Documented by: Albuterol (Albut/Ipratrop 3mg/0.5mg Neb 3 Ml Vial) 3 ml NEB BIDR [facility] Stop: 04/21/20 12:39 Last Admin: 03/26/20 07:44 Dose: 3 ml Documented by: Albuterol (Albuterol Hfa 8 Gm Inhaler) 1 puffs INH Q4R PRN PRN Reason: shortness of breath Stop: 04/18/20 22:59 Aspirin (Aspirin 81 Mg Ectab) 81 mg PO DAILY [facility] Stop: 04/04/20 08:59 Last Admin: 03/26/20 09:04 Dose: 81 mg Documented by: Dexamethasone (Dexamethasone 4 Mg Tab) 4 mg PO QAM [facility] Stop: 04/26/20 08:59 Dextrose (Dextrose 50% 50 Ml Syringe) 25 - 50 ml IV UD PRN; Protocol PRN Reason: Hypoglycemia Protocol Stop: 04/03/20 20:59 Last Admin: 03/14/20 03:49 Dose: 50 ml Documented by: Docusate Sodium (Docusate Sodium 100 Mg Cap) 100 mg PO BID [facility] Stop: 04/17/20 08:59 Last Admin: 03/26/20 09:08 Dose: Not Given Documented by: Enoxaparin Sodium (Enoxaparin 80 Mg/0.8 Ml Syr) 70 mg SQ Q12H [facility] Stop: 04/03/20 20:59 Last Admin: 03/26/20 09:08 Dose: 70 mg Documented by: Glucagon (Glucagon For Inj 1 Mg Vial) 1 mg SQ UD PRN; Protocol PRN Reason: Hypoglycemia Protocol Stop: 04/03/20 20:59 Glucose (Glucose 40% Gel 15 Gm Tube) 15 - 30 gm PO UD PRN; Protocol PRN Reason: Hypoglycemia Protocol Stop: 04/03/20 20:59 Glucose (Glucose 10 Tabs/Tube) 4 - 8 tabs PO UD PRN; Protocol PRN Reason: Hypoglycemia Protocol Stop: 04/03/20 20:59 Guaifenesin (Guaifenesin 600 Mg Tabcr) 1,200 mg PO Q12 [facility] Stop: 04/03/20 20:59 Last Admin: 03/26/20 09:05 Dose: 1,200 mg Documented by: Insulin Glargine (Insulin Glargine 100 Unit/Ml Vial) [facility] [place] Stop: 04/19/20 08:59 Last Admin: 03/26/20 09:10 Dose: 70 units Documented by: Insulin Glargine (Insulin Glargine 100 Unit/Ml Vial) 10 units SC HS [facility] Stop: 04/24/20 20:59 Last Admin: 03/25/20 21:00 Dose: 10 units Documented by: Insulin Human Lispro (Insulin Human Lispro (Humalog) 100 Units/Ml Vial) 0 units SC 0730 [facility] Stop: 04/20/20 07:29 Last Admin: 03/25/20 12:59 Dose: 30 units Documented by: Insulin Human Lispro (Insulin Human Lispro (Humalog) 100 Units/Ml Vial) 0 units SC DAILY@1130 [facility] Stop: 04/20/20 11:29 Last Admin: 03/26/20 13:47 Dose: 31 units Documented by: Insulin Human Lispro (Insulin Human Lispro (Humalog) 100 Units/Ml Vial) 0 units SC BID@1630,2100 [facility] Stop: 04/20/20 16:29 Last Admin: 03/25/20 21:00 Dose: 16 units Documented by: Insulin Human NPH (Insulin Human Nph) 40 units SC [facility] [place]; Protocol Stop: 04/22/20 08:59 Last Admin: 03/26/20 09:12 Dose: 40 units Documented by: Ipratropium [place] (Ipratropium [place] Hfa Inhaler) 1 puffs INH Q4 PRN PRN Reason: Shortness Of Breath Or Wheezing Stop: 04/14/20 08:56 Last Admin: 03/20/20 15:43 Dose: 1 puffs Documented by: Lisinopril (Lisinopril 40 Mg Tab) 40 mg PO DAILY [facility] Stop: 04/04/20 08:59 Last Admin: 03/26/20 09:06 Dose: 40 mg Documented by: Menthol (Cough Drop (Sugar Free) Kelsey 24 Kelsey/1 Box) 1 kelsey [place]CCAL Q2H PRN PRN Reason: Sore Throat Stop: 04/21/20 12:40 Last Admin: 03/22/20 18:46 Dose: 1 kelsey Documented by: Metformin HCl (Metformin Hcl Er 500 Mg Tabcr) 1,000 mg PO BIDM [facility] Stop: 04/09/20 16:59 Last Admin: 03/26/20 09:06 Dose: 1,000 mg Documented by: Metoprolol Tartrate (Metoprolol Tartrate 50 Mg Tab) 50 mg PO BID [facility] Stop: 04/21/20 20:59 Last Admin: 03/26/20 09:05 Dose: 50 mg Documented by: Miscellaneous (Carbohydrates For Hypoglycemia ) 15 - 30 gm PO UD PRN PRN Reason: Hypoglycemia Treatment Stop: 04/03/20 20:59 Last Admin: 03/20/20 21:28 Dose: 15 gm Documented by: Miscellaneous Information (Pharmacy Glycemic Mgmt Consult) 1 ea N/A UD PRN PRN Reason: Consult Stop: 04/13/20 12:11 Multivitamins (Multivitamin Tab) 1 tab PO [facility] Stop: 04/04/20 08:59 Last Admin: 03/26/20 09:06 Dose: 1 tab Documented by: Ondansetron HCl (Ondansetron Inj 2 Mg/Ml 2 Ml Vial) 4 mg IV Q6H PRN PRN Reason: Nausea Stop: 04/03/20 20:08 Pantoprazole Sodium (Pantoprazole 40 Mg Tab) 40 mg PO QAM [facility] Stop: 04/04/20 08:59 Last Admin: 03/26/20 09:07 Dose: 40 mg Documented by: Polyethylene Glycol (Polyethylene (Miralax) 17 Gm Pack) 17 gm PO DAILY PRN PRN Reason: Constipation Stop: 04/16/20 21:31 Rosuvastatin Calcium (Rosuvastatin Calcium 20 Mg Tab) 20 mg PO DAILY [facility] Stop: 04/04/20 08:59 Last Admin: 03/26/20 09:06 Dose: 20 mg Documented by: Sodium Chloride (Sodium Chlor 7% 4 Ml Neb) 4 ml NEB BIDR [facility] Stop: 04/21/20 12:39 Last Admin: 03/26/20 07:44 Dose: 4 ml Documented by: PG Care Time/CCT Total # of Minutes Spent Total Time Spent with Patient: Total time spent is greater than 50% in coordination of care (as documented) at patient's floor/unit and/or counseling patient: Coding Level of Care Code 21028 Subseq Hosp Care Lvl 2 Diagnoses Acute respiratory failure with hypoxia J96.01 Pneumonia due to COVID-19 virus U07.1; J12.89 Type 2 diabetes mellitus E11.9 Hyponatremia E87.1 Morbid obesity E66.01 Rhabdomyolysis due to COVID-19 U07.1; M62.82 Hyperlipidemia E78.5 Essential (primary) hypertension I10 Sarcoidosis D86.9 DVT prophylaxis Z29.9
[2020-03-27] MEDS: ALBUT/IPRATROP 3MG/0.5MG NEB 3 ML VIAL NEB SCH ×2 (07:17→19:15)
[2020-03-27] MEDS: SODIUM CHLOR 7% 4 ML NEB NEB SCH ×2 (07:17→19:15)
[2020-03-27] MEDS ORDERED: INSULIN HUMAN NPH SC SCH (09:00)
[2020-03-27] MEDS ORDERED: INSULIN GLARGINE 100 UNIT/ML VIAL SC SCH (09:00)
[2020-03-27] MEDS: ROSUVASTATIN CALCIUM 20 MG TAB PO SCH (09:27)
[2020-03-27] MEDS: MULTIVITAMIN TAB PO SCH (09:27)
[2020-03-27] MEDS: dexAMETHasone 4 MG TAB PO SCH (09:27)
[2020-03-27] MEDS: metFORMIN HCL ER 500 MG TABCR PO SCH ×2 (09:27→18:17)
[2020-03-27] MEDS: ASPIRIN 81 MG ECTAB PO SCH (09:27)
[2020-03-27] MEDS: guaiFENesin 600 MG TABCR PO SCH ×2 (09:27→20:33)
[2020-03-27] MEDS: PANTOprazole 40 MG TAB PO SCH (09:27)
[2020-03-27] MEDS: METOPROLOL TARTRATE 50 MG TAB PO SCH ×2 (09:27→20:33)
[2020-03-27] MEDS: lisinopril 40 MG TAB PO SCH (09:27)
[2020-03-27] MEDS: DOCUSATE SODIUM 100 MG CAP PO SCH ×2 (09:34→20:33)
[2020-03-27] MEDS: INSULIN HUMAN LISPRO (humaLOG) 100 UNITS/ML VIAL SC SCH ×5 (09:35→22:07)
[2020-03-27] MEDS: ENOXAPARIN 80 MG/0.8 ML SYR SQ SCH ×2 (09:40→20:33)
--- NOTE | 2020-03-27 14:41 | Pharmacy Report ---
Glycemic Control Progress Note - Date of Service March 27, 2020 - Scope Glycemic Pharmacist consulted for glycemic control to write orders per [facility] inpatient glycemic control protocol. - Objective Accuchecks BSG(last 24 hours):: 03/26/20 03/26/20 03/27/20 17:15 20:27 08:21 POC Glucose 168 H 154 H 156 H 03/27/20 12:29 POC Glucose 181 H HbA1c:: Hemoglobin A1c 7.3 % (4.5-5.6) H 03/06/20 06:43 - Recent Pertinent Medications The patient is currently receiving: * Basal insulin: Lantus 70 units in the morning and 10 units in the evening * Correctional Insulin: Novolog Correction per scale ACHS Goal Range: Low 110 mg/dL - High 140 mg/dL Correction Factor: 12 mg/dL/unit * Prandial insulin: Per carb ratio of 1 unit per 2 grams CHO consumed with breakfast; 2.5 grams CHO consumed with lunch; 4 grams CHO consumed with dinner/bedtime * Oral Agents: metformin 1 gm PO BIDM - Outpatient Anti-Diabetic Meds Insulin pump - Assessment & Plan ASSESSMENT: * See progress note from 03/14/20 for more background info, in short: * Pt receiving SQ basal bolus insulin regimen for hyperglycemia secondary to baseline DM (outpatient regimen on hold). Patient was changed from IV dexamethasone to PO dexamethasone 4 mg daily. * Patient is currently receiving an average of 214 units of insulin per day * 120 units of basal insulin * 94 units of prandial/correctional insulin * BSGs ranging 138 - 273 mg/dl over the past 24hrs * Changes needed to insulin regimen: * AM Fasting BSG = 156 mg/dl. This is slightly above goal range for patient based on inpatient targets and co-morbidities. The patient's fasting BSGs have trended upwards since 03/25/20 but are still reasonably controlled. Switch Lantus to 80 units daily (remove evening dose of 10 units). * Post-prandial BSGs were slightly elevated yesterday BUT dexamethasone was switched to PO today. Will reduce NPH to 30 units as uncertain if PO dexamethasone will have same effects as IV. Loosen CF/CR for dinner and bedtime doses. * Total daily dose is expected to decrease as steroids change to PO. * Additional notes / comments: Continue metformin 1 gm PO BID PLAN FOR INPATIENT GLYCEMIC CONTROL: * Switching Lantus to 80 units SQ daily * Continuing correction factor of 12 mg/dl/unit but loosen for dinnertime and bedtime to 15 mg/dL/unit * Continuing carb ratio of 1 unit per 2 grams CHO consumed with breakfast; 2.5 grams CHO consumed with lunch BUT LOOSEN to 5 grams CHO consumed with dinner * Continuing goal range of Low 110 mg/dL - High 140 mg/dL RECOMMENDATIONS FOR DISCHARGE: * Continue home insulin pump and follow-up with [place] [facility] Thank you.
--- NOTE | 2020-03-27 16:47 | Hospitalist Progress Note ---
Date of Service March 27, 2020 Assessment & Plan (1) Acute respiratory failure with hypoxia: 2nd to COVID-19 pneumonia. Continue Supportive care,oxygen to keep sats >89 and wean off as tolerated Continue Pulmonary toilet with flutter valve and IS, encouraged continued prone positioning Had completed 10 days of Decadron on 03/13 -restarted Decadron 6mg IV bid as he likely has residual inflammation post-COVID PNA, much better now will titrated down to Decadron 4mg PO starting tomorrow AM -started Duonebs and Hypertonic saline nebs bid to help bring out sputum, working really well down to 2L today, walking to bathroom without major dyspnea attempted two step 03/25, 2L at rest but could not maintain saturations > 88% on 6L he is exercising, ambulating in the hallway desaturates to 70-80% range, no increased dyspnea he is off isolation precautions at this point CXR 03/27 with improvement in appearance of infiltrates, no other major issues will get sputum sample when he can provide one will get BMP, CBC, procalcitonin, D dimer tomorrow AM he was hoping to get home by [place] but he accepts that this might not be possible (2) Pneumonia due to COVID-19 virus: Severe, extensive on imaging. oxygen requirements as above Treated with IV remdesivir x 5 days, LD 03/08 IV/PO decadron 6mg daily x 10 days, last day 03/13 and then restarted on 03/22 and will do long slow taper Decadron tapered to 4mg PO daily today, continue 5 days, then 2mg for 5 days and stop received plasma early during stay Received zithromax for possibility of bacterial pneumonia/superinfection, completed course Procal normal initially Wheezing is now resolved after making albuterol HFA scheduled [id number] to prn but starting hypertonic saline and DUonebs bid as above Continue pulmonary toilet with mucinex, incentive marek, and flutter valve. Repeat D-dimer is normal Fortunately no PE on imaging. CXR 03/27 with improvement in infiltrates (3) Type 2 diabetes mellitus: brittle diabetes, hypoglycemic morning on 03/14 in 40's then really high in 400's at times in the past he is not sure what is wrong with his pump he agrees to allow pharmacy to manage sugars with Lantus and Novolog sugars moderately controlled the past 24 hours pharmacy working to adjust Lantus dosing in the evening and morning, on NPH continue metformin notified pharmacy that we will decrease Decadron to 4mg PO, sugars moderately controlled (4) Hyponatremia: resolved (5) Morbid obesity: BMI 39 (6) Rhabdomyolysis due to COVID-19: Mild. Hydrate, repeat CPK is down (7) Hyperlipidemia: AST and CPK both mildly elevated. Crestor restarted for possible statin protection with COVID (8) Essential (primary) hypertension: Patient on both ANDRE and ARB as outpt Cont the ANDRE; hold the ARB. doesn't need both ACEi and ARB on discharge BP is much higher since restarting steroids Was started on metoprolol here and continue metoprolol and increase to 50mg bid BP stable (9) Sarcoidosis: remote history. dx . in remission. no signs of such on imaging although does have mediastinal lymphadenopathy. the latter could be reactive to COVID, however. (10) DVT prophylaxis: high risk of VTE while hospitalized thus, lovenox 0.5mg/kg/dose BID Dispo-continued stay, slow improvement Admission and Anticipated Discharge Date Admission Date: March 04, 2020 Subjective patient is frustrated today he says he is desaturating more today compared to yesterday yesterday he would take short and long walks with pauses and sats dropped to 85% on 6L today his saturations are dropping to 70's with the same activity he says he does not feel any different, and when he sits down it takes him about a minute to recover on 2L he is coughing still, bringing up sputum, says it is "speckled" but mostly yel low he continues to eat well he says he wonders if he does not have mild permanent damage from his sarcoidosis 25 years ago he says he was on Prednisone for 6 months, coughed for six months he says even at his best, he gets winded with increased activity Review of Systems Review of Systems: All systems reviewed & are unremarkable except as noted in Subjective Physical Exam Constitutional: well developed, well nourished and + morbidly obese; no acute distress Neck: normal visual inspection, trachea midline, + thick neck and + facial hair Respiratory: normal respiratory effort; no respiratory distress, no labored breathing and no cough Auscultation: no crackles, no rales, no rhonchi and no wheezes Cardiovascular: Rate/Rhythm: regular rate and regular rhythm Heart Sounds: normal S1 and normal S2; no murmur Vessels: no JVD Extremities: normal capillary refill; no edema Gastrointestinal (Abdomen): normal bowel sounds, soft, nontender, no hepatosplenomegaly Musculoskeletal: no cyanosis or clubbing, extremities motor strength 5/5 Skin: no rashes, warm and dry Neurologic: patellar DTR's 2+ bilat, sensation intact and PERRL, EOMI, accommodation nl, no face palsy, no dysarthria Psychiatric: A+Ox3, euthymic affect Lymphatic: no cervical or axillary lymphadenopathy Results & Data Results & Data ([facility]) Vital Signs (Past 12 Hours) Vital Signs Temp Pulse Resp BP Pulse Ox 03/27/20 15:15 36.8 C 89 19 134/74 93 03/27/20 07:37 36.5 C 90 22 125/77 92 03/27/20 07:17 84 20 95 Laboratory Results Laboratory Results - last 24 hr 03/26/20 03/26/20 03/27/20 17:15 20:27 08:21 POC Glucose 168 H 154 H 156 H 03/27/20 12:29 POC Glucose 181 H Diagnostic Findings XR chest 2V PA/lateral HISTORY: 54 years-old Male hypoxia, COVID acute hypoxia. COMPARISON: Chest radiograph 03/17/2020, CTA chest 03/04/2020 TECHNIQUE: PA and lateral views of the chest FINDINGS: There is persistent patchy bilateral mixed interstitial and alveolar opacities redemonstrated. Mildly improved aeration of the lungs from comparison. Mild right hemidiaphragmatic elevation. Mild blunting of the costophrenic angles without large pleural effusion. Bones appear grossly intact. IMPRESSION: Mild improvement of the extensive bilateral pulmonary opacities suggestive of ongoing pneumonia. Medications Administered Current Inpatient Medications Acetaminophen (Acetaminophen 325 Mg Tab) 650 mg PO Q4H PRN PRN Reason: Pain or Fever Stop: 04/03/20 20:08 Last Admin: 03/11/20 11:50 Dose: 650 mg Documented by: Albuterol (Albut/Ipratrop 3mg/0.5mg Neb 3 Ml Vial) 3 ml NEB BIDR IBETH Stop: 04/21/20 12:39 Last Admin: 03/27/20 07:17 Dose: 3 ml Documented by: Albuterol (Albuterol Hfa 8 Gm Inhaler) 1 puffs INH Q4R PRN PRN Reason: shortness of breath Stop: 04/18/20 22:59 Aspirin (Aspirin 81 Mg Ectab) 81 mg PO DAILY IBETH Stop: 04/04/20 08:59 Last Admin: 03/27/20 09:27 Dose: 81 mg Documented by: Dexamethasone (Dexamethasone 4 Mg Tab) 4 mg PO QAM [facility] Stop: 04/26/20 08:59 Last Admin: 03/27/20 09:27 Dose: 4 mg Documented by: Dextrose (Dextrose 50% 50 Ml Syringe) 25 - 50 ml IV UD PRN; Protocol PRN Reason: Hypoglycemia Protocol Stop: 04/03/20 20:59 Last Admin: 03/14/20 03:49 Dose: 50 ml Documented by: Docusate Sodium (Docusate Sodium 100 Mg Cap) 100 mg PO BID [facility] Stop: 04/17/20 08:59 Last Admin: 03/27/20 09:34 Dose: 100 mg Documented by: Enoxaparin Sodium (Enoxaparin 80 Mg/0.8 Ml Syr) 70 mg SQ Q12H IBETH Stop: 04/03/20 20:59 Last Admin: 03/27/20 09:40 Dose: 70 mg Documented by: Glucagon (Glucagon For Inj 1 Mg Vial) 1 mg SQ UD PRN; Protocol PRN Reason: Hypoglycemia Protocol Stop: 04/03/20 20:59 Glucose (Glucose 40% Gel 15 Gm Tube) 15 - 30 gm PO UD PRN; Protocol PRN Reason: Hypoglycemia Protocol Stop: 04/03/20 20:59 Glucose (Glucose 10 Tabs/Tube) 4 - 8 tabs PO UD PRN; Protocol PRN Reason: Hypoglycemia Protocol Stop: 04/03/20 20:59 Guaifenesin (Guaifenesin 600 Mg Tabcr) 1,200 mg PO Q12 IBETH Stop: 04/03/20 20:59 Last Admin: 03/27/20 09:27 Dose: 1,200 mg Documented by: Insulin Glargine (Insulin Glargine 100 Unit/Ml Vial) 80 units SC QAM [facility] Stop: 04/26/20 08:59 Last Admin: 03/27/20 09:38 Dose: 80 units Documented by: Insulin Human Lispro (Insulin Human Lispro (Humalog) 100 Units/Ml Vial) 0 units SC 0730 [facility] Stop: 04/20/20 07:29 Last Admin: 03/27/20 09:35 Dose: 33 units Documented by: Insulin Human Lispro (Insulin Human Lispro (Humalog) 100 Units/Ml Vial) 0 units SC DAILY@1130 [facility] Stop: 04/20/20 11:29 Last Admin: 03/27/20 13:22 Dose: 26 units Documented by: Insulin Human Lispro (Insulin Human Lispro (Humalog) 100 Units/Ml Vial) 0 units SC BID@1630,2100 [facility] Stop: 04/20/20 16:29 Last Admin: 03/26/20 23:04 Dose: 15 units Documented by: Insulin Human NPH (Insulin Human Nph) 30 units SC QAM [facility]; Protocol Stop: 04/26/20 08:59 Last Admin: 03/27/20 09:39 Dose: 30 units Documented by: Ipratropium [place] (Ipratropium [place] Hfa Inhaler) 1 puffs INH Q4 PRN PRN Reason: Shortness Of Breath Or Wheezing Stop: 04/14/20 08:56 Last Admin: 03/20/20 15:43 Dose: 1 puffs Documented by: Lisinopril (Lisinopril 40 Mg Tab) 40 mg PO DAILY [facility] Stop: 04/04/20 08:59 Last Admin: 03/27/20 09:27 Dose: 40 mg Documented by: Menthol (Cough Drop (Sugar Free) Bea 24 Bea/1 Box) 1 bea BUCCAL Q2H PRN PRN Reason: Sore Throat Stop: 04/21/20 12:40 Last Admin: 03/22/20 18:46 Dose: 1 bea Documented by: Metformin HCl (Metformin Hcl Er 500 Mg Tabcr) 1,000 mg PO BIDM [facility] Stop: 04/09/20 16:59 Last Admin: 03/27/20 09:27 Dose: 1,000 mg Documented by: Metoprolol Tartrate (Metoprolol Tartrate 50 Mg Tab) 50 mg PO BID [facility] Stop: 04/21/20 20:59 Last Admin: 03/27/20 09:27 Dose: 50 mg Documented by: Miscellaneous (Carbohydrates For Hypoglycemia ) 15 - 30 gm PO UD PRN PRN Reason: Hypoglycemia Treatment Stop: 04/03/20 20:59 Last Admin: 03/20/20 21:28 Dose: 15 gm Documented by: Miscellaneous Information (Pharmacy Glycemic Mgmt Consult) 1 ea N/A UD PRN PRN Reason: Consult Stop: 04/13/20 12:11 Multivitamins (Multivitamin Tab) 1 tab PO QAM [facility] Stop: 04/04/20 08:59 Last Admin: 03/27/20 09:27 Dose: 1 tab Documented by: Ondansetron HCl (Ondansetron Inj 2 Mg/Ml 2 Ml Vial) 4 mg IV Q6H PRN PRN Reason: Nausea Stop: 04/03/20 20:08 Pantoprazole Sodium (Pantoprazole 40 Mg Tab) 40 mg PO QAM [facility] Stop: 04/04/20 08:59 Last Admin: 03/27/20 09:27 Dose: 40 mg Documented by: Polyethylene Glycol (Polyethylene (Miralax) 17 Gm Pack) 17 gm PO DAILY PRN PRN Reason: Constipation Stop: 04/16/20 21:31 Rosuvastatin Calcium (Rosuvastatin Calcium 20 Mg Tab) 20 mg PO DAILY [facility] Stop: 04/04/20 08:59 Last Admin: 03/27/20 09:27 Dose: 20 mg Documented by: Sodium Chloride (Sodium Chlor 7% 4 Ml Neb) 4 ml NEB BIDR [facility] Stop: 04/21/20 12:39 Last Admin: 03/27/20 07:17 Dose: 4 ml Documented by: PG Care Time/CCT Total # of Minutes Spent Total Time Spent with Patient: Total time spent is greater than 50% in coordination of care (as documented) at patient's floor/unit and/or counseling patient: Coding Level of Care Code 08965 Subseq Hosp Care Lvl 2 Diagnoses Acute respiratory failure with hypoxia J96.01 Pneumonia due to COVID-19 virus U07.1; J12.89 Type 2 diabetes mellitus E11.9 Hyponatremia E87.1 Morbid obesity E66.01 Rhabdomyolysis due to COVID-19 U07.1; M62.82 Hyperlipidemia E78.5 Essential (primary) hypertension I10 Sarcoidosis D86.9 DVT prophylaxis Z29.9
--- NOTE | 2020-03-27 17:25 | XRay Report ---
XR chest 2V PA/lateral HISTORY: 54 years-old Male hypoxia, COVID acute hypoxia. COMPARISON: Chest radiograph 03/17/2020, CTA chest 03/04/2020 TECHNIQUE: PA and lateral views of the chest FINDINGS: There is persistent patchy bilateral mixed interstitial and alveolar opacities redemonstrated. Mildly improved aeration of the lungs from comparison. Mild right hemidiaphragmatic elevation. Mild bluntin g of the costophrenic angles without large pleural effusion. Bones appear grossly intact. IMPRESSION: Mild improvement of the extensive bilateral pulmonary opacities suggestive of ongoing pne umonia. ACT 112: Negative or not required by law. The above report was generated using voice recognition software. It may contain grammatical, syntax o r spelling errors. Electronically signed by: Tyler Pelayo M.D. 03/27/2020 5:24 PM
[2020-03-28 07:23] VITALS: BP 129/79; TEMP 97.9
[2020-03-28 08:06] LABS: Hematocrit (blood only) 39.6 % (42-52); Hemoglobin 12.9 g/dL (14.0-18.0); Mean Corpuscular Hemoglobin 29.6 pg (25-34); Mean Corpuscular Hgb Conc 32.6 g/dL (32-36); Mean Corpuscular Volume 90.8 fL (80-100); Mean Platelet Volume 9.4 fL (7.4-10.4); Platelet Count 263 K/uL (130-400); RDW Standard Deviation 45.6 fL (36.4-46.3); Red Blood Count 4.36 M/uL (4.7-6.1); White Blood Count 7.62 K/uL (4.8-10.8)
[2020-03-28 08:14] LABS: D Dimer 450 ug/L FEU (0-500)
[2020-03-28 08:28] LABS: BUN Creatinine Ratio 19.5 (10-20); Calcium 9.4 mg/dl (8.5-10.1); Creatinine Clr Calc Pharmacy 153.8 ml/min; Est GFR (African American) 121.6; Est GFR (Non-African American) 104.9; Potassium 4.2 mmol/L (3.5-5.1)
[2020-03-28] MEDS ORDERED: INSULIN HUMAN NPH SC SCH (09:00)
[2020-03-28] MEDS ORDERED: INSULIN GLARGINE 100 UNIT/ML VIAL SC SCH (09:00)
[2020-03-28] MEDS: ALBUT/IPRATROP 3MG/0.5MG NEB 3 ML VIAL NEB SCH (09:16)
[2020-03-28] MEDS: SODIUM CHLOR 7% 4 ML NEB NEB SCH (09:16)
[2020-03-28] MEDS: lisinopril 40 MG TAB PO SCH (10:05)
[2020-03-28] MEDS: dexAMETHasone 4 MG TAB PO SCH (10:05)
[2020-03-28] MEDS: metFORMIN HCL ER 500 MG TABCR PO SCH (10:05)
[2020-03-28] MEDS: PANTOprazole 40 MG TAB PO SCH (10:05)
[2020-03-28] MEDS: METOPROLOL TARTRATE 50 MG TAB PO SCH (10:05)
[2020-03-28] MEDS: ASPIRIN 81 MG ECTAB PO SCH (10:05)
[2020-03-28] MEDS: guaiFENesin 600 MG TABCR PO SCH (10:06)
[2020-03-28] MEDS: MULTIVITAMIN TAB PO SCH (10:06)
[2020-03-28] MEDS: ROSUVASTATIN CALCIUM 20 MG TAB PO SCH (10:06)
[2020-03-28] MEDS: ENOXAPARIN 80 MG/0.8 ML SYR SQ SCH (10:06)
[2020-03-28] MEDS: INSULIN HUMAN LISPRO (humaLOG) 100 UNITS/ML VIAL SC SCH ×2 (10:14→13:05)
[2020-03-28] MEDS: DOCUSATE SODIUM 100 MG CAP PO SCH (10:23)
--- NOTE | 2020-03-28 12:33 | Pharmacy Report ---
Glycemic Control Progress Note - Date of Service March 28, 2020 - Scope Glycemic Pharmacist consulted for glycemic control to write orders per [facility] inpatient glycemic control protocol. - Objective Accuchecks BSG(last 24 hours):: 03/27/20 03/27/20 03/27/20 12:29 17:23 20:56 Glucose POC Glucose 181 H 167 H 186 H 03/28/20 03/28/20 03/28/20 05:30 07:13 08:18 Glucose 124 H POC Glucose 90 150 H 03/28/20 12:17 Glucose POC Glucose 173 H HbA1c:: Hemoglobin A1c 7.3 % (4.5-5.6) H 03/06/20 06:43 - Recent Pertinent Medications The patient is currently receiving: * Basal insulin: Lantus 80 units every 24 hours * Correctional Insulin: Novolog Correction per scale ACHS Goal Range: Low 110 mg/dL - High 140 mg/dL Correction Factor: 12 mg/dL/unit and 15 mg/dL/unit with dinner and bedtime * Prandial insulin: Per carb ratio of 1 unit per 2 grams CHO consumed with breakfast, 2.5 grams CHO consumed with lunch, and 5 grams CHO consumed with dinner * Oral Agents: metformin 1 gm PO BID - Outpatient Anti-Diabetic Meds Insulin pump - Assessment & Plan ASSESSMENT: * See progress note from 03/14/20 for more background info, in short: * Pt receiving SQ basal bolus insulin regimen for hyperglycemia secondary to baseline DM (outpatient regimen on hold). * Patient is currently receiving an average of 198 units of insulin per day * 110 units of basal insulin * 88 units of prandial/correctional insulin * BSGs ranging 156 - 186 mg/dl over the past 24hrs * Changes needed to insulin regimen: * AM Fasting BSG = 90 mg/dl. This is slightly below goal range for patient based on inpatient targets and co-morbidities. Therefore Basal insulin will be reduced to 70 units. * Post-prandial BSGs were decently in range yesterday. Increase NPH slightly to 35 units. Lunch BSG slightly elevated since Novolog was given late. * Total daily dose = ~200 units. Increased NPH to account for slightly elevated BSGs. PLAN FOR INPATIENT GLYCEMIC CONTROL: * DECREASING Lantus to 70 units SQ daily and INCREASING NPH to 35 units daily * Continuing correction factor of 12 mg/dl/unit with breakfast/lunch and 15 mg/dL/unit with dinner/bedtime * Continuing carb ratio of 1 unit per 2 grams CHO consumed with breakfast, 2.5 grams CHO consumed with lunch, and 5 grams CHO consumed with dinner * Continuing goal range to Low 110 mg/dL - High 140 mg/dL RECOMMENDATIONS FOR DISCHARGE: * Continue home regimen and management with [facility] Thank you.
[2020-03-28 15:59] VITALS: PULSE 85; O2SAT 93
--- NOTE | 2020-03-28 16:27 | Discharge Summary ---
Date of Service March 28, 2020 Admission HPI Per Admitting Provider 54yo male with T2DM on insulin pump, remote h/o sarcoid in remission, HTN, and morbid obesity presents with COVID symptoms going back to Wednesday/Wednesday of last week. 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 Last Wednesday he tested positive for the first time. He had been struggling with a cough dating back to mid- unresponsive to antibiotics - but began to feel much worse on Wednesday before Thanks. Denies any fever or chills but has had significant loss of appetite, cough, worsening dyspnea, sputum production, upper abdominal discomfort with cough, and chest tightness. No loss of taste or smell. No sore throat. Some body aches. The sputum production late last week was copious. He doesn't have a formal diagnosis of asthma but he states he "gets sick every fall with a respiratory illness." On his medication list he has symbicort listed as home med however he states that he doesn't take it regularly. Denies having a formal diagnosis of asthma/COPD. Did have PFTs but it was decades ago about the time of his sarcoid diagnosis (). Principal Diagnosis COVID 19 pneumonia with acute hypoxic respiratory failure Discharge Exam Constitutional well developed, well nourished and + morbidly obese; no acute distress Neck normal visual inspection, trachea midline, + thick neck and + facial hair Respiratory normal respiratory effort; no respiratory distress, no labored breathing and no cough Auscultation: no crackles, no rales, no rhonchi and no wheezes Cardiovascular Rate/Rhythm: regular rate and regular rhythm Heart Sounds: normal S1 and normal S2; no murmur Vessels: no JVD Extremities: normal capillary refill; no edema Gastrointestinal (Abdomen) normal bowel sounds, soft, nontender, no hepatosplenomegaly Musculoskeletal no cyanosis or clubbing, extremities motor strength 5/5 Skin no rashes, warm and dry Neurologic patellar DTR's 2+ bilat, sensation intact and PERRL, EOMI, accommodation nl, no face palsy, no dysarthria Psychiatric A+Ox3, euthymic affect Lymphatic no cervical or axillary lymphadenopathy Discharge Data Allergies Allergy/AdvReac Type Severity Reaction Status Date / Time naproxen Allergy Unknown EDEMA Verified 10/19/16 06:22 Sulfa (Sulfonamide Allergy Unknown "VIOLENTLY Verified 10/19/16 06:22 Antibiotics) ILL" Consultations 03/04/20 14:23 ED Decision to Admit Stat Ordered Studies 03/04/20 14:20 CT angio chest PE protocol Stat Hospital Course (1) Acute respiratory failure with hypoxia: 2nd to COVID-19 pneumonia. Had completed 10 days of Decadron on 03/13 -restarted Decadron 6mg IV bid as he likely has residual inflammation post-COVID PNA, much better now on Decadron 6mg daily for several days then tapered to 4mg daily for 2 days will continue 4mg daily x 3 days and then 2mg daily x 10 days then stop -started Duonebs and Hypertonic saline nebs bid to help bring out sputum, worked really well the past week down to 2L at rest for nearly a week, walking to bathroom without major dyspnea but he desaturates if he does not turn up oxygen attempted two step 03/25, 2L at rest but could not maintain saturations > 88% on 6L for the past 3 days he has been exercising, ambulating in the hallway with 6L oxymask he does not get short of breath in spite of the desaturations CXR 03/27 PA/lateral with improvement in appearance of infiltrates, no other major issues will get sputum sample when he can provide one, still pending on discharge but doubt infectious on the day of discharge his D dimer is normal, procalcitonin normal, CBC and CMP normal no fever, vitals stable with exception of needing oxygen and getting tachycardic with exertion I walked with him in the [address]ang [address], he walked about 250 feet with 6L NC, did not have dyspnea he would desaturate to 84% but we would stop and he would recover to 90% after about 30 seconds we had a long discussion regarding going home he felt confident that he would be okay, we arranged for oxygen 2L at rest and 6L on exertion at home instructed to stay off work until 04/10/20 to recover, may need longer referral made to pulmonology per his request, he feels like he has some underlaying lung issues from his sarcoidosis in 1994 he has always been short of breath on exertion ever since that time would benefit from form PFT and pulmonary evaluation once he is recovered from COVID (2) Pneumonia due to COVID-19 virus: Severe, extensive on initial imaging Treated with IV remdesivir x 5 days, LD 03/08 IV/PO decadron 6mg daily x 10 days, last day 03/13 and then restarted on 03/22 and will do long slow taper Decadron tapered to 4mg PO daily today, continue 3 days, then 2mg for 10 days and stop received plasma early during stay Received zithromax for possibility of bacterial pneumonia/superinfection, completed course Procal normal, checked twice D dimer normal Wheezing is now resolved after making albuterol HFA scheduled [id number] to prn but starting hypertonic saline and DUonebs bid as above Continue pulmonary toilet with mucinex, incentive marek, and flutter valve. arranged for home nebulizer with Duoneb Fortunately no PE on CTA chest CXR 03/27 with improvement in infiltrates (3) Type 2 diabetes mellitus: brittle diabetes, hypoglycemic morning on 03/14 in 40's then really high in 400's at times in the past he is not sure what is wrong with his pump he agrees to allow pharmacy to manage sugars with Lantus and Novolog sugars moderately controlled the past several days pharmacy working to adjust Lantus dosing in the evening and morning, on NPH continue metformin he will resume his pump on discharge he knows that he received Lantus 70 units in the morning on the day of discharge so he will not start basal rate until 03/29 in the morning use the pump for bolus dosing with meals 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 Hydrate, repeat CPK is down (7) Hyperlipidemia: AST and CPK both mildly elevated. Crestor restarted for possible statin protection with COVID (8) Essential (primary) hypertension: Patient on both ANDRE and ARB as outpt Cont the ANDRE; hold the ARB. doesn't need both ACEi and ARB on discharge, stop ARB Was started on metoprolol here and continue metoprolol and increased to 50mg bid, continue on discharge BP stable (9) Sarcoidosis: remote history. 1994 he believes he says he was treated with 6 months of Prednisone, he coughed for 6 months straight in remission every since 1994 but always has a degree of dyspnea on exertion referral placed to pulmonary to be seen in 4-6 weeks would need formal PFT once recovered from COVID (10) DVT prophylaxis: high risk of VTE while hospitalized thus, lovenox 0.5mg/kg/dose BID Dispo- discharge to home Total Time Total Time Spent Total Time Spent (In Minutes): 50 minutes Total Time Includes: Examination of the Patient, Discharge Planning and Medication Reconciliation Discharge Plan Discharge Items Patient Disposition: Home - Home Health Services Reason For Visit: COVID-19 PNEUMONIA;ACUTE HYPOXIC RESP FAILURE Discharge Diagnosis: COVID 19 pneumonia Acute hypoxic respiratory failure Insulin dependent diabetes Condition on Discharge: Good Goals: slowly increase activity gradually wean oxygen, suspect it will take a few weeks Activity: Per Instructions section Lifting: None Bathing: No limitations Exercise/Sports: Gradually increase as tolerated Driving/Machine Use: 1 week after discharge Weightbearing: Full weightbearing Non-emergency contact: Primary Care Provider Call non-emergency contact if: you have any medication questions, your symptoms worsen and you have a fever Follow-up/Referrals: Enirque Bradford MD [Physician] - (4-6 weeks, new patient referral) Ferdinand Kirkpatrick MD [Primary Care Provider] - (one week) Diet: Carb Count or DM1 Addtl Attending Provider Instructions: Medications: - DEXAMETHASONE: 4mg daily for 3 days then 2mg daily for 10 days then stop - METOPROLOL: new medication for blood pressure and heart rate, 50mg twice a day, tolerating well here for 2 weeks - ALBUTEROL inhaler and ALBUTEROL/IPRATROPIUM nebulizer: use as needed for any increased dyspnea if your breathing is stable you do not need to use this - Mucinex: can take over the counter for 2 weeks, 1200mg twice a day - Insulin: resume insulin pump, do not start basal rate until tomorrow morning as you got Lantus 70 units this morning continue to use bolus for carb coverage and correction factor COVID 19 pneumonia, acute hypoxic respiratory failure severe case with prolonged recovery, treated with extended course of steroids main issue the past week has been titrated down oxygen requirements currently stable on 2L at rest and 6L on exertion you do desaturate quickly but you also recover quickly, please limit activity, listen to your body, don't overdue it suspect you will be on oxygen for several weeks as your lungs recover certainly possible that you have some residual damage from sarcoidosis 25 years ago I have place a referral for pulmonology visit in a few weeks to establish care with them will set up home nebulizer, home visits with [facility] for oxygen and supplies most recently, chest x-ray on 03/27 shows improvement in aeration of the lungs, less infiltrates D dimer (marker for clots) is normal today, procalcitonin (marker of bacterial activity) is normal today complete blood counts, renal function, electrolytes and liver function is normal today vitals have been normal, no fever, only pressing issue has been hypoxia which I feel you can manage at home Pending Studies at Discharge: No Stand-Alone Forms: My [facility] Spoqa, Work/School Release (Inpt), Smoking Cessation Medications and DC Order Prescriptions: New albuterol sulfate [Ventolin HFA] 90 mcg/actuation Hfa Aerosol Inhaler 1 puff inhalation Q4R PRN (Reason: shortness of breath or wheezing) 30 Days Qty: 8.5 RF: 1 metoprolol tartrate 50 mg Tablet 50 mg PO BID 30 Days Qty: 60 RF: 3 dexamethasone 4 mg Tablet 4 mg PO QAM 8 Days Qty: 8 RF: 0 guaifenesin [Mucinex] 600 mg Tablet Extended Release 12hr 1,200 mg PO Q12 14 Days Qty: 56 RF: 0 ipratropium-albuterol 0.5 mg-3 mg(2.5 mg base)/3 mL Solution For Nebulization 3 ml NEB BIDR PRN (Reason: shortness of breath or wheezing) 14 Days Qty: 90 RF: 2 Continued multivitamin Tablet 1 tab PO QAM RF: 0 promethazine-codeine 6.25-10 mg/5 mL syrup 10 ml PO HS PRN (Reason: Cough) RF: 0 esomeprazole magnesium 40 mg capsule,delayed release(DR/EC) 40 mg PO QAM RF: 0 insulin lispro [Humalog U-100 Insulin] 100 unit/mL solution 0 unit subcut UD RF: 0 lisinopril 40 mg tablet 40 mg PO DAILY RF: 0 metformin 500 mg tablet extended release 24 hr 1,000 mg PO BID RF: 0 ipratropium bromide 0.03 % spray,non-aerosol 0 spray INTRANASAL UD RF: 0 rosuvastatin 20 mg tablet 20 mg PO DAILY RF: 0 budesonide-formoterol [Symbicort] 80-4.5 mcg/actuation HFA aerosol inhaler 0 inh INHALATION DAILY RF: 0 aspirin 81 mg Tablet,Delayed Release (Dr/Ec) 81 mg PO DAILY RF: 0 Discontinued losartan 100 mg tablet 100 mg PO DAILY RF: 0 Discharge Orders: Discharge Order (Routine); Ordered 03/28/20 Ordered By: Jerome Valenzuela Admission Data Admit Date/Time: 03/04/20 16:25 Attending Provider: Jerome Valenzuela Admit Provider: Te Sharif Primary Care Provider: Ferdinand Kirkpatrick Other Providers: Te Sharif ; [facility] Other Interventions: Discharge Summary Assessment (RN) Last Done: 03/28/20 15:56 Coding Level of Care Code D/C Day Management >30 mins Diagnoses Acute respiratory failure with hypoxia J96.01 Pneumonia due to COVID-19 virus U07.1; J12.89 Type 2 diabetes mellitus E11.9 Hyponatremia E87.1 Morbid obesity E66.01 Rhabdomyolysis due to COVID-19 U07.1; M62.82 Hyperlipidemia E78.5 Essential (primary) hypertension I10 Sarcoidosis D86.9 DVT prophylaxis Z29.9
== END 2020-03-28 16:40 | disposition home health service (06) | DRG 177 ==
LOC: ED 12:29 → SUATTDRO 16:25 → 2S 16:25 → 3E 03-15 11:49 → 3W 03-23 17:44
DX: I10 Essential (primary) hypertension; J96.01 Acute respiratory failure with hypoxia; J12.89 Other viral pneumonia; Z79.82 Long term (current) use of aspirin; E66.01 Morbid (severe) obesity due to excess calories; M62.82 Rhabdomyolysis; U07.1 COVID-19; Z68.42 Body mass index [BMI] 45.0-49.9, adult; E78.5 Hyperlipidemia, unspecified; Z96.41 Presence of insulin pump (external) (internal); E11.649 Type 2 diabetes mellitus with hypoglycemia without coma; Z88.2 Allergy status to sulfonamides; D86.9 Sarcoidosis, unspecified; Z79.84 Long term (current) use of oral hypoglycemic drugs; J15.9 Unspecified bacterial pneumonia; E87.1 Hypo-osmolality and hyponatremia

== ENCOUNTER 2023-06-24 12:18 | Inpatient (IN) ==
[2023-06-24] MEDS: SODIUM CHLORIDE 0.9% 1,000 ML IV ONE ×2 (12:54→13:59)
[2023-06-24] MEDS: cefTRIAXone SODIUM 2,000 MG/50 ML BAG IV STA (12:55)
--- NOTE | 2023-06-24 13:36 | Emergency Department Note ---
Impression & Plan Hypoxic respiratory failure, Pulmonary edema, Shortness of breath ED Provider Note NAME: THALIA GARVIN AGE: 57 SEX: M : 1965 ARRIVES VIA: Walk-In INFORMANT: Patient ED PROVIDER(S): Mukund Fan DO CHIEF COMPLAINT: shortness of breath HPI: Patient is a 57-year-old male with a PMH of morbidly obesity, obstructive sleep apnea, long COVID and diabetes as well as hypertension and hyperlipidemia who presents the ER for shortness of breath. Symptoms started over a week ago with cough, congestion, have been getting worse. Was diagnosed with influenza. He admits to chest pain but only with coughing. He does admit to significant shortness of breath. After coughing fits he does vomit sometimes. Denies any dysuria, urgency, or frequency. No fevers. No other exacerbating or remitting factors. ADDITIONAL HISTORY OBTAINED: Per HPI Chronic Medical/Social Conditions Affecting Care: Per HPI PAST MEDICAL HISTORY:See Below PAST SURGICAL HISTORY:See Below FAMILY HISTORY:See Below SOCIAL HISTORY:See Below HOME MEDICATIONS:See Below ALLERGIES:See Below VITALS:See Below PHYSICAL EXAMINATION: GENERAL: Sitting up in bed, alert, well appearing, well nourished, no distress, non-toxic EYE EXAM: normal conjunctiva. PERRL and EOM's grossly intact. OROPHARYNX: mucous membranes are moist NECK: supple, no nuchal rigidity, no adenopathy, non-tender LUNGS: Diminished bilaterally. Normal chest wall mechanics HEART: no murmurs, S1 normal and S2 normal ABDOMEN: abdomen soft, non-tender, normo-active bowel sounds, no masses, no rebound or guarding. UPPER EXTREMITIES: upper extremities are grossly normal. LOWER EXTREMITIES: No pitting edema. NEURO EXAM: Normal sensorium, cranial nerves II-XII grossly intact, normal speech, no gross weakness of arms, no gross weakness of legs. MEDICAL DECISION MAKING: Patient is a 57-year-old male with a past medical history of morbid obesity and long COVID as well as diabetes, hypertension and hyperlipidemia that presents the ER for shortness of breath. IV was established blood work was obtained. Labs show leukocytosis of 13,000. No significant anemia. INR unremarkable. BMP with mild hyponatremia 132. LFTs bilirubin was unremarkable. Troponin was slightly up at 40. Pro-Tanner 1.8. Viral panel was again positive for influenza. Chest x-ray initially would not transmit patient was given IV fluids. Part of the chest x-ray was cut off from the midline down and unable to visualize. This was eventually corrected. Chest x-ray does suggest pulmonary edema. Following this fluids were stopped and he was given Lasix. He was placed on high flow initially upon arrival. He is improved significantly. He was discussed with the hospitalist will be admitted for further workup. Consults/Care Managements Discussions: Per MDM Triage Nursing notes reviewed. Limited review of prior medical records performed Vital Signs: reviewed and remarkable for tachycardia, hypoxic Differential diagnosis: Differential diagnoses includes but is not limited to pneumonia, bronchitis, COPD/Asthma exacerbation, pneumothorax, pulmonary embolism, congestive heart failure, acute coronary syndrome ER treatment provided: See below Diagnostics interpreted by me include EKG and cardiac monitoring as listed below: -Cardiac Monitoring: An order was placed for continuous cardiac monitoring. The monitor shows a rate of 120 with sinus rhythm. -ECG: Sinus rhythm rate of 131 Normal axis No PVCs QTc [address] wave changes -Laboratory studies:Interpreted by me as stated above in MDM and shown below. Imaging studies: Xrays: As interpreted by me:none CTs show: none Procedures:none Critical Care: I have personally spent 45 minutes of critical care time in the direct management of this patient. This includes bedside care, interpretation of diagnostic studies, and testing, discussion with consultants, patient, and family members, and other required patient management activities. This 45 minutes is in excess of all separately billable procedures. Past Med/Surg History Medical History Severe obstructive sleep apnea Dyspnea Abnormal CT scan, chest Daytime sleepiness Snoring Oxygen dependent Rhabdomyolysis due to COVID-19 Hyponatremia Pneumonia due to COVID-19 virus Hyperlipidemia Essential (primary) hypertension Type 2 diabetes mellitus Sarcoidosis Diagnosed ; currently in remission Surgical History No pertinent past surgical history Family History Father Congestive heart failure Mother Bowel obstruction Other Cancer Depression Social History Smoking Status: Never smoker Hx Alcohol Use: No Hx Substance Use: No Preferred Language: Mongolian Communication Ability: Effective [place] Cutter Required: No Beliefs That Will Affect Care: None marital status: Current Living Situation: Spouse current occupational status: employed 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 How many Children do You have: 0 Feels Safe at Home: Yes Assistive Devices: Glasses and Oxygen - Continuous Allergies Allergies Allergy/AdvReac Type Severity Reaction Status Date / Time naproxen Allergy Intermediate EDEMA Verified 06/24/23 14:58 Sulfa (Sulfonamide AdvReac Severe "VIOLENTLY Verified 06/24/23 14:58 Antibiotics) ILL" Home Meds Home Medications Medication Instructions Recorded Confirmed aspirin 81 mg tablet,delayed 81 mg PO DAILY 03/04/20 06/24/23 release esomeprazole magnesium 40 mg 40 mg PO QAM 03/04/20 06/24/23 capsule,delayed release insulin lispro 100 unit/mL 0 unit continuous subcutaneous 03/04/20 06/24/23 subcutaneous solution (Humalog infusion CONTINOUS U-100 Insulin) metformin 500 mg tablet,extended 1,000 mg PO BID 03/04/20 06/24/23 release 24 hr multivitamin 1 tab PO QAM 03/04/20 06/24/23 rosuvastatin 20 mg tablet 20 mg PO DAILY 03/04/20 06/24/23 olmesartan 40 mg tablet 40 mg PO DAILY 01/29/22 06/24/23 Results & Data (ED) Vital Signs Vital Signs - 24 hr 06/24/23 12:24 06/24/23 12:24 06/24/23 12:29 Pulse Rate 131 H Pulse Rate [Apical] Pulse Rate [Left Finger] Respiratory Rate 26 H Respiratory Effort / Characteristics Spontaneous Labored Spontaneous Labored Respiratory Depth Deep Deep Blood Pressure 93/57 L Blood Pressure [Left Arm] Blood Pressure Mean 69 Blood Pressure Mean [Left Arm] Pulse Oximetry 88 L 92 Oxygen Delivery Method Room Air Nasal Cannula Oxygen Flow Rate 2 Fraction of Inspired Oxygen Sepsis Recent Fever Within 48 Hours Yes Sepsis New/Unexplained Change in Mental Status No Sepsis Action Taken by Nursing Physician Notified Oxygen Flow Rate - Titration Pulse Oximetry Post Tiitration 06/24/23 12:30 06/24/23 13:06 06/24/23 14:30 Pulse Rate Pulse Rate [Apical] 127 H Pulse Rate [Left Finger] 124 H Respiratory Rate 20 26 H Respiratory Effort / Characteristics Spontaneous SOB on Exertion Spontaneous Respiratory Depth Blood Pressure Blood Pressure [Left Arm] Blood Pressure Mean Blood Pressure Mean [Left Arm] Pulse Oximetry 88 L 99 96 Oxygen Delivery Method Room Air Nasal Cannula High Flow Nasal Cannula High Flow Nasal Cannula Oxygen Flow Rate 0 25 25 Fraction of Inspired Oxygen 50 50 Sepsis Recent Fever Within 48 Hours Sepsis New/Unexplained Change in Mental Status Sepsis Action Taken by Nursing Oxygen Flow Rate - Titration 2 Pulse Oximetry Post Tiitration 93 06/24/23 15:10 Pulse Rate Pulse Rate [Apical] 126 H Pulse Rate [Left Finger] Respiratory Rate 30 H Respiratory Effort / Characteristics Non-Labored Spontaneous Respiratory Depth Normal Blood Pressure Blood Pressure [Left Arm] 117/69 Blood Pressure Mean Blood Pressure Mean [Left Arm] 85 Pulse Oximetry 98 Oxygen Delivery Method High Flow Nasal Cannula Oxygen Flow Rate 25 Fraction of Inspired Oxygen Sepsis Recent Fever Within 48 Hours Sepsis New/Unexplained Change in Mental Status Sepsis Action Taken by Nursing Oxygen Flow Rate - Titration Pulse Oximetry Post Tiitration Laboratory Data 06/24/23 12:38 06/24/23 12:38 Lab Results 06/24/23 06/24/23 06/24/23 Range/Units 12:38 12:57 12:59 WBC 13.53 H (4.8-10.8) K/ul RBC 5.48 (4.70-6.10) M/uL Hgb 16.2 (14.0-18.0) g/dl Hct 47.3 (42.0-52.0) % MCV 86.3 (80.0-100.0) fL MCH 29.6 (25.0-34.0) pg MCHC 34.2 (32.0-36.0) g/dL RDW Std Deviation 40.5 (36.4-46.3) fL RDW Coeff of Julian 12.9 (11.5-14.5) % Plt Count 237 (130-400) K/uL MPV 9.5 (9.4-12.4) fL Immature Gran % (Auto) 0.7 % Neut % (Auto) 88.2 % Lymph % (Auto) 4.2 % [place] % (Auto) 6.5 % Eos % (Auto) 0.0 % Baso % (Auto) 0.4 % Neut # (Auto) 11.93 H (1.40-6.50) K/uL Lymph # (Auto) 0.57 L (1.20-3.40) K/uL [place] # (Auto) 0.88 H (0.11-0.59) K/uL Eos # (Auto) 0.00 (0.00-0.50) K/uL Baso # (Auto) 0.05 (0.00-0.20) K/uL Immature Gran # (Auto) 0.10 (0.01-0.20) K/uL Toxic Granulation 1+ Dohle Bodies 1+ Echinocytes 1+ PT 12.0 (9.0-12.0) Seconds INR 1.1 (0.9-1.1) APTT 33 H (21-31) Seconds PTT Ratio 1.2 Sodium 132 L (136-145) mmol/L Potassium 4.2 (3.5-5.1) mmol/L Chloride 94 L (98-107) mmol/L Carbon Dioxide 24 (21-32) mmol/L Anion Gap 14 H (3-11) BUN 20 (6-23) mg/dl Creatinine 1.21 (0.6-1.4) mg/dl Est Cr Clr Drug Dosing 91.8 ml/min Est GFR ( Amer) 75.5 ml/min Est GFR (Non-Af Amer) 65.1 ml/min BUN/Creatinine Ratio 16.5 (10-20) Glucose 201 H (70-99(Fasting)) mg/dl Lactate 2.8 H* (0.4-2.0) mmol/L Calcium 10.3 (8.6-10.3) mg/dl Total Bilirubin 1.5 H (0.2-1.0) mg/dl AST 32 (13-39) U/L ALT 31 (7-52) U/L Alkaline Phosphatase 85 (34-104) U/L Troponin I High Sens 40.2 H (0-20) pg/ml Total Protein 8.8 H (6.0-8.3) gm/dl Albumin 4.7 (3.4-5.0) gm/dl Globulin 4.1 H (2.5-4.0) gm/dl Albumin/Globulin Ratio 1.1 (0.9-2) Procalcitonin 1.80 H (0-0.5) ng/ml Adenovirus (PCR) Not Detected (NotDetected) B. pertussis DNA (PCR) Not Detected (NotDetected) B.parapertussis DNA PCR Not Detected (NotDetected) C. pneumoniae DNA (PCR) Not Detected (NotDetected) Coronavirus OC43 (PCR) Not Detected (NotDetected) Coronavirus HKU1 (PCR) Not Detected (NotDetected) Coronavirus 229E (PCR) Not Detected (NotDetected) SARS-CoV-2 (PCR) Not Detected (NotDetected) Coronavirus NL63 (PCR) Not Detected (NotDetected) Human Metapneumovir PCR Not Detected (NotDetected) Influenza A (H3) PCR DETECTED A (NotDetected) Influenza Type B (PCR) Not Detected (NotDetected) M. pneumoniae (PCR) Not Detected (NotDetected) Parainfluenza 1 (PCR) Not Detected (NotDetected) Parainfluenza 2 (PCR) Not Detected (NotDetected) Parainfluenza 3 (PCR) Not Detected (NotDetected) Parainfluenza 4 (PCR) Not Detected (NotDetected) RSV (PCR) Not Detected (NotDetected) Entero/Rhino (PCR) Not Detected (NotDetected) 06/24/23 Range/Units 14:33 WBC (4.8-10.8) K/ul RBC (4.70-6.10) M/uL Hgb (14.0-18.0) g/dl Hct (42.0-52.0) % MCV (80.0-100.0) fL MCH (25.0-34.0) pg MCHC (32.0-36.0) g/dL RDW Std Deviation (36.4-46.3) fL RDW Coeff of Julian (11.5-14.5) % Plt Count (130-400) K/uL MPV (9.4-12.4) fL Immature Gran % (Auto) % Neut % (Auto) % Lymph % (Auto) % [place] % (Auto) % Eos % (Auto) % Baso % (Auto) % Neut # (Auto) (1.40-6.50) K/uL Lymph # (Auto) (1.20-3.40) K/uL [place] # (Auto) (0.11-0.59) K/uL Eos # (Auto) (0.00-0.50) K/uL Baso # (Auto) (0.00-0.20) K/uL Immature Gran # (Auto) (0.01-0.20) K/uL Toxic Granulation Dohle Bodies Echinocytes PT (9.0-12.0) Seconds INR (0.9-1.1) APTT (21-31) Seconds PTT Ratio Sodium (136-145) mmol/L Potassium (3.5-5.1) mmol/L Chloride (98-107) mmol/L Carbon Dioxide (21-32) mmol/L Anion Gap (3-11) BUN (6-23) mg/dl Creatinine (0.6-1.4) mg/dl Est Cr Clr Drug Dosing ml/min Est GFR ( Amer) ml/min Est GFR (Non-Af Amer) ml/min BUN/Creatinine Ratio (10-20) Glucose (70-99(Fasting)) mg/dl Lactate (0.4-2.0) mmol/L Calcium (8.6-10.3) mg/dl Total Bilirubin (0.2-1.0) mg/dl AST (13-39) U/L ALT (7-52) U/L Alkaline Phosphatase (34-104) U/L Troponin I High Sens 30.7 H (0-20) pg/ml Total Protein (6.0-8.3) gm/dl Albumin (3.4-5.0) gm/dl Globulin (2.5-4.0) gm/dl Albumin/Globulin Ratio (0.9-2) Procalcitonin (0-0.5) ng/ml Adenovirus (PCR) (NotDetected) B. pertussis DNA (PCR) (NotDetected) B.parapertussis DNA PCR (NotDetected) C. pneumoniae DNA (PCR) (NotDetected) Coronavirus OC43 (PCR) (NotDetected) Coronavirus HKU1 (PCR) (NotDetected) Coronavirus 229E (PCR) (NotDetected) SARS-CoV-2 (PCR) (NotDetected) Coronavirus NL63 (PCR) (NotDetected) Human Metapneumovir PCR (NotDetected) Influenza A (H3) PCR (NotDetected) Influenza Type B (PCR) (NotDetected) M. pneumoniae (PCR) (NotDetected) Parainfluenza 1 (PCR) (NotDetected) Parainfluenza 2 (PCR) (NotDetected) Parainfluenza 3 (PCR) (NotDetected) Parainfluenza 4 (PCR) (NotDetected) RSV (PCR) (NotDetected) Entero/Rhino (PCR) (NotDetected) Administered Medications Discontinued Medications Furosemide (Furosemide 40 Mg/4 Ml Vial) 40 mg IV NOW STA Stop: 06/24/23 14:25 Last Admin: 06/24/23 15:12 Dose: Not Given Documented By: Sodium Chloride (Nss) 1,000 mls @ 999 mls/hr IV .Q1H1M ONE Stop: 06/24/23 13:41 Last Infusion: 06/24/23 13:55 Dose: Infused Documented By: Admin: 06/24/23 12:54 Dose: 999 mls/hr Documented By: ELINA Ceftriaxone Sodium (Rocephin) 2,000 mg in 50 mls @ 100 mls/hr IV NOW STA Stop: 06/24/23 13:10 Last Infusion: 06/24/23 13:25 Dose: Infused Documented By: Admin: 06/24/23 12:55 Dose: 100 mls/hr Documented By: ELINA Sodium Chloride (Nss) 1,000 mls @ 999 mls/hr IV .Q1H1M ONE Stop: 06/24/23 14:33 Last Admin: 06/24/23 13:59 Dose: 999 mls/hr Documented By: ELINA Imaging Data Radiologist's Impression: Chest X-Ray 06/24/23 12:29 XR chest 1V portable HISTORY: Shortness of breath. Chest pain, nonspecific COMPARISON: Chest 06/17/2023. FINDINGS: No pneumothorax. No pleural fusions. There are low lung volumes. The heart is mildly enlarged. An aortic valve stent again noted. There is progressive interstitial and vascular thickening with patchy airspace opacities within the right midlung zone and left lung base. This favors pulmonary edema. A multifocal pneumonia could also have a similar appearance. No acute fractures identified. IMPRESSION: There is progressive interstitial and vascular thickening with patchy airspace opacities within the right midlung zone and left lung base. This favors pulmonary edema. A multifocal pneumonia could also have a similar appearance. ACT 112: Negative or not required by law. Electronically signed by: Jeison Restrepo M.D. 06/24/2023 2:31 PM Discharge Plan Visit Data Chief Complaint: Illness Stated Complaint: DEHYDRATION, COUGH, CHEST PAIN, FATIGUE ED Provider: Mukund Fan Discharge Problem: Hypoxic respiratory failure, Pulmonary edema, Shortness of breath Patient Disposition: Admitted As Inpatient Discharge Instructions Interventions: ED Discharge Assessment Last Done: 06/24/23 15:40 Forms Stand Alone Forms: My [facility] [place] [employer] Prescriptions Prescriptions: No Action olmesartan 40 mg tablet 40 mg PO DAILY multivitamin Tablet 1 tab PO QAM esomeprazole magnesium 40 mg capsule,delayed release(DR/EC) 40 mg PO QAM insulin lispro [Humalog U-100 Insulin] 100 unit/mL solution 0 unit continuous subcutaneous infusion CONTINOUS metformin 500 mg tablet extended release 24 hr 1,000 mg PO BID rosuvastatin 20 mg tablet 20 mg PO DAILY aspirin 81 mg Tablet,Delayed Release (Dr/Ec) 81 mg PO DAILY Referrals Referrals: Ferdinand Kirkpatrick MD [Primary Care Provider] - Discharge Problem: Hypoxic respiratory failure Qualifiers: Chronicity: acute Qualified Code(s): J96.01 - Acute respiratory failure with hypoxia Pulmonary edema Qualifiers: Chronicity: acute Qualified Code(s): J81.0 - Acute pulmonary edema
[2023-06-24 13:37] LABS: Albumin Globulin Ratio 1.1 (0.9-2); Albumin Level 4.7 gm/dl (3.4-5.0); BUN Creatinine Ratio 16.5 (10-20); Bilirubin,Total 1.5 mg/dl (0.2-1.0); Calcium 10.3 mg/dl (8.6-10.3); Creatinine Clr Calc Pharmacy 91.8 ml/min; Est GFR (African American) 75.5 ml/min; Est GFR (Non-African American) 65.1 ml/min; Globulin 4.1 gm/dl (2.5-4.0); Potassium 4.2 mmol/L (3.5-5.1); Total Protein 8.8 gm/dl (6.0-8.3)
[2023-06-24 13:41] LABS: Troponin I High Sensitivity 40.2 pg/ml (0-20)
[2023-06-24 13:51] LABS: Basophils # (auto) 0.05 K/uL (0.00-0.20); Basophils % (auto) 0.4 %; Dohle Bodies 1+; Echinocytes 1+; Hematocrit (blood only) 47.3 % (42.0-52.0); Hemoglobin 16.2 g/dl (14.0-18.0); Immature Granulocytes % (auto) 0.7 %; Lymphocytes # (auto) 0.57 K/uL (1.20-3.40); Lymphocytes % (auto) 4.2 %; Mean Corpuscular Hemoglobin 29.6 pg (25.0-34.0); Mean Corpuscular Hgb Conc 34.2 g/dL (32.0-36.0); Mean Corpuscular Volume 86.3 fL (80.0-100.0); Mean Platelet Volume 9.5 fL (9.4-12.4); Monocytes # (auto) 0.88 K/uL (0.11-0.59); Monocytes % (auto) 6.5 %; Neutrophils # (auto) 11.93 K/uL (1.40-6.50); Neutrophils % (auto) 88.2 %; Platelet Count 237 K/uL (130-400); RDW Coefficient of Variation 12.9 % (11.5-14.5); RDW Standard Deviation 40.5 fL (36.4-46.3); Red Blood Count 5.48 M/uL (4.70-6.10); Toxic Granulation 1+; White Blood Count 13.53 K/ul (4.8-10.8)
[2023-06-24 13:54] LABS: INR 1.1 (0.9-1.1); Partial Thromboplastin Ratio 1.2; Partial Thromboplastin Time 33 Seconds (21-31)
[2023-06-24 14:13] LABS: Adenovirus PCR Not Detected (NotDetected); Bordetella parapertussis PCR Not Detected (NotDetected); Bordetella pertussis PCR Not Detected (NotDetected); Chlamydia pneumoniae PCR Not Detected (NotDetected); Coronavirus 229E PCR Not Detected (NotDetected); Coronavirus CoV-2 (COVID19)PCR Not Detected (NotDetected); Coronavirus HKU1 PCR Not Detected (NotDetected); Coronavirus NL63 PCR Not Detected (NotDetected); Coronavirus OC43PCR Not Detected (NotDetected); Human Metapneumovirus PCR Not Detected (NotDetected); Influenza A (H3) PCR DETECTED (NotDetected); Influenza B PCR Not Detected (NotDetected); Mycoplasma pneumoniae PCR Not Detected (NotDetected); Parainfluenza Virus 1 PCR Not Detected (NotDetected); Parainfluenza Virus 2 PCR Not Detected (NotDetected); Parainfluenza Virus 3 PCR Not Detected (NotDetected); Parainfluenza Virus 4 PCR Not Detected (NotDetected); Respiratory Syncytial VirusPCR Not Detected (NotDetected); Rhinovirus/Enterovirus PCR Not Detected (NotDetected)
--- NOTE | 2023-06-24 14:32 | XRay Report ---
XR chest 1V portable HISTORY: Shortness of breath. Chest pain, nonspecific COMPARISON: Chest 06/17/2023. FINDINGS: No pneumothorax. No pleural fusions. There are low lung volumes. The heart is mildly enlarg ed. An aortic valve stent again noted. There is progressive interstitial and vascular thickening with patchy airspace opacities within the right midlung zone and left lung base. This favors pulmonary ed amy. A multifocal pneumonia could also have a similar appearance. No acute fractures identified. IMPRESSION: There is progressive interstitial and vascular thickening with patchy airspace opacities within the r ight midlung zone and left lung base. This favors pulmonary edema. A multifocal pneumonia could also have a similar appearance. ACT 112: Negative or not required by law. Electronically signed by: Jeison Restrepo M.D. 06/24/2023 2:31 PM
[2023-06-24] MEDS: FUROSEMIDE 40 MG/4 ML VIAL IV STA (15:12)
[2023-06-24] MEDS ORDERED: VANCOMYCIN CONSULT ACTIVE PRN (15:18)
[2023-06-24] MEDS ORDERED: GLUCAGON FOR INJ 1 MG VIAL SQ PRN (15:21)
[2023-06-24] MEDS ORDERED: CARBOHYDRATES FOR HYPOGLYCEMIA PO PRN (15:21)
[2023-06-24] MEDS ORDERED: GLUCOSE 10 TAB/TUBE PO PRN (15:21)
[2023-06-24] MEDS ORDERED: GLUCOSE 40% GEL 15 GM TUBE PO PRN (15:21)
[2023-06-24] MEDS ORDERED: ALBUTEROL 0.083% NEBU SOLN 3 ML VIAL NEB PRN (15:26)
--- NOTE | 2023-06-24 15:42 | Billing Data ---
Date of Service June 24, 2023 Coding Level of Care Code 76254 CRITICAL CARE
--- NOTE | 2023-06-24 15:42 | History & Physical Report ---
Date of Service June 24, 2023 Assessment & Plan (1) Acute hypoxemic respiratory failure: Plan: Assessment: 1. Acute hypoxemic respiratory failure. Question multifactorial. Patient tested positive for influenza A earlier this week. Patient is tachycardic and hypoxemic. Very high risk for pulmonary embolism. Stat CTA has been ordered. Patient has purulent sputum at the bedside. Question superimposed multifocal bacterial pneumonia. He has significant hospital exposure. IV vancomycin and IV cefepime. Blood cultures. Sputum cultures. High flow oxygen for now. Stat ABGs. Nebulizers have been ordered. 2. Sinus tachycardia. Stat troponins been ordered. And again the patient is going for CTA. 3. Subacute influenza A positivity. With suspected superimposed pneumonia. 4. Concern for progressive respiratory failure with possible developing AR DS/noncardiogenic pulmonary edema versus cardiogenic pulmonary edema/CHF. Monitor carefully. Critical care has been consulted. I personally communicated with the critical care attending. 5. Morbid obesity. 6. Obstructive sleep apnea. He does wear CPAP at night he is uncertain of his settings. 7. Diabetes mellitus insulin-dependent. Sliding scales been ordered for now as well as twice daily Lantus. 8. Hypertension introduce home medications when appropriate the patient has relative hypotension. 9. Concern for developing septic shock. Monitor carefully add inotropes if the necessary. 10. Dyslipidemia. Continue home medications. 11. GERD continue home medications. 12. Lactic acidemia the patient's received 2 L of fluid in the ER we will recheck. 13. Full CODE STATUS as discussed above. Plan-as discussed above. Please refer to orders for further planning. I have personally spent 42 minutes of critical care time in the management and clinical coronation care of this patient today this critical care time was been spent independent of and addition to any other time or critical care time by any other practitioner on today's date. Condition critical prognosis guarded History of Present Illness Chief Complaint: Shortness of breath, influenza A positivity approximately 5 days ago Primary Care Provider: Ferdinand Kirkpatrick MD This is a 57-year-old male who was recently diagnosed with influenza A he has been experiencing worsening shortness of breath he came to the ER for further evaluation and treatment. On presentation to the ER the patient's vital signs were as follows as follows blood pressure 93/58 heart rate in the 120s, oxygen saturation initially 88% I cannot tell from the medical record how much oxygen if any he was on at that time. However the patient's shortness of breath progressed rapidly and he was progressed to a high flow oxygen nasal cannula. Laboratory studies demonstrated a lactic acidemia at 2.8, white blood cell count elevated over 13,000. EKG showed a sinus tachycardia with a rate in the 120s I do not appreciate any acute ST-T abnormalities. Troponin was not evaluated. Respiratory viral panel was positive again for influenza A. Chest x-ray shows bilateral pulmonary infiltrates question CHF question multifocal pneumonia question developing ARDS. Course in the ER the patient received 2 L of saline. And a gram of IV Rocephin. We are called admit the patient for further evaluation and treatment. This patient is in respiratory distress when I walked in the room his oxygen was off of him. We contacted nursing staff and got his oxygen back in place. We have a sked for manual blood pressures. His heart rates in the 120s to 130s. He is mentating. However he has severe conversational dyspnea. The patient is accompanied by his at the time my exam who provides much of the history. Allergies Allergy/AdvReac Type Severity Reaction Status Date / Time naproxen Allergy Intermediate EDEMA Verified 06/24/23 14:58 Sulfa (Sulfonamide AdvReac Severe "VIOLENTLY Verified 06/24/23 14:58 Antibiotics) ILL" Home Medications Medication Instructions Recorded Confirmed Type aspirin 81 mg tablet,delayed 81 mg PO DAILY 03/04/20 06/24/23 History release esomeprazole magnesium 40 mg 40 mg PO QAM 03/04/20 06/24/23 History capsule,delayed release insulin lispro 100 unit/mL 0 unit continuous subcutaneous 03/04/20 06/24/23 History subcutaneous solution (Humalog infusion CONTINOUS U-100 Insulin) metformin 500 mg tablet,extended 1,000 mg PO BID 03/04/20 06/24/23 History release 24 hr multivitamin 1 tab PO QAM 03/04/20 06/24/23 History rosuvastatin 20 mg tablet 20 mg PO DAILY 03/04/20 06/24/23 History olmesartan 40 mg tablet 40 mg PO DAILY 01/29/22 06/24/23 History Past Med/Surg History Medical History Severe obstructive sleep apnea Dyspnea Abnormal CT scan, chest Daytime sleepiness Snoring Oxygen dependent Rhabdomyolysis due to COVID-19 Hyponatremia Pneumonia due to COVID-19 virus Hyperlipidemia Essential (primary) hypertension Type 2 diabetes mellitus Sarcoidosis Diagnosed ; currently in remission Surgical History No pertinent past surgical history Family History Father Congestive heart failure Mother Bowel obstruction Other Cancer Depression Social History Smoking Status: Never smoker Hx Alcohol Use: No Hx Substance Use: No Preferred Language: Macedonian Communication Ability: Effective Environmental Web Crawler Required: No Beliefs That Will Affect Care: None marital status: Current Living Situation: Spouse current occupational status: employed 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 Physical Exam Physical Exam: In General: In general this is a 57-year-old male who is alert and oriented to person place and time he is in respiratory distress he is accompanied by his at the time my examination. He is using accessory muscles of respiration and is tachypneic has conversational dyspnea approximately 2-3 words at a time. 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 No scleral icterus no conjunctival injection external auditory canals are patent septum is in the midline nose is without discharge oral mucosa is pink and moist without lesion. NECK: Supple no rigidity no lymphadenopathy no thyromegaly no carotid bruits no JVD no masses. Greater than 20 inches in circumference by visual estimation consistent with a sleep apnea history HEART: Regular rhythm but significantly tachycardic in the 130s at the time of my exam. I do not appreciate any ectopy or rub. No murmur -however exam is limited due to the patient's body habitus. LUNGS: Lungs are globally diminished. I do not appreciate any cade adventitious sounds however given the patient's body habitus and large AP diameter exam is quite limited ABDOMEN: Morbidly obese soft nontender remaining abdominal exam is equivocal due to the patient's body habitus. EXTREMITIES: Intact, no peripheral cyanosis, clubbing or edema. Strength is 5 out of 5 in extremities x4, no pathological reflexes. The patient has changes of chronic venous stasis bilaterally NEUROLOGICAL: Cranial nerves II through XII are grossly intact with no focal deficit elicited upon examination. No tremor. Results & Data Results & Data Vital Signs (Past 12 Hours) Vital Signs Pulse Pulse Pulse Resp BP BP Pulse Ox 06/24/23 15:10 126 H 30 H 117/69 98 06/24/23 13:06 124 H 20 99 06/24/23 12:30 88 L 06/24/23 12:29 92 06/24/23 12:24 131 H 26 H 93/57 L 88 L O2 Del Method O2 Flow Rate FiO2 06/24/23 15:10 High Flow Nasal Cannula 25 06/24/23 13:06 High Flow Nasal Cannula 25 50 06/24/23 12:30 Room Air, Nasal Cannula 0 06/24/23 12:29 Nasal Cannula 2 06/24/23 12:24 Room Air Code Status & VTE Plan Code Status Full code-I personally discussed with patient. VTE Prophylaxis Plan VTE Prophylaxis will be ordered: Yes PG Care Time/CCT Total # of Minutes Spent Total Time Spent with Patient: Total time spent is greater than 50% in coordination of care (as documented) at patient's floor/unit and/or counseling patient: Coding Level of Care Code None Diagnoses Acute hypoxemic respiratory failure J96.01
[2023-06-24 15:55] LABS: Base Excess ABG -0.7 mEq/L (-9-1.8); HCO3 ABG 21 mmol/L (19-24); Oxygen Saturation ABG 95.8 % (90-95); PCO2 ABG 28 mmHg (35-46); PO2 ABG 73 mmHg (80-95); pH ABG 7.49 (7.35-7.45)
[2023-06-24] MEDS: OPTIRAY 350 500ml IV ONE (16:21)
--- NOTE | 2023-06-24 16:21 | Critical Care Consultation ---
Date of Consultation June 24, 2023 Assessment & Plan (1) Acute hypoxemic respiratory failure: Reason Critically Ill: Multilobar pneumonia with acute hypoxic respiratory failure, acute respiratory distress syndrome PLAN: Neuro: Resp: Acute hypoxic respiratory failure -Alkalotic ABG, I am concerned for impending respiratory failure -Aggressive pulmonary toilet -CT scan chest reviewed with multiple groundglass opacities consistent with multilobar pneumonia suspect viral in origin awaiting formal CT report Acute respiratory distress syndrome secondary to viral multilobar pneumonia: Influenza A -ABG obtained on nonrebreather at maximal flow rate, P to F ratio less than 100 CV: Elevated troponins -Suspect type II ischemia given significant tachycardia History hypertension: Continue home medications Fluids/Renal: High gap metabolic acidosis with respiratory alkalosis Lactic acid acidosis: Resolved with fluid administration Hyponatremia: Mild -Suspect mild dehydration given increased metabolic demands with influenza ID: Severe sepsis secondary to subacute influenza type a -Started on empiric vancomycin and cefepime in ED, may discontinue vancomycin if MRSA nasal swab negative -Initiate Tamiflu 75 mg twice daily given severe respiratory illness GI/Nutrition: Extreme morbid obesity BMI greater than 51 Dyslipidemia -Continue rosuvastatin Heme: Leukocytosis -Related to underlying sepsis DVT prophylaxis: 40 mg twice daily, approaching approximate 0.5 mg/kg based on total body weight Endocrine: ICU hyperglycemia protocol Insulin-dependent diabetes mellitus type 2 Vascular access: Peripheral IVs Code Status: Full code Disposition: ICU (2) Influenza: (3) Severe obstructive sleep apnea: (4) Obesity, morbid, BMI 50 or higher: (5) Type 2 diabetes mellitus: (6) Hyperlipidemia: (7) Essential (primary) hypertension: Supervising Physician Co-Signing Physician Notes I have personally spent 70 minutes of critical care time in the direct management of this patient. This is a life/limb threatening event. This includes time spent evaluating patient, direct bedside care, chart review, placing orders, interpretation of diagnostic studies, discussion with consultants, patient, and/or family members regarding treatment decisions, as well as other required patient management activities. This time is exclusive of all separately billable procedures, and teaching time and separate from and in addition to any other critical care service time. History of Present Illness Reason for Consultation: Impending respiratory failure History of Present Illness Patient is a 57-year-old male who presented for increasing weakness to the emergency department. In the emergency department he was found to be influenza A positive and have acute hypoxic respiratory failure. He was started on high flow nasal cannula with marginal improvement. He was seen by the hospitalist for admission and directed to the ICU for possible impending respiratory failure. Allergies Allergy/AdvReac Type Severity Reaction Status Date / Time naproxen Allergy Intermediate EDEMA Verified 06/24/23 14:58 Sulfa (Sulfonamide AdvReac Severe "VIOLENTLY Verified 06/24/23 14:58 Antibiotics) ILL" Home Medications Medication Instructions Recorded Confirmed Type aspirin 81 mg tablet,delayed 81 mg PO DAILY 03/04/20 06/24/23 History release esomeprazole magnesium 40 mg 40 mg PO QAM 03/04/20 06/24/23 History capsule,delayed release insulin lispro 100 unit/mL 0 unit continuous subcutaneous 03/04/20 06/24/23 History subcutaneous solution (Humalog infusion CONTINOUS U-100 Insulin) metformin 500 mg tablet,extended 1,000 mg PO BID 03/04/20 06/24/23 History release 24 hr multivitamin 1 tab PO QAM 03/04/20 06/24/23 History rosuvastatin 20 mg tablet 20 mg PO DAILY 03/04/20 06/24/23 History olmesartan 40 mg tablet 40 mg PO DAILY 01/29/22 06/24/23 History Patient History Medical History (Updated 06/25/23 @ 10:56 by Shawn Hall MD) Severe obstructive sleep apnea Dyspnea Abnormal CT scan, chest Daytime sleepiness Snoring Oxygen dependent Rhabdomyolysis due to COVID-19 Hyponatremia Pneumonia due to COVID-19 virus Hyperlipidemia Essential (primary) hypertension Type 2 diabetes mellitus Sarcoidosis Diagnosed ; currently in remission Surgical History No pertinent past surgical history Family History Father Congestive heart failure Mother Bowel obstruction Other Cancer Depression Social History Smoking Status: Never smoker Second Hand Exposure: No; Do You Dip or Chew Tobacco: No; Hx Alcohol Use: Yes Alcohol type: beer and wine Hx Substance Use: No Preferred Language: Arabic Communication Ability: Effective Feather Mixer Required: No Beliefs That Will Affect Care: None marital status: Current Living Situation: Spouse current occupational status: employed 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 nontoxic. Skin: Warm, dry, Head: Atraumatic Ears, nose, mouth and throat: airway patent Cardiovascular: Normal peripheral perfusion, tachycardia noted on bedside monitor Respiratory: Moderate respiratory distress, belly breathing and accessory muscle use, speaks in 2-4 word sentences. Gastrointestinal: Rotund, difficult exam Musculoskeletal: No deformity Results & Data Results & Data Vital Signs (Past 12 Hours) Vital Signs Pulse Pulse Pulse Resp BP BP Pulse Ox 06/24/23 15:10 126 H 30 H 117/69 98 06/24/23 14:30 127 H 26 H 96 06/24/23 13:06 124 H 20 99 06/24/23 12:30 88 L 06/24/23 12:29 92 06/24/23 12:24 131 H 26 H 93/57 L 88 L O2 Del Method O2 Flow Rate FiO2 06/24/23 15:10 High Flow Nasal Cannula 25 06/24/23 14:30 High Flow Nasal Cannula 25 50 06/24/23 13:06 High Flow Nasal Cannula 25 50 06/24/23 12:30 Room Air, Nasal Cannula 0 06/24/23 12:29 Nasal Cannula 2 06/24/23 12:24 Room Air Critical Care Results & Data Vital Signs (Past 12 Hours) Vital Signs Pulse Pulse Pulse Resp BP BP Pulse Ox 06/24/23 15:10 126 H 30 H 117/69 98 06/24/23 14:30 127 H 26 H 96 06/24/23 13:06 124 H 20 99 06/24/23 12:30 88 L 06/24/23 12:29 92 06/24/23 12:24 131 H 26 H 93/57 L 88 L O2 Del Method O2 Flow Rate FiO2 06/24/23 15:10 High Flow Nasal Cannula 25 06/24/23 14:30 High Flow Nasal Cannula 25 50 06/24/23 13:06 High Flow Nasal Cannula 25 50 06/24/23 12:30 Room Air, Nasal Cannula 0 06/24/23 12:29 Nasal Cannula 2 06/24/23 12:24 Room Air Lab & Micro Results (Past 24 Hours) RBC 4.23 M/uL (4.70-6.10) L 06/25/23 WBC 17.71 K/ul (4.8-10.8) H 06/25/23 Hgb 12.5 g/dl (14.0-18.0) L 06/25/23 Hct 38.5 % (42.0-52.0) L 06/25/23 MCV 88.9 fL (80.0-100.0) 06/25/23 MCH 30.0 pg (25.0-34.0) 06/25/23 MCHC 33.8 g/dL (32.0-36.0) 06/25/23 RDW Standard Deviation 42.2 fL (36.4-46.3) 06/25/23 RDW Coefficient of Variation 13.1 % (11.5-14.5) 06/25/23 Plt Count 199 K/uL (130-400) 06/25/23 MPV 9.9 fL (9.4-12.4) 06/25/23 Neutrophils (%) (Auto) 82.2 % 06/25/23 Lymphocytes (%) (Auto) 6.4 % 06/25/23 Monocytes # (Auto) 1.82 K/uL (0.11-0.59) H 06/25/23 Eosinophils # (Auto) 0.01 K/uL (0.00-0.50) 06/25/23 Immature Granulocyte % (Auto) 0.7 % 06/25/23 Neutrophils # (Auto) 14.58 K/uL (1.40-6.50) H 06/25/23 Lymphocytes # (Auto) 1.13 K/uL (1.20-3.40) L 06/25/23 Monocytes # (Auto) 1.82 K/uL (0.11-0.59) H 06/25/23 Eosinophils # (Auto) 0.01 K/uL (0.00-0.50) 06/25/23 Basophils # (Auto) 0.05 K/uL (0.00-0.20) 06/25/23 Immature Granulocyte # (Auto) 0.12 K/uL (0.01-0.20) 4 Echinocytes 1+ 06/25/23 Toxic Granulation 1+ 06/24/23 Dohle Bodies 1+ 06/25/23 Na 130 mmol/L (136-145) L 06/25/23 K 4.6 mmol/L (3.5-5.1) 06/25/23 Cl 98 mmol/L (98-107) 06/25/23 CO2 19 mmol/L (21-32) L 06/25/23 Anion Gap 13 (3-11) H 06/25/23 BUN 23 mg/dl (6-23) 06/25/23 Creatinine 1.05 mg/dl (0.6-1.4) 06/25/23 Estimated GFR ( Amer) 89.6 ml/min 06/25/23 Estimated GFR (Non-Af Amer) 77.3 ml/min 06/25/23 BUN/Creatinine Ratio 21.9 (10-20) H 06/25/23 Glu 283 mg/dl (70-99(Fasting)) H 06/25/23 Ca 8.5 mg/dl (8.6-10.3) L 06/25/23 Phosphorus Level 3.4 mg/dl (2.5-4.9) 06/25/23 Total Bilirubin 1.5 mg/dl (0.2-1.0) H 06/24/23 AST 32 U/L (13-39) 06/24/23 ALT 31 U/L (7-52) 06/24/23 Alkaline Phosphatase 85 U/L (34-104) 06/24/23 TP 8.8 gm/dl (6.0-8.3) H 06/24/23 Albumin 4.7 gm/dl (3.4-5.0) 06/24/23 Globulin 4.1 gm/dl (2.5-4.0) H 06/24/23 Albumin/Globulin Ratio 1.1 (0.9-2) 06/24/23 Mg 1.5 mg/dl (1.7-2.4) L 06/25/23 03:59 Calcium Level 8.5 mg/dl (8.6-10.3) L 06/25/23 03:59 Prothromb Time International Ratio 1.1 (0.9-1.1) 06/24/23 12:3 8 Arterial Blood pH 7.49 (7.35-7.45) H 06/24/23 15:37 Arterial Blood Partial Pressure CO2 28 mmHg (35-46) L 06/24/23 15:37 Arterial Blood Partial Pressure O2 73 mmHg (80-95) L 06/24/23 1 5:37 Arterial Blood HCO3 21 mmol/L (19-24) 06/24/23 15:37 Arterial Blood Base Excess -0.7 mEq/L (-9-1.8) 06/24/23 15:37 Arterial Blood Oxygen Saturation 95.8 % (90-95) H 06/24/23 15:3 7 Blood Gas Oxygen Given 25 06/24/23 15:37 Hany Test Pass 06/25/23 04:39 Diagnostic Findings (Past 24 Hours) Chest X-Ray 06/24/23 12:29 XR chest 1V portable HISTORY: Shortness of breath. Chest pain, nonspecific COMPARISON: Chest 06/17/2023. FINDINGS: No pneumothorax. No pleural fusions. There are low lung volumes. The heart is mildly enlarged. An aortic valve stent again noted. There is progressive interstitial and vascular thickening with patchy airspace opacities within the right midlung zone and left lung base. This favors pulmonary edema. A multifocal pneumonia could also have a similar appearance. No acute fractures identified. IMPRESSION: There is progressive interstitial and vascular thickening with patchy airspace opacities within the right midlung zone and left lung base. This favors pulmonary edema. A multifocal pneumonia could also have a similar appearance. ACT 112: Negative or not required by law. Electronically signed by: Jeison Restrepo M.D. 06/24/2023 2:31 PM I & O Totals 24 Hours 06/23/23 06/24/23 06/25/23 06:59 06:59 06:59 Intake Total 1050 / 1050 Balance 1050 / 1050 Cumulative 06/24/23 12:18 thru 06/24/23 13:55 Intake Total 1050 Balance 1050 RT Ventilator Mngmt (Last Documented) Ventilator Ordered Settings Respiratory Rate 30 06/24/23 15:10 Fraction of Inspired Oxygen 50 06/24/23 14:30 Ventilator - PT Measurements Respiratory Rate 30 Coding Level of Care Code 50851 CRITICAL CARE 1ST 30-74M Diagnoses Acute hypoxemic respiratory failure J96.01 Influenza J11.1 Severe obstructive sleep apnea G47.33 Obesity, morbid, BMI 50 or higher E66.01 Type 2 diabetes mellitus E11.9 Hyperlipidemia E78.5 Essential (primary) hypertension I10
[2023-06-24] MEDS ORDERED: ICU Protocol for HYPERglycemia SCH (16:30)
--- NOTE | 2023-06-24 16:36 | CT Scan Report ---
CT ANGIOGRAPHY OF THE CHEST, PULMONARY EMBOLUS PROTOCOL CLINICAL HISTORY: Shortness of breath. Evaluate for pulmonary embolus. COMPARISON STUDY: Chest CT March 06, 2021. Chest radiograph performed earlier today. TECHNIQUE: Following IV administration of 118 mL of Optiray, helical axial images of the chest were o btained utilizing the pulmonary embolus protocol. Maximal intensity projections and sagittal and cor onal reformats were viewed on an independent 3D workstation. IV contrast was administered without co mplication. Automated exposure control was utilized for the study. A dose lowering technique was ut ilized adhering to the principles of ALARA. CT DOSE: 893.09 mGy.cm FINDINGS: No pulmonary emboli are identified although the subsegmental pulmonary arteries are subopt imally assessed due to respiratory motion. Aortic valvular prosthesis is in place. There is no perica rdial effusion. No pneumothorax or pleural effusion is present. Multifocal alveolar opacities. The luz ngs are noted, including several foci of consolidation. No central obstructing mass is noted. There i s no cavitation. Underlying chronic interstitial thickening is noted. Multiple mildly enlarged medias tinal lymph nodes are noted. Index right paratracheal lymph node on image 186 of 223 measures 2.8 x 1 .9 cm. These nodes have increased in size since prior CT. There is hepatic steatosis. IMPRESSION: 1. No pulmonary emboli identified although subsegmental pulmonary arteries suboptimally assessed. 2. Moderate alveolar opacities throughout the lungs, including multifocal consolidation. The findings favor pneumonia. Follow-up chest CT in 3 months to ensure resolution is recommended. 3. Mildly enlarged mediastinal lymph nodes which are likely reactive. These can be assessed on follow -up CT to ensure resolution. ACT 112: Negative or not required by law. Electronically signed by: Jason Castro M.D. 06/24/2023 4:35 PM
[2023-06-24] MEDS: VANCOMYCIN HCL 2,750 MG in SODIUM CHLORIDE 0.9% 500 ML IV ONE (16:54)
[2023-06-24] MEDS: CEFEPIME 2,000 MG in SYRINGE 0 ML IV SCH (16:54)
[2023-06-24] MEDS: ACETAMINOPHEN 1,000 MG/100 ML VIAL IV STA (16:59)
[2023-06-24] MEDS: INSULIN ASPART PER UNIT CHARGE SC SCH ×2 (17:01→23:59)
[2023-06-24] MEDS: ENOXAPARIN INJ 40 MG/0.4 ML SYR SQ SCH (17:23)
[2023-06-24 17:44] LABS: Allen Test Pos (Pos)
[2023-06-24 18:00] LABS: Appearance Urine Clear (Clear); Bacteria Urine Automated Negative (Negative); Bilirubin Urine Negative (Negative); Blood Urine 1+ (Negative); Color Urine Dark Yellow; Glucose Urine UA Trace (Negative); Ketones Urine 2+ (Negative); Leukocyte Esterase Urine Negative (Negative); Nitrite Urine Negative (Negative); Protein Urine 2+ (Negative); RBC Urine Automated 0-4 /hpf (0-4); Specific Gravity Urine 1.029 (1.000-1.030); Urobilinogen Urine Negative (Negative); pH Urine 5.5 (4.5-7.5)
[2023-06-24] MEDS: ALBUT/IPRATROP 3MG/0.5MG NEB 3 ML VIAL NEB SCH (19:47)
[2023-06-24] MEDS: LANTUS PER UNIT CHARGE SQ SCH (19:59)
[2023-06-24] MEDS: OSELTAMIVIR PHOSPHATE 75 MG CAP PO SCH (20:00)
[2023-06-24] MEDS ORDERED: HEPARIN SOD 5,000 UNIT/0.5 ML VIAL SQ SCH (22:00)
[2023-06-24] MEDS: ACETAMINOPHEN 325 MG TAB PO PRN (22:22)
[2023-06-24] MEDS ORDERED: Nursing to Pharmacy Communication SCH (23:45)
[2023-06-25] MEDS: VANCOMYCIN HCL 1,500 MG in SODIUM CHLORIDE 0.9% 500 ML IV SCH (04:00)
[2023-06-25] MEDS: LANTUS PER UNIT CHARGE SQ ONE (04:00)
[2023-06-25 04:31] LABS: A calco-baum cmplx NotReported Not Detected (NotDetected); Bact fragilis Not Reported Not Detected (NotDetected); Blood Culture Id Panel See PCR Comment (NotDetected); C auris Not Reported Not Detected (NotDetected); Calbicans Not Reported Not Detected (NotDetected); Candida glabrata Not Reported Not Detected (NotDetected); Candida krusei Not Reported Not Detected (NotDetected); Cneoformans/gatti Not Reported Not Detected (NotDetected); Cparapsilosis Not Reported Not Detected (NotDetected); E cloacae compx Not Reported Not Detected (NotDetected); Efaecalis Not Reported Not Detected (NotDetected); Efaecium Not Reported Not Detected (NotDetected); Enterobacterales Not Reported Not Detected (NotDetected); Escherichia coli Not Reported Not Detected (NotDetected); H influenzae Not Reported Not Detected (NotDetected); K aerogenes Not Reported Not Detected (NotDetected); Koxytoca Not Reported Not Detected (NotDetected); Kpneumoniae grp Not Reported Not Detected (NotDetected); Lmonocyt Not Reported Not Detected (NotDetected); N meningitidis Not Reported Not Detected (NotDetected); P aeruginosa Not Reported Not Detected (NotDetected); Proteus spp Not Reported Not Detected (NotDetected); Salmonella spp Not Reported Not Detected (NotDetected); Smarcescens Not Reported Not Detected (NotDetected); Staph lugdunensis Not Reported Not Detected (NotDetected); Staph spp. Not Reported DETECTED (NotDetected); Staphaureus Not Reported DETECTED (NotDetected); Staphepi Not Reported Not Detected (NotDetected); Staphylococcus spp. DETECTED (NotDetected); Stenmaltophilia Not Reported Not Detected (NotDetected); Strep agal(GrpB) Not Reported Not Detected (NotDetected); Strep pneum Not Reported Not Detected (NotDetected); Strep pyog (GrpA) Not Reported Not Detected (NotDetected); Strep spp Not Reported Not Detected (NotDetected); mecAC+MREJ Resistant Gene MRSA Not Detected (NotDetected)
[2023-06-25 04:59] LABS: BUN Creatinine Ratio 21.9 (10-20); Calcium 8.5 mg/dl (8.6-10.3); Creatinine Clr Calc Pharmacy 107.8 ml/min; Est GFR (African American) 89.6 ml/min; Est GFR (Non-African American) 77.3 ml/min; Magnesium 1.5 mg/dl (1.7-2.4); Phosphorus 3.4 mg/dl (2.5-4.9); Potassium 4.6 mmol/L (3.5-5.1)
[2023-06-25] MEDS ORDERED: 0.2 MICRON FILTER SET 1 EACH IV STA (05:14)
[2023-06-25] MEDS ORDERED: STAT IV Infusion **Titration per Protocol STA (05:14)
[2023-06-25] MEDS ORDERED: AMIODARONE IV BOLUS & DRIP IV STA (05:14)
[2023-06-25 05:20] LABS: Basophils # (auto) 0.05 K/uL (0.00-0.20); Basophils % (auto) 0.3 %; Dohle Bodies 1+; Echinocytes 1+; Eosinophils # (auto) 0.01 K/uL (0.00-0.50); Eosinophils % (auto) 0.1 %; Hematocrit (blood only) 37.6 % (42.0-52.0); Hemoglobin 12.7 g/dl (14.0-18.0); Immature Granulocytes # (auto) 0.12 K/uL (0.01-0.20); Immature Granulocytes % (auto) 0.7 %; Lymphocytes # (auto) 1.13 K/uL (1.20-3.40); Lymphocytes % (auto) 6.4 %; Mean Corpuscular Hgb Conc 33.8 g/dL (32.0-36.0); Mean Corpuscular Volume 88.9 fL (80.0-100.0); Mean Platelet Volume 9.9 fL (9.4-12.4); Monocytes # (auto) 1.82 K/uL (0.11-0.59); Monocytes % (auto) 10.3 %; Neutrophils # (auto) 14.58 K/uL (1.40-6.50); Neutrophils % (auto) 82.2 %; Platelet Count 199 K/uL (130-400); RDW Coefficient of Variation 13.1 % (11.5-14.5); RDW Standard Deviation 42.2 fL (36.4-46.3); Red Blood Count 4.23 M/uL (4.70-6.10); White Blood Count 17.71 K/ul (4.8-10.8)
--- OUTSIDE RECORDS SUMMARY | 2023-06-25 05:23 | External Medical Summary | Continuity of Care Document ---
Author Name Unknown Organization [address] Address [address] [place] [address] [place] [id number] Care Team Providers Care Hearing Therapist Name Role Phone Ferdinand Kirkpatrick Primary Care Physician [phone] [id number] Date(s): 06/21/23 - 06/21/[address] [place] [id number] [facility], [address] [place] [address] [phone] Encounter Diagnosis Body mass index [BMI] 50.0-59.9, adult(Discharge Diagnosis) - 06/21/23 Influenza A(Discharge Diagnosis) - 06/21/23 Discharge Disposition: Home or Self Care Attending Physician: MD Caba Ravishankar E Allergies, Adverse Reactions, Alerts Substance Reaction Severity Status sulfa drugs rash Active naproxen sodium edema Active Assessment and Plan Extracted from: Title:Office Visit Note Author:DO Montaño Vinay Date:06/21/23 1.Influenza A acute uncomplicated -cont. tamiflu otherwise supportive care -can add oral antihistamine and Astepro to regimen; unable to tolerate nasal steroid due to glycemic control -f/u prn Immunizations Given and Recorded Vaccine Date Status Refusal Reason tetanus/diphtheria/pertuss, acel (Tdap) 11/25/18 G iven zoster vaccine, inactivated 1 04/28/18 Recorded zoster vaccine, inactivated 2 06/16/17 Recorded influenza virus vaccine, inactivated 12/31/17 Give n influenza virus vaccine, H1N1 3 03/04/09 Recorded 1Result Comment: 2021-03-13: Historical information-source unspecified 2Result Comment: 2021-03-13: Historical information-source unspecified 3Result Comment: 2021-03-13: Historical information-source unspecified Medications Accu-Chek FastClix Lancets Start: 04/20/20 10:12:00 EST, See Instructions, Disp# 540 lancet, Refills: 6, Test 6 times daily oninsulin pump. E11.9, Pharmacy: [facility] Start Date: 04/20/20 Status: Ordered Accu-Chek Guide Test Strips Start: 11/01/20 9:44:00 EDT, See Instructions, Disp# 600 each, Refills: 3, test BG 6 x daily, Pharmacy: [facility] Start Date: 11/01/20 Status: Ordered acetic acid-hydrocortisone 2%-1% otic solution Start: 05/29/22 15:54:00 EST, 3 drop, left ear, tid, Disp# 10 mL, Refills: 1, Pharmacy: [facility] #[id number] Start Date: 05/29/22 Status: Ordered Ambien 10 mg oral tablet Start: 05/02/20 10:45:00 EST, 1 tab, PO, qhs, Disp# 10 tab, PRN: as needed for sleep, Pharmacy: [facility] Start Date: 05/02/20 Status: Ordered aspirin 81 mg oral tablet Start: 04/18/10 16:04:16 EST, 1 tab, PO, qhs, Refills: 0, current medication from another provider Start Date: 04/18/10 Status: Ordered B-Complex 50 oral tablet Start: 11/01/18 15:15:00 EDT, 1 tab, PO, Daily Start Date: 11/01/18 Status: Ordered BD 0.5 mL Ultra-Fine II Short Insulin Syringe 31G x 5/16" Start: 02/17/19 12:31:52 EST, See Instructions, Disp# 1 box, Refills: 1, to use PRN for pump failure, Pharmacy: [facility] Start Date: 02/17/19 Status: Ordered BD UF II 31G SYN 0.5CCSHT Start: 01/06/22 12:51:00 EDT, BD UF II 31G SYN 0.5CCSHT, See Instructions, Disp# 90 unknown unit, Refills: 1, TO USE NEEDED FOR PUMP FAILURE, Pharmacy [facility] Start Date: 01/06/22 Status: Ordered BD UF II 31G SYN 0.5CCSHT Start: 08/07/19 14:56:15 EDT, See Instructions, Disp# 90, Refills: 1, TO USE NEEDED FOR PUMP FAILURE, Pharmacy: [facility], TO USE NEEDED FOR PUMP FAILURE Start Date: 08/07/19 Status: Ordered calcipotriene 0.005% topical cream Start: 11/30/18 12:51:00 EDT, 1 appl, topical, bid Start Date: 11/30/18 Status: Ordered Clarinex 5 mg oral tablet Start: 11/02/22 11:33:00 EDT, 1 tab, PO, Daily, Disp# 90 tab, Refills: 3, PRN: as needed for allergy symptoms, Pharmacy: [facility] Start Date: 11/02/22 Status: Ordered clindamycin 1% topical lotion Start: 12/04/22 13:36:00 EDT, 1 appl, topical, bid, Disp# 60 mL, Refills: 5, to buttocks and abdomen, Pharmacy: [facility] #[id number] Start Date: 12/04/22 Status: Ordered esomeprazole 40 mg oral delayed release capsule Start: 05/04/23 10:23:00 EST, 1 cap, PO, Daily, Disp# 90 cap, Refills: 3, [facility] Start Date: 05/04/23 Status: Ordered Gvoke HypoPen 1 mg/0.2 mL subcutaneous solution Start: 10/28/21 11:18:00 EDT, See Instructions, Disp# 2 each, Refills: 1, use PRN for severe hypoglycemia, [facility] Start Date: 10/28/21 Status: Ordered Hibiclens 4% topical soap Start: 09/03/22 15:52:00 EDT, 1 appl, topical, Daily, Disp# 240 mL, Pharmacy: [facility] #[id number] Start Date: 09/03/22 Status: Ordered HumaLOG Vial 100 units/mL injectable solution Start: 06/18/23 9:38:00 EDT, See Instructions, Disp# 250 mL, Refills: 3, INJECT 280 UNITS UNDER THESKIN DAILY VIA INSULIN PUMP (DOSE CHANGE), Pharmacy: [facility] Start Date: 06/18/23 Status: Ordered MetFORMIN (Eqv-Glucophage XR) 500 mg oral tablet, extended release Start: 06/18/23 9:39:00 EDT, 4 tab, PO, Daily, Disp# 360 tab, Refills: 3, [facility]acy[facility] Start Date: 06/18/23 Status: Ordered multivitamin Start: 02/07/15 18:09:00, 1 tab, PO, Daily Start Date: 02/07/15 Status: Ordered olmesartan 20 mg oral tablet Start: 09/16/22 12:09:00 EDT, See Instructions, Disp# 90 tab, Refills: 3, TAKE 1 TABLET DAILY, Pharmacy: [facility] Start Date: 09/16/22 Status: Ordered OXYGEN Start: 08/03/22 12:27:00 EDT, OXYGEN, 1/2 LITER AT hs ONLY Start Date: 08/03/22 Status: Ordered rosuvastatin 20 mg oral tablet Start: 05/04/23 10:23:00 EST, 1 tab, PO, qhs, Disp# 90 tab, Refills: 3, Pharmacy: [facility] Start Date: 05/04/23 Status: Ordered SYR BD SANDRA UFIN SHRT 0.5ML 10'S 31G5/16 Start: 10/30/22 8:43:00 EDT, SYR BD SANDRA UFIN SHRT 0.5ML 10'S 31G5/16, See Instructions, Disp# 90 each, Refills: 3, TO USE NEEDED FOR PUMP FAILURE, [facility] Start Date: 10/30/22 Status: Ordered Tamiflu Start: 06/21/23 13:24:00 EDT Start Date: 06/21/23 Status: Ordered Problem List Condition Confirmation Course Effective Dates Status H ealth Status Informant Aortic stenosis Confirmed Active Morbid obesity with BMI of 50.0-59.9, adult Confirmed Active Cataract, right eye Confirmed Active Trigger thumb of right hand Confirmed Active Trigger finger Confirmed Active Hypertension with heart disease Confirmed Active History of 2019 novel coronavirus disease (COVID-19) Confirmed Active Nocturnal hypoxia Confirmed Active Insulin pump in place Confirmed 10/04/02 Active Microalbuminuria Confirmed Active Nonobstructive atherosclerosis of coronary artery Confirmed Active NAVJOT (obstructive sleep apnea) Confirmed Active Cataract of left eye Confirmed Active Pre-op exam Confirmed Active Pulmonary sarcoidosis Confirmed Active Sarcoidosis Confirmed Active Severe calcific aortic valve stenosis Confirmed Active Type 1 DM with polyneuropathy 1, 2 Confirmed 1991 Active Type 1 diabetes mellitus with complication Confirmed Active 1evidently presented in DKA, but was approx. the same weight then as now. 2[place] [facility] Diagnosis Type Effective Dates Health Status Cl inical Service Informant Body mass index [BMI] 50.0-59.9, adult Discharge Diagnosis 06/21/23 Non-Specified Influenza A Discharge Diagnosis 06/21/23 Procedures Procedure Date Related Diagnosis Body Site Status Transcatheter aortic valve replacement 03/25/23 Completed Cardiac catheterization 01/08/23 C ompleted Echocardiogram 11/2022 Completed Extraction of permanent tooth [address] of abdomen and pelvis 1 11/19/20 Completed Chest X-ray 2 03/27/20 Completed Chest X-ray 3 03/17/[address] 4 03/04/20 Completed Chest X-ray 5 03/04/20 Completed Colonoscopy 6 02/25/15 Completed Venous doppler ultrasonography 7 01/02/15 Completed X-ray of right foot 8 02/14/14 Com pleted Hand left x2 tirgger fingers Completed 1IMPRESSION: 1. A 3 mm obstructing stone within the left ureteropelvic junction resulting in mild fullness within the left renal collecting system. 2. Bilateral nephrolithiasis. 3. No definite bowel wall thickening or obstruction. 4. Normal appendix. 5. Hepatic steatosis. 2Mild improvement of the extensive bilateral pulmonary opacities suggestive of ongoing pneumonia. 3Progressive bilateral airspace opacitites consistent with a worsening pneumonia. 41. No evidence for central pulmonary embolus with limitations as described above. 2. Extensive bilateral patchy groundglass airspace opacities. This is consistent with aviral pneumonia. 3. Mediastinal lymphadenopathy. This is likely reactive to the pneumonia. 5There is multifocal bilateral airspace consolidation, typical for an infectious/inflammatory pneumonitis. Clinical correlation will be required and radiographic follow-up to resolution is recommended. 6Four 4 to 6 mm polyps in the rectum and in the sigmoid colon. Resected and retrieved. Pathology: Sigmoid colon polyp: fragmented hyperplastic polyp. Rectum polyp: hyperplastic polyp 7Impression No evidence of DVT 8impression 1. Findings consistent with soft tissue edema about the interphalangeal jint of the great toe 2. This is associated with considerable deformity as described, although the bulk of this is considered to be perplexing 3. Additional deenerative and old poattraumatic changes combined with findings of chronic avascularnecrosis diatal aspect of the second metatasel Vital Signs Most recent to oldest [Reference Range]: 1 Height 173 cm (06/21/23 1:25 PM) Patient Weight 149.9 kg (06/21/23 1:25 PM) Body Mass Index 50.09 kg/m2 (06/21/23 1:25 PM) Temperature [36.5-37.9 DegC] 36.0 DegC *LOW* (06/21/23 1:25 PM) Heart Rate 93 bpm (06/21/23 1:25 PM) Respiratory Rate 18 br/min (06/21/23 1:25 PM) Blood Pressure 132/80mmHg (06/21/23 1:25 PM) Social History Social History Type Response Smoking Status Never smoked cigaret amberly Sex Male FCM Outpt Note * MD Rosales, Alfred Salmeron: MODIFY MD Caba Ravishankar E: MODIFY Event Display: FCM Outpt Note Authored Date: Chief Complaint follow up on flu- low grade fever at 0930, losing voice now History of Present Illness 57 yo male presents to clinic for ED f/u. Went to [place] ED on 06/16 for flu like symptoms. Symptoms started 1 week ago. Tested positive for influenza A. On tamiflu, will complete tomorrow. Also taking mucinex, tylenol/advil. 99.6F temp this morning. H/o long covid, following with pulmonology in [place]. Today started having some voice hoarseness with the sore throat. Trying to stay hydrated. Appetite slowly returning. Review of Systems As stated above in HPI and below: Constitutional: +chills, +fatigue HEENT: +congestion, +sore throat CV: denies chest pain Resp: +cough. denies shortness of breath GI: denies abdominal pain,nausea, vomiting, constipation, diarrhea : denies pain with urination, change in urinary frequency Physical Exam Vitals & Measurements T:36.0C HR:93(Monitored) RR:18 BP:132/80 SpO2:93% HT:173cm WT:149.900kg(Dosing) WT:149.9kg BMI:50.09 General:in no acute distress, pleasant HEENT: No scleral injection or discharge. Moist mucous membranes. Clear oropharynx without erythema/exudate.TMs clear bilaterally. Neck isnontender without lymphadenopathy. +clear nasal drainage Lungs:CTAB, no wheezes/rales/rhonchi Cardiovascular:RRR.No murmurs. Assessment/Plan 1.Influenza A acute uncomplicated -cont. tamiflu otherwise supportive care -can add oral antihistamine and Astepro to regimen; unable to tolerate nasal steroid due to glycemic control -f/u prn Attestation ATTENDING PHYSICIAN ATTESTATION: I reviewed and discussed the history and physical exam findings with the resident physician and agree with the above impression and plan. Dr. Alfred Caba MD Problem List/Past Medical History Ongoing Aortic stenosis Cataract of left eye Cataract, right eye History of 2019 novel coronavirus disease (COVID-19) Hypertension with heart disease Insulin pump in place Microalbuminuria Morbid obesity with BMI of 50.0-59.9, adult Nocturnal hypoxia Nonobstructive atherosclerosis of coronary artery NAVJOT (obstructive sleep apnea) Post-COVID syndrome Pre-op exam Pulmonary sarcoidosis Sarcoidosis Severe calcific aortic valve stenosis Trigger finger Trigger thumb of right hand Type 1 diabetes mellitus with complication Type 1 DM with polyneuropathy Historical Bronchitis Cough HTN (hypertension) S/P orthopedic surgery, follow-up exam Type 2 diabetes mellitus Weight disorder Procedure/Surgical History Transcatheter aortic valve replacement| Service Date: 03/25/2023ardiac catheterization| Service Date: 01/08/2023Echocardiogram| Service Date: 11/2022Extraction of permanent tooth| Service Date: T of abdomen and pelvis| Service Date: 11/19/2020hest X-ray| Service Date: 03/27/2020Chest X-ray| Service Date: 03/17/2020Chest X-ray| Service Date: 03/04/2020Chest CT| Service Date: 03/04/2020Colonoscopy| Service Date: 02/25/2015Venous doppler ultrasonography| Service Date: 01/02/2015X-ray of right foot| Service Date: 02/14/2014Hand left x2 tirgger fingers Medications acetic acid-hydrocortisone otic(acetic acid-hydrocortisone 2%-1% otic solution), 3 drop, left ear, tid, 1 refills aspirin(aspirin 81 mg oral tablet), 81 mg= 1 tab, PO, qhs calcipotriene topical(calcipotriene 0.005% topical cream), 1 appl, topical, bid chlorhexidine topical(Hibiclens 4% topical soap), 1 appl, topical, Daily clindamycin topical(clindamycin 1% topical lotion), 1 appl, topical, bid, 5 refills desloratadine(Clarinex 5 mg oral tablet), 5 mg= 1 tab, PO, Daily, PRN, 3 refills diabetes supplies(Accu-Chek Guide Test Strips), See Instructions, 3 refills diabetes supplies(Accu-Chek FastClix Lancets), See Instructions, 6 refills esomeprazole(esomeprazole 40 mg oral delayed release capsule), 1 cap, PO, Daily glucagon(Gvoke HypoPen 1 mg/0.2 mL subcutaneous solution), See Instructions, 1 refills insulin lispro(HumaLOG Vial 100 units/mL injectable solution), See Instructions, 3 refills metFORMIN(MetFORMIN (Eqv-Glucophage XR) 500 mg oral tablet, extended release), 4 tab, PO, Daily, 3 refills multivitamin(B-Complex 50 oral tablet), 1 tab, PO, Daily multivitamin, 1 tab, PO, Daily olmesartan(olmesartan 20 mg oral tablet), See Instructions oseltamivir(Tamiflu) rosuvastatin(rosuvastatin 20 mg oral tablet), 1 tab, PO, qhs syringe(BD UF II 31G SYN 0.5CCSHT), See Instructions, 1 refills syringe(BD 0.5 mL Ultra-Fine II Short Insulin Syringe 31G x 5/16"), See Instructions, 1 refills unlisted medication(BD UF II 31G SYN 0.5CCSHT), See Instructions unlisted medication(OXYGEN) unlisted medication(SYR BD SANDRA UFIN SHRT 0.5ML 10'S 31G5/16), See Instructions zolpidem(Ambien 10 mg oral tablet), 10 mg= 1 tab, PO, qhs, PRN Allergies naproxen sodiumedema sulfa drugsrash Social History Smoking Status Never smoked cigarettes Alcohol - Low Risk Employment/School Status:Employed 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 Hypothyroidism: Mother. Health Status Family Member(s) Immunizations Vaccine Date Status tetanus/diphtheria/pertuss, acel (Tdap) 11/25/2018 Given zoster vaccine, inactivated 04/28/2018 Recorded Comments : 2021-03-13: Historical information-source unspecified influenza virus vaccine, inactivated 12/31/2017 Given zoster vaccine, inactivated 06/16/2017 Recorded Comments : 2021-03-13: Historical information-source unspecified influenza virus vaccine, H1N1 03/04/2009 Recorded Comments : 2021-03-13: Historical information-source unspecified Recommendations Health Maintenance Pending(in the next year) OverDue Adult Influenza Vaccine due12/04/21and every 1year Due Adult COVID-19 Vaccination due06/21/23Unknown Frequency Pneumococcal Vaccine Adults and Adolescents with Chronic Illness due06/21/23One-time only Due In Future Diabetes Management A1c not due until08/04/23and every 366day Adult Social Determinants of Health Screening not due until03/25/24and every 366day Satisfied(in the past 1 year) Satisfied Body Mass Index on06/21/23.Satisfied by ELOINA Bocanegra Angela Diabetes Management A1c on08/03/22.Satisfied by Contributor_system, [email or web address] Diabetes Nephropathy Management on08/03/22.Satisfied by Contributor_system, [email or web address] Diabetic Eye Exam on09/07/22.Satisfied by JOY Posada Lynnae Lipid Screening on08/03/22.Satisfied by Contributor_system, [email or web address] Electronic Signature on File Electronically Reviewed/Signed by: Waldo Montaño MD Author Signature Dt/Tm:06/21/2023 01:55 PM Resident Department of Family Medicine Electronically Reviewed/Signed by: Alfred Caba MD Cosigner Signature Dt/Tm: 06/21/2023 01:58PM Department of Family Medicine [facility] Patient Care team information Care Team Personnel Name: DO Enciso Sameer Position: Resident Member Role: Lifetime Relationship Address: Address: [address] [address] [place] Name: Abhilash Feliciano Annette Position: Pharmacist Member Role: Pharmacy - Lifetime Name: MD Kaya, Ferdinand Cortés Position: Physician - Family Med Member Role: Primary Care Provider Address: Address: [address] [facility] [facility] [address] [facility] [place] [address] Care Team Related Persons Name: SHANELLE GARVIN Address: home [address] [place], [place] [address], [phone]
--- OUTSIDE RECORDS SUMMARY | 2023-06-25 05:23 | External Medical Summary | Continuity of Care Document ---
Author Name Unknown Organization [facility] [address] [phone] Care Team Providers Care Hair Weaver Name Role Phone Ferdinand Kirkpatrick Primary Care Physician [phone] Encounter [facility] [phone] Date(s): 06/18/23 - 06/18/23 [facility] [address] [facility] [address] [id number] Encounter Diagnosis Type 1 diabetes mellitus with complication(Discharge Diagnosis) - 06/18/[address](Discharge Diagnosis) - 06/18/23 Discharge Disposition: Home or Self Care Attending Physician: MIKO Venegas Amie Allergies, Adverse Reactions, Alerts Substance Reaction Severity Status sulfa drugs rash Active naproxen sodium edema Active Assessment and Plan Extracted from: Title:TeleHealth Visit Note Author:MIKO Venegas Amie Date:06/18/23 1.Type 1 diabetes mellitus with complication - Decrease target to 100. - Consider adjusting active insulin time but will assess target change first. - Bolus more for out to eat foods such as sushi and rice. - Download between visits as needed. - Schedule ophthalmology visit. - A1c ordered. 2.Insulin pump in place Follow up 6 months. Immunizations Given and Recorded Vaccine Date Status [...] 6 times daily oninsulin pump. E11.9, Pharmacy: [facility] Start Date: 04/20/20 Status: Ordered Accu-Chek Guide Test Strips Start: 11/01/20 9:44:00 EDT, See Instructions, Disp# 600 each, Refills: 3, test BG 6 x daily, Pharmacy: [facility] Start Date: 11/01/20 Status: Ordered acetic acid-hydrocortisone 2%-1% otic solution Start: 05/29/22 15:54:00 EST, 3 drop, left ear, tid, Disp# 10 mL, Refills: 1, Pharmacy: [facility] #[id number] Start Date: 05/29/22 Status: Ordered Ambien 10 mg oral tablet Start: 05/02/20 10:45:00 EST, 1 tab, PO, qhs, Disp# 10 tab, PRN: as needed for sleep, Pharmacy: [email or web address] Start Date: 05/02/20 Status: Ordered aspirin [...] to use PRN for pump failure, Pharmacy: [facility] Start Date: 02/17/19 Status: Ordered BD UF II 31G SYN 0.5CCSHT Start: 01/06/22 12:51:00 EDT, BD UF II 31G SYN 0.5CCSHT, See Instructions, Disp# 90 unknown unit, Refills: 1, TO USE NEEDED FOR PUMP FAILURE, Pharmacy [facility] Start Date: 01/06/22 Status: Ordered BD UF II 31G SYN 0.5CCSHT Start: 08/07/19 14:56:15 EDT, See Instructions, Disp# 90, Refills: 1, TO USE NEEDED FOR PUMP FAILURE, Pharmacy: [facility], TO USE NEEDED FOR PUMP FAILURE Start Date: 08/07/19 Status: Ordered calcipotriene 0.005% topical cream Start: 11/30/18 12:51:00 EDT, 1 appl, topical, bid Start Date: 11/30/18 Status: Ordered Clarinex 5 mg oral tablet Start: 11/02/22 11:33:00 EDT, 1 tab, PO, Daily, Disp# 90 tab, Refills: 3, PRN: as needed for allergy symptoms, Pharmacy: [facility] Start Date: 11/02/22 Status: Ordered clindamycin 1% topical lotion Start: 12/04/22 13:36:00 EDT, 1 appl, topical, bid, Disp# 60 mL, Refills: 5, to buttocks and abdomen, Pharmacy: [facility] #[id number] Start Date: 12/04/22 Status: Ordered esomeprazole 40 mg oral delayed release capsule Start: 05/04/23 10:23:00 EST, 1 cap, PO, Daily, Disp# 90 cap, Refills: 3, [facility] Start Date: 05/04/23 Status: Ordered Gvoke HypoPen 1 mg/0.2 mL subcutaneous solution Start: 10/28/21 11:18:00 EDT, See Instructions, Disp# 2 each, Refills: 1, use PRN for severe hypoglycemia, Pharmacy: [facility] Start Date: 10/28/21 Status: Ordered Hibiclens 4% topical soap Start: 09/03/22 15:52:00 EDT, 1 appl, topical, Daily, Disp# 240 mL, Pharmacy: [facility] #[id number] Start Date: 09/03/22 Status: Ordered HumaLOG Vial 100 units/mL injectable solution Start: 06/18/23 9:38:00 EDT, See Instructions, Disp# 250 mL, Refills: 3, INJECT 280 UNITS UNDER THESKIN DAILY VIA INSULIN PUMP (DOSE CHANGE), Pharmacy: [facility] Start Date: 06/18/23 Status: Ordered MetFORMIN (Eqv-Glucophage XR) 500 mg oral tablet, extended release Start: 06/18/23 9:39:00 EDT, 4 tab, PO, Daily, Disp# 360 tab, Refills: 3, [facility] Start Date: 06/18/23 Status: Ordered multivitamin Start: 02/07/15 18:09:00, 1 tab, PO, Daily Start Date: 02/07/15 Status: Ordered olmesartan 20 mg oral tablet Start: 09/16/22 12:09:00 EDT, See Instructions, Disp# 90 tab, Refills: 3, TAKE 1 TABLET DAILY, Pharmacy: [facility] Start Date: 09/16/22 Status: Ordered OXYGEN Start: 08/03/22 12:27:00 EDT, OXYGEN, 1/2 LITER AT hs ONLY Start Date: 08/03/22 Status: Ordered rosuvastatin 20 mg oral tablet Start: 05/04/23 10:23:00 EST, 1 tab, PO, qhs, Disp# 90 tab, Refills: 3, Pharmacy: [facility] Start Date: 05/04/23 Status: Ordered SYR BD SANDRA UFIN SHRT 0.5ML 10'S 31G5/16 Start: 10/30/22 8:43:00 EDT, SYR BD SANDRA UFIN SHRT 0.5ML 10'S 31G5/16, See Instructions, Disp# 90 each, Refills: 3, TO USE NEEDED FOR PUMP FAILURE, [facility]acy [facility] Start Date: 10/30/22 Status: Ordered Problem List Condition Confirmation Course [...] same weight then as now. 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 The patient has consented to this service,and I have advised the patient that this is a billable visit for which they may be subject to a copay. [ x_ ] The patient has initiated this visit after he/she was informed of the availability of telehealth for this medically necessary visit. [ _ ] The provider initiated this visit after explaining the need for this visit to the patient, who has consented to this virtual visit. I am located at my: [ _ ] Office [ _ ] Home [ x_ ] Other: clinic_ The patient is located at: [ x_ ] Home [ _ ] Other: _ This visit was conducted via live audio/video technology: [ x_ ] Breana Weinberg [ _ ] Zoom This visit was conducted via [ _ ] Telephone, and was not related to a visit or procedure that occurred within the past 7 days. Telephone Only Visit: Reason for audio only visit was [ _ ] no internet connection available [ _ ] Other: _. Total time spent communicating with the patient: 32_ minutes 06/18/23 Chief Complaint Type 1 diabetes follow up History of Present Illness Patient is currently sick with influenza. He was seen in the ER last night and will be starting Tamiflu today. He reports fever and cough. His glucoses have been relatively stable and his appetite has been poor. He continues on the Medtronic 780G pump and Guardian 4 sensor with SmartGuard. His pump is linked on [employer] and I reviewed data today. This showed an average glucose of 179 with 50% time in range. He is sick currently which can be affecting his glucose levels as well. He reports a rise in glucosewhen he wakes up in the AM even before eating. He does have insulin resistance and is on metformin as well. We will lower his target in his SmartGuard settings and hopefully that will hep the automated system keep his numbers lower. He has some hyperglycemia after his evening meal but not consistent. He attributes this to eating out and being on the road at times vs when he is eating at home. He p articularly has problems with counting Sushi and rice. We discussed bolusing more for these meals particularly and will continue his current pump settings. He needs refill on his Humalog and this was sent. He will need prior authorization. He did not tolerate Novolog and had negative experience with significant hyperglycemia when on that previously. We will obtain prior auth for the Humalog. He is due for his ophthalmology exam and needs to find a new provider. He will schedule visit. He follows with cardiology and had a valve replacement a few months ago. He is doing well following procedure. We will order an A1c. Physical Exam Alert and oriented, no acute distress Skin tone normal Breathing rate normal, non-labored respirations Mood appropriate Assessment/Plan 1.Type 1 diabetes mellitus with complication - Decrease target to 100. - Consider adjusting active insulin time but will assess target change first. - Bolus more for out to eat foods such as sushi and rice. - Download between visits as needed. - Schedule ophthalmology visit. - A1c ordered. 2.Insulin pump in place Follow up 6 months. Problem List/Past Medical History Ongoing Aortic stenosis [...] exam Type 2 diabetes mellitus Weight disorder Medications acetic acid-hydrocortisone otic(acetic acid-hydrocortisone 2%-1% otic [...] olmesartan(olmesartan 20 mg oral tablet), See Instructions rosuvastatin(rosuvastatin 20 mg oral tablet), 1 tab, [...] qhs, PRN Allergies naproxen sodiumedema sulfa drugsrash Electronic Signature on File CC: Ferdinand Kirkpatrick MD [address] [place] [address] Electronically Reviewed/Signed by: Maribel Venegas PA-C Author Signature Dt/Tm:06/18/2023 10:06 AM Division of Endocrinology [facility] Patient Care team information Care Team Personnel Name: DO Enciso Sameer Position: Resident Member Role: Lifetime Relationship Address: Address: [facility] [address] Name: Abhilash Feliciano Annette Position: Pharmacist Member Role: Pharmacy - Lifetime Name: MD Kaya, Ferdinand Cortés Position: Physician - Family Med Member Role: Primary Care Provider Address: Address: [facility] [place] [address] [place] [address] Care Team Related Persons Name: SHANELLE GARVIN Address: [address], [phone]
[2023-06-25] MEDS: AMIODARONE / D5W 150 MG/100 ML BAG IV STA (05:30)
[2023-06-25] MEDS: AMIODARONE / D5W 360 MG/200 ML BAG IV ONE (05:30)
[2023-06-25] MEDS: AMIODARONE 150MG / 100ML D5W IV ONE (05:31)
[2023-06-25] MEDS: MAGNESIUM SULFATE / D5W 1 GM/100 ML BAG IV SCH (05:32)
--- NOTE | 2023-06-25 05:39 | Communication Note ---
Date of Service: June 25, 2023 Presented to the patient's bedside after he was noted to have sustained ventricular tachycardia with a rate to 240 on monitor. Patient had pulse but was agonal breathing and unresponsive and decision was made to emergently defibrillate. Patient was defibrillated at 300 J x 1 shock and converted to sinus rhythm. EKG was obtained which showed sinus rhythm with first-degree AV block, and QTc within normal limits. Lab work revealed hypomagnesia and he was given 1 g emergently. He was given bolus of amiodarone followed by amiodarone drip. Patient did have additional run of V. tach a few minutes after defibrillation but spontaneously broke after a few seconds. Cardiology consulted. Patient is now arousable, currently hemodynamically stable, without increased FiO2 requirements. He remains on BiPAP. Obtaining ABG, results pending. Coding Level of Care Code None
[2023-06-25 05:48] LABS: Troponin I High Sensitivity 33.1 pg/ml (0-20)
[2023-06-25 05:49] LABS: iSTAT Allen Test Pass; iSTAT Art Bld Gas pCO2 Correct 30 mmHg (35-46); iSTAT Art Bld Gas pH Corrected 7.323 (7.35-7.45); iSTAT Arterial Blood Gas HCO3 16 meg/L (19-24); iSTAT Arterial Blood Gas pCO2 30 mmHg (35-46); iSTAT Arterial Blood Gas pH 7.33 (7.35-7.45); iSTAT Arterial Blood Gas pO2 78 mmHg (80-95); iSTAT Arterial Blood Gas pO2 C 80; iSTAT Carbon Dioxide 16 mmol/L (24-31); iSTAT FiO2 30 %; iSTAT Hematocrit 35 % (42-52); iSTAT Hemoglobin 11.9 g/dl (14.0-18.0); iSTAT Potassium 4.5 mmol/L (3.3-5.0); iSTAT Site R Radial; iSTAT Sodium 130 mmol/L (135-144)
[2023-06-25] MEDS: SODIUM BICARB 8.4% INJ 50 MEQ/50 ML SYR IV STA (05:51)
--- NOTE | 2023-06-25 07:19 | Critical Care Progress Note ---
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 would strongly encourage pulmonary follow-up for formal PFTs -History of COVID infection in 2019 CV: Recent TEVAR aortic valve replacement -Attempt to obtain records regarding this procedure Ventricular tachycardia requiring emergent cardioversion overnight -Amiodarone infusion -Cardiology consult reviewed -Underlying bacteremia: Suspect MSSA off of DNA probe testing MRSA nasal swab negative -Cardiology recommendation ICD if there is evidence of cardiac sarcoid additional records attempting to be obtained Elevated troponins History hypertension: Continue home medications Fluids/Renal: High gap metabolic acidosis with respiratory alkalosis Lactic acid acidosis: Resolved Hyponatremia: Mild -Suspect mild dehydration given increased metabolic demands with influenza ID: Severe sepsis secondary to subacute influenza type a -Initiate Tamiflu 75 mg twice daily given severe respiratory illness total 5 days duration MSSA bacteremia -De-escalate to Ancef, MRSA nasal swab negative -Will require extended course of antibiotics may need PICC in near future -Blood cultures ordered for today and tomorrow GI/Nutrition: Extreme morbid obesity BMI greater than 51 Dyslipidemia -Continue rosuvastatin Carb consistent diet Heme: Leukocytosis -Related to underlying sepsis DVT prophylaxis: Increase Lovenox dosing 2.5 mg/kg per total body weight Endocrine: ICU hyperglycemia protocol Insulin-dependent diabetes mellitus type 2: On pump: Poorly controlled -Glycemic control consult: Tighten insulin parameters History of biopsy-proven sarcoid: Attempt to obtain records, considered to be in remission Vascular access: Peripheral IVs Code Status: Full code Disposition: ICU (2) Influenza: (3) Severe obstructive sleep apnea: (4) Obesity, morbid, BMI 50 or higher: (5) Type 2 diabetes mellitus: (6) Hyperlipidemia: (7) Essential (primary) hypertension: Admission and Anticipated Discharge Date Admission Date: June 24, 2023 Subjective Overnight patient had episode of ventricular tachycardia. Additional information obtained patient had recent TAVAR aortic valve replacement. He feels better today and is able to speak in full sentences. Physical Exam Physical Exam: General: Alert. nontoxic. Skin: Warm, dry, Head: Atraumatic Ears, nose, mouth and throat: airway patent Cardiovascular: Normal peripheral perfusion, tachycardia noted on bedside monitor Respiratory: Improved pulmonary function compared to yesterday speaking in full sentences, occasional pursed lip breathing: Patient reports this is normal for him, no accessory muscle use. Gastrointestinal: Rotund, difficult exam Musculoskeletal: No deformity Results & Data Results & Data Vital Signs (Past 12 Hours) Vital Signs Temp Pulse Pulse Resp BP Pulse Ox O2 Del Method 06/25/23 05:30 142/71 H 06/25/23 05:30 37.4 C 80 26 H 94 06/25/23 05:26 121/66 06/25/23 05:26 37.4 C 87 20 93 06/25/23 05:15 37.4 C 91 H 20 97 06/25/23 05:15 196/103 H 06/25/23 05:14 37.4 C 99 H 23 97 06/25/23 05:14 236/100 H 06/25/23 05:00 141/76 H 06/25/23 04:01 150/80 H 06/25/23 04:01 37.4 C 96 H 21 98 06/25/23 03:09 93 H 24 96 06/25/23 03:00 124/71 06/25/23 03:00 37.6 C H 88 24 97 06/25/23 02:00 38.1 C H 96 H 24 93 06/25/23 02:00 145/72 H 06/25/23 01:00 114/73 06/25/23 01:00 38.4 C H 101 H 24 95 06/25/23 00:03 39.1 C H 104 H 25 H 95 06/25/23 00:03 107/66 06/25/23 00:00 113 H 06/24/23 23:00 107/75 06/24/23 23:00 39.5 C H 111 H 25 H 93 06/24/23 22:00 113 H 25 H 97 06/24/23 22:00 39.6 C H 112 H 26 H 96 06/24/23 22:00 112/69 06/24/23 21:01 39.5 C H 115 H 29 H 97 06/24/23 21:01 134/83 06/24/23 20:11 110 H 26 H 98 06/24/23 20:10 110 H 26 H 98 CPAP 06/24/23 20:00 126/67 06/24/23 20:00 39.6 C H 109 H 28 H 100 06/24/23 19:50 CPAP FiO2 06/25/23 05:30 06/25/23 05:30 06/25/23 05:26 06/25/23 05:26 06/25/23 05:15 06/25/23 05:15 06/25/23 05:14 06/25/23 05:14 06/25/23 05:00 06/25/23 04:01 06/25/23 04:01 06/25/23 03:09 30 06/25/23 03:00 06/25/23 03:00 06/25/23 02:00 06/25/23 02:00 06/25/23 01:00 06/25/23 01:00 06/25/23 00:03 06/25/23 00:03 06/25/23 00:00 06/24/23 23:00 06/24/23 23:00 06/24/23 22:00 30 06/24/23 22:00 06/24/23 22:00 06/24/23 21:01 06/24/23 21:01 06/24/23 20:11 40 06/24/23 20:10 40 06/24/23 20:00 06/24/23 20:00 06/24/23 19:50 Critical Care Results & Data Vital Signs (Past 12 Hours) Vital Signs Temp Pulse Pulse Resp BP Pulse Ox O2 Del Method 06/25/23 05:30 142/71 H 06/25/23 05:30 37.4 C 80 26 H 94 06/25/23 05:26 121/66 06/25/23 05:26 37.4 C 87 20 93 06/25/23 05:15 37.4 C 91 H 20 97 06/25/23 05:15 196/103 H 06/25/23 05:14 37.4 C 99 H 23 97 06/25/23 05:14 236/100 H 06/25/23 05:00 141/76 H 06/25/23 04:01 150/80 H 06/25/23 04:01 37.4 C 96 H 21 98 06/25/23 03:09 93 H 24 96 03/22/24 03:00 124/71 06/25/23 03:00 37.6 C H 88 24 97 06/25/23 02:00 38.1 C H 96 H 24 93 06/25/23 02:00 145/72 H 06/25/23 01:00 114/73 06/25/23 01:00 38.4 C H 101 H 24 95 06/25/23 00:03 39.1 C H 104 H 25 H 95 06/25/23 00:03 107/66 06/25/23 00:00 113 H 06/24/23 23:00 107/75 06/24/23 23:00 39.5 C H 111 H 25 H 93 06/24/23 22:00 113 H 25 H 97 06/24/23 22:00 39.6 C H 112 H 26 H 96 06/24/23 22:00 112/69 06/24/23 21:01 39.5 C H 115 H 29 H 97 06/24/23 21:01 134/83 06/24/23 20:11 110 H 26 H 98 06/24/23 20:10 110 H 26 H 98 CPAP 06/24/23 20:00 126/67 06/24/23 20:00 39.6 C H 109 H 28 H 100 06/24/23 19:50 CPAP FiO2 06/25/23 05:30 06/25/23 05:30 06/25/23 05:26 06/25/23 05:26 06/25/23 05:15 06/25/23 05:15 06/25/23 05:14 06/25/23 05:14 06/25/23 05:00 06/25/23 04:01 06/25/23 04:01 06/25/23 03:09 30 06/25/23 03:00 06/25/23 03:00 06/25/23 02:00 06/25/23 02:00 06/25/23 01:00 06/25/23 01:00 06/25/23 00:03 06/25/23 00:03 06/25/23 00:00 06/24/23 23:00 06/24/23 23:00 06/24/23 22:00 30 06/24/23 22:00 06/24/23 22:00 06/24/23 21:01 06/24/23 21:01 06/24/23 20:11 40 06/24/23 20:10 40 06/24/23 20:00 06/24/23 20:00 06/24/23 19:50 Lab & Micro Results (Past 24 Hours) RBC 4.23 M/uL (4.70-6.10) L 06/25/23 WBC 17.71 K/ul (4.8-10.8) H 06/25/23 Hgb 12.5 g/dl (14.0-18.0) L 06/25/23 Hct 38.5 % (42.0-52.0) L 06/25/23 MCV 88.9 fL (80.0-100.0) 06/25/23 MCH 30.0 pg (25.0-34.0) 06/25/23 MCHC 33.8 g/dL (32.0-36.0) 06/25/23 RDW Standard Deviation 42.2 fL (36.4-46.3) 06/25/23 RDW Coefficient of Variation 13.1 % (11.5-14.5) 06/25/23 Plt Count 199 K/uL (130-400) 06/25/23 MPV 9.9 fL (9.4-12.4) 06/25/23 Neutrophils (%) (Auto) 82.2 % 06/25/23 Lymphocytes (%) (Auto) 6.4 % 06/25/23 Monocytes # (Auto) 1.82 K/uL (0.11-0.59) H 06/25/23 Eosinophils # (Auto) 0.01 K/uL (0.00-0.50) 06/25/23 Immature Granulocyte % (Auto) 0.7 % 06/25/23 Neutrophils # (Auto) 14.58 K/uL (1.40-6.50) H 06/25/23 Lymphocytes # (Auto) 1.13 K/uL (1.20-3.40) L 06/25/23 Monocytes # (Auto) 1.82 K/uL (0.11-0.59) H 06/25/23 Eosinophils # (Auto) 0.01 K/uL (0.00-0.50) 06/25/23 Basophils # (Auto) 0.05 K/uL (0.00-0.20) 06/25/23 Immature Granulocyte # (Auto) 0.12 K/uL (0.01-0.20) 4 Echinocytes 1+ 06/25/23 Toxic Granulation 1+ 06/24/23 Dohle Bodies 1+ 06/25/23 Na 130 mmol/L (136-145) L 06/25/23 K 4.6 mmol/L (3.5-5.1) 06/25/23 Cl 98 mmol/L (98-107) 06/25/23 CO2 19 mmol/L (21-32) L 06/25/23 Anion Gap 13 (3-11) H 06/25/23 BUN 23 mg/dl (6-23) 06/25/23 Creatinine 1.05 mg/dl (0.6-1.4) 06/25/23 Estimated GFR ( Amer) 89.6 ml/min 06/25/23 Estimated GFR (Non-Af Amer) 77.3 ml/min 06/25/23 BUN/Creatinine Ratio 21.9 (10-20) H 06/25/23 Glu 283 mg/dl (70-99(Fasting)) H 06/25/23 Ca 8.5 mg/dl (8.6-10.3) L 06/25/23 Phosphorus Level 3.4 mg/dl (2.5-4.9) 06/25/23 Total Bilirubin 1.5 mg/dl (0.2-1.0) H 06/24/23 AST 32 U/L (13-39) 06/24/23 ALT 31 U/L (7-52) 06/24/23 Alkaline Phosphatase 85 U/L (34-104) 06/24/23 TP 8.8 gm/dl (6.0-8.3) H 06/24/23 Albumin 4.7 gm/dl (3.4-5.0) 06/24/23 Globulin 4.1 gm/dl (2.5-4.0) H 06/24/23 Albumin/Globulin Ratio 1.1 (0.9-2) 06/24/23 Mg 1.5 mg/dl (1.7-2.4) L 06/25/23 03:59 Calcium Level 8.5 mg/dl (8.6-10.3) L 06/25/23 03:59 Prothromb Time International Ratio 1.1 (0.9-1.1) 06/24/23 12:3 8 Arterial Blood pH 7.49 (7.35-7.45) H 06/24/23 15:37 Arterial Blood Partial Pressure CO2 28 mmHg (35-46) L 06/24/23 15:37 Arterial Blood Partial Pressure O2 73 mmHg (80-95) L 06/24/23 1 5:37 Arterial Blood HCO3 21 mmol/L (19-24) 06/24/23 15:37 Arterial Blood Base Excess -0.7 mEq/L (-9-1.8) 06/24/23 15:37 Arterial Blood Oxygen Saturation 95.8 % (90-95) H 06/24/23 15:3 7 Blood Gas Oxygen Given 25 06/24/23 15:37 Hany Test Pass 06/25/23 04:39 Microbiology 06/24/23 12:38 Aerobic Blood Culture - Preliminary Blood Gram positive cocci clusters 06/24/23 15:33 Gram Stain - Final Sputum, Expectorated Diagnostic Findings (Past 24 Hours) Chest X-Ray 06/24/23 12:29 XR chest 1V portable HISTORY: Shortness of breath. Chest pain, nonspecific COMPARISON: Chest 06/17/2023. FINDINGS: No pneumothorax. No pleural fusions. There are low lung volumes. The heart is mildly enlarged. An aortic valve stent again noted. There is progressi ve interstitial and vascular thickening with patchy airspace opacities within the right midlung zone and left lung base. This favors pulmonary edema. A multifocal pneumonia could also have a similar appearance. No acute fractures identified. IMPRESSION: There is progressive interstitial and vascular thickening with patchy airspace opacities within the right midlung zone and left lung base. This favors pulmonary edema. A multifocal pneumonia could also have a similar appearance. ACT 112: Negative or not required by law. Electronically signed by: Jeison Restrepo M.D. 06/24/2023 2:31 PM Chest CTA 06/24/23 15:21 CT ANGIOGRAPHY OF THE CHEST, PULMONARY EMBOLUS PROTOCOL CLINICAL HISTORY: Shortness of breath. Evaluate for pulmonary embolus. COMPARISON STUDY: Chest CT March 06, 2021. Chest radiograph performed earlier today. TECHNIQUE: Following IV administration of 118 mL of Optiray, helical axial images of the chest were obtained utilizing the pulmonary embolus protocol. Maximal intensity projections and sagittal and coronal reformats were viewed on an independent 3D workstation. IV contrast was administered without complication. Automated exposure control was utilized for the study. A dose lowering technique was utilized adhering to the principles of ALARA. CT DOSE: 893.09 mGy.cm FINDINGS: No pulmonary emboli are identified although the subsegmental pulmonary arteries are suboptimally assessed due to respiratory motion. Aortic valvular prosthesis is in place. There is no pericardial effusion. No pneumothorax or pleural effusion is present. Multifocal alveolar opacities. The lungs are noted, including several foci of consolidation. No central obstructing mass is noted. There is no cavitation. Underlying chronic interstitial thickening is noted. Multiple mildly enlarged mediastinal lymph nodes are noted. Index right paratracheal lymph node on image 186 of 223 measures 2.8 x 1.9 cm. These nodes have increased in size since prior CT. There is hepatic steatosis. IMPRESSION: 1. No pulmonary emboli identified although subsegmental pulmonary arteries suboptimally assessed. 2. Moderate alveolar opacities throughout the lungs, including multifocal consolidation. The findings favor pneumonia. Follow-up chest CT in 3 months to ensure resolution is recommended. 3. Mildly enlarged mediastinal lymph nodes which are likely reactive. These can be assessed on follow-up CT to ensure resolution. ACT 112: Negative or not required by law. Electronically signed by: Jason Castro M.D. 06/24/2023 4:35 PM I & O Totals 24 Hours 06/24/23 06/25/23 06/26/23 06:59 06:59 06:59 Intake Total 2954.395 / 2954.395 Output Total 1690 / 1690 Balance 1264.395 / 1264.395 Cumulative 06/24/23 12:18 thru 06/25/23 06:59 Intake Total 2954.395 Output Total 1690 Balance 1264.395 RT Ventilator Mngmt (Last Documented) Ventilator Ordered Settings Respiratory Rate 26 06/25/23 05:30 Fraction of Inspired Oxygen 30 06/25/23 03:09 Ventilator - PT Measurements Respiratory Rate 26 Coding Level of Care Code 44950 CRITICAL CARE 1ST 30-74M Diagnoses Acute hypoxemic respiratory failure J96.01 Influenza J11.1 Severe obstructive sleep apnea G47.33 Obesity, morbid, BMI 50 or higher E66.01 Type 2 diabetes mellitus E11.9 Hyperlipidemia E78.5 Essential (primary) hypertension I10
--- NOTE | 2023-06-25 07:30 | XRay Report ---
XR chest 1V portable CLINICAL HISTORY: Respiratory failure. COMPARISON STUDY: Chest radiograph and chest CT June 24, 2023. FINDINGS: Lung volumes are normal. There is no pneumothorax or pleural fusion. Multifocal airspace op acities and interstitial thickening have slightly progressed. Cardiomediastinal silhouette is stable. IMPRESSION: Multifocal airspace opacities and interstitial thickening which have mildly progressed. T he findings favor multifocal pneumonia. ACT 112: Negative or not required by law. Electronically signed by: Jason Castro M.D. 06/25/2023 7:29 AM
[2023-06-25 07:56] LABS: Estimated Average Glucose 177 mg/dl; Hemoglobin A1C 7.8 % (4.5-5.6)
[2023-06-25] MEDS: LOSARTAN POTASSIUM 50 MG TAB PO SCH (08:25)
[2023-06-25] MEDS: ASPIRIN 81 MG ECTAB PO SCH (08:25)
[2023-06-25] MEDS: PANTOprazole 40 MG TAB PO SCH (08:26)
[2023-06-25] MEDS: ROSUVASTATIN CALCIUM 20 MG TAB PO SCH (08:26)
--- NOTE | 2023-06-25 10:56 | XCELERA ---
[id number] [id number]
[2023-06-25] MEDS: INSULIN ASPART PER UNIT CHARGE SC SCH ×2 (10:57→12:21)
[2023-06-25] MEDS: LANTUS PER UNIT CHARGE SC STA (11:00)
[2023-06-25] MEDS: INSULIN REGULAR 250 UNITS in SODIUM CHLORIDE 0.9% 247.5 ML IV SCH (11:02)
--- NOTE | 2023-06-25 11:03 | Cardiology Consultation ---
Date of Consultation June 25, 2023 Assessment & Plan (1) Ventricular tachycardia, sustained: (2) Aortic stenosis: (3) Sarcoidosis: (4) First degree AV block: Plan 1. Ventricular tachycardia: The patient was having some ventricular ectopy over the course of the evening and it appears that the ventricular tachycardia was initiated by a PVC, R on T phenomenon. He then developed a very rapid monomorphic VT which required cardioversion. He did not recall any symptoms of the event. He does not have a history consistent with prior episodes of ventricular tachycardia. The monomorphic nature of his VT is concerning for a reentrant mechanism related to myocardial scar. His echocardiogram demonstrates preserved LV systolic function, but his history of sarcoidosis is concerning. 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 He reports having an MRI in the past, but this was not documented in the past 5 years to [facility]. I would continue the amiodarone infusion and transition him to oral amiodarone in another 24 hours. We can try to cautiously add beta-blockade. We will need to be careful in the setting of his acute illness and 1st degree AV block. At this point I would recommend implantation of an ICD given the concern for cardiac sarcoid. The device implant should be deferred until his clinical condi tion resolves. Should he have additional episodes of ventricular tachycardia while on amiodarone, steroid administration is recommended as this would commonly improved from arrhythmias associated with cardiac sarcoid. 2. Aortic stenosis: Status post TAVR in March 2023. Normally functioning bioprosthetic aortic valve. 3. First degree AV block: Documented previously. Slightly more prolonged subsequent to his valve replacement. Unclear this could be related cardiac sarcoid as well. Some higher degree AV block seen after his cardioversion. 4. Sarcoidosis: Initially diagnosed in the . He appeared to have mediastinal adenopathy and biopsy-proven sarcoidosis. He apparently underwent treatment at that time with steroids. This is felt to be quiescent although some concern for reactivation in the setting of COVID-19. ADDENDUM: will defer BB for now given 1st degree AV block kand amiodarone. I think the IV amiodarone can be stopped tomorrow morning. I would then start amiodarone 400 mg twice daily while he is in the hospital. We can reduce the dose in a few days. I will be away from the hospital for the next couple of days but will see him early next week to discuss the option of an implantable defibrillator prior to discharge. History of Present Illness Reason for Consultation: Ventricular tachycardia Attending Physician: Mukund Ma DO History of Present Illness The patient is a 57-year-old gentleman with history of pulmonary sarcoidosis previously admitted to our facility in 2019 with COVID-19 pneumonia. Subsequent to that hospitalization the patient continued to have with commonly described as long COVID. This primarily involved a sense of fatigue, exercise intolerance and persistent dyspnea. He is followed by the pulmonary department at [facility] and was noted on examination to have evidence of aortic stenosis. This has been characterized as non severe previously but an echocardiogram last year demonstrated severe aortic stenosis and and March 2023 he underwent a TAVR procedure at [facility]. He states that afterwards his energy improved but he did not notice a significant difference in breathing. At no time was he experiencing symptoms of chest discomfort or chest pressure. He denied prior symptoms of dizziness or lightheadedness. He cannot recall any prior syncopal episodes. He had rare and fleeting flutters on occasion, but no sustained high heart rates or palpitations. Last week the patient had symptoms of a viral illness and actually tested positive for influenza. He was prescribed Tamiflu on an outpatient basis but his symptoms persisted. This included coughing, breathing trouble, body aches and fevers and chills. Based on the progressive nature of his symptoms and worsening breathing trouble he presented to the emergency room yesterday where he was noted to be in respiratory distress. Noninvasive ventilation was initiated and he was sent to the intensive care unit. This morning around 5:30 a.m. the patient was noted on telemetry to develop a wide complex tachycardia. He did undergo cardioversion with return to normal sinus rhythm. Patient could not recall these events as he reportedly was sleeping at the time. Currently he continues to have a cough and mild breathing difficulty. Improved from yesterday. No significant chest pain. Allergies Allergy/AdvReac Type Severity Reaction Status Date / Time naproxen Allergy Intermediate EDEMA Verified 06/24/23 14:58 Sulfa (Sulfonamide AdvReac Severe "VIOLENTLY Verified 06/24/23 14:58 Antibiotics) ILL" Home Medications Medication Instructions Recorded Confirmed Type aspirin 81 mg tablet,delayed 81 mg PO DAILY 03/04/20 06/24/23 History release esomeprazole magnesium 40 mg 40 mg PO QAM 03/04/20 06/24/23 History capsule,delayed release insulin lispro 100 unit/mL 0 unit continuous subcutaneous 03/04/20 06/24/23 History subcutaneous solution (Humalog infusion CONTINOUS U-100 Insulin) metformin 500 mg tablet,extended 1,000 mg PO BID 03/04/20 06/24/23 History release 24 hr multivitamin 1 tab PO QAM 03/04/20 06/24/23 History rosuvastatin 20 mg tablet 20 mg PO DAILY 03/04/20 06/24/23 History olmesartan 40 mg tablet 40 mg PO DAILY 01/29/22 06/24/23 History Patient History Medical History (Updated 06/25/23 @ 10:56 by Shawn Hall MD) Severe obstructive sleep apnea Dyspnea Abnormal CT scan, chest Daytime sleepiness Snoring Oxygen dependent Rhabdomyolysis due to COVID-19 Hyponatremia Pneumonia due to COVID-19 virus Hyperlipidemia Essential (primary) hypertension Type 2 diabetes mellitus Sarcoidosis Diagnosed ; currently in remission Surgical History No pertinent past surgical history Family History Father Congestive heart failure Mother Bowel obstruction Other Cancer Depression Social History Smoking Status: Never smoker Second Hand Exposure: No; Do You Dip or Chew Tobacco: No; Hx Alcohol Use: Yes Alcohol type: beer and wine Hx Substance Use: No Preferred Language: Luxembourger Communication Ability: Effective Curtain Cutter Hand Required: No Beliefs That Will Affect Care: None marital status: Current Living Situation: Spouse current occupational status: employed 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 He had a month long vacation in [place] last summer. This required a lot of walking but he did not report any exertional symptoms at that time. Physical Exam Physical Exam: The patient is alert and oriented. Mood and affect appeared normal. Some increased work of breathing. Occasional coughing. He answered all questions appropriately. Obese HEENT: Pupils are equal and reactive to light and accommodation. Extraocular movements are intact. The sclerae are anicteric. Neuro: Cranial nerves intact Lungs: Bronchial breath sounds. Increased work of breathing. No expiratory wheezing. Mildly tachypneic Cardiac: Heart demonstrates a regular rate and rhythm. Normal S1 and S2. Soft crescendo systolic murmur Pulses: The patient has palpable radial pulses bilaterally that are equal in intensity Extremities: There was no evidence of hypoperfusion. There is no cyanosis or clubbing. There is no edema. Some mild trophic changes of both ankles. Skin: I did not appreciate any rashes on examination today. Results & Data Vital Signs (Past 12 Hours) Vital Signs Temp Pulse Pulse Resp BP Pulse Ox O2 Del Method 06/25/23 10:35 37.0 C 90 21 137/65 94 High Flow Nasal Cannula 06/25/23 10:15 90 22 98 High Flow Nasal Cannula 06/25/23 10:01 36.9 C 88 30 H 112/76 95 Oxymask 06/25/23 09:30 36.9 C 86 23 122/60 94 Oxymask 06/25/23 09:00 36.9 C 91 H 16 124/49 L 92 Oxymask 06/25/23 08:30 37.0 C 91 H 22 121/60 92 Oxymask 06/25/23 08:00 37.1 C 87 21 114/54 L 98 Oxymask 06/25/23 07:49 87 22 98 06/25/23 07:49 87 22 98 BiPAP 06/25/23 07:30 37.2 C 86 24 123/65 98 BiPAP 06/25/23 07:11 37.2 C 88 17 101/80 98 BiPAP 06/25/23 07:01 37.3 C 91 H 23 144/67 H 99 BiPAP 06/25/23 07:00 BiPAP 06/25/23 05:30 142/71 H 06/25/23 05:30 37.4 C 80 26 H 94 06/25/23 05:26 121/66 06/25/23 05:26 37.4 C 87 20 93 06/25/23 05:15 37.4 C 91 H 20 97 06/25/23 05:15 196/103 H 06/25/23 05:14 37.4 C 99 H 23 97 06/25/23 05:14 236/100 H 06/25/23 05:00 141/76 H 06/25/23 04:01 150/80 H 06/25/23 04:01 37.4 C 96 H 21 98 06/25/23 03:09 93 H 24 96 06/25/23 03:00 124/71 06/25/23 03:00 37.6 C H 88 24 97 06/25/23 02:00 38.1 C H 96 H 24 93 06/25/23 02:00 145/72 H 06/25/23 01:00 114/73 06/25/23 01:00 38.4 C H 101 H 24 95 06/25/23 00:03 39.1 C H 104 H 25 H 95 06/25/23 00:03 107/66 06/25/23 00:00 113 H 06/24/23 23:00 107/75 06/24/23 23:00 39.5 C H 111 H 25 H 93 O2 Flow Rate FiO2 06/25/23 10:35 60 30 06/25/23 10:15 60 30 06/25/23 10:01 2 06/25/23 09:30 2 06/25/23 09:00 2 06/25/23 08:30 2 06/25/23 08:00 2 06/25/23 07:49 30 06/25/23 07:49 30 06/25/23 07:30 30 06/25/23 07:11 30 06/25/23 07:01 30 06/25/23 07:00 30 06/25/23 05:30 06/25/23 05:30 06/25/23 05:26 06/25/23 05:26 06/25/23 05:15 06/25/23 05:15 06/25/23 05:14 06/25/23 05:14 06/25/23 05:00 06/25/23 04:01 06/25/23 04:01 06/25/23 03:09 30 06/25/23 03:00 06/25/23 03:00 06/25/23 02:00 06/25/23 02:00 06/25/23 01:00 06/25/23 01:00 06/25/23 00:03 06/25/23 00:03 06/25/23 00:00 06/24/23 23:00 06/24/23 23:00 Laboratory Results Abnormal Lab Results 06/24/23 06/24/23 06/24/23 12:38 12:57 12:59 WBC 13.53 H RBC 5.48 Hgb 16.2 POC Hgb Hct 47.3 POC Hct MCV 86.3 MCH 29.6 MCHC 34.2 RDW Std Deviation 40.5 RDW Coeff of Julian 12.9 Plt Count 237 MPV 9.5 Immature Gran % (Auto) 0.7 Neut % (Auto) 88.2 Lymph % (Auto) 4.2 [place] % (Auto) 6.5 Eos % (Auto) 0.0 Baso % (Auto) 0.4 Neut # (Auto) 11.93 H Lymph # (Auto) 0.57 L [place] # (Auto) 0.88 H Eos # (Auto) 0.00 Baso # (Auto) 0.05 Immature Gran # (Auto) 0.10 Toxic Granulation 1+ Dohle Bodies 1+ Echinocytes 1+ PT 12.0 INR 1.1 APTT 33 H PTT Ratio 1.2 Sample Site POC pH POC pCO2 POC pO2 POC HCO3 POC Total CO2 POC Base Excess ABG pH ABG pH (Temp Correct) ABG pCO2 ABG pCO2 (Temp Corrct ABG pO2 POC ABG pO2 at Pt Temp ABG HCO3 POC ABG O2 Sat ABG O2 Saturation ABG Base Excess Hany Test Oxygen Given O2 Delivery Device POC O2 Rate POC FiO2 IPAP POC Sodium Sodium 132 L POC Potassium Potassium 4.2 Chloride 94 L Carbon Dioxide 24 Anion Gap 14 H BUN 20 Creatinine 1.21 Est Cr Clr Drug Dosing 91.8 Est GFR ( Amer) 75.5 Est GFR (Non-Af Amer) 65.1 BUN/Creatinine Ratio 16.5 Glucose 201 H POC Glucose Estimat Average Glucose 177 Hemoglobin A1c 7.8 H Lactate 2.8 H* Calcium 10.3 Phosphorus Magnesium Total Bilirubin 1.5 H AST 32 ALT 31 Alkaline Phosphatase 85 Troponin I High Sens 40.2 H Total Protein 8.8 H Albumin 4.7 Globulin 4.1 H Albumin/Globulin Ratio 1.1 Procalcitonin 1.80 H Urine Color Urine Appearance Urine pH Ur Specific [place] Urine Protein Urine Glucose (UA) Urine Ketones Urine Blood Urine Nitrite Urine Bilirubin Urine Urobilinogen Ur Leukocyte Esterase Urine WBC (Auto) Urine RBC (Auto) U Hyaline Cast (Auto) U Epithel Cells (Auto) Urine Bacteria (Auto) Nasal Screen MRSA (PCR) Adenovirus (PCR) Not Detected B. pertussis DNA (PCR) Not Detected B.parapertussis DNA PCR Not Detected C. pneumoniae DNA (PCR) Not Detected Coronavirus OC43 (PCR) Not Detected Coronavirus HKU1 (PCR) Not Detected Coronavirus 229E (PCR) Not Detected SARS-CoV-2 (PCR) Not Detected Coronavirus NL63 (PCR) Not Detected Human Metapneumovir PCR Not Detected Influenza A (H3) PCR DETECTED A Influenza Type B (PCR) Not Detected M. pneumoniae (PCR) Not Detected Parainfluenza 1 (PCR) Not Detected Parainfluenza 2 (PCR) Not Detected Parainfluenza 3 (PCR) Not Detected Parainfluenza 4 (PCR) Not Detected RSV (PCR) Not Detected Entero/Rhino (PCR) Not Detected Staphylococcus sp PCR DETECTED A Staph aureus (PCR) DETECTED A mecA/C & MREJ Resist Gene MRSA Not Detected Bld Cult ID Panel PCR See PCR Comment 06/24/23 06/24/23 06/24/23 14:33 15:37 15:40 WBC RBC Hgb POC Hgb Hct POC Hct MCV MCH MCHC RDW Std Deviation RDW Coeff of Julian Plt Count MPV Immature Gran % (Auto) Neut % (Auto) Lymph % (Auto) [place] % (Auto) Eos % (Auto) Baso % (Auto) Neut # (Auto) Lymph # (Auto) [place] # (Auto) Eos # (Auto) Baso # (Auto) Immature Gran # (Auto) Toxic Granulation Dohle Bodies Echinocytes PT INR APTT PTT Ratio Sample Site POC pH POC pCO2 POC pO2 POC HCO3 POC Total CO2 POC Base Excess ABG pH 7.49 H ABG pH (Temp Correct) ABG pCO2 28 L ABG pCO2 (Temp Corrct ABG pO2 73 L POC ABG pO2 at Pt Temp ABG HCO3 21 POC ABG O2 Sat ABG O2 Saturation 95.8 H ABG Base Excess -0.7 Hany Test Pos Oxygen Given 25 O2 Delivery Device POC O2 Rate POC FiO2 IPAP POC Sodium Sodium POC Potassium Potassium Chloride Carbon Dioxide Anion Gap BUN Creatinine Est Cr Clr Drug Dosing Est GFR ( Amer) Est GFR (Non-Af Amer) BUN/Creatinine Ratio Glucose POC Glucose Estimat Average Glucose Hemoglobin A1c Lactate 1.6 Calcium Phosphorus Magnesium Total Bilirubin AST ALT Alkaline Phosphatase Troponin I High Sens 30.7 H 32.1 H Total Protein Albumin Globulin Albumin/Globulin Ratio Procalcitonin Urine Color Urine Appearance Urine pH Ur Specific [place] Urine Protein Urine Glucose (UA) Urine Ketones Urine Blood Urine Nitrite Urine Bilirubin Urine Urobilinogen Ur Leukocyte Esterase Urine WBC (Auto) Urine RBC (Auto) U Hyaline Cast (Auto) U Epithel Cells (Auto) Urine Bacteria (Auto) Nasal Screen MRSA (PCR) Adenovirus (PCR) B. pertussis DNA (PCR) B.parapertussis DNA PCR C. pneumoniae DNA (PCR) Coronavirus OC43 (PCR) Coronavirus HKU1 (PCR) Coronavirus 229E (PCR) SARS-CoV-2 (PCR) Coronavirus NL63 (PCR) Human Metapneumovir PCR Influenza A (H3) PCR Influenza Type B (PCR) M. pneumoniae (PCR) Parainfluenza 1 (PCR) Parainfluenza 2 (PCR) Parainfluenza 3 (PCR) Parainfluenza 4 (PCR) RSV (PCR) Entero/Rhino (PCR) Staphylococcus sp PCR Staph aureus (PCR) mecA/C & MREJ Resist Gene Bld Cult ID Panel PCR 06/24/23 06/24/23 06/24/23 16:35 16:50 17:54 WBC RBC Hgb POC Hgb Hct POC Hct MCV MCH MCHC RDW Std Deviation RDW Coeff of Julian Plt Count MPV Immature Gran % (Auto) Neut % (Auto) Lymph % (Auto) [place] % (Auto) Eos % (Auto) Baso % (Auto) Neut # (Auto) Lymph # (Auto) [place] # (Auto) Eos # (Auto) Baso # (Auto) Immature Gran # (Auto) Toxic Granulation Dohle Bodies Echinocytes PT INR APTT PTT Ratio Sample Site POC pH POC pCO2 POC pO2 POC HCO3 POC Total CO2 POC Base Excess ABG pH ABG pH (Temp Correct) ABG pCO2 ABG pCO2 (Temp Corrct ABG pO2 POC ABG pO2 at Pt Temp ABG HCO3 POC ABG O2 Sat ABG O2 Saturation ABG Base Excess Hany Test Oxygen Given O2 Delivery Device POC O2 Rate POC FiO2 IPAP POC Sodium Sodium POC Potassium Potassium Chloride Carbon Dioxide Anion Gap BUN Creatinine Est Cr Clr Drug Dosing Est GFR ( Amer) Est GFR (Non-Af Amer) BUN/Creatinine Ratio Glucose POC Glucose 139 H Estimat Average Glucose Hemoglobin A1c Lactate Calcium Phosphorus Magnesium Total Bilirubin AST ALT Alkaline Phosphatase Troponin I High Sens 41.3 H Total Protein Albumin Globulin Albumin/Globulin Ratio Procalcitonin Urine Color Dark Yellow Urine Appearance Clear Urine pH 5.5 Ur Specific [place] 1.029 Urine Protein 2+ H Urine Glucose (UA) Trace H Urine Ketones 2+ H Urine Blood 1+ H Urine Nitrite Negative Urine Bilirubin Negative Urine Urobilinogen Negative Ur Leukocyte Esterase Negative Urine WBC (Auto) 1-5 Urine RBC (Auto) 0-4 U Hyaline Cast (Auto) 1-5 U Epithel Cells (Auto) 10-20 H Urine Bacteria (Auto) Negative Nasal Screen MRSA (PCR) Adenovirus (PCR) B. pertussis DNA (PCR) B.parapertussis DNA PCR C. pneumoniae DNA (PCR) Coronavirus OC43 (PCR) Coronavirus HKU1 (PCR) Coronavirus 229E (PCR) SARS-CoV-2 (PCR) Coronavirus NL63 (PCR) Human Metapneumovir PCR Influenza A (H3) PCR Influenza Type B (PCR) M. pneumoniae (PCR) Parainfluenza 1 (PCR) Parainfluenza 2 (PCR) Parainfluenza 3 (PCR) Parainfluenza 4 (PCR) RSV (PCR) Entero/Rhino (PCR) Staphylococcus sp PCR Staph aureus (PCR) mecA/C & MREJ Resist Gene Bld Cult ID Panel PCR 06/24/23 06/24/23 06/24/23 18:30 19:45 23:28 WBC RBC Hgb POC Hgb Hct POC Hct MCV MCH MCHC RDW Std Deviation RDW Coeff of Julian Plt Count MPV Immature Gran % (Auto) Neut % (Auto) Lymph % (Auto) [place] % (Auto) Eos % (Auto) Baso % (Auto) Neut # (Auto) Lymph # (Auto) [place] # (Auto) Eos # (Auto) Baso # (Auto) Immature Gran # (Auto) Toxic Granulation Dohle Bodies Echinocytes PT INR APTT PTT Ratio Sample Site POC pH POC pCO2 POC pO2 POC HCO3 POC Total CO2 POC Base Excess ABG pH ABG pH (Temp Correct) ABG pCO2 ABG pCO2 (Temp Corrct ABG pO2 POC ABG pO2 at Pt Temp ABG HCO3 POC ABG O2 Sat ABG O2 Saturation ABG Base Excess Hany Test Oxygen Given O2 Delivery Device POC O2 Rate POC FiO2 IPAP POC Sodium Sodium POC Potassium Potassium Chloride Carbon Dioxide Anion Gap BUN Creatinine Est Cr Clr Drug Dosing Est GFR ( Amer) Est GFR (Non-Af Amer) BUN/Creatinine Ratio Glucose POC Glucose 91 213 H Estimat Average Glucose Hemoglobin A1c Lactate Calcium Phosphorus Magnesium Total Bilirubin AST ALT Alkaline Phosphatase Troponin I High Sens Total Protein Albumin Globulin Albumin/Globulin Ratio Procalcitonin Urine Color Urine Appearance Urine pH Ur Specific [place] Urine Protein Urine Glucose (UA) Urine Ketones Urine Blood Urine Nitrite Urine Bilirubin Urine Urobilinogen Ur Leukocyte Esterase Urine WBC (Auto) Urine RBC (Auto) U Hyaline Cast (Auto) U Epithel Cells (Auto) Urine Bacteria (Auto) Nasal Screen MRSA (PCR) Negative Adenovirus (PCR) B. pertussis DNA (PCR) B.parapertussis DNA PCR C. pneumoniae DNA (PCR) Coronavirus OC43 (PCR) Coronavirus HKU1 (PCR) Coronavirus 229E (PCR) SARS-CoV-2 (PCR) Coronavirus NL63 (PCR) Human Metapneumovir PCR Influenza A (H3) PCR Influenza Type B (PCR) M. pneumoniae (PCR) Parainfluenza 1 (PCR) Parainfluenza 2 (PCR) Parainfluenza 3 (PCR) Parainfluenza 4 (PCR) RSV (PCR) Entero/Rhino (PCR) Staphylococcus sp PCR Staph aureus (PCR) mecA/C & MREJ Resist Gene Bld Cult ID Panel PCR 06/24/23 06/25/23 06/25/23 23:42 03:59 04:39 WBC 17.71 H RBC 4.23 L Hgb 12.7 L D POC Hgb 11.9 L Hct 37.6 L POC Hct 35 L MCV 88.9 MCH 30.0 MCHC 33.8 RDW Std Deviation 42.2 RDW Coeff of Jluian 13.1 Plt Count 199 MPV 9.9 Immature Gran % (Auto) 0.7 Neut % (Auto) 82.2 Lymph % (Auto) 6.4 [place] % (Auto) 10.3 Eos % (Auto) 0.1 Baso % (Auto) 0.3 Neut # (Auto) 14.58 H Lymph # (Auto) 1.13 L [place] # (Auto) 1.82 H Eos # (Auto) 0.01 Baso # (Auto) 0.05 Immature Gran # (Auto) 0.12 Toxic Granulation Dohle Bodies 1+ Echinocytes 1+ PT INR APTT PTT Ratio Sample Site R Radial POC pH 7.33 L POC pCO2 30 L POC pO2 78 L POC HCO3 16 L POC Total CO2 16 L POC Base Excess -10.0 L ABG pH ABG pH (Temp Correct) 7.323 L ABG pCO2 ABG pCO2 (Temp Corrct 30 L ABG pO2 POC ABG pO2 at Pt Temp 80 ABG HCO3 POC ABG O2 Sat 95.0 ABG O2 Saturation ABG Base Excess Hany Test Pass Oxygen Given O2 Delivery Device BIPAP POC O2 Rate 12 POC FiO2 30 IPAP 14 POC Sodium 130 L Sodium 130 L POC Potassium 4.5 Potassium 4.6 Chloride 98 Carbon Dioxide 19 L Anion Gap 13 H BUN 23 Creatinine 1.05 Est Cr Clr Drug Dosing 107.8 Est GFR ( Amer) 89.6 Est GFR (Non-Af Amer) 77.3 BUN/Creatinine Ratio 21.9 H Glucose 283 H POC Glucose 228 H Estimat Average Glucose Hemoglobin A1c Lactate Calcium 8.5 L Phosphorus 3.4 Magnesium 1.5 L Total Bilirubin AST ALT Alkaline Phosphatase Troponin I High Sens 33.1 H Total Protein Albumin Globulin Albumin/Globulin Ratio Procalcitonin Urine Color Urine Appearance Urine pH Ur Specific [place] Urine Protein Urine Glucose (UA) Urine Ketones Urine Blood Urine Nitrite Urine Bilirubin Urine Urobilinogen Ur Leukocyte Esterase Urine WBC (Auto) Urine RBC (Auto) U Hyaline Cast (Auto) U Epithel Cells (Auto) Urine Bacteria (Auto) Nasal Screen MRSA (PCR) Adenovirus (PCR) B. pertussis DNA (PCR) B.parapertussis DNA PCR C. pneumoniae DNA (PCR) Coronavirus OC43 (PCR) Coronavirus HKU1 (PCR) Coronavirus 229E (PCR) SARS-CoV-2 (PCR) Coronavirus NL63 (PCR) Human Metapneumovir PCR Influenza A (H3) PCR Influenza Type B (PCR) M. pneumoniae (PCR) Parainfluenza 1 (PCR) Parainfluenza 2 (PCR) Parainfluenza 3 (PCR) Parainfluenza 4 (PCR) RSV (PCR) Entero/Rhino (PCR) Staphylococcus sp PCR Staph aureus (PCR) mecA/C & MREJ Resist Gene Bld Cult ID Panel PCR 06/25/23 06/25/23 06/25/23 05:55 10:29 10:30 WBC RBC Hgb POC Hgb Hct POC Hct MCV MCH MCHC RDW Std Deviation RDW Coeff of Julian Plt Count MPV Immature Gran % (Auto) Neut % (Auto) Lymph % (Auto) [place] % (Auto) Eos % (Auto) Baso % (Auto) Neut # (Auto) Lymph # (Auto) [place] # (Auto) Eos # (Auto) Baso # (Auto) Immature Gran # (Auto) Toxic Granulation Dohle Bodies Echinocytes PT INR APTT PTT Ratio Sample Site POC pH POC pCO2 POC pO2 POC HCO3 POC Total CO2 POC Base Excess ABG pH ABG pH (Temp Correct) ABG pCO2 ABG pCO2 (Temp Corrct ABG pO2 POC ABG pO2 at Pt Temp ABG HCO3 POC ABG O2 Sat ABG O2 Saturation ABG Base Excess Hany Test Oxygen Given O2 Delivery Device POC O2 Rate POC FiO2 IPAP POC Sodium Sodium POC Potassium Potassium Chloride Carbon Dioxide Anion Gap BUN Creatinine Est Cr Clr Drug Dosing Est GFR ( Amer) Est GFR (Non-Af Amer) BUN/Creatinine Ratio Glucose POC Glucose 406 H* 422 H* Estimat Average Glucose Hemoglobin A1c Lactate 1.7 Calcium Phosphorus Magnesium Total Bilirubin AST ALT Alkaline Phosphatase Troponin I High Sens Total Protein Albumin Globulin Albumin/Globulin Ratio Procalcitonin Urine Color Urine Appearance Urine pH Ur Specific [place] Urine Protein Urine Glucose (UA) Urine Ketones Urine Blood Urine Nitrite Urine Bilirubin Urine Urobilinogen Ur Leukocyte Esterase Urine WBC (Auto) Urine RBC (Auto) U Hyaline Cast (Auto) U Epithel Cells (Auto) Urine Bacteria (Auto) Nasal Screen MRSA (PCR) Adenovirus (PCR) B. pertussis DNA (PCR) B.parapertussis DNA PCR C. pneumoniae DNA (PCR) Coronavirus OC43 (PCR) Coronavirus HKU1 (PCR) Coronavirus 229E (PCR) SARS-CoV-2 (PCR) Coronavirus NL63 (PCR) Human Metapneumovir PCR Influenza A (H3) PCR Influenza Type B (PCR) M. pneumoniae (PCR) Parainfluenza 1 (PCR) Parainfluenza 2 (PCR) Parainfluenza 3 (PCR) Parainfluenza 4 (PCR) RSV (PCR) Entero/Rhino (PCR) Staphylococcus sp PCR Staph aureus (PCR) mecA/C & MREJ Resist Gene Bld Cult ID Panel PCR Diagnostic Findings Echocardiogram performed 06/25/2023: Normal LV systolic function and wall motion. Stage II diastolic dysfunction. Normally functioning bioprosthetic aortic valve. No other significant valvular heart disease. Mildly dilated inferior vena cava. When compared to report from [facility] from April of this year no significant change ECG Additional Comments: EKG obtained 06/25/2023: Normal sinus rhythm with 1st degree AV block. Unchanged from an EKG performed [facility] in April 2023. PG Care Time/CCT Total # of Minutes Spent Total Time Spent with Patient: Total time spent is greater than 50% in coordination of care (as documented) at patient's floor/unit and/or counseling patient: Coding Level of Care Code 43462 IN/OBS CONSULT LVL 4,60M Diagnoses Ventricular tachycardia, sustained I47.20 Aortic stenosis I35.0 Sarcoidosis D86.9 First degree AV block I44.0
[2023-06-25] MEDS: NovoLIN-R BOLUS FROM BAG IV ONE (11:04)
[2023-06-25] MEDS: AMIODARONE / D5W 360 MG/200 ML BAG IV SCH (11:04)
[2023-06-25] MEDS ORDERED: PHARMACY GLYCEMIC MGMT CONSULT PRN (11:10)
[2023-06-25] MEDS: INSULIN PROTOCOL GOAL RANGE ONE (11:16)
[2023-06-25] MEDS: SEVERE STRESS LEVEL ONE (11:16)
[2023-06-25 11:19] LABS: Hematocrit (blood only) 38.5 % (42.0-52.0); Hemoglobin 12.5 g/dl (14.0-18.0)
--- NOTE | 2023-06-25 12:07 | Electrocardiogram Report ---
Test Reason : Blood Pressure : / mmHG Vent. Rate : 087 BPM Atrial Rate : 087 BPM P-R Int : 224 ms QRS Dur : 088 ms QT Int : 392 ms P-R-T Axes : 041 038 091 degrees QTc Int : 471 ms Sinus rhythm with 1st degree A-V block Otherwise normal ECG When compared with ECG of 24-JUN-2023 12:35, (unconfirmed) UT interval has increased Vent. rate has decreased BY 44 BPM Confirmed by Shawn Hall ([id number]) on 06/25/2023 12:06:55 PM Referred By: REFERRED SELF Confirmed By:Yoel Hall
--- NOTE | 2023-06-25 12:14 | Electrocardiogram Report ---
Test Reason : Blood Pressure : / mmHG Vent. Rate : 131 BPM Atrial Rate : 131 BPM P-R Int : 182 ms QRS Dur : 080 ms QT Int : 264 ms P-R-T Axes : -22 039 101 degrees QTc Int : 389 ms Sinus tachycardia Nonspecific T wave abnormality Abnormal ECG When compared with ECG of 17-JUN-2023 19:15, IN interval has decreased Confirmed by Shawn Hall ([id number]) on 06/25/2023 12:14:09 PM Referred By: Confirmed By:Yoel Hall
--- NOTE | 2023-06-25 12:44 | Pharmacy Report ---
Pharmacy Glycemic Short Note 2 - Date of Service June 25, 2023 - Glycemic Short BSG Results (Last 24 hours): 06/24/23 06/24/23 06/24/23 12:38 16:35 19:45 Glucose 201 H POC Glucose 139 H 91 06/24/23 06/24/23 06/25/23 23:28 23:42 03:59 Glucose 283 H POC Glucose 213 H 228 H 06/25/23 06/25/23 06/25/23 10:29 10:30 12:08 Glucose POC Glucose 406 H* 422 H* 460 H* OUTPATIENT ANTIDIABETIC REGIMEN: * Patient is on a medtronic insulin pump outpatient, utilizes Humalog * Carb Ratio: 5129-9253 4.0; 0600- 1700 3.1; 7346-2979 2.4 * SF: 10 * Basal is set to provide 85.1 units/day but patient utilizes closed loop with CGM and can be adjusted- used 80 units recently ASSESSMENT: * Patient is admitted with FluA + MSSA bacteremia, sputum also growing staph species * Patient's pump was discontinued last PM with BSG of 91 mg/dL, provided 14 units of basal overnight (~0300) * BSGs have subsequently increased- will utilize insulin infusion until BSGs under better control * Patients reports that patient usually requires more insulin (double) when using novolog compared to humalog; current Carb Ratio set at 3.5 but will tighten if BSGs do trend upwards after meal PLAN FOR INPATIENT GLYCEMIC CONTROL: * Hold outpatient oral diabetes medications * Basal insulin * Lantus 14 units x 1 at 0257, additional 60 units x 1 put in this morning prior to starting insulin infusion * Insulin infusion initiated with BSG in the 400s- currently at 8 units/hr * Bolus insulin * NovoLog per scale ACHS or Q6hrs while NPO * Nutritional / Prandial insulin per carb ratio of 1 unit per 3.5 grams CHO consumed
[2023-06-25] MEDS: INSULIN ASPART PER UNIT CHARGE SC ONE (14:37)
[2023-06-25] MEDS: ceFAZolin 2000MG 2,000 MG/15 ML SYR IV SCH (16:26)
[2023-06-25] MEDS: ENOXAPARIN 80 MG/0.8 ML SYR SQ SCH (16:27)
[2023-06-25 16:34] LABS: Hematocrit (blood only) 39.7 % (42.0-52.0); Hemoglobin 13.1 g/dl (14.0-18.0)
[2023-06-25] MEDS: INSULIN HUMAN LISPRO (humaLOG) 100 UNITS/ML VIAL SC SCH (16:47)
--- NOTE | 2023-06-25 18:24 | Hospitalist Progress Note ---
Date of Service June 25, 2023 Assessment & Plan (1) Acute hypoxemic respiratory failure: Plan: Assessment: 1. Acute hypoxemic respiratory failure. Probable viral pneumonia with secondary bacterial overgrowthsubsequent MSSA bacteremiamaking his primary illness at this point likely sepsis due to gram (+) bacteremia as far as his cause for admission. Continue antibiotics, secondary workup, supportive care. 2. Ventricular tachycardiaPer cardiology. elevated troponin due to type 2 demand ischemia but will appreciate cardiology opinion on this as well. 3. Subacute influenza A positivity. With suspected superimposed pneumonia. 4. Concern for progressive respiratory failure with possible developing ARDS/noncardiogenic pulmonary edema versus cardiogenic pulmonary edema/CHF. Ongoing ICU management 5. Morbid obesity. BMI 52.6 likely does contribute to some chronicity of his respiratory failure 6. Obstructive sleep apnea. He does wear CPAP at night he is uncertain of his settings. 7. Diabetes mellitus insulin-dependent. Inpatient glycemic management 8. Hypertensionmonitor 9. Concern for developing septic shock. Thus far has stabilized in spite of his gram (+) sepsis 10. Dyslipidemia. Continue home medications. 11. GERD continue home medications. 13. Full CODE STATUS Plan-as per ICU and cardiology at this time, will continue to follow. Admission and Anticipated Discharge Date Admission Date: June 24, 2023 Subjective ICU and cardiology managing care. pt resting comfortably in bed. Results & Data Results & Data Vital Signs (Past 12 Hours) Vital Signs Temp Pulse Pulse Resp BP Pulse Ox O2 Del Method 06/25/23 17:00 99.7 F H 99 H 17 130/66 92 High Flow Nasal Cannula 06/25/23 16:00 99.5 F 96 H 23 136/67 98 High Flow Nasal Cannula 06/25/23 15:38 91 H 20 97 High Flow Nasal Cannula 06/25/23 15:00 99.3 F 90 19 112/55 L 95 High Flow Nasal Cannula 06/25/23 14:00 99.0 F 93 H 19 108/59 L 94 High Flow Nasal Cannula 06/25/23 13:31 98.8 F 98 H 20 112/76 92 High Flow Nasal Cannula 06/25/23 13:16 98.8 F 95 H 25 H 106/54 L 93 High Flow Nasal Cannula 06/25/23 12:01 98.4 F 90 24 117/52 L 97 High Flow Nasal Cannula 06/25/23 11:46 84 22 97 High Flow Nasal Cannula 06/25/23 11:33 98.4 F 92 H 25 H 102/61 93 High Flow Nasal Cannula 06/25/23 11:31 98.4 F 91 H 20 102/61 94 High Flow Nasal Cannula 06/25/23 11:00 98.4 F 88 22 130/71 98 High Flow Nasal Cannula 06/25/23 10:35 98.6 F 90 21 137/65 94 High Flow Nasal Cannula 06/25/23 10:15 90 22 98 High Flow Nasal Cannula 06/25/23 10:01 98.4 F 88 30 H 112/76 95 Oxymask 06/25/23 09:30 98.4 F 86 23 122/60 94 Oxymask 06/25/23 09:00 98.4 F 91 H 16 124/49 L 92 Oxymask 06/25/23 08:30 98.6 F 91 H 22 121/60 92 Oxymask 06/25/23 08:00 98.8 F 87 21 114/54 L 98 Oxymask 06/25/23 07:49 87 22 98 06/25/23 07:49 87 22 98 BiPAP 06/25/23 07:30 99.0 F 86 24 123/65 98 BiPAP 06/25/23 07:11 99.0 F 88 17 101/80 98 BiPAP 06/25/23 07:01 99.1 F 91 H 23 144/67 H 99 BiPAP 06/25/23 07:00 BiPAP O2 Flow Rate FiO2 06/25/23 17:00 50 30 06/25/23 16:00 50 30 06/25/23 15:38 50 30 06/25/23 15:00 60 30 06/25/23 14:00 60 30 06/25/23 13:31 60 30 06/25/23 13:16 60 30 06/25/23 12:01 60 30 06/25/23 11:46 60 30 06/25/23 11:33 60 30 06/25/23 11:31 60 30 06/25/23 11:00 60 30 06/25/23 10:35 60 30 06/25/23 10:15 60 30 06/25/23 10:01 2 06/25/23 09:30 2 06/25/23 09:00 2 06/25/23 08:30 2 06/25/23 08:00 2 06/25/23 07:49 30 06/25/23 07:49 30 06/25/23 07:30 30 06/25/23 07:11 30 06/25/23 07:01 30 06/25/23 07:00 30 PG Care Time/CCT Total # of Minutes Spent Total Time Spent with Patient: Total time spent is greater than 50% in coordination of care (as documented) at patient's floor/unit and/or counseling patient: Coding Level of Care Code 56920 SUB INP/OBS CARE 04/29MIN Diagnoses Acute hypoxemic respiratory failure J96.01
[2023-06-25] MEDS: LANTUS PER UNIT CHARGE SC ONE (21:33)
[2023-06-25 22:59] LABS: Hematocrit (blood only) 35.6 % (42.0-52.0); Hemoglobin 12.2 g/dl (14.0-18.0)
[2023-06-26] MEDS: traZODone HCL 100 MG TAB PO ONE (00:45)
[2023-06-26] MEDS: DEXTROSE 50% 50 ML SYRINGE IV PRN (01:40)
[2023-06-26 05:51] LABS: Hematocrit (blood only) 34.5 % (42.0-52.0); Hemoglobin 11.8 g/dl (14.0-18.0); Mean Corpuscular Hemoglobin 29.9 pg (25.0-34.0); Mean Corpuscular Hgb Conc 34.2 g/dL (32.0-36.0); Mean Corpuscular Volume 87.3 fL (80.0-100.0); Mean Platelet Volume 9.8 fL (9.4-12.4); Platelet Count 236 K/uL (130-400); RDW Standard Deviation 41.9 fL (36.4-46.3); Red Blood Count 3.95 M/uL (4.70-6.10); White Blood Count 16.41 K/ul (4.8-10.8)
[2023-06-26 06:08] LABS: BUN Creatinine Ratio 33.3 (10-20); Calcium 8.8 mg/dl (8.6-10.3); Creatinine Clr Calc Pharmacy 129.8 ml/min; Est GFR (African American) 109.5 ml/min; Est GFR (Non-African American) 94.5 ml/min; Magnesium 2.2 mg/dl (1.7-2.4); Phosphorus 2.1 mg/dl (2.5-4.9); Potassium 3.9 mmol/L (3.5-5.1)
[2023-06-26] MEDS ORDERED: POTASSIUM PHOS 3 MMOL/1 ML INFUSION IV STA (06:19)
[2023-06-26 06:34] LABS: Basophils # (auto) 0.05 K/uL (0.00-0.20); Basophils % (auto) 0.3 %; Dohle Bodies 1+; Echinocytes 1+; Eosinophils % (auto) 0.6 %; Immature Granulocytes # (auto) 0.14 K/uL (0.01-0.20); Immature Granulocytes % (auto) 0.9 %; Lymphocytes # (auto) 0.73 K/uL (1.20-3.40); Lymphocytes % (auto) 4.4 %; Monocytes # (auto) 1.48 K/uL (0.11-0.59); Neutrophils # (auto) 13.91 K/uL (1.40-6.50); Neutrophils % (auto) 84.8 %; Polychromasia 1+
[2023-06-26] MEDS: BENZONATATE 100 MG CAPSULE PO PRN (07:13)
[2023-06-26] MEDS: POTASSIUM PHOSPHATE 15 MMOL in SODIUM CHLORIDE 0.9% 250 ML IV ONE (07:14)
[2023-06-26] MEDS: LANTUS PER UNIT CHARGE SC STA (07:18)
[2023-06-26] MEDS ORDERED: SODIUM PHOSPHATE 3 MMOL/1 ML INFUSION IV STA (10:58)
[2023-06-26] MEDS ORDERED: SODIUM PHOSPHATE 15 MMOL in SODIUM CHLORIDE 0.9% 250 ML IV ONE (11:30)
--- NOTE | 2023-06-26 12:50 | Critical Care Progress Note ---
Date of Service June 26, 2023 Assessment & Plan (1) Acute hypoxemic respiratory failure: Plan: PLAN: Resp: Acute hypoxic respiratory failure: Resolved -History of sarcoidosis -CT scan chest reviewed with multiple groundglass opacities consistent with multilobar pneumonia suspect viral in origin awaiting formal CT report Acute respiratory distress syndrome secondary to viral multilobar pneumonia: Influenza A: Reported history of biopsy-proven sarcoid would strongly encourage pulmonary follow-up for formal PFTs -History of COVID infection in 2019 CV: Recent TEVAR aortic valve replacement -Attempt to obtain records regarding this procedure Ventricular tachycardia requiring emergent cardioversion overnight -Amiodarone should transition to oral -Cardiology consult reviewed -Underlying bacteremia: Suspect MSSA off of DNA probe testing MRSA nasal swab negative -Cardiology recommendation ICD if there is evidence of cardiac sarcoid additional records attempting to be obtained -Discussed with hospitalist possible need of near future of BENJAMIN to further exclude MSSA endocarditis History hypertension: Continue home medications Fluids/Renal: High gap metabolic acidosis resolved Lactic acid acidosis: Resolved Hyponatremia: Mild -Suspect mild dehydration given increased metabolic demands with influenza ID: Severe sepsis secondary to subacute influenza type a -Initiate Tamiflu 75 mg twice daily given severe respiratory illness total 5 days duration MSSA bacteremia: First set of repeat blood cultures obtained today second set pending for tomorrow -De-escalate to Ancef, MRSA nasal swab negative -Will require extended course of antibiotics may need PICC in near future -Blood cultures ordered for today and tomorrow GI/Nutrition: Extreme morbid obesity BMI greater than 51 Dyslipidemia -Continue rosuvastatin Carb consistent diet Heme: Leukocytosis -Related to underlying sepsis DVT prophylaxis: Increase Lovenox dosing 2.5 mg/kg per total body weight Endocrine: ICU hyperglycemia protocol Poorly controlled type 2 diabetes currently on insulin infusion History of biopsy-proven sarcoid: Attempt to obtain records, considered to be in remission Vascular access: Peripheral IVs Code Status: Full code Disposition: Stable for downgrade out of ICU (2) Influenza: (3) Severe obstructive sleep apnea: (4) Obesity, morbid, BMI 50 or higher: (5) Type 2 diabetes mellitus: (6) Hyperlipidemia: (7) Essential (primary) hypertension: Admission and Anticipated Discharge Date Admission Date: June 24, 2023 Subjective No complaints speaking in full sentences off all supplemental oxygen. Physical Exam Physical Exam: General: Alert. nontoxic. Skin: Warm, dry, Head: Atraumatic Ears, nose, mouth and throat: airway patent Cardiovascular: Normal peripheral perfusion Respiratory: no respiratory distress Gastrointestinal: Non distended Musculoskeletal: No deformity Results & Data Results & Data Vital Signs (Past 12 Hours) Vital Signs Temp Pulse Pulse Resp BP Pulse Ox O2 Del Method 06/26/23 12:34 86 24 90 Room Air 06/26/23 11:31 96 H 22 92 Room Air 06/26/23 07:48 88 24 94 Nasal Cannula 06/26/23 07:00 37.5 C 86 25 H 167/90 H 93 High Flow Nasal Cannula 06/26/23 07:00 High Flow Nasal Cannula 06/26/23 06:10 166/72 H 06/26/23 06:10 37.4 C 86 24 91 06/26/23 05:00 37.6 C H 86 25 H 92 06/26/23 04:00 37.5 C 87 27 H 90 06/26/23 04:00 137/66 06/26/23 03:18 90 18 96 High Flow Nasal Cannula 06/26/23 03:00 118/56 L 06/26/23 03:00 37.5 C 85 29 H 90 06/26/23 02:30 126/56 L 06/26/23 02:30 37.5 C 87 25 H 89 L 06/26/23 02:00 94/49 L 06/26/23 02:00 37.6 C H 87 20 89 L 06/26/23 01:01 37.8 C H 91 H 20 90 06/26/23 01:01 102/56 L O2 Flow Rate FiO2 06/26/23 12:34 06/26/23 11:31 06/26/23 07:48 4 06/26/23 07:00 50 30 06/26/23 07:00 50 30 06/26/23 06:10 06/26/23 06:10 06/26/23 05:00 06/26/23 04:00 06/26/23 04:00 06/26/23 03:18 50 30 06/26/23 03:00 06/26/23 03:00 06/26/23 02:30 06/26/23 02:30 06/26/23 02:00 06/26/23 02:00 06/26/23 01:01 06/26/23 01:01 Critical Care Results & Data Vital Signs (Past 12 Hours) Vital Signs Temp Pulse Pulse Resp BP Pulse Ox O2 Del Method 06/26/23 12:34 86 24 90 Room Air 06/26/23 11:31 96 H 22 92 Room Air 06/26/23 07:48 88 24 94 Nasal Cannula 06/26/23 07:00 37.5 C 86 25 H 167/90 H 93 High Flow Nasal Cannula 06/26/23 07:00 High Flow Nasal Cannula 06/26/23 06:10 166/72 H 06/26/23 06:10 37.4 C 86 24 91 06/26/23 05:00 37.6 C H 86 25 H 92 06/26/23 04:00 37.5 C 87 27 H 90 06/26/23 04:00 137/66 06/26/23 03:18 90 18 96 High Flow Nasal Cannula 06/26/23 03:00 118/56 L 06/26/23 03:00 37.5 C 85 29 H 90 06/26/23 02:30 126/56 L 06/26/23 02:30 37.5 C 87 25 H 89 L 06/26/23 02:00 94/49 L 06/26/23 02:00 37.6 C H 87 20 89 L 06/26/23 01:01 37.8 C H 91 H 20 90 06/26/23 01:01 102/56 L O2 Flow Rate FiO2 06/26/23 12:34 06/26/23 11:31 06/26/23 07:48 4 06/26/23 07:00 50 30 06/26/23 07:00 50 30 06/26/23 06:10 06/26/23 06:10 06/26/23 05:00 06/26/23 04:00 06/26/23 04:00 06/26/23 03:18 50 30 06/26/23 03:00 06/26/23 03:00 06/26/23 02:30 06/26/23 02:30 06/26/23 02:00 06/26/23 02:00 06/26/23 01:01 06/26/23 01:01 Lab & Micro Results (Past 24 Hours) RBC 3.95 M/uL (4.70-6.10) L 06/26/23 WBC 16.41 K/ul (4.8-10.8) H 06/26/23 Hgb 11.8 g/dl (14.0-18.0) L 06/26/23 Hct 34.5 % (42.0-52.0) L 06/26/23 MCV 87.3 fL (80.0-100.0) 06/26/23 MCH 29.9 pg (25.0-34.0) 06/26/23 MCHC 34.2 g/dL (32.0-36.0) 06/26/23 RDW Standard Deviation 41.9 fL (36.4-46.3) 06/26/23 RDW Coefficient of Variation 13.0 % (11.5-14.5) 06/26/23 Plt Count 236 K/uL (130-400) 06/26/23 MPV 9.8 fL (9.4-12.4) 06/26/23 Neutrophils (%) (Auto) 84.8 % 06/26/23 Lymphocytes (%) (Auto) 4.4 % 06/26/23 Monocytes # (Auto) 1.48 K/uL (0.11-0.59) H 06/26/23 Eosinophils # (Auto) 0.10 K/uL (0.00-0.50) 06/26/23 Immature Granulocyte % (Auto) 0.9 % 06/26/23 Neutrophils # (Auto) 13.91 K/uL (1.40-6.50) H 06/26/23 Lymphocytes # (Auto) 0.73 K/uL (1.20-3.40) L 06/26/23 Monocytes # (Auto) 1.48 K/uL (0.11-0.59) H 06/26/23 Eosinophils # (Auto) 0.10 K/uL (0.00-0.50) 06/26/23 Basophils # (Auto) 0.05 K/uL (0.00-0.20) 06/26/23 Immature Granulocyte # (Auto) 0.14 K/uL (0.01-0.20) 4 Polychromasia 1+ 06/26/23 Echinocytes 1+ 06/26/23 Dohle Bodies 1+ 06/26/23 Na 131 mmol/L (136-145) L 06/26/23 K 3.9 mmol/L (3.5-5.1) 06/26/23 Cl 100 mmol/L (98-107) 06/26/23 CO2 20 mmol/L (21-32) L 06/26/23 Anion Gap 11 (3-11) 06/26/23 BUN 29 mg/dl (6-23) H 06/26/23 Creatinine 0.87 mg/dl (0.6-1.4) 06/26/23 Estimated GFR ( Amer) 109.5 ml/min 06/26/23 Estimated GFR (Non-Af Amer) 94.5 ml/min 06/26/23 BUN/Creatinine Ratio 33.3 (10-20) H 06/26/23 Glu 238 mg/dl (70-99(Fasting)) H 06/26/23 Ca 8.8 mg/dl (8.6-10.3) 06/26/23 Phosphorus Level 2.1 mg/dl (2.5-4.9) L 06/26/23 Mg 2.2 mg/dl (1.7-2.4) 06/26/23 05:05 Calcium Level 8.8 mg/dl (8.6-10.3) 06/26/23 05:05 Microbiology 06/24/23 12:38 Aerobic Blood Culture - Preliminary Blood No growth in Aerobic bottle after 24 hours. Anaerobic Blood Culture - Preliminary Staphylococcus species 06/24/23 12:38 Aerobic Blood Culture - Preliminary Blood Staphylococcus species Anaerobic Blood Culture - Preliminary Staphylococcus species 06/24/23 15:33 Gram Stain - Final Sputum, Expectorated Sputum Culture - Preliminary Staphylococcus species I & O Totals 24 Hours 06/25/23 06/26/23 06/27/23 06:59 06:59 06:59 Intake Total 2954.395 / 2954.395 1918.322 / 1918.322 470.717 / 470.717 Output Total 1690 / 1690 3280 / 3280 170 / 170 Balance 1264.395 / 1264.395 -1361.678 / -1361.678 300.717 / 300.717 Cumulative 06/24/23 12:18 thru 06/26/23 10:26 Intake Total 5343.434 Output Total 5140 Balance 203.434 RT Ventilator Mngmt (Last Documented) Ventilator Ordered Settings Respiratory Rate 06/26/23 12:34 Fraction of Inspired Oxygen 30 06/26/23 07:00 Ventilator - PT Measurements Respiratory Rate 24 Coding Level of Care Code 56859 SUB INP/OBS CARE 2/35MIN Diagnoses Acute hypoxemic respiratory failure J96.01 Influenza J11.1 Severe obstructive sleep apnea G47.33 Obesity, morbid, BMI 50 or higher E66.01 Type 2 diabetes mellitus E11.9 Hyperlipidemia E78.5 Essential (primary) hypertension I10
--- NOTE | 2023-06-26 13:03 | Pharmacy Report ---
Pharmacy Glycemic Short Note 2 - Date of Service June 26, 2023 - Glycemic Short BSG Results (Last 24 hours): 06/25/23 06/25/23 06/25/23 13:16 14:21 15:14 Glucose POC Glucose 443 H* 490 H* 420 H* 06/25/23 06/25/23 06/25/23 16:21 17:16 18:17 Glucose POC Glucose 363 H* 357 H* 339 H* 06/25/23 06/25/23 06/25/23 19:13 20:09 21:09 Glucose POC Glucose 269 H 229 H 182 H 06/25/23 06/25/23 06/26/23 22:18 23:08 00:14 Glucose POC Glucose 156 H 126 H 131 H 06/26/23 06/26/23 06/26/23 01:16 01:56 02:58 Glucose POC Glucose 74 112 H 154 H 06/26/23 06/26/23 06/26/23 05:00 05:05 05:56 Glucose 238 H POC Glucose 250 H 240 H 06/26/23 06/26/23 06/26/23 06:59 08:03 09:01 Glucose POC Glucose 219 H 210 H 216 H 06/26/23 06/26/23 06/26/23 10:17 10:57 12:42 Glucose POC Glucose 222 H 210 H 206 H OUTPATIENT ANTIDIABETIC REGIMEN: * Patient is on a Medtronic insulin pump outpatient, utilizes Humalog * Carb Ratio: 9516-6125 4.0; 0600- 1700 3.1; 0196-1103 2.4 * SF: 10 * Basal is set to provide 85.1 units/day but patient utilizes closed loop with CGM and can be adjusted- used 80 units recently ASSESSMENT: 06/26/23 * Patient continues on insulin drip running at 8.4units/hr with 94 units of basal yesterday. * Will continue insulin drip as it is still running at a high rate while on basal. Tighten CR at this time for better prandial coverage while eating on insulin drip. * Bacteremia, on long course of Ancef + 5 days Tamiflu also started today. Also remains on amiodarone drip. 06/25/23 * Patient is admitted with FluA + MSSA bacteremia, sputum also growing staph species * Patient's pump was discontinued last PM with BSG of 91 mg/dL, provided 14 units of basal overnight (~0300) * BSGs have subsequently increased- will utilize insulin infusion until BSGs under better control * Patients reports that patient usually requires more insulin (double) when using NovoLog compared to Humalog; current Carb Ratio set at 3.5 but will tighten if BSGs do trend upwards after meal PLAN FOR INPATIENT GLYCEMIC CONTROL: * Basal insulin * Lantus 80 units SQ Daily * Lantus 20 units SQ HS for BSG > 180mg/dl * IV Insulin infusion, goal range 110-180mg/dl - currently at 8.4 units/hr * Bolus insulin * HUMALOG per scale ACHS or Q6hrs while NPO * TIGHTEN Nutritional / Prandial insulin per carb ratio of 1 unit per 2 grams CHO consumed
[2023-06-26] MEDS: NovoLIN-R BOLUS FROM BAG IV ONE (15:03)
[2023-06-26] MEDS: LANTUS PER UNIT CHARGE SC ONE (15:06)
--- NOTE | 2023-06-26 15:10 | Hospitalist Progress Note ---
Date of Service June 26, 2023 Assessment & Plan (1) Acute hypoxemic respiratory failure: Plan: 1. Acute hypoxemic respiratory failure resolved now on RA - Secondary to influenza A with secondary bacterial overgrowthsubsequent staphylococcal bacteremia - Continue Tamiflu - Continue antibiotics - currently cefazolin, pending further culture results - Likely also contribution from underlying sarcoidosis - Continue duonebs/nebs PRN 2. Ventricular tachycardia with elevated troponin due to type 2 demand ischemia - Required emergent cardioversion 06/24 - Currently on amiodarone drip - will transition to PO 440mg BID per cardiology recs - Concern for possible cardiac sarcoid contributing - Cardiology to consider AICD - to be revisited Wednesday by cardiology, likely hold until bacteremia clears 3. Bacteremia due to staph - Likely pulmonary source, though note patient recently had dental procedure - Continue antibiotics - currently cefazolin, pending further culture results - TTE with normal systolic function, bioprosthetic aortic valve, grade 2 diastolic dysfunction, mild mitral annular calcification - Would consider BENJAMIN - cardiology to revisit Wednesday - Consider consulting ID Wednesday when speciation completed and BENJAMIN as above completed 4. Morbid obesity. BMI 52.6 likely does contribute to some chronicity of his respiratory failure 5. Obstructive sleep apnea. He does wear CPAP at night he is uncertain of his settings. 6. Diabetes mellitus insulin-dependent. Inpatient glycemic management 7. Hypertensionmonitor - Olmesartan 40mg daily in place of home Losartan 100mg daily 8. Dyslipidemia - Continue home rosuvastatin 9. GERD continue home medications. 10. Hypophosphatemia - Repleted 11. Full CODE STATUS Downgraded from ICU to PCU (2) Ventricular tachycardia, sustained: (3) Staphylococcus aureus bacteremia: (4) Influenza: (5) Essential (primary) hypertension: (6) Type 2 diabetes mellitus: (7) Hyperlipidemia: (8) Obesity, morbid, BMI 50 or higher: (9) Severe obstructive sleep apnea: Admission and Anticipated Discharge Date Admission Date: June 24, 2023 Subjective Notes breathing is improving from a respiratory standpoint, but still having difficulty with breathing Review of Systems Review of Systems: Per subject Physical Exam Physical Exam: General: Nontoxic-appearing, NAD, sitting upright in chair Cardiovascular: RRR, no M/R/G Pulmonary: Poor aeration with scattered coarse breath sounds : Thurston in place draining urine Extremities: Moving all extremities Integumentary: No suspicious rash or lesion on exposed skin Neurologic: AAOx3, no focal deficits Psychiatric: Appropriate mood/affect Results & Data Results & Data Vital Signs (Past 12 Hours) Vital Signs Temp Pulse Pulse Resp BP Pulse Ox Pulse Ox 06/26/23 14:09 96 06/26/23 12:34 86 24 90 06/26/23 11:31 96 H 22 92 06/26/23 07:48 88 24 94 06/26/23 07:00 37.5 C 86 25 H 167/90 H 93 06/26/23 07:00 06/26/23 06:10 166/72 H 06/26/23 06:10 37.4 C 86 24 91 06/26/23 05:00 37.6 C H 86 25 H 92 06/26/23 04:00 37.5 C 87 27 H 90 06/26/23 04:00 137/66 06/26/23 03:18 90 18 96 Pulse Ox O2 Del Method O2 Flow Rate O2 Flow Rate O2 Flow Rate FiO2 06/26/23 14:09 91 0 0 06/26/23 12:34 Room Air 06/26/23 11:31 Room Air 06/26/23 07:48 Nasal Cannula 4 06/26/23 07:00 High Flow Nasal Cannula 50 30 06/26/23 07:00 High Flow Nasal Cannula 50 30 06/26/23 06:10 06/26/23 06:10 06/26/23 05:00 06/26/23 04:00 06/26/23 04:00 06/26/23 03:18 High Flow Nasal Cannula 50 30 Laboratory Results Labs reviewed todayWBC essentially stable at 16, hemoglobin down trended to 11.8, sodium stable at 131, normal potassium, glucoses in the 200s, phosphorus low at 2.1 Micro demonstrating 06/23 blood cultures with Staphylococcus species, sputum culture 06/23 with Staphylococcus species PG Care Time/CCT Total # of Minutes Spent Total Time Spent with Patient: Total time spent is greater than 50% in coordination of care (as documented) at patient's floor/unit and/or counseling patient: Coding Level of Care Code 52426 SUB INP/OBS CARE 3/50MIN Diagnoses Acute hypoxemic respiratory failure J96.01 Ventricular tachycardia, sustained I47.20 Staphylococcus aureus bacteremia R78.81; B95.61 Influenza J11.1 Essential (primary) hypertension I10 Type 2 diabetes mellitus E11.9 Hyperlipidemia E78.5 Obesity, morbid, BMI 50 or higher E66.01 Severe obstructive sleep apnea G47.33
[2023-06-26] MEDS: AMIODARONE 200 MG TAB PO SCH (16:54)
[2023-06-26] MEDS ORDERED: MELATONIN 3 MG TAB PO PRN (19:29)
[2023-06-26] MEDS: LANTUS PER UNIT CHARGE SC SCH (19:55)
[2023-06-26] MEDS: [UNRECOGNIZED DRUG - REMARK] ONE (22:00)
[2023-06-26] MEDS: AMIODARONE / D5W 150 MG/100 ML BAG IV STA (23:00)
[2023-06-26] MEDS: AMIODARONE / D5W 360 MG/200 ML BAG IV ONE (23:10)
[2023-06-26 23:18] LABS: Hematocrit (blood only) 35.9 % (42.0-52.0); Hemoglobin 12.2 g/dl (14.0-18.0); Mean Corpuscular Hemoglobin 29.2 pg (25.0-34.0); Mean Corpuscular Volume 85.9 fL (80.0-100.0); Mean Platelet Volume 9.7 fL (9.4-12.4); Platelet Count 253 K/uL (130-400); RDW Standard Deviation 40.7 fL (36.4-46.3); Red Blood Count 4.18 M/uL (4.70-6.10); White Blood Count 15.24 K/ul (4.8-10.8)
[2023-06-27] MEDS: AMIODARONE 150MG / 100ML D5W IV ONE (00:18)
[2023-06-27] MEDS: LANTUS PER UNIT CHARGE SC ONE (00:18)
[2023-06-27 00:19] LABS: Albumin Level 3.3 gm/dl (3.4-5.0); BUN Creatinine Ratio 25.3 (10-20); Bilirubin,Total 0.5 mg/dl (0.2-1.0); Calcium 9.3 mg/dl (8.6-10.3); Creatinine Clr Calc Pharmacy 129.8 ml/min; Est GFR (African American) 109.5 ml/min; Est GFR (Non-African American) 94.5 ml/min; Globulin 3.3 gm/dl (2.5-4.0); Magnesium 2.1 mg/dl (1.7-2.4); Potassium 3.4 mmol/L (3.5-5.1); Total Protein 6.6 gm/dl (6.0-8.3)
[2023-06-27] MEDS ORDERED: 0.2 MICRON FILTER SET 1 EACH IV ONE ×2 (00:20→00:21)
[2023-06-27] MEDS ORDERED: Nursing to Pharmacy Communication SCH ×2 (01:00→23:45)
--- NOTE | 2023-06-27 01:10 | Communication Note ---
Date of Service: June 27, [id number] Notified by nursing that patient had a non-sustained run of ventricular tachycardia. EKG and labs were ordered (CBC, CMP, mag, troponin). 2244 Patient entered into sustained arrhythmia and code purple was called. Presented to bedside, in-room monitor showing HR 270+ with morphology consistent with supraventricular tachycardia, carotid massage was performed, patient's HR returned to high 90s. EKGs during episode read VTach vs SVT. Patient with similar episode yesterday requiring defibrillation and Amiodarone. 300 mg of Amiodarone was given over 10-15 minutes followed by 1 mg/minute drip for 6 hours. Plan 0.5 mg/minute following. Gen: Patient alert, talkative CV: Tachycardic, regular Resp: Non-labored, CTAB 2300 Potassium 3.4 L, provided supplementation to maintain K of 4/Mg of 2 No additional changes made to plan of care. Resident Activity Tracking Resident Involvement: Resident Care Provided Care Provided: Adult Hospital Medicine (Night)
[2023-06-27] MEDS: AMIODARONE / D5W 150 MG/100 ML BAG IV STA (01:12)
[2023-06-27] MEDS: AMIODARONE / D5W 360 MG/200 ML BAG IV ONE (01:13)
[2023-06-27] MEDS: POTASSIUM CHLORIDE CRTAB 20 MEQ TABCR PO STA ×2 (02:00→04:50)
[2023-06-27] MEDS: AMIODARONE / D5W 360 MG/200 ML BAG IV SCH (04:29)
[2023-06-27 05:13] LABS: Basophils # (auto) 0.04 K/uL (0.00-0.20); Basophils % (auto) 0.3 %; Eosinophils # (auto) 0.09 K/uL (0.00-0.50); Eosinophils % (auto) 0.7 %; Hemoglobin 12.1 g/dl (14.0-18.0); Immature Granulocytes # (auto) 0.16 K/uL (0.01-0.20); Immature Granulocytes % (auto) 1.3 %; Lymphocytes # (auto) 1.17 K/uL (1.20-3.40); Lymphocytes % (auto) 9.6 %; Mean Corpuscular Hemoglobin 29.5 pg (25.0-34.0); Mean Corpuscular Hgb Conc 34.6 g/dL (32.0-36.0); Mean Corpuscular Volume 85.4 fL (80.0-100.0); Mean Platelet Volume 9.7 fL (9.4-12.4); Monocytes # (auto) 1.22 K/uL (0.11-0.59); Neutrophils # (auto) 9.56 K/uL (1.40-6.50); Neutrophils % (auto) 78.1 %; Platelet Count 247 K/uL (130-400); RDW Coefficient of Variation 12.9 % (11.5-14.5); RDW Standard Deviation 40.1 fL (36.4-46.3); White Blood Count 12.24 K/ul (4.8-10.8)
[2023-06-27 05:28] LABS: BUN Creatinine Ratio 27.4 (10-20); Calcium 8.9 mg/dl (8.6-10.3); Creatinine Clr Calc Pharmacy 154.3 ml/min; Est GFR (African American) 117.7 ml/min; Est GFR (Non-African American) 101.5 ml/min; Magnesium 1.9 mg/dl (1.7-2.4); Phosphorus 2.4 mg/dl (2.5-4.9); Potassium 3.7 mmol/L (3.5-5.1)
[2023-06-27] MEDS ORDERED: POTASSIUM PHOS 3 MMOL/1 ML INFUSION IV STA (07:26)
[2023-06-27] MEDS: POTASSIUM PHOSPHATE 15 MMOL in SODIUM CHLORIDE 0.9% 250 ML IV ONE (08:33)
--- NOTE | 2023-06-27 08:49 | Electrocardiogram Report ---
Test Reason : Blood Pressure : / mmHG Vent. Rate : 092 BPM Atrial Rate : 092 BPM P-R Int : 212 ms QRS Dur : 098 ms QT Int : 362 ms P-R-T Axes : 093 054 084 degrees QTc Int : 447 ms Poor data quality, interpretation may be adversely affected Sinus rhythm with 1st degree A-V block Diffuse Minor Nonspecific T wave abnormality Abnormal ECG When compared with ECG of 25-JUN-2023 05:15, Nonspecific T wave abnormality now present Confirmed by Varghese Gracia ([id number]) on 06/27/2023 8:48:39 AM Referred By: REFERRED SELF Confirmed By:Varghese Gracia
--- NOTE | 2023-06-27 08:55 | Electrocardiogram Report ---
Test Reason : Blood Pressure : / mmHG Vent. Rate : 253 BPM Atrial Rate : 127 BPM P-R Int : 000 ms QRS Dur : 162 ms QT Int : 218 ms P-R-T Axes : 000 129 183 degrees QTc Int : 447 ms Poor data quality, interpretation may be adversely affected Monomorphic Ventricular tachycardia Abnormal ECG When compared with ECG of 26-JUN-2023 22:42, Ventricular tachycardia now present Vent. rate has increased BY 161 BPM Confirmed by Varhgese Gracia ([id number]) on 06/27/2023 8:54:34 AM Referred By: REFERRED SELF Confirmed By:Varghese Gracia
--- NOTE | 2023-06-27 08:56 | Electrocardiogram Report ---
Test Reason : Blood Pressure : / mmHG Vent. Rate : 092 BPM Atrial Rate : 092 BPM P-R Int : 226 ms QRS Dur : 096 ms QT Int : 374 ms P-R-T Axes : 028 052 220 degrees QTc Int : 462 ms Poor data quality, interpretation may be adversely affected Sinus rhythm with 1st degree A-V block ST depression in Lateral leads , consider ischemia Prolonged QT Abnormal ECG When compared with ECG of 26-JUN-2023 23:00, Sinus rhythm has replaced Ventricular tachycardia Vent. rate has decreased BY 161 BPM Confirmed by Varghese Gracia ([id number]) on 06/27/2023 8:55:49 AM Referred By: REFERRED SELF Confirmed By:Varghese Gracia
--- NOTE | 2023-06-27 09:47 | Hospitalist Progress Note ---
Date of Service June 27, 2023 Assessment & Plan (1) Acute hypoxemic respiratory failure: Plan: 1. Acute hypoxemic respiratory failure resolved now on RA - Secondary to influenza A with secondary bacterial overgrowthsubsequent MSSA bacteremia - Continue Tamiflu - Continue antibiotics - currently cefazolin - Likely also contribution from underlying sarcoidosis - Continue duonebs/nebs PRN 2. Ventricular tachycardia with elevated troponin due to type 2 demand ischemia - Required emergent cardioversion 06/24 - Had been on amiodarone drip following cardioversion 06/24. Attempt to transition to p.o. amiodarone 400mg BID 06/25 per prior cardiology recommendations, but patient had recurrent ventricular tachycardia and placed back on amiodarone drip - Continue with amiodarone drip per discussion with cardiology 06/26 - Concern for possible cardiac sarcoid contributingwould consider steroids to try to help, but patient has been having uncontrolled blood glucoses and increasing insulin requirements which seem to also be influencing his potassium levels and may be contributing to the ventricular tachycardia. Will hold off on steroids at this time per discussion with cardiology 06/26 in favor of addressing other reversible causes - Cardiology to consider AICD - to be revisited Wednesday by cardiology, likely hold until bacteremia clears - Continue electrolyte monitoring and repletion as indicated 3. Bacteremia due to MSSA - Likely pulmonary source, though note patient recently had dental procedure - Continue antibiotics - currently cefazolin - TTE with normal systolic function, bioprosthetic aortic valve, grade 2 diastolic dysfunction, mild mitral annular calcification - Would consider BENJAMIN - cardiology to revisit Wednesday - Consider consulting ID Wednesday when BENJAMIN as above completed for definitive antibiotic recommendations 4. Morbid obesity. BMI 52.6 likely does contribute to some chronicity of his respiratory failure 5. Obstructive sleep apnea. He does wear CPAP at night 6. Diabetes mellitus insulin-dependent. Transition from insulin drip to patient's home CGMdiscussed with pharmacy 7. Hypertensionmonitor - Olmesartan 40mg daily in place of home Losartan 100mg daily 8. Dyslipidemia - Continue home rosuvastatin 9. GERD continue home medications. 10. Hypophosphatemia and hypokalemia - Repleted. Also provided additional magnesium in light of VT 11. Misc - D/c akin today Full CODE STATUS Continue PCU (2) Ventricular tachycardia, sustained: (3) Staphylococcus aureus bacteremia: (4) Influenza: (5) Essential (primary) hypertension: (6) Type 2 diabetes mellitus: (7) Hyperlipidemia: (8) Obesity, morbid, BMI 50 or higher: (9) Severe obstructive sleep apnea: Admission and Anticipated Discharge Date Admission Date: June 24, 2023 Subjective Reported having arrhythmic events last night that he felt uneasy with - didn't have significant CP, SOB, or palpitations, but felt "off". Please refer to communication documentation for further details. This morning, patient denies significant dyspnea. Still having some coughing. Nose increase in nasal congestion/mucus production. Reporting blood in urine through [place]. Review of Systems Review of Systems: Per subjective Physical Exam Physical Exam: General: Nontoxic-appearing, NAD, standing by bedside Cardiovascular: RRR, no M/R/G Pulmonary: Poor aeration most notably at bases with scattered coarse breath sounds, though improved from yesterday : [place] in place draining blood-tinged urine Extremities: Moving all extremities Integumentary: No suspicious rash or lesion on exposed skin Neurologic: AAOx3, no focal deficits Psychiatric: Appropriate mood/affect Results & Data Results & Data Vital Signs (Past 12 Hours) Vital Signs Temp Pulse Pulse Resp BP Pulse Ox O2 Del Method 06/27/23 08:00 Room Air 06/27/23 07:48 90 20 92 Room Air 06/27/23 07:21 37.2 C 89 23 154/75 H 91 Room Air 06/27/23 03:31 119/53 L 06/27/23 03:31 37.1 C 76 20 95 06/27/23 00:27 87 06/27/23 00:01 37.6 C H 87 24 97 06/27/23 00:01 176/90 H 06/26/23 23:46 37.6 C H 88 25 H 95 06/26/23 23:46 164/85 H 06/26/23 23:30 37.6 C H 83 24 95 06/26/23 23:30 160/91 H 06/26/23 23:21 37.6 C H 89 24 93 06/26/23 23:21 156/77 H 06/26/23 23:18 37.6 C H 87 19 95 06/26/23 23:18 158/93 H 06/26/23 23:16 138/95 03/23/24 23:16 37.7 C H 90 17 95 06/26/23 23:13 37.6 C H 95 H 17 95 06/26/23 23:13 171/84 H 06/26/23 23:11 37.6 C H 93 H 22 92 06/26/23 23:11 150/90 H 06/26/23 23:08 168/96 H 06/26/23 23:08 37.6 C H 91 H 23 94 06/26/23 23:05 204/103 H 06/26/23 23:05 37.7 C H 96 H 15 92 Laboratory Results Labs reviewed from todaynotable for stable hemoglobin at 12.1, downtrending leukocytosis at 12.2, sodium stable at 134, potassium 3.4 overnight increased to 3.7, magnesium 1.9 this morning, phosphorus 2.4. Creatinine remained stable. Glucoses have been mostly mid 200s Diagnostic Findings EKGs from overnight reviewed with demonstration of ventricular tachycardia, follow-up EKG demonstrates sinus rhythm with ST depressions in lateral leads Blood cultures 06/23 and respiratory sputum culture 06/23 with staph RES, pansensitive PG Care Time/CCT Total # of Minutes Spent Total Time Spent with Patient: Total time spent is greater than 50% in coordination of care (as documented) at patient's floor/unit and/or counseling patient: Coding Level of Care Code 39160 SUB INP/OBS CARE 350MIN Diagnoses Acute hypoxemic respiratory failure J96.01 Ventricular tachycardia, sustained I47.20 Staphylococcus aureus bacteremia R78.81; B95.61 Influenza J11.1 Essential (primary) hypertension I10 Type 2 diabetes mellitus E11.9 Hyperlipidemia E78.5 Obesity, morbid, BMI 50 or higher E66.01 Severe obstructive sleep apnea G47.33
--- NOTE | 2023-06-27 10:33 | Pharmacy Report ---
Pharmacy Glycemic Short Note 2 - Date of Service June 27, 2023 - Glycemic Short BSG Results (Last 24 hours): 06/26/23 06/26/23 06/26/23 10:57 12:42 13:42 Glucose POC Glucose 210 H 206 H 215 H 06/26/23 06/26/23 06/26/23 14:49 16:00 16:53 Glucose POC Glucose 217 H 197 H 205 H 06/26/23 06/26/23 06/26/23 18:00 19:03 19:53 Glucose POC Glucose 223 H 178 H 167 H 06/26/23 06/26/23 06/26/23 20:56 22:03 22:49 Glucose POC Glucose 145 H 105 H 93 06/26/23 06/26/23 06/27/23 22:59 23:59 01:52 Glucose 82 POC Glucose 127 H 188 H 06/27/23 06/27/23 06/27/23 03:19 04:21 04:48 Glucose 271 H POC Glucose 230 H 247 H 06/27/23 06/27/23 06/27/23 05:20 06:18 06:57 Glucose POC Glucose 266 H 318 H* 266 H 06/27/23 06/27/23 06/27/23 08:16 09:06 09:59 Glucose POC Glucose 264 H 285 H 242 H OUTPATIENT ANTIDIABETIC REGIMEN: * Patient is on a [employer] insulin pump outpatient, utilizes Humalog * Carb Ratio: 5311-7126 4.0; 0600- 1700 3.1; 5472-1178 2.4 * SF: 10 * Basal is set to provide 85.1 units/day but patient utilizes closed loop with CGM and can be adjusted- used 80 units recently ASSESSMENT: 06/27/23 * Patient remains on IV insulin infusion at high rates with poor control during the day/ eating hours despite covering carbs with SQ Humalog. * Insulin drip running at 30units/hr (despite 110 units of Lantus received yesterday + 10 unit bolus + 56 units bolus for CHO coverage). * Episode of VTach last night, low K, reviewed with hospitalist, transition patient to patient's own Humalog insulin pump today. Patient's brought in pump + supplies + CGM. * Overlap drip and pump x1 hour then patient to manage own insulin pump per hospital policy * Pharmacy to sign off pharmacy glycemic consult for patient managing own insulin via pump. 06/26/23 * Patient continues on insulin drip running at 8.4units/hr with 94 units of basal yesterday. * Will continue insulin drip as it is still running at a high rate while on basal. Tighten CR at this time for better prandial coverage while eating on insulin drip. * Bacteremia, on long course of Ancef + 5 days Tamiflu also started today. Also remains on amiodarone drip. 06/25/23 * Patient is admitted with FluA + MSSA bacteremia, sputum also growing staph species * Patient's pump was discontinued last PM with BSG of 91 mg/dL, provided 14 units of basal overnight (~0300) * BSGs have subsequently increased- will utilize insulin infusion until BSGs under better control * Patients reports that patient usually requires more insulin (double) when using NovoLog compared to Humalog; current Carb Ratio set at 3.5 but will tighten if BSGs do trend upwards after meal PLAN FOR INPATIENT GLYCEMIC CONTROL: * Basal insulin- DC * IV Insulin infusion, goal range 110-180mg/dl - currently at 30 units/hr - DC 1 hour after insulin pump started * Humalog insulin pump per home parameters above * Pharmacy signing off on consult - feel free to consult us again for transition to/from insulin pump.
[2023-06-27] MEDS: INSULIN, Rapid-Acting PUMP SCH (11:01)
[2023-06-27] MEDS: Continuous Glucose Monitor SCH ×2 (11:35→11:46)
--- NOTE | 2023-06-27 14:33 | Cardiology Progress Note ---
Date of Service June 27, 2023 Assessment & Plan (1) Ventricular tachycardia, sustained: (2) Status post transcatheter aortic valve replacement (TAVR) using bioprosthesis: (3) Sarcoidosis: (4) Staphylococcus aureus bacteremia: (5) Type 2 diabetes mellitus: Plan Recurrent ventricular tachycardia overnight, fortunately without significant symptoms. Given reversible contributing factor (hypokalemia), agree with repleting potassium and resuming IV amiodarone. Could change back to oral amiodarone in 24 to 48 hours if no further dysrhythmias. As Dr. Hall mention, would consider IV steroids if ventricular dysrhythmia recurs in the absence of correctable cause. Reasonable to withhold for now given difficulties with glucose control and readily correctable contributing factor (hypokalemia). Plan for transesophageal echocardiogram later this week to assess staph bacte remia, since management will not be changed over the next few days would wait until hemodynamic and rhythm stability is demonstrated. Dr. Robles will be on cardiology service as of tomorrow and Dr. Hall following from an EP standpoint since ICD is being recommended. Admission and Anticipated Discharge Date Admission Date: June 24, 2023 Subjective Recurrent sustained ventricular tachycardia for several minutes overnight. No significant symptoms, seemed to respond to carotid massage, changed from oral to IV amiodarone. Plan for transesophageal echocardiogram later this week to evaluate bacteremia. At the time my evaluation this morning, he was comfortable with no chest pain, dyspnea, subjective palpitations, or lightheadedness. Physical Exam Physical Exam: No distress. Afebrile. BP normotensive. Pulse 90 bpm and regular. Respirations 18 and unlabored. Skin: no ecchymoses or generalized lesions. HEENT: unremarkable. Neck: JVP just above the clavicle at 90 degrees, no carotid bruits. Lungs: Scattered rhonchi with occasional wheeze, no accessory muscle use, generally clear. Cardiac: regular rhythm with sporadic ectopy, intact aortic closure sound, 2/6 systolic ejection murmur right upper sternal border (nonradiating), no diastolic murmur. Abdomen: benign. Extremities: Chronic stasis changes, minimal pretibial edema, pulses intact. Neurologic: normal affect and conversation, nonfocal. Results & Data Laboratory Results Potassium 3.4 last evening, 3.7 tonight. BUN 20, creatinine 0.73. PG Care Time/CCT Total # of Minutes Spent Total Time Spent with Patient: Total time spent is greater than 50% in coordination of care (as documented) at patient's floor/unit and/or counseling patient: Coding Level of Care Code 57705 SUB INP/OBS CARE 2/35MIN Diagnoses Ventricular tachycardia, sustained I47.20 Status post transcatheter aortic valve replacement (TAVR) using bioprosthesis Z95.3 Sarcoidosis D86.9 Staphylococcus aureus bacteremia R78.81; B95.61 Type 2 diabetes mellitus E11.9
[2023-06-27] MEDS: MAGNESIUM SULFATE / D5W 1 GM/100 ML BAG IV SCH (14:41)
[2023-06-27] MEDS ORDERED: SODIUM CHLORIDE 0.65% NA SOLN 45 ML (OCEAN) PRN (23:23)
[2023-06-28] MEDS: guaiFENesin 600 MG TABCR PO STA (00:19)
[2023-06-28 04:51] LABS: Hematocrit (blood only) 35.4 % (42.0-52.0); Mean Corpuscular Hemoglobin 29.1 pg (25.0-34.0); Mean Corpuscular Hgb Conc 33.9 g/dL (32.0-36.0); Mean Corpuscular Volume 85.9 fL (80.0-100.0); Mean Platelet Volume 9.4 fL (9.4-12.4); Platelet Count 277 K/uL (130-400); RDW Coefficient of Variation 13.2 % (11.5-14.5); RDW Standard Deviation 41.1 fL (36.4-46.3); Red Blood Count 4.12 M/uL (4.70-6.10); White Blood Count 10.82 K/ul (4.8-10.8)
[2023-06-28 05:07] LABS: BUN Creatinine Ratio 20.9 (10-20); Calcium 9.2 mg/dl (8.6-10.3); Creatinine Clr Calc Pharmacy 168.1 ml/min; Est GFR (African American) 121.9 ml/min; Est GFR (Non-African American) 105.2 ml/min; Magnesium 1.8 mg/dl (1.7-2.4); Phosphorus 2.6 mg/dl (2.5-4.9); Potassium 3.5 mmol/L (3.5-5.1)
[2023-06-28 05:54] LABS: Basophils % (auto) 0.9 %; Eosinophils # (auto) 0.28 K/uL (0.00-0.50); Eosinophils % (auto) 2.6 %; Immature Granulocytes # (auto) 0.57 K/uL (0.01-0.20); Immature Granulocytes % (auto) 5.3 %; Lymphocytes # (auto) 1.35 K/uL (1.20-3.40); Lymphocytes % (auto) 12.5 %; Monocytes % (auto) 13.9 %; Neutrophils # (auto) 7.02 K/uL (1.40-6.50); Neutrophils % (auto) 64.8 %; Toxic Granulation 1+
[2023-06-28] MEDS: guaiFENesin 600 MG TABCR PO SCH ×2 (08:13→21:03)
[2023-06-28] MEDS: POTASSIUM CHLORIDE CRTAB 20 MEQ TABCR PO SCH (08:14)
--- NOTE | 2023-06-28 11:31 | Hospitalist Progress Note ---
Date of Service June 28, 2023 Assessment & Plan (1) Acute hypoxemic respiratory failure: Plan: Secondary to influenza A infection + bacterial superinfection/pneumonia with MSSA - Continue Tamiflu - day #4/5 - Continue IV cefazolin stable, slowly improving 4. Morbid obesity. BMI 52.6 likely does contribute to some chronicity of his respiratory failure 5. Obstructive sleep apnea. He does wear CPAP at night 6. Diabetes mellitus insulin-dependent. Transition from insulin drip to patient's home CGMdiscussed with pharmacy 7. Hypertensionmonitor - Olmesartan 40mg daily in place of home Losartan 100mg daily 8. Dyslipidemia - Continue home rosuvastatin 9. GERD continue home medications. 10. Hypophosphatemia and hypokalemia - Repleted. Also provided additional magnesium in light of VT 11. Misc - D/c akin today Full CODE STATUS Continue PCU (2) Ventricular tachycardia, sustained: Plan: Prolonged episode of VT on the AM of 06/24 requiring defibrillation. The VT is monomorphic. By report patient had a pulse but was agonal breathing and unresponsive and decision was made to emergently defibrillate. Patient was defibrillated at 300 J x 1 with taoist of NSR. Amiodarone infusion started following such. Transitioned to PO amiodarone 400mg BID on 06/25. Had recurrent ventricular tachycardia AM of 06/26 and thus placed back on amiodarone drip at that time. Did NOT require synchronized cardioversion or defibrillation for this 2nd episode. Remains on amiodarone infusion. Appreciate cardiology assistance. Echo noted - preserved EF, grade 2 diastolic dysfunction noted, AVR wnl with normal gradients. I spoke with Dr Hall from [facility] [place]. Plan - * start metoprolol today * cont amio drip, possible transition to PO amio tomorrow (defer to Dr Hall) * will need ICD - timing uncertain in light of staph aureus bacteremia Etiology of VT is uncertain. K was only marginally low recently - doubt it was due to electrolyte disturbance. Due to cardiac sarcoid?? Other cause? If patient has additional episodes of VT consider - * repeat amio load of 150mg IV x 1 * initiation of IV steroids - solumedrol 60mg x 1 to start (to treat for pos sible cardiac sarcoid) K level 3.5 today - will add k-dur 20meq daily. (3) Staphylococcus aureus bacteremia: Plan: admission blood cx's + for such. repeat blood cx's negative to date. 2D echo negative, but likely will need BENJAMIN in light of AVR to r/o SBE. cont IV ancef. source - pulmonary. will obtain [facility] Telehealth ID consult on 06/29/23. (4) Influenza: Plan: day #4 of 5 of tamiflu. supportive care. is 10+ days out from start of flu illness; infection control stopping droplet precautions today. increase mucinex to 1200mg BID. change tessalon to 100mg TID scheduled. cont nebs scheduled. (5) Essential (primary) hypertension: Plan: uncontrolled adding metoprolol today was on ARB at home resume such tomorrow if BPs still high (6) Type 2 diabetes mellitus: Plan: a1c 7.8% cont novolog consider adding basal insulin (7) Hyperlipidemia: Plan: recent ast and alt minimally high - possibly 2nd to flu infection? other? can likely resume statin tomorrow (8) Obesity, morbid, BMI 50 or higher: Plan: BMI 52 (9) Severe obstructive sleep apnea: Plan: CPAP HS (10) Status post transcatheter aortic valve replacement (TAVR) using bioprosthesis: Plan: 03/2023 [place] [facility] [place] with normal appearing and normal functioning AVR may need BENJAMIN in light of staph aureus bacteremia (11) Sarcoidosis: Plan: remote history of such dx early treated 6-12 months with steroid therapy at that time in remission since follows with [facility] clinic at [place] has been told that his sarcoid has been quiescent recently HOWEVER, in light of VT, ?recurrent sarcoid with cardiac involvement? check 1,25-OH vit D level - if elevated this may suggest active sarcoid if any recurrent VT --> start IV steroids (12) Long COVID: Plan: initial dx - 03/2020 follows with long COVID clinic at [facility] [place] Plan DVT proph - is on ~0.5mg/kg/dose q12h of lovenox will ultimately need PT/OT care extensively discussed with Dr Hall, [facility] Cards Admission and Anticipated Discharge Date Admission Date: June 24, 2023 Subjective overnight- NSR on tele, no NSVT or sustained VT continues with O2 requirement typically he is NOT on home O2 (was on such after his COVID in 03/2020 but ultimately weaned off) he is on home CPAP - has unit in the room continues with severe cough some sputum no dyspnea at rest has baseline VILLA no chest pains did have "fluttering" this am - similar to the prodrome he had had with other runs of VT - but he did NOT have anything on monitors when he had that sensation appetite remains fair at best states he follows with a long COVID clinic at [place] sees pulmonary as well as a provider that specializes in Sarcoid they have reported that his sarcoid has not been active was dx w/ sarcoid in early took prednisone for 6-12 months to his recollection no Rx since then Review of Systems Review of Systems: gen - no fevers cv - no chest pain pulm - no hemoptysis GI - no diarrhea Physical Exam Physical Exam: gen - coughing, morbidly obese, no distress; at times has thought blocking, pausing to give answers to questions neck - no JVD mouth - MMM heart - RRR, s1 s2, no murmur lungs - b/l wheezes, b/l rales, no increased work of breathing abd - soft NT ND BS+ ext - no edema, pulses 2+ b/l Results & Data Results & Data Vital Signs (Past 12 Hours) Vital Signs Temp Pulse Resp BP Pulse Ox O2 Del Method O2 Flow Rate 06/28/23 08:18 82 18 94 Room Air 06/28/23 07:00 Room Air 06/28/23 07:00 36.7 C 89 18 158/95 H 92 Room Air 06/28/23 03:00 36.9 C 80 20 181/78 H 98 CPAP 5 Laboratory Results Laboratory Results - last 24 hr 06/27/23 06/27/23 06/27/23 11:57 12:44 16:22 WBC RBC Hgb Hct MCV MCH MCHC RDW Std Deviation RDW Coeff of Julian Plt Count MPV Immature Gran % (Auto) Neut % (Auto) Lymph % (Auto) [place] % (Auto) Eos % (Auto) Baso % (Auto) Neut # (Auto) Lymph # (Auto) [place] # (Auto) Eos # (Auto) Baso # (Auto) Immature Gran # (Auto) Toxic Granulation Sodium Potassium Chloride Carbon Dioxide Anion Gap BUN Creatinine Est Cr Clr Drug Dosing Est GFR ( Amer) Est GFR (Non-Af Amer) BUN/Creatinine Ratio Glucose POC Glucose 201 H 202 H 197 H Calcium Phosphorus Magnesium Vit D 1,25-Dihyd Total 1,25 Dihydroxy Vit D2 1,25 Dihydroxy Vit D3 06/27/23 06/28/23 06/28/23 21:05 04:15 06:49 WBC 10.82 H RBC 4.12 L Hgb 12.0 L Hct 35.4 L MCV 85.9 MCH 29.1 MCHC 33.9 RDW Std Deviation 41.1 RDW Coeff of Julian 13.2 Plt Count 277 MPV 9.4 Immature Gran % (Auto) 5.3 Neut % (Auto) 64.8 Lymph % (Auto) 12.5 [place] % (Auto) 13.9 Eos % (Auto) 2.6 Baso % (Auto) 0.9 Neut # (Auto) 7.02 H Lymph # (Auto) 1.35 [place] # (Auto) 1.50 H Eos # (Auto) 0.28 Baso # (Auto) 0.10 Immature Gran # (Auto) 0.57 H Toxic Granulation 1+ Sodium 138 Potassium 3.5 Chloride 106 Carbon Dioxide 24 Anion Gap 8 BUN 14 Creatinine 0.67 Est Cr Clr Drug Dosing 168.1 Est GFR ( Amer) 121.9 Est GFR (Non-Af Amer) 105.2 BUN/Creatinine Ratio 20.9 H Glucose 89 POC Glucose 144 H 90 Calcium 9.2 Phosphorus 2.6 Magnesium 1.8 Vit D 1,25-Dihyd Total 1,25 Dihydroxy Vit D2 1,25 Dihydroxy Vit D3 06/28/23 08:42 WBC RBC Hgb Hct MCV MCH MCHC RDW Std Deviation RDW Coeff of Julian Plt Count MPV Immature Gran % (Auto) Neut % (Auto) Lymph % (Auto) [place] % (Auto) Eos % (Auto) Baso % (Auto) Neut # (Auto) Lymph # (Auto) [place] # (Auto) Eos # (Auto) Baso # (Auto) Immature Gran # (Auto) Toxic Granulation Sodium Potassium Chloride Carbon Dioxide Anion Gap BUN Creatinine Est Cr Clr Drug Dosing Est GFR ( Amer) Est GFR (Non-Af Amer) BUN/Creatinine Ratio Glucose POC Glucose Calcium Phosphorus Magnesium Vit D 1,25-Dihyd Total Pending 1,25 Dihydroxy Vit D2 Pending 1,25 Dihydroxy Vit D3 Pending PG Care Time/CCT Total # of Minutes Spent Total Time Spent with Patient: Total time spent is greater than 50% in coordination of care (as documented) at patient's floor/unit and/or counseling patient: Coding Level of Care Code 37029 SUB INP/OBS CARE 3/50MIN Diagnoses Acute hypoxemic respiratory failure J96.01 Ventricular tachycardia, sustained I47.20 Staphylococcus aureus bacteremia R78.81; B95.61 Influenza J11.1 Essential (primary) hypertension I10 Type 2 diabetes mellitus E11.9 Hyperlipidemia E78.5 Obesity, morbid, BMI 50 or higher E66.01 Severe obstructive sleep apnea G47.33 Status post transcatheter aortic valve replacement (TAVR) using bioprosthesis Z95.3 Sarcoidosis D86.9 Long COVID U09.9
[2023-06-28] MEDS: BENZONATATE 100 MG CAPSULE PO SCH (14:27)
--- NOTE | 2023-06-28 17:19 | Cardiology Progress Note ---
Date of Service June 28, 2023 Assessment & Plan (1) Ventricular tachycardia, sustained: (2) Status post transcatheter aortic valve replacement (TAVR) using bioprosthesis: (3) Sarcoidosis: (4) Staphylococcus aureus bacteremia: (5) Type 2 diabetes mellitus: Plan 1. Ventricular tachycardia: Had another episode of sustained ventricular tachycardia. This converted spontaneously. Minimal hemodynamic compromise. Unclear etiology but monomorphic in nature suggesting this is scar mediated. My concern is that this represents cardiac sarcoid. Difficult to prove. In any event, I think 2 episodes of sustained ventricular tachycardia represent a good indication for an ICD implant. I did recommend to the patient. Will debate the timing and location as his clinical condition improves. I will also prescribe some beta-blockade in addition to his amiodarone. We can against switch amiodarone to an oral formulation tomorrow. For recurrent ventricular tachycardia and I have a low threshold for steroid therapy. 2. Bacteremia: Staph aureus bacteremia. Concern for endocarditis. Awaiting final recommendations from Infectious Disease, but could consider transesophageal echocardiogram later this week as his clinical condition improves. Admission and Anticipated Discharge Date Admission Date: June 24, 2023 Subjective This afternoon the patient was feeling better. His breathing and coughing or certainly improved. He has been up in a chair. Tolerating a diet. Physical Exam Physical Exam: The patient is alert and oriented. Mood and affect appeared normal. Some increased work of breathing. Occasional coughing. He answered all questions appropriately. Obese HEENT: Pupils are equal and reactive to light and accommodation. Extraocular movements are intact. The sclerae are anicteric. Neuro: Cranial nerves intact Lungs: Bronchial breath sounds. Reduced breath sounds in the left mid lung. Increased work of breathing. No expiratory wheezing. Mildly tachypneic Cardiac: Heart demonstrates a regular rate and rhythm. Normal S1 and S2. Soft crescendo systolic murmur Pulses: The patient has palpable radial pulses bilaterally that are equal in intensity Extremities: There was no evidence of hypoperfusion. There is no cyanosis or clubbing. There is no edema. Some mild trophic changes of both ankles. Skin: I did not appreciate any rashes on examination today. Results & Data Vital Signs (Past 12 Hours) Vital Signs Temp Pulse Pulse Resp BP BP Pulse Ox 06/28/23 15:28 84 18 91 06/28/23 15:00 36.6 C 88 29 H 154/89 H 90 06/28/23 11:42 36.8 C 90 22 178/90 H 94 06/28/23 08:18 82 18 94 06/28/23 07:00 06/28/23 07:00 36.7 C 89 18 158/95 H 92 O2 Del Method O2 Flow Rate 06/28/23 15:28 Room Air 06/28/23 15:00 Room Air 06/28/23 11:42 Nasal Cannula 2 06/28/23 08:18 Room Air 06/28/23 07:00 Room Air 06/28/23 07:00 Room Air Laboratory Results Abnormal Lab Results 06/27/23 06/28/23 06/28/23 21:05 04:15 06:49 WBC 10.82 H RBC 4.12 L Hgb 12.0 L Hct 35.4 L MCV 85.9 MCH 29.1 MCHC 33.9 RDW Std Deviation 41.1 RDW Coeff of Julian 13.2 Plt Count 277 MPV 9.4 Immature Gran % (Auto) 5.3 Neut % (Auto) 64.8 Lymph % (Auto) 12.5 [place] % (Auto) 13.9 Eos % (Auto) 2.6 Baso % (Auto) 0.9 Neut # (Auto) 7.02 H Lymph # (Auto) 1.35 [place] # (Auto) 1.50 H Eos # (Auto) 0.28 Baso # (Auto) 0.10 Immature Gran # (Auto) 0.57 H Toxic Granulation 1+ Sodium 138 Potassium 3.5 Chloride 106 Carbon Dioxide 24 Anion Gap 8 BUN 14 Creatinine 0.67 Est Cr Clr Drug Dosing 168.1 Est GFR ( Amer) 121.9 Est GFR (Non-Af Amer) 105.2 BUN/Creatinine Ratio 20.9 H Glucose 89 POC Glucose 144 H 90 Calcium 9.2 Phosphorus 2.6 Magnesium 1.8 06/28/23 06/28/23 11:25 16:09 WBC RBC Hgb Hct MCV MCH MCHC RDW Std Deviation RDW Coeff of Julian Plt Count MPV Immature Gran % (Auto) Neut % (Auto) Lymph % (Auto) [place] % (Auto) Eos % (Auto) Baso % (Auto) Neut # (Auto) Lymph # (Auto) [place] # (Auto) Eos # (Auto) Baso # (Auto) Immature Gran # (Auto) Toxic Granulation Sodium Potassium Chloride Carbon Dioxide Anion Gap BUN Creatinine Est Cr Clr Drug Dosing Est GFR ( Amer) Est GFR (Non-Af Amer) BUN/Creatinine Ratio Glucose POC Glucose 133 H 178 H Calcium Phosphorus Magnesium PG Care Time/CCT Total # of Minutes Spent Total Time Spent with Patient: Total time spent is greater than 50% in coordination of care (as documented) at patient's floor/unit and/or counseling patient: Coding Level of Care Code 78325 SUB INP/OBS CARE 2/35MIN Diagnoses Ventricular tachycardia, sustained I47.20 Status post transcatheter aortic valve replacement (TAVR) using bioprosthesis Z95.3 Sarcoidosis D86.9 Staphylococcus aureus bacteremia R78.81; B95.61 Type 2 diabetes mellitus E11.9
[2023-06-28] MEDS: METOPROLOL TARTRATE 25 MG TAB PO SCH (21:02)
[2023-06-29 04:54] LABS: Hematocrit (blood only) 35.7 % (42.0-52.0); Mean Corpuscular Hemoglobin 29.4 pg (25.0-34.0); Mean Corpuscular Hgb Conc 33.6 g/dL (32.0-36.0); Mean Corpuscular Volume 87.5 fL (80.0-100.0); Mean Platelet Volume 9.5 fL (9.4-12.4); Platelet Count 287 K/uL (130-400); RDW Coefficient of Variation 13.2 % (11.5-14.5); RDW Standard Deviation 42.1 fL (36.4-46.3); Red Blood Count 4.08 M/uL (4.70-6.10); White Blood Count 8.45 K/ul (4.8-10.8)
[2023-06-29 05:12] LABS: BUN Creatinine Ratio 16.4 (10-20); Calcium 9.2 mg/dl (8.6-10.3); Creatinine Clr Calc Pharmacy 185.5 ml/min; Est GFR (African American) 126.7 ml/min; Est GFR (Non-African American) 109.3 ml/min; Magnesium 1.7 mg/dl (1.7-2.4); Phosphorus 3.7 mg/dl (2.5-4.9); Potassium 3.4 mmol/L (3.5-5.1)
[2023-06-29 06:28] LABS: Basophils % (auto) 1.2 %; Eosinophils % (auto) 3.6 %; Immature Granulocytes # (auto) 0.82 K/uL (0.01-0.20); Immature Granulocytes % (auto) 9.7 %; Lymphocytes # (auto) 1.62 K/uL (1.20-3.40); Lymphocytes % (auto) 19.2 %; Monocytes # (auto) 1.22 K/uL (0.11-0.59); Monocytes % (auto) 14.4 %; Neutrophils # (auto) 4.39 K/uL (1.40-6.50); Neutrophils % (auto) 51.9 %; Toxic Granulation 1+
[2023-06-29] MEDS: POTASSIUM CHLORIDE CRTAB 20 MEQ TABCR PO STA (08:03)
[2023-06-29] MEDS ORDERED: SODIUM BICARB 8.4% INJ 50 MEQ/50 ML SYR IV ONE (08:55)
[2023-06-29] MEDS: AMIODARONE 200 MG TAB PO SCH (11:10)
--- NOTE | 2023-06-29 16:16 | Infectious Disease Consult ---
Date of Consultation June 29, 2023 Assessment & Plan (1) Bacteremia due to methicillin susceptible Staphylococcus aureus (MSSA): (2) Status post transcatheter aortic valve replacement (TAVR) using bioprosthesis: (3) Sarcoidosis: (4) Influenza: (5) Acute hypoxemic respiratory failure: (6) Ventricular tachycardia, sustained: (7) First degree AV block: (8) Multifocal pneumonia: (9) MSSA (methicillin susceptible Staphylococcus aureus) pneumonia: Plan Nicolas Mcnamara is a 57-year-old man with history of NAVJOT, obesity, T2DM, HTN, s/p TAVR 03/2023 with bioprosthetic valve, sarcoidosis dx (biopsy-proven, quiescent but c/f recent ?reactivation in setting of Covid-19 infection) recent diagnosis of influenza A 06/18/23 at [facility] ED, who presented to [facility] on 06/23 with worsening shortness of breath, found to be febrile and hypoxemic with CTA chest on 06/23 showing multifocal pna. 06/23 BCx and 06/23 sputum Cx + MSSA. He has been having episodes of VTach with concern that this could be cardiac sarcoid and 1st degree AVB with CT interval 226 on 06/25. ID is consulted for MSSA bacteremia and MSSA pneumonia, with concerning for PVE of pts AVR. Original source of MSSA may be respiratory, given pts recent influenza A infection which may predispose to Staph aureus pna, and with multifocal pna on CT and sputum Cx + MSSA. However, pts presentation also concerning for endovascular infection. In the setting of MSSA bacteremia, pts recent TAVR places him at high risk for PVE. Pt has been having worsening 1st degree AVB and also VTacharrythmias concerning for cardiac sarcoid per cardiology, however in the context of MSSA bacteremia the 1st degree AVB is also concerning for infection. Would recommend BENJAMIN for further visualization. It is reassuring that his BCx have cleared quickly and BCx from 06/25 have remained NGTD but given pts TAVR and arrhythmias still with high concern for IE. If BENJAMIN concerning, patient will require cardiac surgery consult. Can change to nafcillin for optimal therapy of MSSA with suspected PVE; cefazolin likely noninferior however with limited data for PVE. If pt has any issues tolerating nafcillin would be fine changing back to cefazolin. Recently with low evidence for benefit with gentamicin but great potential for adverse effect, thus will hold off on gentamicin. Recent evidence also limited for rifampin in PVE (https://pubmed.ncbi.nlm.nih.gov/54572340/), but reasonable to add so long as no significant DDIswill need to discuss with cardiology given pts arrhythmias and amiodarone use. Discussed treatment options with ID pharmacist. Will also attempt to add on sensis to gentamicin, rifampin, and linezolid with the micro lab. 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 in the setting of MSSA bacteremia, 1st degree AVB 3.MSSA pneumonia, history of influenza A infection 4.Acute hypoxemic respiratory failure 5.Fevers 6.Ventricular tachycardia on amiodarone 7.Sarcoidosis, not currently on immunosuppression Recommendations: - Change to nafcillin 2g IV q4h --- If any adverse reaction or lab abnormalities, OK to change back to cefazolin 2g IV q8h --- Weekly lab monitoring while on IV antibiotics: CBC w/ diff, CMP - Please discuss with cardiology whether pt would be able to start rifampin (given interaction with amiodarone) - Recommend BENJAMIN for further evaluation of AVR - If BENJAMIN concerning, patient will require cardiac surgery consult - Appreciate cardiology following - Will attempt to add on sensis to gentamicin, rifampin, and linezolid to MRSA isolate - F/u repeat BCx from 06/25 and 06/28 until finalized to ensure clearance ID will continue to follow. Raeann Hayward MD, [facility] direct line: [phone] Consultation Information Consultation was provided via telemedicine using two-way real-time interactive telecommunication between the patient and the telemedicine provider. For the duration of the visit, the provider was performing the assessment from a different facility than the patient. This includesuse of bluetooth stethoscope forauscultationperformed by the telepresenter that the telemedicine provider can hear if described in the physical exam. [employer] contact information: Please call [facility] Call Center [phone]. (Phone Number For Physician Use Only) After establishing a telemedicine visit, patient was: Patient was verified with two unique identifiers, Patient/authorized rep acknowledged consent and understanding and Gave permission to continue telehealth session Time Spent with Patient: Initial => 75 min History of Present Illness Reason for Consultation: MSSA bacteremia and MSSA pneumonia, with concerning for PVE of pts AVR Attending Physician: Te Sharif MD History of Present Illness Nicolas Mcnamara is a 57-year-old man with history of NAVJOT, obesity, T2DM, HTN, s/p TAVR 03/2023 with bioprosthetic valve, sarcoidosis dx (biopsy-proven, quiescent but c/f recent ?reactivation in setting of Covid-19 infection) recent diagnosis of influenza A 06/18/23 at [facility] ED, who presented to [facility] on 06/23 with worsening shortness of breath, found to be febrile and hypoxemic with CTA chest on 06/23 showing multifocal pna. 06/23 BCx and 06/23 sputum Cx + MSSA. He has been having episodes of VTach with concern that this could be cardiac sarcoid and 1st degree AVB with CT interval 226 on 06/25. ID is consulted for MSSA bacteremia and MSSA pneumonia, with concerning for PVE of pts AVR. The patient recently presented to [facility] ED on 06/18/23 for cough and fever for 2 days. At the time, CXR was clear with no consolidation. He was diagnosed with influenza A and given Tamiflu for a 5d course. Had a follow-up appt with PCP and felt that he was not improving, still had productive cough of dark green and brown sputum. Patient also reported that 3 days before his initial ED visit, he had a dental procedure and reports that he took 4 pills of PO amoxicillin beforehand and also received IV cefazolin during the dental visit. He returned to [facility] on 06/23 for worsening shortness of breath. In the ED, was febrile with TMax of 40.4. HR 100-120s. He was hypoxemic and in the ED progressed to requiring high-flow NC. Initial WBC of 13 on 06/23, WBC of 17.7 on 06/24. Respiratory viral panel was positive again for influenza A. CXR shows bilateral pulmonary infiltrates, c/f CHF vs. multifocal pneumonia with question of developing ARDS. He was started on ceftriaxone -> vanc/cefepime and restarted on Tamiflu. CTA chest on 06/23 with multifocal alveolar opacities and consolidations c/f pneumonia. BCx from 06/23 then returned MSSA and pt changed to cefazolin on 06/24. BCx from 06/25 have remained NGTD. He has been having episodes of VTach with concern per cardiology that this could be cardiac sarcoid. 06/24 TTE with normal LVEF, grade II diastolic dysfunction, normal LV wall motion, LA mildly dilated, mild mitral annular calcification, bioprosthetic AVR without mention of vegetations. He has been having 1st degree AV block as well with CT of 226 on 06/25. Last use of steroids was Covid in 2019. Patient reports he was on intermittent steroids for almost 1 year for long Covid, but none since 2020. He has chronic back pain but nothing new or worse than baseline. No joint pain. No other hardware besides TAVR. At the time of evaluation, the patient denies pain or discomfort. Allergies Allergy/AdvReac Type Severity Reaction Status Date / Time naproxen Allergy Intermediate EDEMA Verified 06/24/23 14:58 Sulfa (Sulfonamide AdvReac Severe "VIOLENTLY Verified 06/24/23 14:58 Antibiotics) ILL" trazodone AdvReac Mild Hallucinati Verified 06/26/23 06:41 ng Home Medications Medication Instructions Recorded Confirmed Type aspirin 81 mg tablet,delayed 81 mg PO DAILY 03/04/20 06/24/23 History release esomeprazole magnesium 40 mg 40 mg PO QAM 03/04/20 06/24/23 History capsule,delayed release insulin lispro 100 unit/mL 0 unit continuous subcutaneous 03/04/20 06/24/23 History subcutaneous solution (Humalog infusion CONTINOUS U-100 Insulin) metformin 500 mg tablet,extended 1,000 mg PO BID 03/04/20 06/24/23 History release 24 hr multivitamin 1 tab PO QAM 03/04/20 06/24/23 History rosuvastatin 20 mg tablet 20 mg PO DAILY 03/04/20 06/24/23 History olmesartan 40 mg tablet 40 mg PO DAILY 01/29/22 06/24/23 History Patient History Medical History (Updated 06/29/23 @ 16:21 by Raeann Hayward MD) Aortic stenosis Sarcoidosis Diagnosed ; currently in remission Severe obstructive sleep apnea Dyspnea Abnormal CT scan, chest Daytime sleepiness Snoring Oxygen dependent Rhabdomyolysis due to COVID-19 Hyponatremia Pneumonia due to COVID-19 virus Hyperlipidemia Essential (primary) hypertension Type 2 diabetes mellitus Surgical History (Updated 06/27/23 @ 14:25 by Varghese Gracia MD) No pertinent past surgical history Family History Father Congestive heart failure Mother Bowel obstruction Other Cancer Depression Social History Smoking Status: Never smoker Second Hand Exposure: No; Do You Dip or Chew Tobacco: No; Hx Alcohol Use: Yes Alcohol type: beer and wine Hx Substance Use: No Preferred Language: [place] Communication Ability: Effective Loan Documents Closer Required: No Beliefs That Will Affect Care: None marital status: Current Living Situation: Spouse current occupational status: employed 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 CV: RRR Abd: Soft, nontender, nondistended. Back: Nontender to palpation along spine Ext: No joint warmth or effusions noted. 1+ nonpitting edema BLE Skin: No rashes or lesions. Neuro: Alert & interactive. Grossly non-focal. Psych: Pleasant, appropriate. Results & Data Vital Signs (Past 12 Hours) Vital Signs Temp Pulse Resp BP Pulse Ox O2 Del Method 06/29/23 15:10 78 18 93 Room Air 06/29/23 12:27 36.7 C 83 22 159/75 H 91 Room Air 06/29/23 07:21 36.5 C 90 22 172/76 H 91 Room Air 06/29/23 07:00 Room Air 06/29/23 06:51 88 18 97 CPAP Diagnostic Findings Diagnostics: 06/24 TTE with normal LVEF, grade II diastolic dysfunction, normal LV wall motion, LA mildly dilated, mild mitral annular calcification, bioprosthetic AVR without mention of vegetations. 06/23 CT chest 1. No pulmonary emboli identified although subsegmental pulmonary arteries suboptimally assessed. 2. Moderate alveolar opacities throughout the lungs, including multifocal consolidation. The findings favor pneumonia. Follow-up chest CT in 3 months to ensure resolution is recommended. 3. Mildly enlarged mediastinal lymph nodes which are likely reactive. These can be assessed on follow-up CT to ensure resolution. Micro Summary: BCx: 06/28 BCx x2: NGTD 06/25 BCx x2: NGTD 06/23 BCx x2: MSSA in 3 of 4 (S-Bactrim/tetracycline) 06/23 SpCx: MSSA (collado-S) Antibiotic Summary: nafcillin (06/28 present) Tamiflu (06/23 present) prior cefazolin (06/24 06/28) ceftriaxone (06/23) cefepime (06/23 06/24) vancomycin (06/23)
[2023-06-29] MEDS: NAFCILLIN SODIUM 2,000 MG in DEXTROSE 5% MINI-B 100 ML IV SCH (16:37)
[2023-06-29] MEDS: POLYETHYLENE (MIRALAX) 17 GM PACK PO SCH (17:23)
[2023-06-29] MEDS: SENNA 8.6 MG TAB PO SCH (17:26)
--- NOTE | 2023-06-29 18:59 | Hospitalist Progress Note ---
Date of Service June 29, 2023 Assessment & Plan (1) Acute hypoxemic respiratory failure: Plan: Secondary to influenza A infection + bacterial superinfection/pneumonia with MSSA - Continue Tamiflu - day #5/5 - Continue IV abx; ID consult appreciated; changing IV cefazolin to IV nafcillin today overall improving; O2 weaned off during the daytime (2) Ventricular tachycardia, sustained: Plan: Prolonged episode of VT on the AM of 06/24 requiring defibrillation. The VT is monomorphic. By report patient had a pulse but was agonal breathing and unresponsive and decision was made to emergently defibrillate. Patient was defibrillated at 300 J x 1 with yarsani of NSR. Amiodarone infusion started following such. Transitioned to PO amiodarone 400mg BID on 06/25. Had recurrent ventricular tachycardia AM of 06/26 and thus placed back on amiodarone drip at that time. Did NOT require synchronized cardioversion or defibrillation for this 2nd episode. Remains on amiodarone infusion but changing to PO amiodarone today - 400mg BID. Appreciate cardiology assistance. Echo noted - preserved EF, grade 2 diastolic dysfunction noted, AVR wnl with normal gradients. Etiology of VT is uncertain. K was only marginally low recently - doubt it was due to electrolyte disturbance. Due to cardiac sarcoid?? Other cause? If patient has additional episodes of VT consider - * repeat amio load of 150mg IV x 1 * initiation of IV steroids - solumedrol 60mg x 1 to start (to treat for possible cardiac sarcoid) K level 3.4 today - supplement. Patient will need ICD placement - timing of such uncertain. Done at [facility]? [facility] (3) Multifocal pneumonia: Plan: staph aureus pneumonia in the setting of flu infection improving slowly cont IV abx therapy -- IV ancef changed to IV nafcillin today by ID (4) Staphylococcus aureus bacteremia: Plan: admission blood cx's + for such. source - pulmonary. repeat blood cx's negative to date. 2D echo negative, but will need BENJAMIN in light of AVR to r/o SBE. ID consult appreciated. They have changed IV ancef to IV nafcillin. Some discussion about potentially using rifampin for synergy due to concern about SBE of his AVR. (5) Influenza: Plan: day #5 of 5 of tamiflu. supportive care. is 10+ days out from start of flu illness; infection control stopped droplet precautions yesterday. add saline nebs BID cont mucinex 1200mg BID. cont tessalon 100mg TID scheduled. cont nebs scheduled. consider budesonide nebs. (6) Essential (primary) hypertension: Plan: uncontrolled added metoprolol BID yesterday was on ARB at home resume such tomorrow if BPs still high (7) Type 2 diabetes mellitus: Plan: a1c 7.8% cont novolog via insulin pump may need adjustments (8) Hyperlipidemia: Plan: recent ast and alt minimally high - possibly 2nd to flu infection? other? can likely resume statin soon (9) Obesity, morbid, BMI 50 or higher: Plan: BMI 52 (10) Severe obstructive sleep apnea: Plan: CPAP HS blend with O2 will need overnight oximetry study closer to discharge (11) Status post transcatheter aortic valve replacement (TAVR) using bioprosthesis: Plan: 03/2023 - [facility] [place] with normal appearing and normal functioning AVR will need BENJAMIN in light of staph aureus bacteremia (12) Sarcoidosis: Plan: remote history of such dx early treated 6-12 months with steroid therapy at that time in remission since follows with Long COVID clinic at [place] has been told that his sarcoid has been quiescent recently HOWEVER, in light of VT, ?recurrent sarcoid with cardiac involvement? check 1,25-OH vit D level - if elevated this may suggest active sarcoid if any recurrent VT --> start IV steroids (13) Long COVID: Plan: initial dx - 03/2020 follows with long COVID clinic at [facility] (14) Constipation: Plan: add senna add miralax Plan DVT proph - is on ~0.5mg/kg/dose q12h of lovenox PT/OT progressing Admission and Anticipated Discharge Date Admission Date: June 24, 2023 Subjective overall feeling better a bit more energy appetite improving still with severe cough and he feels quite congested in his chest o2 weaned off during the day, but he has been noted to desat during sleep o2 has been added to his CPAP at night - he typically does not require such at home tele - no VT; NSR Review of Systems Review of Systems: gen - no fevers cv - no chest pain pulm - no dyspnea at rest GI - no BM since admission Physical Exam Physical Exam: gen - looks better today; more alert; coughing still at times; morbidly obese neck - no JVD mouth - MMM heart - RRR, s1 s2, no murmur lungs - b/l wheezes, b/l rales bases, no increased work of breathing abd - soft NT ND BS+ ext - no edema, pulses 2+ b/l Results & Data Results & Data Vital Signs (Past 12 Hours) Vital Signs Temp Pulse Resp BP BP Pulse Ox O2 Del Method 06/29/23 17:08 36.5 C 94 H 17 156/86 H 94 Room Air 06/29/23 15:10 78 18 93 Room Air 06/29/23 12:27 36.7 C 83 22 159/75 H 91 Room Air 06/29/23 07:21 36.5 C 90 22 172/76 H 91 Room Air 06/29/23 07:00 Room Air Laboratory Results Laboratory Results - last 24 hr 06/29/23 06/29/23 03:58 07:17 WBC 8.45 RBC 4.08 L Hgb 12.0 L Hct 35.7 L MCV 87.5 MCH 29.4 MCHC 33.6 RDW Std Deviation 42.1 RDW Coeff of Julian 13.2 Plt Count 287 MPV 9.5 Immature Gran % (Auto) 9.7 Neut % (Auto) 51.9 Lymph % (Auto) 19.2 [place] % (Auto) 14.4 Eos % (Auto) 3.6 Baso % (Auto) 1.2 Neut # (Auto) 4.39 Lymph # (Auto) 1.62 [place] # (Auto) 1.22 H Eos # (Auto) 0.30 Baso # (Auto) 0.10 Immature Gran # (Auto) 0.82 H Toxic Granulation 1+ Sodium 139 Potassium 3.4 L Chloride 106 Carbon Dioxide 26 Anion Gap 7 BUN 10 Creatinine 0.61 Est Cr Clr Drug Dosing 185.5 Est GFR ( Amer) 126.7 Est GFR (Non-Af Amer) 109.3 BUN/Creatinine Ratio 16.4 Glucose 110 H POC Glucose 221 H Calcium 9.2 Phosphorus 3.7 D Magnesium 1.7 PG Care Time/CCT Total # of Minutes Spent Total Time Spent with Patient: Total time spent is greater than 50% in coordination of care (as documented) at patient's floor/unit and/or counseling patient: Coding Level of Care Code 03345 SUB INP/OBS CARE 2/35MIN Diagnoses Acute hypoxemic respiratory failure J96.01 Ventricular tachycardia, sustained I47.20 Multifocal pneumonia J18.9 Staphylococcus aureus bacteremia R78.81; B95.61 Influenza J11.1 Essential (primary) hypertension I10 Type 2 diabetes mellitus E11.9 Hyperlipidemia E78.5 Obesity, morbid, BMI 50 or higher E66.01 Severe obstructive sleep apnea G47.33 Status post transcatheter aortic valve replacement (TAVR) using bioprosthesis Z95.3 Sarcoidosis D86.9 Long COVID U09.9 Constipation K59.00
[2023-06-29] MEDS: SODIUM CHLOR 7% 4 ML NEB NEB SCH (19:36)
[2023-06-30 05:06] LABS: Hematocrit (blood only) 35.7 % (42.0-52.0); Hemoglobin 12.1 g/dl (14.0-18.0); Mean Corpuscular Hemoglobin 29.7 pg (25.0-34.0); Mean Corpuscular Hgb Conc 33.9 g/dL (32.0-36.0); Mean Corpuscular Volume 87.7 fL (80.0-100.0); Mean Platelet Volume 9.3 fL (9.4-12.4); Platelet Count 316 K/uL (130-400); RDW Coefficient of Variation 13.1 % (11.5-14.5); RDW Standard Deviation 41.6 fL (36.4-46.3); Red Blood Count 4.07 M/uL (4.70-6.10); White Blood Count 8.61 K/ul (4.8-10.8)
[2023-06-30 05:23] LABS: BUN Creatinine Ratio 16.9 (10-20); Calcium 9.4 mg/dl (8.6-10.3); Creatinine Clr Calc Pharmacy 157.4 ml/min; Est GFR (Non-African American) 102.7 ml/min; Magnesium 1.6 mg/dl (1.7-2.4); Phosphorus 4.1 mg/dl (2.5-4.9); Potassium 3.6 mmol/L (3.5-5.1)
[2023-06-30 05:35] LABS: Basophils % (auto) 1.2 %; Eosinophils # (auto) 0.34 K/uL (0.00-0.50); Eosinophils % (auto) 3.9 %; Immature Granulocytes # (auto) 0.79 K/uL (0.01-0.20); Immature Granulocytes % (auto) 9.2 %; Lymphocytes # (auto) 1.53 K/uL (1.20-3.40); Lymphocytes % (auto) 17.8 %; Monocytes # (auto) 0.98 K/uL (0.11-0.59); Monocytes % (auto) 11.4 %; Neutrophils # (auto) 4.87 K/uL (1.40-6.50); Neutrophils % (auto) 56.5 %; Toxic Granulation 1+
--- NOTE | 2023-06-30 09:40 | Cardiology Progress Note ---
Date of Service June 30, 2023 Assessment & Plan (1) Ventricular tachycardia, sustained: (2) Status post transcatheter aortic valve replacement (TAVR) using bioprosthesis: (3) Sarcoidosis: (4) Staphylococcus aureus bacteremia: (5) Type 2 diabetes mellitus: Plan 1. Ventricular tachycardia: No episodes in over 48 hours. Amiodarone switch to an oral formulation yesterday. Rifampin may be added to his antibiotic regimen for synergy. This would reduce the effective dose of amiodarone and we would need to increase the oral dose if rifampin is added. I did discuss my recommendation for an ICD with the patient again today. The 2 most recent blood cultures have been normal, no evidence of persistent bacteremia. I think certainly by the end of the week we will be safe to proceed with an implant if he is willing to have 1. He may elect to use a wearable defibrillator and explore his options at [facility]. He states that his will be around this afternoon in his discuss the options with her. 2. Bacteremia: Patient will need a transesophageal echocardiogram to evaluate his prosthetic valve. I discussed the procedure with the patient today and will plan on proceeding tomorrow morning. 3. First-degree AV block: This appears stable since admission. This is despite beta-blockade and amiodarone. Unclear etiology. Valve replacement, age- related, sarcoid or infection all are reasonable etiologies. However, the degree of AV block appears to be constant and present since his valve replacement (E[place] 05/03/23 [facility] Admission and Anticipated Discharge Date Admission Date: June 24, 2023 Subjective This morning the patient claimed he feeling better. Some residual cough but overall improving. Breathing appears comfortable. He has been ambulatory to the [facility]. Tolerating a diet. Review of Systems Review of Systems: Per HPI Physical Exam Physical Exam: The patient is alert and oriented. Up in chair this morning. Mood and affect appeared normal. Occasional coughing. He answered all questions appropriately. Obese HEENT: Pupils are equal and reactive to light and accommodation. Extraocular movements are intact. The sclerae are anicteric. Neuro: Cranial nerves intact Lungs: Some continued bronchial breath sounds. Normal respiratory effort. No expiratory wheezing. Cardiac: Heart demonstrates a regular rate and rhythm. Normal S1 and S2. Soft crescendo systolic murmur Pulses: The patient has palpable radial pulses bilaterally that are equal in intensity Extremities: There was no evidence of hypoperfusion. There is no cyanosis or clubbing. Skin: I did not appreciate any rashes on examination today. Results & Data Vital Signs (Past 12 Hours) Vital Signs Temp Pulse Resp BP BP Pulse Ox O2 Del Method 06/30/23 07:21 37.1 C 79 20 168/80 H 92 Room Air 06/30/23 06:55 89 20 90 Room Air 06/30/23 04:00 37 C 79 17 177/81 H 92 CPAP 06/30/23 00:00 36.6 C 82 18 174/82 H 98 CPAP O2 Flow Rate 06/30/23 07:21 06/30/23 06:55 06/30/23 04:00 4 06/30/23 00:00 2 Laboratory Results Abnormal Lab Results 06/30/23 04:40 WBC 8.61 RBC 4.07 L Hgb 12.1 L Hct 35.7 L MCV 87.7 MCH 29.7 MCHC 33.9 RDW Std Deviation 41.6 RDW Coeff of Julian 13.1 Plt Count 316 MPV 9.3 L Immature Gran % (Auto) 9.2 Neut % (Auto) 56.5 Lymph % (Auto) 17.8 [place] % (Auto) 11.4 Eos % (Auto) 3.9 Baso % (Auto) 1.2 Neut # (Auto) 4.87 Lymph # (Auto) 1.53 [place] # (Auto) 0.98 H Eos # (Auto) 0.34 Baso # (Auto) 0.10 Immature Gran # (Auto) 0.79 H Toxic Granulation 1+ Sodium 136 Potassium 3.6 Chloride 103 Carbon Dioxide 26 Anion Gap 7 BUN 12 Creatinine 0.71 Est Cr Clr Drug Dosing 157.4 Est GFR ( Amer) 119.0 Est GFR (Non-Af Amer) 102.7 BUN/Creatinine Ratio 16.9 Glucose 104 H Calcium 9.4 Phosphorus 4.1 Magnesium 1.6 L PG Care Time/CCT Total # of Minutes Spent Total Time Spent with Patient: Total time spent is greater than 50% in coordination of care (as documented) at patient's floor/unit and/or counseling patient: Coding Level of Care Code 12296 SUB INP/OBS CARE 2/35MIN Diagnoses Ventricular tachycardia, sustained I47.20 Status post transcatheter aortic valve replacement (TAVR) using bioprosthesis Z95.3 Sarcoidosis D86.9 Staphylococcus aureus bacteremia R78.81; B95.61 Type 2 diabetes mellitus E11.9
[2023-06-30] MEDS: MAGNESIUM SULFATE / D5W 1 GM/100 ML BAG IV SCH (09:42)
--- NOTE | 2023-06-30 13:08 | Infectious Disease Progress Nt ---
Date of Service June 30, 2023 Assessment & Plan (1) Bacteremia due to methicillin susceptible Staphylococcus aureus (MSSA): (2) Status post transcatheter aortic valve replacement (TAVR) using bioprosthesis: (3) Sarcoidosis: (4) Influenza: (5) Acute hypoxemic respiratory failure: (6) Ventricular tachycardia, sustained: (7) First degree AV block: (8) Multifocal pneumonia: (9) MSSA (methicillin susceptible Staphylococcus aureus) pneumonia: Plan Nicolas Mcnamara is a 57-year-old man with history of NAVJOT, obesity, T2DM, HTN, s/p TAVR 03/2023 with bioprosthetic valve, sarcoidosis dx (biopsy-proven, quiescent but c/f recent ?reactivation in setting of Covid-19 infection) recent diagnosis of influenza A 06/18/23 at [facility] ED, who presented to [facility] on 06/23 with worsening shortness of breath, found to be febrile and hypoxemic with CTA chest on 06/23 showing multifocal pna. 06/23 BCx and 06/23 sputum Cx + MSSA. He has been having episodes of VTach with concern that this could be cardiac sarcoid and 1st degree AVB with MS interval 226 on 06/25. ID is consulted for MSSA bacteremia and MSSA pneumonia, with concerning for PVE of pts AVR. Original source of MSSA may be respiratory, given pts recent influenza A infection which may predispose to Staph aureus pna, and with multifocal pna on CT and sputum Cx + MSSA. Of note, 3 days before pts initial ED visit, he had a dental procedure though reports that he took 4 pills of PO amoxicillin beforeh and and received IV cefazolin during the dental visit. Pts presentation also concerning for endovascular infection. In the setting of MSSA bacteremia, pts recent TAVR places him at high risk for PVE. Pt has been having worsening 1st degree AVB and also VTacharrythmias concerning for cardiac sarcoid per cardiology, however in the context of MSSA bacteremia the 1st degree AVB is also concerning for infection. Would recommend BENJAMIN for further visualization. It is reassuring that his BCx have cleared quickly and BCx from 06/25 have remained NGTD but given pts TAVR and arrhythmias still with high concern for IE. If BENJAMIN concerning, patient will require cardiac surgery consult. Will continue nafcillin for optimal therapy of MSSA with suspected PVE; cefazolin likely noninferior however with limited data for PVE. If pt has any issues tolerating nafcillin would be fine changing back to cefazolin. Recently with low evidence for benefit with gentamicin but great potential for adverse effect, thus will hold off on gentamicin. Recent evidence also limited for rifampin in PVE (https://pubmed.ncbi.nlm.nih.gov/14163800/), but reasonable to add so long as no significant DDIswill need to discuss with cardiology given pts arrhythmias and amiodarone use. Discussed treatment options with ID pharmacist. 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 in the setting of MSSA bacteremia, 1st degree AVB 3.MSSA pneumonia, history of influenza A infection 4.Acute hypoxemic respiratory failure 5.Fevers 6.Ventricular tachycardia on amiodarone 7.Sarcoidosis, not currently on immunosuppression Recommendations: - Continue nafcillin 2g IV q4h --- If any adverse reaction or lab abnormalities, OK to change back to cefazolin 2g IV q8h --- Weekly lab monitoring while on IV antibiotics: CBC w/ diff, CMP - Please discuss with cardiology whether pt would be able to start rifampin (given interaction with amiodarone) - Recommend BENJAMIN for further evaluation of AVR - If BENJAMIN concerning, patient will require cardiac surgery consult - Appreciate cardiology following - F/u repeat BCx from 06/25 and 06/28 until finalized to ensure clearance ID will continue to follow. Raeann Hayward MD, MHS Infectious Diseases [facility] ID Connect direct line: [phone] Admission and Anticipated Discharge Date Admission Date: June 24, 2023 Subjective Subsequent visit was provided via telemedicine using two-way real-time interactive telecommunication between the patient and the telemedicine provider. For the duration of the visit, the provider was performing the assessment from a different facility than the patient. This includesuse of bluetooth stethoscope forauscultationperformed by the telepresenter that the tel emedicine provider can hear if described in the physical exam. Box Blank Machine Operator contact information: Please call [facility] Connect Call Center . (Phone Number For Physician Use Only) After establishing a telemedicine visit, patient was: Patient was verified with two unique identifiers, Patient/authorized rep acknowledged consent and understanding and Gave permission to continue telehealth session Time Spent with Patient: Subsequent => 55 min - Afebrile, WBC 6 - On EKG MS remains elevated at 216 - No pain or discomfort today - No rashes, appears to be tolerating nafcillin well - In process of coordinating BENJAMIN Physical Exam Physical Exam: General: Well-appearing, no acute distress Resp: Respirations nonlabored. Abd: Soft, nontender, nondistended. Back: Nontender to palpation along spine Ext: No joint warmth or effusions noted. 1+ nonpitting edema BLE Skin: No rashes or lesions. Neuro: Alert & interactive. Grossly non-focal. Psych: Pleasant, appropriate. Results & Data Vital Signs (Past 12 Hours) Vital Signs Temp Pulse Resp BP BP Pulse Ox O2 Del Method 06/30/23 11:26 80 18 93 Room Air 06/30/23 11:15 37.1 C 78 20 190/88 H 184/85 H 95 Room Air 06/30/23 10:00 Room Air 06/30/23 07:21 37.1 C 79 20 168/80 H 92 Room Air 06/30/23 06:55 89 20 90 Room Air 06/30/23 04:00 37 C 79 17 177/81 H 92 CPAP O2 Flow Rate 06/30/23 11:26 06/30/23 11:15 06/30/23 10:00 06/30/23 07:21 06/30/23 06:55 06/30/23 04:00 4 Diagnostic Findings Micro Summary: BCx: 06/28 BCx x2: NGTD 06/25 BCx x2: NGTD 06/23 BCx x2: MSSA in 3 of 4 (S-Bactrim/tetracycline) 06/23 SpCx: MSSA (collado-S including S-rifampin) Antibiotic Summary: nafcillin (06/28 present) Tamiflu (06/23 present) prior cefazolin (06/24 06/28) ceftriaxone (06/23) cefepime (06/23 06/24) vancomycin (06/23)
[2023-06-30] MEDS: LOSARTAN POTASSIUM 50 MG TAB PO SCH (15:37)
--- NOTE | 2023-06-30 16:03 | Electrocardiogram Report ---
Test Reason : Blood Pressure : / mmHG Vent. Rate : 092 BPM Atrial Rate : 092 BPM P-R Int : 216 ms QRS Dur : 100 ms QT Int : 398 ms P-R-T Axes : 031 050 049 degrees QTc Int : 492 ms Sinus rhythm with 1st degree A-V block Possible Left atrial enlargement Prolonged QT Abnormal ECG When compared with ECG of 26-JUN-2023 23:04, ST no longer depressed in Lateral leads T wave inversion no longer evident in Inferior leads T wave inversion no longer evident in Lateral leads Confirmed by Maximilian Robles ([id number]) on 06/30/2023 4:02:45 PM Referred By: REFERRED SELF Confirmed By:Maximilian Robles
--- NOTE | 2023-06-30 20:00 | Hospitalist Progress Note ---
Date of Service June 30, 2023 Assessment & Plan (1) Acute hypoxemic respiratory failure: Plan: Secondary to influenza A infection + bacterial superinfection/pneumonia with MSSA Improved/resolving (2) Ventricular tachycardia, sustained: Plan: Prolonged episode of VT on the AM of 06/24 requiring defibrillation. The VT was monomorphic. By report patient had a pulse but was agonal breathing and unresponsive and decision was made to emergently defibrillate. Patient was defibrillated at 300 J x 1 with yazidism of NSR. Amiodarone infusion started following such. Transitioned to PO amiodarone 400mg BID on 06/25. Had recurrent ventricular tachycardia AM of 06/26 and thus placed back on amiodarone drip at that time. Did NOT require synchronized cardioversion or defibrillation for this 2nd episode. Completed amiodarone infusion & changed to PO amiodarone 06/29/23 - 400mg BID. Appreciate cardiology assistance. Echo - preserved EF, grade 2 diastolic dysfunction noted, AVR wnl with normal gradients. Etiology of VT is uncertain. K was only marginally low recently - doubt it was due to electrolyte disturbance. Due to cardiac sarcoid?? Other cause? If patient has additional episodes of VT consider - * repeat amio load of 150mg IV x 1 * initiation of IV steroids - solumedrol 60mg x 1 to start (to treat for possible cardiac sarcoid) Mag 1.6 today - supplement, repeat level am. Patient will need ICD placement - timing of such uncertain. Or, at minimum, a Life Vest. Pt prefers that if he needs an ICD it be done at [facility]. (3) Multifocal pneumonia: Plan: staph aureus pneumonia in the setting of flu infection improving cont IV abx therapy -- IV nafcillin as recommended by ID (4) Staphylococcus aureus bacteremia: Plan: admission blood cx's + for such. source - pulmonary. repeat blood cx's negative to date. 2D echo negative, but will need BENJAMIN in light of AVR to r/o SBE. ID consult appreciated. Cont IV nafcillin. Some discussion about potentially using rifampin for synergy due to concern about SBE of his AVR. (5) Influenza: Plan: resolving. completed 5 days of tamiflu. droplet precautions d/c - he is 13+ days out from start of illness. cont saline nebs BID. cont mucinex 1200mg BID. cont tessalon 100mg TID scheduled. cont nebs scheduled. consider budesonide nebs due to ongoing wheezing. (6) Essential (primary) hypertension: Plan: uncontrolled add back ARB in the form of losartan 50mg daily cont metoprolol BID (7) Type 2 diabetes mellitus: Plan: a1c 7.8% cont novolog via insulin pump (8) Hyperlipidemia: Plan: recent ast and alt minimally high - possibly 2nd to flu infection? other? either way most recent LFTs wnl can resume statin (9) Obesity, morbid, BMI 50 or higher: Plan: BMI 52 (10) Severe obstructive sleep apnea: Plan: CPAP HS blend with O2 will need overnight oximetry study closer to discharge (11) Status post transcatheter aortic valve replacement (TAVR) using bioprosthesis: Plan: 03/2023 - [facility] echo with normal appearing and normal functioning AVR will need BENJAMIN in light of staph aureus bacteremia (12) Sarcoidosis: Plan: remote history of such dx early treated 6-12 months with steroid therapy at that time in remission since follows with Long COVID clinic at [place] has been told that his sarcoid has been quiescent recently HOWEVER, in light of VT, ?recurrent sarcoid with cardiac involvement? checked 1,25-OH vit D level - if elevated this may suggest active sarcoid ; level still pending if any recurrent VT --> start IV steroids (13) Long COVID: Plan: initial dx - 03/2020 follows with long COVID clinic at [facility] (14) Constipation: Plan: cont senna cont miralax (15) Hypomagnesemia: Plan: 2 grams mag sulfate IV x 1 repeat level am Plan DVT proph: ~0.5mg/kg/dose q12h of lovenox PT/OT progressing nicely from respiratory standpoint updated pt's evening of 06/29 patient needs BENJAMIN, ICD placement, potentially other procedures/work-up he has been followed by [place] for several years and had his TAVR in 03/2023 there he would prefer transfer to [facility] for all of the above to that end called [facility] spoke with Dr Jean Villafana who did accept patient in transfer pending insurance auth care d/w Dr Hall from cardiology Admission and Anticipated Discharge Date Admission Date: June 24, 2023 Subjective no events overnight no VT or NSVT on monitoring feeling better each day appetite has returned to normal still with cough and congestion some sputum denies dyspnea at rest or dyspnea on exertion he & his spoke and they prefer for all of his procedures to be done at [facility] he had his TAVR done there in 03/27 still no bowel movement Review of Systems Review of Systems: gen - no fevers cv - no chest pain; no palpitations pulm - some wheeze GI - no abd pain, nausea or emesis Physical Exam Physical Exam: gen - NAD, coughing at times, awake/alert, morbidly obese neck - no JVD mouth - MMM heart - RRR, s1 s2, no murmur lungs - b/l wheezes but improved from yesterday, b/l rales bases with improved airation, no increased work of breathing abd - soft NT ND BS+ ext - no edema, pulses 2+ b/l Results & Data Results & Data Vital Signs (Past 12 Hours) Vital Signs Temp Pulse Resp BP BP Pulse Ox O2 Del Method 06/30/23 16:35 36.8 C 88 19 156/85 H 95 Room Air 06/30/23 14:51 86 22 92 Room Air 06/30/23 11:26 80 18 93 Room Air 06/30/23 11:15 37.1 C 78 20 190/88 H 184/85 H 95 Room Air 06/30/23 10:00 Room Air Laboratory Results Laboratory Results - last 24 hr 06/30/23 06/30/23 04:40 11:08 WBC 8.61 RBC 4.07 L Hgb 12.1 L Hct 35.7 L MCV 87.7 MCH 29.7 MCHC 33.9 RDW Std Deviation 41.6 RDW Coeff of [place] 13.1 Plt Count 316 MPV 9.3 L Immature Gran % (Auto) 9.2 Neut % (Auto) 56.5 Lymph % (Auto) 17.8 [place] % (Auto) 11.4 Eos % (Auto) 3.9 Baso % (Auto) 1.2 Neut # (Auto) 4.87 Lymph # (Auto) 1.53 [place] # (Auto) 0.98 H Eos # (Auto) 0.34 Baso # (Auto) 0.10 Immature Gran # (Auto) 0.79 H Toxic Granulation 1+ Sodium 136 Potassium 3.6 Chloride 103 Carbon Dioxide 26 Anion Gap 7 BUN 12 Creatinine 0.71 Est Cr Clr Drug Dosing 157.4 Est GFR ( Amer) 119.0 Est GFR (Non-Af Amer) 102.7 BUN/Creatinine Ratio 16.9 Glucose 104 H POC Glucose 140 H Calcium 9.4 Phosphorus 4.1 Magnesium 1.6 L PG Care Time/CCT Total # of Minutes Spent Total Time Spent with Patient: Total time spent is greater than 50% in coordination of care (as documented) at patient's floor/unit and/or counseling patient: Coding Level of Care Code 00290 SUB INP/OBS CARE 3/50MIN Diagnoses Acute hypoxemic respiratory failure J96.01 Ventricular tachycardia, sustained I47.20 Multifocal pneumonia J18.9 Staphylococcus aureus bacteremia R78.81; B95.61 Influenza J11.1 Essential (primary) hypertension I10 Type 2 diabetes mellitus E11.9 Hyperlipidemia E78.5 Obesity, morbid, BMI 50 or higher E66.01 Severe obstructive sleep apnea G47.33 Status post transcatheter aortic valve replacement (TAVR) using bioprosthesis Z95.3 Sarcoidosis D86.9 Long COVID U09.9 Constipation K59.00 Hypomagnesemia E83.42
[2023-07-01 05:18] LABS: BUN Creatinine Ratio 14.7 (10-20); Calcium 9.1 mg/dl (8.6-10.3); Creatinine Clr Calc Pharmacy 165.9 ml/min; Est GFR (African American) 121.2 ml/min; Est GFR (Non-African American) 104.5 ml/min; Magnesium 1.8 mg/dl (1.7-2.4); Potassium 3.6 mmol/L (3.5-5.1)
[2023-07-01] MEDS: BENZOCAINE/TETRACAIN/BUTAM 50 APPLN/5 GM CAN EXT ONE (07:43)
--- NOTE | 2023-07-01 09:17 | Infectious Disease Progress Nt ---
Date of Service July 01, 2023 Assessment & Plan (1) Bacteremia due to methicillin susceptible Staphylococcus aureus (MSSA): (2) Status post transcatheter aortic valve replacement (TAVR) using bioprosthesis: (3) Sarcoidosis: (4) Influenza: (5) Acute hypoxemic respiratory failure: (6) Ventricular tachycardia, sustained: (7) First degree AV block: (8) Multifocal pneumonia: (9) MSSA (methicillin susceptible Staphylococcus aureus) pneumonia: Plan Nicolas Mcnamara is a 57-year-old man with history of NAVJOT, obesity, T2DM, HTN, s/p TAVR 03/2023 with bioprosthetic valve, sarcoidosis dx (biopsy-proven, quiescent but c/f recent ?reactivation in setting of Covid-19 infection) recent diagnosis of influenza A 06/18/23 at [facility] ED, who presented to [facility] on 06/23 with worsening shortness of breath, found to be febrile and hypoxemic with CTA chest on 06/23 showing multifocal pna. 06/23 BCx and 06/23 sputum Cx + MSSA. He has been having episodes of VTach with concern that this could be cardiac sarcoid and 1st degree AVB with AR interval 226 on 06/25. ID is consulted for MSSA bacteremia and MSSA pneumonia, with concern for PVE of pts AVR. Original source of MSSA may be respiratory, given pts recent influenza A infection which may predispose to Staph aureus pna, and with multifocal pna on CT and sputum Cx + MSSA. Of note, 3 days before pts initial ED visit, he also had a dental procedure though reports that he took 4 pills of PO amoxicillin beforehand and received IV cefazolin during the dental visit. Pts presentation also concerning for endovascular infection. In the setting of MSSA bacteremia, pts recent TAVR places him at high risk for PVE. Pt has been having worsening 1st degree AVB and also VTacharrythmias concerning for cardiac sarcoid per cardiology, however in the context of MSSA bacteremia the 1st degree AVB is also concerning for valvular infection. Would recommend BENJAMIN for further visualization. It is reassuring that his BCx have cleared quickly and BCx from 06/25 have remained NGTD but given pts TAVR and arrhythmias still with high concern for IE. If BENJAMIN concerning, patient will require cardiac surgery consult. Will continue nafcillin for optimal therapy of MSSA with suspected PVE; cefazolin likely noninferior however with limited data for PVE. If pt has any issues tolerating nafcillin would be fine changing back to cefazolin. Recently with low evidence for benefit with gentamicin but great potential for adverse effect, thus will hold off on gentamicin. Recent evidence also limited for rifampin in PVE (https://pubmed.ncbi.nlm.nih.gov/32209394/), but reasonable to add so long as no significant DDIscurrently holding off given pts arrhythmias and amiodarone, but can revisit this if arrythmias remain stable. Discussed treatment options with ID pharmacist. Anticipate at least a 6-week course of IV abx though final abx duration will be pending clinical course and potential surgery. 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 in the setting of MSSA bacteremia, 1st degree AVB 3.MSSA pneumonia, history of influenza A infection 4.Acute hypoxemic respiratory failure 5.Fevers 6.Ventricular tachycardia on amiodarone 7.Sarcoidosis, not currently on immunosuppression Recommendations: - Continue nafcillin 2g IV q4h --- If any adverse reaction or lab abnormalities, OK to change back to cefazolin 2g IV q8h --- Weekly lab monitoring while on IV antibiotics: CBC w/ diff, CMP - Continue to discuss with cardiology whether pt would be able to start rifampin (given interaction with amiodarone) - Final abx duration will be pending clinical course and potential surgery - Recommend BENJAMIN for further evaluation of AVR pt interested in transferring to [place] to complete this as his cardiology team is there - If BENJAMIN concerning, patient will require cardiac surgery consult - Appreciate cardiology following - F/u repeat BCx from 06/28 until finalized to ensure clearance ID will continue to follow. Raeann Hayward MD, MHS Infectious Diseases [facility]/ID Connect ID Connect direct line: [phone] Admission and Anticipated Discharge Date Admission Date: June 24, 2023 Subjective Subsequent visit was provided via telemedicine using two-way real-time interactive telecommunication between the patient and the telemedicine provider. For the duration of the visit, the provider was performing the assessment from a different facility than the patient. This includesuse of bluetooth stethoscope forauscultationperformed by the telepresenter that the telemedicine provider can hear if described in the physical exam. Stage Driver contact information: Please call ID Connect Call Center . (Phone Number For Physician Use Only) After establishing a telemedicine visit, patient was: Patient was verified with two unique identifiers, Patient/authorized rep acknowledged consent and understanding and Gave permission to continue telehealth session Time Spent with Patient: Subsequent => 35 min - Afebrile - No pain or discomfort today. No rashes or diarrhea - Per pts preference, will likely transfer to [place] for BENJAMIN Physical Exam Physical Exam: Exam: General: Well-appearing, no acute distress Resp: Respirations nonlabored. Abd: Soft, nontender, nondistended. Back: Nontender to palpation along spine Ext: No joint warmth or effusions noted. 1+ nonpitting edema BLE Skin: No rashes or lesions. Neuro: Alert & interactive. Grossly non-focal. Psych: Pleasant, appropriate. Results & Data Vital Signs (Past 12 Hours) Vital Signs Temp Pulse Pulse Pulse Resp BP Pulse Ox 07/01/23 07:13 87 17 92 07/01/23 04:00 36.7 C 76 17 156/87 H 96 07/01/23 01:07 78 07/01/23 00:46 78 18 141/68 H 94 06/30/23 22:44 37 C 06/30/23 21:45 O2 Del Method O2 Flow Rate 07/01/23 07:13 Room Air 07/01/23 04:00 CPAP 4 07/01/23 01:07 07/01/23 00:46 Room Air, CPAP 06/30/23 22:44 06/30/23 21:45 Room Air Diagnostic Findings Micro Summary: BCx: 06/28 BCx x2: NGTD 06/25 BCx x2: NG 06/23 BCx x2: MSSA in 3 of 4 (S-Bactrim/tetracycline) 06/23 SpCx: MSSA (collado-S including S-rifampin) Antibiotic Summary: nafcillin (06/28 present) Tamiflu (06/23 present) prior cefazolin (06/24 06/28) ceftriaxone (06/23) cefepime (06/23 06/24) vancomycin (06/23)
[2023-07-01 18:23] LABS: Vitamin D 1,25 82 pg/mL (18-72); Vitamin D2,1,25 <8 pg/mL; Vitamin D3,1,25 82 pg/mL
[2023-07-01] MEDS: METOPROLOL TARTRATE 25 MG TAB PO SCH (20:12)
--- NOTE | 2023-07-01 20:35 | Hospitalist Progress Note ---
Date of Service July 01, 2023 Assessment & Plan (1) Acute hypoxemic respiratory failure: Plan: Secondary to influenza A infection + bacterial superinfection/pneumonia with MSSA Resolved (2) Ventricular tachycardia, sustained: Plan: No further episodes. Prolonged episode of VT on the AM of 06/24 requiring defibrillation. The VT was monomorphic. By report patient had a pulse but was agonal breathing and unresponsive and decision was made to emergently defibrillate. Patient was defibrillated at 300 J x 1 with episcopalian of NSR. Amiodarone infusion started following such. Transitioned to PO amiodarone 400mg BID on 06/25. Had recurrent ventricular tachycardia AM of 06/26 and thus placed back on amiodarone drip at that time. Did NOT require synchronized cardioversion or defibrillation for this 2nd episode. Completed amiodarone infusion & changed to PO amiodarone 06/29/23 - 400mg BID. Tolerating such. Remains on metoprolol BID as well. Appreciate cardiology assistance. Echo - preserved EF, grade 2 diastolic dysfunction noted, AVR wnl with normal gradients. Etiology of VT is uncertain. K was only marginally low recently - doubt it was due to electrolyte disturbanc e. Due to cardiac sarcoid?? Other cause? If patient has additional episodes of VT consider - * repeat amio load of 150mg IV x 1 * initiation of IV steroids - solumedrol 60mg x 1 to start (to treat for possible cardiac sarcoid) Patient will need ICD placement - timing of such uncertain. If insurance gives authorization for Tx to [facility] defer timing to them. Or, at minimum, a Life Vest. (3) Multifocal pneumonia: Plan: staph aureus pneumonia in the setting of flu infection improving/resolving clinically cont IV abx therapy -- IV nafcillin as recommended by ID (4) Staphylococcus aureus bacteremia: Plan: admission blood cx's + for such. source - pulmonary. repeat blood cx's negative to date. 2D echo negative, but will need BENJAMIN in light of AVR to r/o SBE. ID consult appreciated. Cont IV nafcillin. Some discussion about potentially using rifampin for synergy due to concern about SBE of his AVR. (5) Influenza: Plan: resolving. completed 5 days of tamiflu. droplet precautions d/c - he is 2+ weeks out from start of illness. cont saline nebs BID. cont mucinex 1200mg BID. cont tessalon 100mg TID scheduled. cont nebs scheduled. (6) Essential (primary) hypertension: Plan: still uncontrolled cont losartan 50mg daily cont metoprolol BID but increase to 25mg BID (7) Type 2 diabetes mellitus: Plan: a1c 7.8% cont novolog via insulin pump control is reasonable at this time (8) Hyperlipidemia: Plan: recent ast and alt minimally high - possibly 2nd to flu infection? other? either way most recent LFTs wnl statin resumed (9) Obesity, morbid, BMI 50 or higher: Plan: BMI 52 (10) Severe obstructive sleep apnea: Plan: CPAP HS blend with O2 will need overnight oximetry study closer to discharge (11) Status post transcatheter aortic valve replacement (TAVR) using bioprosthesis: Plan: 03/2023 - [facility] [place] with normal appearing and normal functioning AVR will need BENJAMIN in light of staph aureus bacteremia (12) Sarcoidosis: Plan: remote history of such dx early treated 6-12 months with steroid therapy at that time in remission since follows with Long COVID clinic at [place] has been told that his sarcoid has been quiescent recently HOWEVER, in light of VT, ?recurrent sarcoid with cardiac involvement? checked 1,25-OH vit D level - did return mildly elevated at 82 which may suggest active sarcoid if any recurrent VT --> start IV steroids while at [place] rheumatology/pulmonary can be consulted if needed (13) Saúl COVID: Plan: initial dx - 03/2020 follows with long COVID clinic at [facility] (14) Constipation: Plan: cont senna cont miralax improved (15) Hypomagnesemia: Plan: repleted resolved Plan DVT proph: ~0.5mg/kg/dose q12h of lovenox cont PT/OT updated pt's evening of 06/29 patient needs BENJAMIN, ICD placement, potentially other procedures/work-up he has been followed by [place] for several years and had his TAVR in 03/2023 there he would prefer transfer to [facility] for all of the above to that end called [facility] Transfer Center on 06/[address] Jean Villafana who did accept patient in transfer pending insurance auth still did not hear from insurance today; hopefully we will have decision tomorrow appreciate cardiology assistance Admission and Anticipated Discharge Date Admission Date: June 24, 2023 Subjective tele overnight - NSR; no VT or NSVT pt sitting in chair during the visit reports ongoing improvement appetite nearly normal, cough improved, denies any dyspnea no chest pain finally had bowel movement today no new complaints Review of Systems Review of Systems: gen - no fevers cv - no chest pain, edema, or orthopnea pulm - congestion improving GI - no N/V Physical Exam Physical Exam: gen - NAD, sitting in chair, best he has looked all week neck - no JVD mouth - MMM heart - RRR, s1 s2, no murmur lungs - b/l wheezes again improved (mild only); b/l rales bases, no increased work of breathing; airation overall improved abd - soft NT ND BS+ ext - no edema, pulses 2+ b/l psych - a/o x 3 Results & Data Results & Data Vital Signs (Past 12 Hours) Vital Signs Temp Pulse Resp BP Pulse Ox O2 Del Method 07/01/23 20:17 83 18 97 Room Air 07/01/23 19:41 Room Air 07/01/23 19:40 36.7 C 81 14 187/89 H 91 Room Air 07/01/23 16:30 85 20 164/78 H 07/01/23 15:03 80 14 94 Room Air 07/01/23 12:00 36.5 C 80 18 111/57 L 92 Room Air 07/01/23 11:01 79 17 94 Room Air Laboratory Results Laboratory Results - last 24 hr 06/28/23 07/01/23 07/01/23 08:42 04:38 07:25 Sodium 138 Potassium 3.6 Chloride 104 Carbon Dioxide 30 Anion Gap 4 BUN 10 Creatinine 0.68 Est Cr Clr Drug Dosing 165.9 Est GFR ( Amer) 121.2 Est GFR (Non-Af Amer) 104.5 BUN/Creatinine Ratio 14.7 Glucose 116 H POC Glucose 98 Calcium 9.1 Magnesium 1.8 Vit D 1,25-Dihyd Total 82 H 1,25 Dihydroxy Vit D2 <8 1,25 Dihydroxy Vit D3 82 PG Care Time/CCT Total # of Minutes Spent Total Time Spent with Patient: Total time spent is greater than 50% in coordination of care (as documented) at patient's floor/unit and/or counseling patient: Coding Level of Care Code 64934 SUB INP/OBS CARE 2/35MIN Diagnoses Acute hypoxemic respiratory failure J96.01 Ventricular tachycardia, sustained I47.20 Multifocal pneumonia J18.9 Staphylococcus aureus bacteremia R78.81; B95.61 Influenza J11.1 Essential (primary) hypertension I10 Type 2 diabetes mellitus E11.9 Hyperlipidemia E78.5 Obesity, morbid, BMI 50 or higher E66.01 Severe obstructive sleep apnea G47.33 Status post transcatheter aortic valve replacement (TAVR) using bioprosthesis Z95.3 Sarcoidosis D86.9 Long COVID U09.9 Constipation K59.00 Hypomagnesemia E83.42
[2023-07-02 04:55] LABS: BUN Creatinine Ratio 10.1 (10-20); Calcium 9.2 mg/dl (8.6-10.3); Creatinine Clr Calc Pharmacy 143.2 ml/min; Est GFR (African American) 113.9 ml/min; Est GFR (Non-African American) 98.3 ml/min; Potassium 3.9 mmol/L (3.5-5.1)
--- NOTE | 2023-07-02 10:09 | Infectious Disease Progress Nt ---
Date of Service July 02, 2023 Assessment & Plan (1) Bacteremia due to methicillin susceptible Staphylococcus aureus (MSSA): (2) Status post transcatheter aortic valve replacement (TAVR) using bioprosthesis: (3) Sarcoidosis: (4) Influenza: (5) Acute hypoxemic respiratory failure: (6) Ventricular tachycardia, sustained: (7) First degree AV block: (8) Multifocal pneumonia: (9) MSSA (methicillin susceptible Staphylococcus aureus) pneumonia: Plan Nicolas Mcnamara is a 57-year-old man with history of NAVJOT, obesity, T2DM, HTN, s/p TAVR 03/2023 with bioprosthetic valve, sarcoidosis dx (biopsy-proven, quiescent but c/f recent ?reactivation in setting of Covid-19 infection) recent diagnosis of influenza A 06/18/23 at [facility] ED, who presented to [facility] on 06/23 with worsening shortness of breath, found to be febrile and hypoxemic with CTA chest on 06/23 showing multifocal pna. 06/23 BCx and 06/23 sputum Cx + MSSA. He has been having episodes of VTach with concern that this could be cardiac sarcoid and 1st degree AVB with AK interval 226 on 06/25. ID is consulted for MSSA bacteremia and MSSA pneumonia, with concern for PVE of pts AVR. Original source of MSSA may be respiratory, given pts recent influenza A infection which may predispose to Staph aureus pna, and with multifocal pna on CT and sputum Cx + MSSA. Of note, 3 days before pts initial ED visit, he also had a dental procedure though reports that he took 4 pills of PO amoxicillin beforehand and received IV cefazolin during the dental visit. Pts presentation also concerning for endovascular infection. In the setting of MSSA bacteremia, pts recent TAVR places him at high risk for PVE. Pt has been having worsening 1st degree AVB and also VTacharrythmias concerning for cardiac sarcoid per cardiology, however in the context of MSSA bacteremia the 1st degree AVB is also concerning for valvular infection. Would recommend BENJAMIN for further visualization. It is reassuring that his BCx have cleared quickly and BCx from 06/25 have remained NGTD but given pts TAVR and arrhythmias still with high concern for IE. If BENJAMIN concerning, patient will require cardiac surgery consult. If BENJAMIN is negative, may still favor a 6-week treatment course followed by surveillance BCx (2 sets of BCx 2 weeks after completion of abx) out of caution. Will continue nafcillin for optimal therapy of MSSA with suspected PVE; cefazolin likely noninferior however with limited data for PVE. If pt has any issues tolerating nafcillin would be fine changing back to cefazolin. Recently with low evidence for benefit with gentamicin but great potential for adverse effect, thus will hold off on gentamicin. Recent evidence also limited for rifampin in PVE (https://pubmed.ncbi.nlm.nih.gov/88117611/), but reasonable to add so long as no significant DDIscurrently holding off given pts arrhythmias and amiodarone, but can revisit this if arrythmias remain stable. Discussed treatment options with ID pharmacist. Anticipate at least a 6-week course of IV abx though final abx duration will be pending clinical course and potential surgery. 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 in the setting of MSSA bacteremia, 1st degree AVB 3.MSSA pneumonia, history of influenza A infection 4.Acute hypoxemic respiratory failure 5.Fevers 6.Ventricular tachycardia on amiodarone 7.Sarcoidosis, not currently on immunosuppression Recommendations: - Continue nafcillin 2g IV q4h --- If any adverse reaction or lab abnormalities, OK to change back to cefazolin 2g IV q8h --- Weekly lab monitoring while on IV antibiotics: CBC w/ diff, CMP - Continue to discuss with cardiology whether pt would be able to start rifampin (given interaction with amiodarone) - Final abx duration will be pending clinical course and potential surgery - Recommend BENJAMIN for further evaluation of AVR pt interested in transferring to [place] to complete this as his cardiology team is there - If BENJAMIN concerning, patient will require cardiac surgery consult - Appreciate cardiology following - F/u repeat BCx from 06/28 until finalized to ensure clearance Patient may transfer to [place] for BENJAMIN. If remaining at [facility], ID will continue to follow, but does not monitor the chart or round over the weekend; covering physician can be contacted at [phone] ([facility] call center) for telephonic consultation if needed. Dr. Iman Keenan will resume care of the ID service on Wednesday. Raeann Hayward MD, MHS Infectious Diseases [facility]/ID Connect ID Connect direct line: [phone] Admission and Anticipated Discharge Date Admission Date: June 24, 2023 Subjective This patient recommendation is based on a telemedicine consult request which was completed asynchronously through chart review and information provided by the primary physician. The patient was not seen or examined today. The evaluation is consultative in nature and all patient care and treatment decisions can either be accepted or rejected by the patient's primary hospital-based treating physician using their own independent medical judgment for their patient. Time Spent Reviewing Chart: 21 - 30 minutes - Afebrile - Per pts preference, will likely transfer to [place] for BENJAMIN Results & Data Vital Signs (Past 12 Hours) Vital Signs Temp Pulse Pulse Resp BP Pulse Ox O2 Del Method 07/02/23 07:50 36.8 C 85 19 133/77 94 Room Air 07/02/23 07:15 74 16 94 Room Air 07/02/23 03:59 36.6 C 74 16 147/74 H 97 Room Air 07/02/23 01:12 72 07/01/23 23:57 36.8 C 76 18 157/93 H 98 CPAP O2 Flow Rate 07/02/23 07:50 07/02/23 07:15 07/02/23 03:59 07/02/23 01:12 07/01/23 23:57 4 Diagnostic Findings Diagnostics: 06/24 TTE with normal LVEF, grade II diastolic dysfunction, normal LV wall motion, LA mildly dilated, mild mitral annular calcification, bioprosthetic AVR without mention of vegetations. 06/23 CT chest 1. No pulmonary emboli identified although subsegmental pulmonary arteries suboptimally assessed. 2. Moderate alveolar opacities throughout the lungs, including multifocal consolidation. The findings favor pneumonia. Follow-up chest CT in 3 months to ensure resolution is recommended. 3. Mildly enlarged mediastinal lymph nodes which are likely reactive. These can be assessed on follow-up CT to ensure resolution. Micro Summary: BCx: 06/28 BCx x2: NGTD 06/25 BCx x2: NG 06/23 BCx x2: MSSA in 3 of 4 (S-Bactrim/tetracycline) 06/23 SpCx: MSSA (collado-S including S-rifampin) Antibiotic Summary: nafcillin (06/28 present) prior Tamiflu (06/23 06/28) cefazolin (06/24 06/28) ceftriaxone (06/23) cefepime (06/23 06/24) vancomycin (06/23)
--- NOTE | 2023-07-02 19:57 | Hospitalist Progress Note ---
Date of Service July 02, 2023 Assessment & Plan (1) Acute hypoxemic respiratory failure: Plan: Secondary to influenza A infection + bacterial superinfection/pneumonia with MSSA Resolved (2) Ventricular tachycardia, sustained: Plan: No recurrent episodes. Remains on amiodarone 400mg BID + metoprolol 25mg BID. Prolonged episode of VT on the AM of 06/24 requiring defibrillation. The VT was monomorphic. By report patient had a pulse but was agonal breathing and unresponsive and decision was made to emergently defibrillate. Patient was defibrillated at 300 J x 1 with pentecostal of NSR. Amiodarone infusion started following such. Transitioned to PO amiodarone 400mg BID on 06/25. Had recurrent ventricular tachycardia AM of 06/26 and thus placed back on amiodarone drip at that time. Did NOT require synchronized cardioversion or defibrillation for this 2nd episode. Completed amiodarone infusion & changed to PO amiodarone 06/29/23 - 400mg BID. Tolerating such. Remains on metoprolol BID as well. Appreciate cardiology assistance. Echo - preserved EF, grade 2 diastolic dysfunction noted, AVR wnl with normal gradients. Etiology of VT is uncertain. K was only marginally low recently - doubt it was due to electrolyte disturbance. 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 Other cause? If patient has additional episodes of VT consider - * repeat amio load of 150mg IV x 1 * initiation of IV steroids - solumedrol 60mg x 1 to start (to treat for possible cardiac sarcoid) Patient will need ICD placement - timing of such uncertain. If insurance gives authorization for Tx to [place] defer timing to them. Or, at minimum, a Life Vest. (3) Multifocal pneumonia: Plan: staph aureus pneumonia in the setting of flu infection resolving cont IV nafcillin as recommended by ID (4) Staphylococcus aureus bacteremia: Plan: admission blood cx's + for such. source - pulmonary. repeat blood cx's negative to date -- 06/25 and 06/28. 2D echo negative, but will need BENJAMIN in light of AVR to r/o SBE. ID consult appreciated. Cont IV nafcillin. Some discussion about potentially using rifampin for synergy due to concern about SBE of his AVR. Defer to ID. (5) Influenza: Plan: resolved. completed 5 days of tamiflu. droplet precautions d/c - he is 2+ weeks out from start of illness. cont saline nebs BID. cont mucinex 1200mg BID. cont tessalon 100mg TID scheduled. cont nebs scheduled. (6) Essential (primary) hypertension: Plan: still uncontrolled increase losartan to 50mg BID cont metoprolol 25mg BID (7) Type 2 diabetes mellitus: Plan: a1c 7.8% cont novolog via insulin pump control satisfactory (8) Hyperlipidemia: Plan: recent ast and alt minimally high - possibly 2nd to flu infection? other? either way most recent LFTs wnl statin resumed (9) Obesity, morbid, BMI 50 or higher: Plan: BMI 52 (10) Severe obstructive sleep apnea: Plan: CPAP HS blend with O2 will need overnight oximetry study prior to d/c home whether from [facility] or [facility] (11) Status post transcatheter aortic valve replacement (TAVR) using bioprosthesis: Plan: 03/2023 - [facility] echo with normal appearing and normal functioning AVR will need BENJAMIN in light of staph aureus bacteremia (12) Sarcoidosis: Plan: remote history of such dx early treated 6-12 months with steroid therapy at that time in remission since follows with Long COVID clinic at [place] has been told that his sarcoid has been quiescent recently HOWEVER, in light of VT, ?recurrent sarcoid with cardiac involvement? checked 1,25-OH vit D level - did return mildly elevated at 82 which may suggest active sarcoid if any recurrent VT --> start IV steroids while at [place] rheumatology/pulmonary can be consulted if needed (13) Saúl COVID: Plan: initial dx - 03/2020 follows with long COVID clinic at [facility] (14) Constipation: Plan: cont senna cont miralax resolved (15) Hypomagnesemia: Plan: repleted resolved Plan DVT proph: ~0.5mg/kg/dose q12h of lovenox cont PT/OT updated pt's evening of 06/29 patient needs BENJAMIN, ICD placement, potentially other procedures/work-up he has been followed by [facility] for several years and had his TAVR in 03/2023 there he would prefer transfer to [facility] for all of the above to that end called [facility] Transfer Center on 06/[address] Jean Villafana who did accept patient in transfer pending insurance au th still did not hear from insurance today; hopefully we will have decision tomorrow AM on 07/03/23 appreciate cardiology assistance Admission and Anticipated Discharge Date Admission Date: June 24, 2023 Subjective no events overnight feels better each day still coughing but less frequent and mucous is not as thick no VT or NSVT overnight asks about his transfer to [facility] no new complaints Review of Systems Review of Systems: gen - eating well cv- no cp, no palpitations pulm - no dyspnea or VILLA GI - no N/V Physical Exam Physical Exam: gen - NAD, coughing but looks well today neck - no JVD mouth - MMM heart - RRR, s1 s2, no murmur lungs - mild wheezes scattered b/l; b/l rales bases - similar to yesterday; no increased work of breathing abd - soft NT ND BS+ ext - no edema, pulses 2+ b/l psych - a/o x 3 Results & Data Results & Data Vital Signs (Past 12 Hours) Vital Signs Temp Pulse Pulse Resp BP Pulse Ox O2 Del Method 07/02/23 19:51 36.8 C 83 19 168/83 H 92 Room Air 07/02/23 17:19 158/85 H 07/02/23 16:54 70 07/02/23 16:31 36.5 C 80 19 173/80 H 92 Room Air 07/02/23 15:11 74 18 94 Room Air 07/02/23 14:44 70 07/02/23 11:28 77 07/02/23 11:23 82 21 149/73 H 93 Room Air 07/02/23 11:02 74 18 94 Room Air 07/02/23 10:36 Room Air Laboratory Results Laboratory Results - last 24 hr 07/02/23 07/02/23 04:12 07:22 Sodium 138 Potassium 3.9 Chloride 102 Carbon Dioxide 30 Anion Gap 6 BUN 8 Creatinine 0.79 Est Cr Clr Drug Dosing 143.2 Est GFR ( Amer) 113.9 Est GFR (Non-Af Amer) 98.3 BUN/Creatinine Ratio 10.1 Glucose 115 H POC Glucose 118 H Calcium 9.2 PG Care Time/CCT Total # of Minutes Spent Total Time Spent with Patient: Total time spent is greater than 50% in coordination of care (as documented) at patient's floor/unit and/or counseling patient: Coding Level of Care Code 95432 SUB INP/OBS CARE 2/35MIN Diagnoses Acute hypoxemic respiratory failure J96.01 Ventricular tachycardia, sustained I47.20 Multifocal pneumonia J18.9 Staphylococcus aureus bacteremia R78.81; B95.61 Influenza J11.1 Essential (primary) hypertension I10 Type 2 diabetes mellitus E11.9 Hyperlipidemia E78.5 Obesity, morbid, BMI 50 or higher E66.01 Severe obstructive sleep apnea G47.33 Status post transcatheter aortic valve replacement (TAVR) using bioprosthesis Z95.3 Sarcoidosis D86.9 Long COVID U09.9 Constipation K59.00 Hypomagnesemia E83.42
[2023-07-02] MEDS: LOSARTAN POTASSIUM 50 MG TAB PO SCH (20:39)
[2023-07-03 04:35] LABS: Hematocrit (blood only) 36.9 % (42.0-52.0); Hemoglobin 11.8 g/dl (14.0-18.0); Mean Corpuscular Hemoglobin 29.4 pg (25.0-34.0); Mean Corpuscular Volume 91.8 fL (80.0-100.0); Mean Platelet Volume 8.9 fL (9.4-12.4); Platelet Count 317 K/uL (130-400); RDW Coefficient of Variation 13.5 % (11.5-14.5); RDW Standard Deviation 45.1 fL (36.4-46.3); Red Blood Count 4.02 M/uL (4.70-6.10); White Blood Count 7.13 K/ul (4.8-10.8)
[2023-07-03 04:51] LABS: BUN Creatinine Ratio 11.5 (10-20); Calcium 9.2 mg/dl (8.6-10.3); Creatinine Clr Calc Pharmacy 144.3 ml/min; Est GFR (African American) 114.5 ml/min; Est GFR (Non-African American) 98.8 ml/min; Magnesium 1.9 mg/dl (1.7-2.4); Potassium 4.3 mmol/L (3.5-5.1)
[2023-07-03] MEDS: BENZONATATE 100 MG CAPSULE PO SCH (14:41)
--- NOTE | 2023-07-03 16:12 | Hospitalist Progress Note ---
Date of Service July 03, 2023 Assessment & Plan (1) Acute hypoxemic respiratory failure: Plan: Secondary to influenza A infection + bacterial superinfection/pneumonia with MSSA - Resolved Stable in room air (2) Ventricular tachycardia, sustained: Plan: No recurrent episodes. Remains on amiodarone 400mg BID, day #5 of high-dose PO, along with metoprolol 25mg BID. Prolonged episode of VT on the AM of 06/24 requiring defibrillation. The VT was monomorphic. By report patient had a pulse but was agonal breathing and unresponsive and decision was made to emergently defibrillate. Patient was defibrillated at 300 J x 1 with quaker of NSR. Amiodarone infusion started following such. Transitioned to PO amiodarone 400mg BID on 06/25. Had recurrent ventricular tachycardia AM of 06/26 and thus placed back on amiodarone drip at that time. Did NOT require synchronized cardioversion or defibrillation for this 2nd episode. Completed amiodarone infusion & changed to PO amiodarone 06/29/23 - 400mg BID. Tolerating such. Remains on metoprolol BID as well. Appreciate cardiology assistance. Echo - preserved EF, grade 2 diastolic dysfunction noted, AVR wnl with normal gradients. Etiology of VT is uncertain. K was only marginally low recently - doubt it was due to electrolyte disturbance. 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 Other cause? If patient has additional episodes of VT consider - * repeat amio load of 150mg IV x 1 * initiation of IV steroids - solumedrol 60mg x 1 to start (to treat for possib le cardiac sarcoid) Patient will need ICD placement. Or, at minimum, a Life Vest. (3) Multifocal pneumonia: Plan: staph aureus pneumonia in the setting of flu infection resolving cont IV nafcillin as recommended by ID (4) Staphylococcus aureus bacteremia: Plan: admission blood cx's + for such. source - pulmonary. repeat blood cx's negative to date -- 06/25 and 06/28. 2D echo negative, but will need BENJAMIN in light of AVR to r/o SBE. ID consult appreciated. Cont IV nafcillin. Some discussion about potentially using rifampin for synergy due to concern about SBE of his AVR. Defer to ID. ID has suggested that even if the BENJAMIN is negative they are leaning towards 6 weeks of IV antibiotic therapy. (5) Influenza: Plan: resolved. completed 5 days of tamiflu. droplet precautions d/c. cont saline nebs BID. cont mucinex 1200mg BID. cont tessalon - increase to 200mg TID scheduled. cont nebs scheduled. will add pulmicort respules BID for ongoing wheezing. (6) Essential (primary) hypertension: Plan: improving cont losartan 50mg BID cont metoprolol 25mg BID (7) Type 2 diabetes mellitus: Plan: a1c 7.8% cont novolog via insulin pump control satisfactory (8) Hyperlipidemia: Plan: cont statin (9) Obesity, morbid, BMI 50 or higher: Plan: BMI 52 (10) Severe obstructive sleep apnea: Plan: CPAP HS blend with O2 will need overnight oximetry study prior to d/c home whether from [facility] or [facility] (11) Status post transcatheter aortic valve replacement (TAVR) using bioprosthesis: Plan: 03/2023 - [facility] 2D echo with normal appearing and normal functioning AVR will need BENJAMIN in light of staph aureus bacteremia (12) Sarcoidosis: Plan: remote history of such dx early treated 6-12 months with steroid therapy at that time in remission since follows with Long COVID clinic at [place] has been told that his sarcoid has been quiescent recently HOWEVER, in light of VT, ?recurrent sarcoid with cardiac involvement? checked 1,25-OH vit D level - did return mildly elevated at 82 which may suggest active sarcoid if any recurrent VT --> start IV steroids while at [place] rheumatology/pulmonary can be consulted if needed (13) Long COVID: Plan: initial dx - 03/2020 follows with long COVID clinic at [facility] (14) Constipation: Plan: cont senna cont miralax resolved (15) Hypomagnesemia: Plan: repleted resolved Plan DVT proph: ~0.5mg/kg/dose q12h of lovenox cont PT/OT updated pt's evening of 06/29, will update her again this evening patient needs BENJAMIN, ICD placement, potentially other procedures/work-up (cardiac MRI, etc) he has been followed by [facility] for several years and had his TAVR at [facility] in 03/2023 he would prefer transfer to [facility] for all of the above to that end called [facility] Transfer Center on 06/[address] Jean Villafana who did accept patient in transfer pending insurance auth still have not heard about insurance auth from his insurance co appreciate cardiology assistance Admission and Anticipated Discharge Date Admission Date: June 24, 2023 Subjective no events overnight no VT feeling well overall ongoing cough but denies dyspnea appetite is wnl no new complaints frustrated that insurance auth for transfer has not gone through Review of Systems Review of Systems: gen - no fevers cv - no chest pain; no palpitations pulm - no dyspnea; ongoing mild wheezing endo - pt reports that sometimes inhaled steroids cause his BSGs to rise Physical Exam Physical Exam: gen - NAD, coughing, otherwise looks good neck - no JVD mouth - MMM heart - RRR, s1 s2, no murmur lungs - mild wheezes scattered b/l; b/l rales bases - no change; no increased work of breathing abd - soft NT ND BS+ ext - no edema, pulses 2+ b/l psych - a/o x 3 Results & Data Results & Data Vital Signs (Past 12 Hours) Vital Signs Temp Pulse Pulse Resp BP Pulse Ox O2 Del Method 07/03/23 15:12 74 16 95 Room Air 07/03/23 11:57 78 18 95 Room Air 07/03/23 11:37 36.6 C 77 18 150/87 H 93 Room Air 07/03/23 11:28 Room Air 07/03/23 11:26 76 07/03/23 08:17 36.7 C 85 16 144/73 H 92 Room Air 07/03/23 07:22 78 18 94 Room Air Laboratory Results Laboratory Results - last 24 hr 07/03/23 07/03/23 04:19 11:06 WBC 7.13 RBC 4.02 L Hgb 11.8 L Hct 36.9 L MCV 91.8 MCH 29.4 MCHC 32.0 RDW Std Deviation 45.1 RDW Coeff of Julian 13.5 Plt Count 317 MPV 8.9 L Sodium 138 Potassium 4.3 Chloride 103 Carbon Dioxide 29 Anion Gap 6 BUN 9 Creatinine 0.78 Est Cr Clr Drug Dosing 144.3 Est GFR ( Amer) 114.5 Est GFR (Non-Af Amer) 98.8 BUN/Creatinine Ratio 11.5 Glucose 147 H POC Glucose 165 H Calcium 9.2 Magnesium 1.9 PG Care Time/CCT Total # of Minutes Spent Total Time Spent with Patient: Total time spent is greater than 50% in coordination of care (as documented) at patient's floor/unit and/or counseling patient: Coding Level of Care Code 95266 SUB INP/OBS CARE 04/29MIN Diagnoses Acute hypoxemic respiratory failure J96.01 Ventricular tachycardia, sustained I47.20 Multifocal pneumonia J18.9 Staphylococcus aureus bacteremia R78.81; B95.61 Influenza J11.1 Essential (primary) hypertension I10 Type 2 diabetes mellitus E11.9 Hyperlipidemia E78.5 Obesity, morbid, BMI 50 or higher E66.01 Severe obstructive sleep apnea G47.33 Status post transcatheter aortic valve replacement (TAVR) using bioprosthesis Z95.3 Sarcoidosis D86.9 Long COVID U09.9 Constipation K59.00 Hypomagnesemia E83.42
[2023-07-03] MEDS: BUDESONIDE 0.25 MG/2 ML VIAL (PULMICORT) NEB SCH (20:19)
--- NOTE | 2023-07-04 20:05 | Hospitalist Progress Note ---
Date of Service July 04, 2023 Assessment & Plan (1) Acute hypoxemic respiratory failure: Plan: Secondary to influenza A infection + bacterial superinfection/pneumonia with MSSA - Resolved Stable in room air for several days now (2) Ventricular tachycardia, sustained: Plan: No recurrent episodes. Remains on amiodarone 400mg BID, day #5 of high-dose PO, along with metoprolol 25mg BID. Prolonged episode of VT on the AM of 06/24 requiring defibrillation. The VT was monomorphic. By report patient had a pulse but was agonal breathing and unresponsive and decision was made to emergently defibrillate. Patient was defibrillated at 300 J x 1 with sikh of NSR. Amiodarone infusion started following such. Transitioned to PO amiodarone 400mg BID on 06/25. Had recurrent ventricular tachycardia AM of 06/26 and thus placed back on amiodarone drip at that time. Did NOT require synchronized cardioversion or defibrillation for this 2nd episode. Completed amiodarone infusion & changed to PO amiodarone 06/29/23 - 400mg BID. Tolerating such. Remains on metoprolol BID as well. Appreciate cardiology assistance. Echo - preserved EF, grade 2 diastolic dysfunction noted, AVR wnl with normal gradients. Etiology of VT is uncertain. K was only marginally low recently - doubt it was due to electrolyte disturbance. 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 Other cause? If patient has additional episodes of VT consider - * repeat amio load of 150mg IV x 1 * initiation of IV steroids - solumedrol 60mg x 1 to start (to treat for possible cardiac sarcoid) Patient will need ICD placement. Or, at minimum, a Life Vest. (3) Multifocal pneumonia: Plan: staph aureus pneumonia in the setting of flu infection resolving nicely stable in room air cont IV nafcillin as recommended by ID (4) Staphylococcus aureus bacteremia: Plan: admission blood cx's + for such. source - pulmonary. repeat blood cx's negative to date -- 06/25 and 06/28. 2D echo negative, but will need BENJAMIN in light of AVR to r/o SBE. ID consult appreciated. Cont IV nafcillin. Some discussion about potentially using rifampin for synergy due to concern about SBE of his AVR. Defer to ID. ID has suggested that even if the BENJAMIN is negative they may be leaning towards 6 weeks of IV antibiotic therapy. (5) Influenza: Plan: resolved. completed 5 days of tamiflu. droplet precautions d/c. cont saline nebs BID. cont mucinex 1200mg BID. cont tessalon 200mg TID scheduled. cont nebs scheduled. cont pulmicort respules BID. (6) Essential (primary) hypertension: Plan: improving cont losartan 50mg BID cont metoprolol 25mg BID (7) Type 2 diabetes mellitus: Plan: a1c 7.8% cont novolog via insulin pump control satisfactory at this time (8) Hyperlipidemia: Plan: cont statin (9) Obesity, morbid, BMI 50 or higher: Plan: BMI 52 (10) Severe obstructive sleep apnea: Plan: CPAP HS blend with O2 will need overnight oximetry study prior to d/c home whether from [facility] or [facility] [place] [place] (11) Status post transcatheter aortic valve replacement (TAVR) using bioprosthesis: Plan: 03/2023 - [facility] 2D echo with normal appearing and normal functioning AVR will need BENJAMIN in light of staph aureus bacteremia (12) Sarcoidosis: Plan: remote history of such dx early treated 6-12 months with steroid therapy at that time in remission since follows with Long COVID clinic at [place] has been told that his sarcoid has been quiescent recently HOWEVER, in light of VT, ?recurrent sarcoid with cardiac involvement? checked 1,25-OH vit D level - did return mildly elevated at 82 which may suggest active sarcoid if any recurrent VT --> start IV steroids while at [place] rheumatology/pulmonary can be consulted if needed (13) Saúl GARCIAID: Plan: initial dx - 03/2020 follows with long COVID clinic at [facility] [place] [place] (14) Constipation: Plan: cont senna cont miralax (15) Hypomagnesemia: Plan: repleted resolved recheck BMP and mag in am Plan DVT proph - 0.5mg/kg/dose q12h of lovenox cont PT/OT updated pt's evening of 06/29 and again briefly at bedside today patient needs BENJAMIN, ICD placement, potentially other procedures/work-up (cardiac MRI, etc) he has been followed by [facility] for several years and had his TAVR at [place] in 03/2023 he would prefer transfer to [facility] [place] [place] for all of the above to that end called [facility] [place] [place] Transfer Center on 06/[address] Jean Villafana who did accept patient in transfer we received an approval today from his insurance to transfer to [facility] [place] [place] however, the dates of approval for [facility] were dated 06/23 to 07/02 the dates are not correct, and [facility] has advised that we contact his insurance first thing Wednesday to remedy the dates patient frustrated, gave support, social work aware of the above and will assist first thing Wednesday Admission and Anticipated Discharge Date Admission Date: June 24, 2023 Subjective no events overnight feeling well cough improved no dyspnea eating well no VT on tele at bedside towards the end of my visit I informed them about approval letter for [facility] but that the dates of approval ended yesterday ?? thus no transfer today Review of Systems Review of Systems: gen - no fevers or chills cv - no chest pain pulm - sputum production vastly improved GI - no diarrhea, moving bowels Physical Exam Physical Exam: gen - NAD, best he has looked all week neck - no JVD mouth - MMM heart - RRR, s1 s2, no murmur lungs - no wheezes today; b/l rales bases improved; no increased work of breathing abd - soft NT ND BS+ ext - no edema, pulses 2+ b/l psych - a/o x 3 Results & Data Results & Data Vital Signs (Past 12 Hours) Vital Signs Temp Pulse Pulse Resp BP BP Pulse Ox 07/04/23 16:40 82 18 161/81 H 92 07/04/23 16:00 82 17 07/04/23 16:00 36.7 C 07/04/23 15:06 72 18 95 07/04/23 15:02 79 16 07/04/23 14:27 71 07/04/23 14:00 72 20 07/04/23 13:24 37.0 C 07/04/23 13:14 73 17 07/04/23 13:14 154/72 H 95 07/04/23 13:00 77 17 07/04/23 12:00 81 19 07/04/23 11:09 71 18 97 07/04/23 09:01 36.5 C 81 18 158/82 H 92 07/04/23 09:00 O2 Del Method 07/04/23 16:40 Room Air 07/04/23 16:00 07/04/23 16:00 07/04/23 15:06 Room Air 07/04/23 15:02 07/04/23 14:27 07/04/23 14:00 07/04/23 13:24 07/04/23 13:14 07/04/23 13:14 07/04/23 13:00 07/04/23 12:00 07/04/23 11:09 Room Air 07/04/23 09:01 Room Air 07/04/23 09:00 Room Air Laboratory Results Laboratory Results - last 24 hr 07/04/23 07:26 POC Glucose 139 H PG Care Time/CCT Total # of Minutes Spent Total Time Spent with Patient: Total time spent is greater than 50% in coordination of care (as documented) at patient's floor/unit and/or counseling patient: Coding Level of Care Code 84931 SUB INP/OBS CARE 04/29MIN Diagnoses Acute hypoxemic respiratory failure J96.01 Ventricular tachycardia, sustained I47.20 Multifocal pneumonia J18.9 Staphylococcus aureus bacteremia R78.81; B95.61 Influenza J11.1 Essential (primary) hypertension I10 Type 2 diabetes mellitus E11.9 Hyperlipidemia E78.5 Obesity, morbid, BMI 50 or higher E66.01 Severe obstructive sleep apnea G47.33 Status post transcatheter aortic valve replacement (TAVR) using bioprosthesis Z95.3 Sarcoidosis D86.9 Long COVID U09.9 Constipation K59.00 Hypomagnesemia E83.42
[2023-07-05 08:20] LABS: Calcium 9.2 mg/dl (8.6-10.3); Creatinine Clr Calc Pharmacy 154.1 ml/min; Est GFR (African American) 117.7 ml/min; Est GFR (Non-African American) 101.5 ml/min; Potassium 4.2 mmol/L (3.5-5.1)
--- NOTE | 2023-07-05 10:50 | Discharge Summary ---
Date of Service date of admission - June 24, 2023 date of discharge - July 05, 2023 Admission HPI Per Admitting Provider This is a 57-year-old male who was recently diagnosed with influenza A he has been experiencing worsening shortness of breath he came to the ER for further evaluation and treatment. On presentation to the ER the patient's vital signs were as follows as follows blood pressure 93/58 heart rate in the 120s, oxygen saturation initially 88% I cannot tell from the medical record how much oxygen if any he was on at that time. However the patient's shortness of breath progressed rapidly and he was progressed to a high flow oxygen nasal cannula. Laboratory studies demonstrated a lactic acidemia at 2.8, white blood cell count elevated over 13,000. EKG showed a sinus tachycardia with a rate in the 120s I do not appreciate any acute ST-T abnormalities. Troponin was not evaluated. Respiratory viral panel was positive again for influenza A. Chest x-ray shows bilateral pulmonary infiltrates question CHF question multifocal pneumonia question developing ARDS. Course in the ER the patient received 2 L of saline. And a gram of IV Rocephin. We are called admit the patient for further evaluation and treatment. This patient is in respiratory distress when I walked in the room his oxygen was off of him. We contacted nursing staff and got his oxygen back in place. We have asked for manual blood pressures. His heart rates in the 120s to 130s. He is mentating. However he has severe conversational dyspnea. The patient is accompanied by his at the time my exam who provides much of the history. Principal Diagnosis 1. influenza A infection - resolved 2. staph aureus pneumonia - resolving 3. staph aureus (MSSA) bacteremia - improved; blood cx's 06/26/23 and 06/29/23 NEGATIVE 4. history of sarcoid early ; currently elevated 1,25-OH vitamin D level of 82 (normal 18-72) 5. monomorphic ventricular tachycardia s/p defibrillation and initiation of amiodarone 6. morbid obesity BMI 52 7. history of severe COVID 03/2020 8. long COVID 9. h/o TAVR - 03/2024 - [facility] 10. T2DM on insulin pump 11. NAVJOT on CPAP 12. HTN 13. Hyperlipidemia 14. Hypokalemia - resolved 15. acute hypoxic respiratory failure 2nd to #1, #2 - resolved Discharge Exam gen - NAD, looks well, morbidly obese neck - no JVD mouth - MMM heart - RRR, s1 s2, no murmur lungs - no wheezes; minimal b/l rales bases; no increased work of breathing; good airation; coughing improved abd - soft NT ND BS+ ext - no edema, pulses 2+ b/l psych - a/o x 3 Discharge Data Allergies Allergy/AdvReac Type Severity Reaction Status Date / Time naproxen Allergy Intermediate EDEMA Verified 06/24/23 14:58 Sulfa (Sulfonamide AdvReac Severe "VIOLENTLY Verified 06/24/23 14:58 Antibiotics) ILL" trazodone AdvReac Mild Hallucinati Verified 06/26/23 06:41 ng Consultations Chain Hooker [facility] Cardiology [facility] Telehealth Infectious Diseases PT, OT Procedures Performed 1. echocardiogram - * EF 55-60% * grade 2 diastolic dysfunction * bioprosthetic AV with normal gradients * no valvular vegetations * mildly dilated IVC 2. defibrillation for unstable ventricular tachycardia Ordered Studies Chest X-Ray 06/24/23 12:29 XR chest 1V portable HISTORY: Shortness of breath. Chest pain, nonspecific COMPARISON: Chest 06/17/2023. FINDINGS: No pneumothorax. No pleural fusions. There are low lung volumes. The heart is mildly enlarged. An aortic valve stent again noted. There is progressive interstitial and vascular thickening with patchy airspace opacities within the right midlung zone and left lung base. This favors pulmonary edema. A multifocal pneumonia could also have a similar appearance. No acute fractures identified. IMPRESSION: There is progressive interstitial and vascular thickening with patchy airspace opacities within the right midlung zone and left lung base. This favors pulmonary edema. A multifocal pneumonia could also have a similar appearance. ACT 112: Negative or not required by law. Electronically signed by: Jeison Restrepo M.D. 06/24/2023 2:31 PM Chest CTA 06/24/23 15:21 CT ANGIOGRAPHY OF THE CHEST, PULMONARY EMBOLUS PROTOCOL CLINICAL HISTORY: Shortness of breath. Evaluate for pulmonary embolus. COMPARISON STUDY: Chest CT March 06, 2021. Chest radiograph performed earlier today. TECHNIQUE: Following IV administration of 118 mL of Optiray, helical axial images of the chest were obtained utilizing the pulmonary embolus protocol. Maximal intensity projections and sagittal and coronal reformats were viewed on an independent 3D workstation. IV contrast was administered without complication. Automated exposure control was utilized for the study. A dose lowering technique was utilized adhering to the principles of ALARA. CT DOSE: 893.09 mGy.cm FINDINGS: No pulmonary emboli are identified although the subsegmental pulmonary arteries are suboptimally assessed due to respiratory motion. Aortic valvular prosthesis is in place. There is no pericardial effusion. No pneumothorax or pleural effusion is present. Multifocal alveolar opacities. The lungs are noted, including several foci of consolidation. No central obstructing mass is noted. There is no cavitation. Underlying chronic interstitial th ickening is noted. Multiple mildly enlarged mediastinal lymph nodes are noted. Index right paratracheal lymph node on image 186 of 223 measures 2.8 x 1.9 cm. These nodes have increased in size since prior CT. There is hepatic steatosis. IMPRESSION: 1. No pulmonary emboli identified although subsegmental pulmonary arteries suboptimally assessed. 2. Moderate alveolar opacities throughout the lungs, including multifocal consolidation. The findings favor pneumonia. Follow-up chest CT in 3 months to ensure resolution is recommended. 3. Mildly enlarged mediastinal lymph nodes which are likely reactive. These can be assessed on follow-up CT to ensure resolution. ACT 112: Negative or not required by law. Electronically signed by: Jason Castro M.D. 06/24/2023 4:35 PM Chest X-Ray 06/25/23 07:00 XR chest 1V portable CLINICAL HISTORY: Respiratory failure. COMPARISON STUDY: Chest radiograph and chest CT June 24, 2023. FINDINGS: Lung volumes are normal. There is no pneumothorax or pleural fusion. Multifocal airspace opacities and interstitial thickening have slightly progressed. Cardiomediastinal silhouette is stable. IMPRESSION: Multifocal airspace opacities and interstitial thickening which have mildly progressed. The findings favor multifocal pneumonia. ACT 112: Negative or not required by law. Electronically signed by: Jason Castro M.D. 06/25/2023 7:29 AM Hospital Course (1) Acute hypoxemic respiratory failure: Secondary to influenza A infection + bacterial superinfection/pneumonia with MSSA - Resolved Required high-flow NC / BIPAP early in the hospitalization, then weaned to NC O2, then to room air Stable in room air for several days prior to discharge/transfer to [facility] (2) Ventricular tachycardia, sustained: The patient developed a prolonged episode of monomorphic VT on the AM of 06/25/23 requiring defibrillation. He had a pulse but was unstable with agonal breathing and altered mental status during the event. Thus the decision was made to emergently defibrillate. The VT converted to NSR with 1 shock. Following such an IV amiodarone infusion was started. He was then transitioned to PO amiodarone 400mg BID on 06/26/23. Unfortunately he had recurrent ventricular tachycardia the AM of 06/27/23 and thus was placed back on amiodarone drip at that time. Did NOT require synchronized cardioversion or defibrillation for this 2nd episode as it was brief and he was stable during the event. Completed amiodarone infusion & changed to PO amiodarone 06/29/23. He was later started on metoprolol BID as well. Following the 2nd event on 06/27/23 he had no further VT or NSVT. Etiology of VT was uncertain. K was only marginally low - doubt it was due to electrolyte disturbance. He had undergone a cardiac catheterization in preparation for his TAVR in 2022 and, by report, his coronaries were relatively normal. 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 Other etiology? At time of discharge he remained on amiodarone 400mg BID + metoprolol 25mg BID. Patient will likely need ICD placement or, at minimum, a Life Vest. The patient has had much of his care at [facility] over the last few years including his TAVR in 03/2023. Thus, he requested transfer to [facility] in the event he needed other procedures including BENJAMIN, possible ICD placement, cardiac MRI, etc. (3) Multifocal pneumonia: staph aureus pneumonia in the setting of influenza infection. sputum culture was positive for MSSA. his pneumonia resolved nicely with IV antibiotics & supportive care. he was stable in room air for several days prior to transfer to [facility]. he was on IV nafcillin as recommended by [facility] infectious diseases upon transfer to [facility]. (4) Staphylococcus aureus bacteremia: admission blood cx's + for such. source - pulmonary. repeat blood cx's negative to date -- 06/25 and 06/28. 2D echo negative for valvular vegetations, but will need BENJAMIN in light of AVR to r/o SBE. ID consult was completed; initially was on IV ancef, then was transitioned to IV nafcillin. Some discussion about potentially using rifampin for synergy due to concern about SBE of his AVR but this was deferred during his stay at [facility]. [facility] Telehealth ID had suggested that even if the BENJAMIN is negative for valvular vegetations they may be leaning towards 6 weeks of IV antibiotic therapy. Defer final care plan to his providers at [facility]. (5) Influenza: resolved. completed 5 days of tamiflu. cont saline nebs BID. cont mucinex 1200mg BID. cont tessalon 200mg TID scheduled. cont duonebs scheduled. cont pulmicort respules BID. (6) Essential (primary) hypertension: improved with use of losartan 50mg BID + metoprolol 25mg BID. (7) Type 2 diabetes mellitus: Hba1c 7.8% cont novolog via insulin pump control satisfactory during much of the stay (8) Hyperlipidemia: cont statin (9) Obesity, morbid, BMI 50 or higher: BMI 52 (10) Severe obstructive sleep apnea: CPAP HS blend with O2 will need overnight oximetry study prior to d/c home to qualify him for O2 for night-time use (11) Status post transcatheter aortic valve replacement (TAVR) using bioprosthesis: 03/2023 - [facility] 2D echo with normal appearing and normal functioning AVR will need BENJAMIN in light of staph aureus bacteremia - defer to [facility] (12) Sarcoidosis: remote history of such dx early treated with 6-12 months of steroid therapy at that time in remission since then follows with Long COVID clinic at [facility] has been told that his sarcoid has been quiescent recently HOWEVER, in light of VT, does patient have ?recurrent sarcoid with cardiac involvement? checked 1,25-OH vit D level - did return mildly elevated at 82 which may suggest active sarcoid if any recurrent VT --> start IV steroids for empiric treatment for sarcoid while at [facility] rheumatology/pulmonary can be consulted if needed (13) Long COVID: initial COVID diagnosis - 03/2020; had severe illness with prolonged, nearly month-long stay follows with long COVID clinic at [facility] by report has chronic lung disease as a result of his previous severe COVID illness (14) Constipation: cont senna cont miralax (15) Hypomagnesemia: repleted resolved Plan DVT proph - 0.5mg/kg/dose q12h of lovenox utilized while here did receive PT/OT services while hospitalized patient needs BENJAMIN, ? ICD placement, potentially other procedures/work-up (cardiac MRI, etc) he has been followed by [facility] for several years and had his TAVR at [facility] in 03/2023 he would prefer transfer to [facility] for all of the above to that end called [facility] Transfer Center on 06/[address] Jean Villafana, [facility], who did accept patient in transfer on 06/29 his insurance approval was delayed numerous days unfortunately he finally did transfer to [facility] on 07/05/23 for ongoing care ultimate accepting completion supervisor at [facility] - Dr Héctor Chopra Total Time Total Time Spent Total Time Spent (In Minutes): 60 Discharge Plan Discharge Items Patient Disposition: Transfer Acute Care Hospital Reason For Visit: RESP FAILURE Discharge Diagnosis: 1. influenza A infection - resolved 2. staph aureus pneumonia - resolving 3. staph aureus (MSSA) bacteremia - improved; blood cx's 06/26/23 and 06/29/23 NEGATIVE 4. history of sarcoid early ; currently elevated 1,25-OH vitamin D level of 82 (normal 18-72) 5. monomorphic ventricular tachycardia s/p defibrillation and initiation of amiodarone 6. morbid obesity BMI 52 7. history of severe COVID 03/2020 8. long COVID 9. h/o TAVR - 03/2024 - [facility] 10. T2DM on insulin pump 11. NAVJOT on CPAP 12. HTN 13. Hyperlipidemia 14. Hypokalemia - resolved 15. acute hypoxic respiratory failure 2nd to #1, #2 - resolved Activity: Resume your previous activity Non-emergency contact: Primary Care Provider and Stile Ripsaw Operator Call non-emergency contact if: you have any medication questions Follow-up/Referrals: Ferdinand Kirkpatrick MD [Primary Care Provider] - Diet: Carb Consistent or DM2 Addtl Attending Provider Instructions: Further instructions to follow after your stay at [facility]. I would like to thank Dr Héctor Chopra and Dr Jean Villafana, [facility], for accepting Mr Mcnamara in transfer for ongoing care at [facility]. Pending Studies at Discharge: No Stand-Alone Forms: My [facility] [employer] Skilled Items Patient informed of condition?: Yes DNR: No Discharge Level of Care: Other Communicable Disease: No Discharge Prognosis: Stable Lines: Peripheral IV Urinary Catheter: No Medications and DC Order Prescriptions: New sennosides [Senokot] 8.6 mg Tablet 17.2 mg PO QAM Qty: 30 0RF ipratropium-albuterol 0.5 mg-3 mg(2.5 mg base)/3 mL Solution For Nebulization 3 ml NEB QIDR Qty: 1 0RF polyethylene glycol 3350 [Miralax] 17 gram Powder In Packet 17 g PO DAILY Qty: 1 0RF amiodarone 200 mg Tablet 400 mg PO BIDM Qty: 120 0RF benzonatate 100 mg Capsule 200 mg PO TID Qty: 1 0RF budesonide 0.25 mg/2 mL Suspension For Nebulization 0.25 mg NEB BIDR Qty: 1 0RF metoprolol tartrate 25 mg Tablet 25 mg PO BID Qty: 60 2RF sodium chloride 7 % Solution For Nebulization 4 ml NEB BIDR Qty: 1 0RF guaifenesin [Mucinex] 600 mg Tablet Extended Release 12hr 1,200 mg PO Q12 Qty: 1 0RF nafcillin 2 gram recon soln 2 g IV Q4H Qty: 10 0RF Continued olmesartan 40 mg tablet 40 mg PO DAILY multivitamin Tablet 1 tab PO QAM esomeprazole magnesium 40 mg capsule,delayed release(DR/EC) 40 mg PO QAM insulin lispro [Humalog U-100 Insulin] 100 unit/mL solution 0 unit continuous subcutaneous infusion CONTINOUS rosuvastatin 20 mg tablet 20 mg PO DAILY aspirin 81 mg Tablet,Delayed Release (Dr/Ec) 81 mg PO DAILY Held metformin 500 mg tablet extended release 24 hr 1,000 mg PO BID Hold Instructions: hold until after your stay at [facility] Discharge Orders: Discharge Order (Routine); Ordered 07/05/23 Ordered By: Te Vaca/Other Patient Handouts: Managing Type 2 Diabetes Admission Data Admit Date/Time: 06/24/23 15:21 Attending Provider: Te Sharif Admit Provider: Dick Castillo Primary Care Provider: Ferdinand Kirkpatrick Other Providers: Dick Castillo; Shantanu Malave; Abebe Grossman; Varghese Gracia; Maximilian Robles; Hilario Denny; Sidney Beal; Zane Church Jr; Matthew Donato; Jessa Wynne; Marcella Hermosillo; Shawn Lawrence; Shawn Hall; Jozef Williamson; Kaykay Shrestha; Tennille Jo; Luis Hoff; Sánchez Tom; Bronson Krueger; Hermelinda Ugarte; Casi Pierson; Hola Mix; Iman Keenan; Patience Elziabeth; Darcy Ambrosio; Brianna Momin; Raeann Hayward Coding Level of Care Code 20102 INP/OBS DISCH >30 MIN Diagnoses Acute hypoxemic respiratory failure J96.01 Ventricular tachycardia, sustained I47.20 Multifocal pneumonia J18.9 Staphylococcus aureus bacteremia R78.81; B95.61 Influenza J11.1 Essential (primary) hypertension I10 Type 2 diabetes mellitus E11.9 Hyperlipidemia E78.5 Obesity, morbid, BMI 50 or higher E66.01 Severe obstructive sleep apnea G47.33 Status post transcatheter aortic valve replacement (TAVR) using bioprosthesis Z95.3 Sarcoidosis D86.9 Long COVID U09.9 Constipation K59.00 Hypomagnesemia E83.42
== END 2023-07-05 12:19 | disposition short-term general hospital (02) | DRG 871 ==
LOC: ED 12:18 → 1E 15:21 → SUATTDRO 15:21 → 1E 15:40 → 2S 07-04 18:34